=== PATIENT | female | born 1970 | race Caucasian/White ===

== ENCOUNTER 2017-06-04 12:53 | Inpatient (IN) | payer SELFPAY ==
[~2017-06-04] VITALS: Ht 160 cm; Wt 53.3 kg
[2017-06-04 12:55] VITALS: BP 137/93; PULSE 134; RESP 20; TEMP 99.4; O2SAT 97
[2017-06-04] MEDS ORDERED: ZANT150T2 PO (13:18)
[2017-06-04] MEDS ORDERED: ALUMINUM/MAGNESIUM/SIMETH 30 ML CUP PO ONE (13:30)
[2017-06-04] MEDS ORDERED: LIDOCAINE VISCOUS 2% SOLN 15 ML UDC PO ONE (13:30)
[2017-06-04] MEDS ORDERED: SODIUM CHLORIDE 0.9% FLUSH 10 ML FLUSH IVF PRN (13:30)
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
[2017-06-04 14:00] VITALS: O2SAT 99
[2017-06-04 14:18] LABS: AUTOMATED NEUTROPHIL # 9.6 TH/MM3 (1.8-7.7); BASOPHIL # 0.1 TH/MM3 (0-0.2); BASOPHIL % 0.6 % (0.0-2.0); EOSINOPHIL # 0.1 TH/MM3 (0-0.4); EOSINOPHIL % 0.8 % (0.0-4.0); HEMATOCRIT 40.2 % (35.0-46.0); HEMO FLAGS DIFF FINAL; LYMPHOCYTE # 1.3 TH/MM3 (1.0-4.8); MEAN CELL VOLUME 86.7 FL (80.0-100.0); MEAN CORPUSCULAR HEMOGLOBIN 28.5 PG (27.0-34.0); MEAN CORPUSCULAR HGB CONC 32.9 % (32.0-36.0); MONO % 9.3 % (0.0-8.0); NEUT % 78.3 % (16.0-70.0); PLATELET COUNT 299 TH/MM3 (150-450); RED BLOOD COUNT 4.63 MIL/MM3 (4.00-5.30); RED CELL DISTRIBUTION WIDTH 19.7 % (11.6-17.2); WHITE BLOOD COUNT 12.2 TH/MM3 (4.0-11.0)
[2017-06-04 14:30] LABS: INTERNATIONAL NORMALIZED RATIO 1.1 RATIO; PROTHROMBIN TIME - PATIENT 11.7 SEC (9.8-11.6)
[2017-06-04] MEDS ORDERED: SODIUM CHLOR 0.9% 1000 ML INJ 1,000 ML IV ONE (14:30)
[2017-06-04 14:49] LABS: ALKALINE PHOSPHATASE 113 U/L (45-117); ALT (GPT) 29 U/L (10-53); ANION GAP 11 MEQ/L (5-15); AST (GOT) 23 U/L (15-37); BICARBONATE 25.5 MEQ/L (21.0-32.0); BLOOD UREA NITROGEN 12 MG/DL (7-18); CHLORIDE 101 MEQ/L (98-107); GLOMERULAR FILTRATION RATE 116 ML/MIN (>89); MAGNESIUM 1.7 MG/DL (1.5-2.5); POTASSIUM 3.2 MEQ/L (3.5-5.1); SODIUM (NA) 137 MEQ/L (136-145); TOTAL BILIRUBIN ADULT 0.8 MG/DL (0.2-1.0)
[2017-06-04 14:59] LABS: CREATINE KINASE 23 U/L (26-192)
--- NOTE | 2017-06-04 15:18 | RADRPT ---
EXAM DATE/TIME: 06/04/2017 14:07 [facility] COMPARISON: No previous studies available for comparison. INDICATIONS : Chest Pain MEDICAL HISTORY : None. SURGICAL HISTORY : None. ENCOUNTER: Initial ACUITY: 1 day PAIN SCORE: 6/10 LOCATION: Bilateral chest FINDINGS: The lungs are clear without infiltrate, nodule, or mass. There is no appreciable pleural effusion fo r technique. Heart and mediastinum are unremarkable. CONCLUSION: No acute cardiopulmonary disease. Robert Cullen MD on June 04, 2017 at 15:16 Board Certified Radiologist. This report was verified electronically.
[2017-06-04] MEDS ORDERED: IOHEXOL 350 MG/ML 10 ML VIAL (for RAD DIAG) IV ONE (16:11)
--- NOTE | 2017-06-04 16:26 | RADRPT ---
EXAM DATE/TIME: 06/04/2017 16:06 [facility] COMPARISON: No previous studies available for comparison. INDICATIONS : Mid chest pain radiates to left shoulder since yesterday. IV CONTRAST: 75 cc Omnipaque 350 (iohexol) IV RADIATION DOSE: 21.52 CTDIvol (mGy) MEDICAL HISTORY : None SURGICAL HISTORY : Cholecystectomy. ENCOUNTER: Initial ACUITY: 2 days PAIN SCALE: 6/10 LOCATION: Left TECHNIQUE: Volumetric scanning of the chest was performed using a pulmonary embolism protocol MIP images were re constructed. Using automated exposure control and adjustment of the mA and/or kV according to patien t size, radiation dose was kept as low as reasonably achievable to obtain optimal diagnostic quality images. DICOM format image data is available electronically for review and comparison. Follow-up recommendations for incidentally detected pulmonary nodules are based at a minimum on nodul e size and patient risk factors according to Fleischner Society Guidelines. FINDINGS: There is no evidence for PE for technique. There are 2 small lymph nodes in the right cardiophrenic a ngle measuring almost 1 cm each. The esophageal wall appears diffusely thickened distally surrounding adenopathy which measures 2.6 cm in size somewhat matted in the subcarinal location and there appear s to be some degree of enhancement within this area of adenopathy or soft tissue mass. The upper abdo men demonstrates masses adjacent to the stomach not adequately characterize and not completely visual ized and the liver is inhomogeneous. There is a tiny left pleural effusion. Lungs are clear. There is no evidence for dissection. CONCLUSION: 1. There is no evidence for PE for technique. 2. Abnormal thickening of the esophageal wall with surrounding soft tissue mass demonstrate some mini mal enhancement possibly a malignant mass or malignant adenopathy. There also small lymph nodes in th e cardiophrenic angle and very inhomogeneous liver with masses in the upper abdomen and complete CT e xamination of the abdomen and pelvis with intravenous and oral contrast is recommended. Robert Cullen MD on June 04, 2017 at 16:18 Board Certified Radiologist. This report was verified electronically.
[2017-06-04] MEDS ORDERED: KETOROLAC TROMETHAMINE 30 MG/ML (IVP) VIAL IV PUSH ONE (16:30)
[2017-06-04] MEDS ORDERED: PANTOPRAZOLE SODIUM 40 MG VIAL IV PUSH SCH ×2 (18:30→20:00)
[2017-06-04 19:00] VITALS: BP 117/75; PULSE 89; RESP 20; O2SAT 98
[2017-06-04] MEDS ORDERED: ACETAMINOPHEN 325 MG TAB PO PRN (19:30)
[2017-06-04] MEDS ORDERED: MORPHINE SULFATE 4 MG/ML INJ IV PRN (19:30)
[2017-06-04] MEDS ORDERED: SODIUM CHLORIDE 0.9% FLUSH 10 ML FLUSH IV FLUSH PRN (19:30)
[2017-06-04] MEDS ORDERED: LACTULOSE SYRUP 20 GM/30 ML CUP PO PRN (19:30)
[2017-06-04] MEDS ORDERED: MAGNESIUM HYDROXIDE SUSP 30 ML CUP PO PRN (19:30)
[2017-06-04] MEDS ORDERED: SENNOSIDES 8.6 MG TAB PO PRN (19:30)
[2017-06-04] MEDS ORDERED: BISACODYL 10 MG SUPP RECTAL PRN (19:30)
--- NOTE | 2017-06-04 19:45 | HHI.HP ---
[facility] Primary Care Physician No Primary Care Physician Admission Diagnosis Pancreatitis, Esophageal mass Diagnoses: (1) Chest pain Diagnosis: Principal (2) Pancreatitis Diagnosis: Principal (3) Esophageal mass Diagnosis: Principal (4) Leukocytosis Diagnosis: Principal (5) Hypokalemia Diagnosis: Principal (6) Tobacco abuse Diagnosis: Principal Travel History International Travel<30 Days: No Contact w/Intl Traveler <30 Da: No Traveled to Known Affected Are: No History of Present Illness This is a 43-year-old female with no significant PMH except for Tobacco Abuse as the ER with complaints of epigastric/chest pain x2 days. States pain is intermittent w/ radiation to left shoulder and back. Denies fever, chills, cough, SOB, nausea or vomiting. No h/o similar symptoms in the past. On arrival, BP 137/93, HR 134, O2 sat 97% on RA, Temp 99.4. W WBC 12.2. K+ 3.2. Troponin negative. Lipase 787. INR 1.1. D-dimer 2.32. CXR with no acute findings. CTA Pulm negative for PE, noted to have abnormal thickening of esophageal wall w/ surrounding soft tissue mass, ?malignant mass or malignant adenopathy, recommendation for CT Abd/Pelvis, currently pending. Pt denies h/o similar findings. Review of Systems Except as stated in HPI: all other systems reviewed are Neg ROS: 14 point review of systems otherwise negative. Past Family Social History Past Medical History PMH: None Past Surgical History PAST SURGICAL HISTORY: Cholecystectomy Allergies: Coded Allergies: Methadone (Verified Allergy, Severe, 09/27/03) Penicillin (Verified Allergy, Severe, Anaphylaxis, 09/26/03) Family History PAST FAMILY HISTORY: Reviewed. No h/o DM or CAD Social History PAST SOCIAL HISTORY: Occasional alcohol. Positive for tobacco. Negative for drugs. Physical Exam Vital Signs Vital Signs Date Time Temp Pulse Resp B/P Pulse Ox O2 Delivery O2 Flow Rate FiO2 06/04/17 14:00 99 06/04/17 14:00 Nasal Cannula 2 06/04/17 12:55 99.4 134 20 137/93 97 Room Air Physical Exam PE: GENERAL: Pleasant middle-aged white female in no acute distress, mildly anxious. HEENT: PERRLA, EOMI. No scleral icterus or conjunctival pallor. No lid lag or facial droop. CARDIOVASCULAR: Regular rate and rhythm. No obvious murmurs to auscultation. No chest tenderness to palpation. RESPIRATORY: No obvious rhonchi or wheezing. Clear to auscultation. Breath sounds equal bilaterally. GASTROINTESTINAL: Abdomen soft, epigastric tenderness to palpation, nondistended. BS normal. MUSCULOSKELETAL: Extremities without clubbing, cyanosis, or edema. No obvious deformities. NEUROLOGICAL: Awake, alert and oriented x4. No focal neurologic deficits. Moving both upper and lower extremities spontaneously. Laboratory Laboratory Tests Test 06/04/17 13:50 White Blood Count 12.2 Red Blood Count 4.63 Hemoglobin 13.2 Hematocrit 40.2 Mean Corpuscular Volume 86.7 Mean Corpuscular Hemoglobin 28.5 Mean Corpuscular Hemoglobin 32.9 Concent Red Cell Distribution Width 19.7 Platelet Count 299 Mean Platelet Volume 7.7 Neutrophils (%) (Auto) 78.3 Lymphocytes (%) (Auto) 11.0 Monocytes (%) (Auto) 9.3 Eosinophils (%) (Auto) 0.8 Basophils (%) (Auto) 0.6 Neutrophils # (Auto) 9.6 Lymphocytes # (Auto) 1.3 Monocytes # (Auto) 1.1 Eosinophils # (Auto) 0.1 Basophils # (Auto) 0.1 CBC Comment DIFF FINAL Differential Comment Prothrombin Time 11.7 Prothromb Time International 1.1 Ratio Activated Partial 28.0 Thromboplast Time D-Dimer Quantitative (PE/DVT) 2.32 Sodium Level 137 Potassium Level 3.2 Chloride Level 101 Carbon Dioxide Level 25.5 Anion Gap 11 Blood Urea Nitrogen 12 Creatinine 0.57 Estimat Glomerular Filtration 116 Rate Random Glucose 99 Calcium Level 9.2 Magnesium Level 1.7 Total Bilirubin 0.8 Aspartate Amino Transf 23 (AST/SGOT) Alanine Aminotransferase 29 (ALT/SGPT) Alkaline Phosphatase 113 Total Creatine Kinase 23 Troponin I LESS THAN 0.02 Total Protein 7.7 Albumin 3.4 Lipase 787 Result Diagram: 06/04/17 1350 06/04/17 1350 Assessment and Plan Problem List: (1) Chest pain ICD Code: R07.9 Status: Acute (2) Pancreatitis ICD Code: K85.90 Status: Acute (3) Esophageal mass ICD Code: K22.9 Status: Acute (4) Leukocytosis ICD Code: D72.829 Status: Acute (5) Hypokalemia ICD Code: E87.6 Status: Acute (6) Tobacco abuse ICD Code: Z72.0 Status: Acute Assessment and Plan A/P: 1. Chest Pain: Unlikely cardiac, likely secondary to Pancreatitis and Esophageal Mass. Initial trop negative, EKG w/ no acute changes. Will check serial cardiac enzymes for further eval. CXR w/ no acute findings, images reviewed by me. 2. Pancreatitis: Mild. Lipase 787. Protonix IV. Analgesics/antiemetics as needed. Repeat Lipase in am. LFTs normal. 3. Esophageal Mass: CTA Pulm negative for PE, however found to have thickening of esophageal wall w/ ? malignant mass or malignant adenopathy, recommendation for CT Abd/Pelvis w/ contrast, images reviewed by me. CT Abd/ Pelvis scheduled for am in light of recent contrast. Will follow up. Pt denies h/o similar findings. Consult GI for further eval. Analgesics/ antiemetics as needed. 4. Leukocytosis: WBC 12.2. Afebrile. CXR w/ no acute findings, images reviewed. Repeat labs in am. 5. Hypokalemia: K+ 3.2, replace and recheck in am. 6. Tobacco Abuse: Pt requesting NicoDerm patch, ordered. 7. DVT Prophylaxis: SCD/Teds. 8. Social work for d/c planning as needed. 9. Case discussed w/ ER physician at length. Jenny Pimentel MD Jun 04, 2017 19:45
[2017-06-04] MEDS ORDERED: D5-NS + KCL 20 MEQ INJ 1,000 ML IV SCH (20:00)
[2017-06-04] MEDS: REMOVE OLD PATCH T-DERMAL SCH (20:00)
[2017-06-04] MEDS ORDERED: MORPHINE SULFATE 8 MG/ML INJ ONE (20:13)
[2017-06-04] MEDS: NICOTINE 21 MG/24 HR PATCH T-DERMAL SCH (20:14)
[2017-06-04] MEDS: SODIUM CHLOR 0.9% 1000 ML INJ 1,000 ML IV SCH (20:14)
[2017-06-04] MEDS: ONDANSETRON HCL 4 MG/2 ML VIAL IVP PRN (20:28)
[2017-06-04] MEDS: SODIUM CHLORIDE 0.9% FLUSH 10 ML FLUSH IV FLUSH SCH (20:52)
[2017-06-04] MEDS: DOCUSATE SODIUM 50 MG/SENNA 8.6 MG TAB PO SCH (20:52)
[2017-06-04 22:16] VITALS: BP 138/87; PULSE 104; RESP 18; TEMP 99.3; O2SAT 92
[2017-06-04] MEDS: ZOLPIDEM TARTRATE 5 MG TAB PO PRN (22:28)
[2017-06-04] MEDS: ACETAMINOPHEN/HYDROcodone 325 MG/5 MG TAB PO PRN (22:28)
[2017-06-04] MEDS: MORPHINE SULFATE 8 MG/ML INJ IV PUSH PRN (22:57)
[2017-06-05] VITALS (7 sets, daily range): BP systolic 134–170; BP diastolic 78–96; PULSE 106–121; RESP 17–22; TEMP 97.3–100.5; O2SAT 89–95
[2017-06-05] MEDS: ACETAMINOPHEN/HYDROcodone 325 MG/5 MG TAB PO PRN ×5 (01:48→23:19)
[2017-06-05] MEDS: MORPHINE SULFATE 8 MG/ML INJ IV PUSH PRN ×6 (02:54→20:30)
[2017-06-05] MEDS: SODIUM CHLOR 0.9% 1000 ML INJ 1,000 ML IV SCH (05:29)
[2017-06-05] MEDS: ONDANSETRON HCL 4 MG/2 ML VIAL IVP PRN ×2 (06:01→13:54)
[2017-06-05 06:55] LABS: AUTOMATED NEUTROPHIL # 11.6 TH/MM3 (1.8-7.7); BASOPHIL % 0.3 % (0.0-2.0); EOSINOPHIL # 0.1 TH/MM3 (0-0.4); EOSINOPHIL % 0.8 % (0.0-4.0); HEMATOCRIT 36.5 % (35.0-46.0); HEMO FLAGS DIFF FINAL; LYMPHOCYTE # 1.1 TH/MM3 (1.0-4.8); MEAN CELL VOLUME 88.2 FL (80.0-100.0); MEAN CORPUSCULAR HEMOGLOBIN 28.6 PG (27.0-34.0); MEAN CORPUSCULAR HGB CONC 32.4 % (32.0-36.0); MONO % 6.8 % (0.0-8.0); NEUT % 84.1 % (16.0-70.0); PLATELET COUNT 215 TH/MM3 (150-450); RED BLOOD COUNT 4.13 MIL/MM3 (4.00-5.30); RED CELL DISTRIBUTION WIDTH 19.7 % (11.6-17.2); WHITE BLOOD COUNT 13.8 TH/MM3 (4.0-11.0)
[2017-06-05 07:08] LABS: ALT (GPT) 28 U/L (10-53); ANION GAP 9 MEQ/L (5-15); AST (GOT) 22 U/L (15-37); BICARBONATE 25.1 MEQ/L (21.0-32.0); BLOOD UREA NITROGEN 8 MG/DL (7-18); CHLORIDE 102 MEQ/L (98-107); GLOMERULAR FILTRATION RATE 170 ML/MIN (>89); POTASSIUM 3.2 MEQ/L (3.5-5.1); SODIUM (NA) 136 MEQ/L (136-145)
[2017-06-05 07:20] LABS: ALKALINE PHOSPHATASE 104 U/L (45-117); TOTAL BILIRUBIN ADULT 0.7 MG/DL (0.2-1.0)
--- NOTE | 2017-06-05 07:51 | HHI.PR ---
Subjective Remarks complains of epigastric discomfort/pain radiating to the chest- - no dysphagia but feels pain in the midsternum just recently poor po appetite past few weeks lately nausea and diarrhea past 2-3 days poor po when eating patient states + weight loss she was size 5 a year ago and now down to 0 she attributed some of this poor po and weight loss to- "going through a divorce " complains of " foul smelling odor" on her urine but no dysuria LMP about 2 weeks ago- irregular cycles denies chronic alcohol use appears anxious- states history of anxiety disorder in the past- at one point was on Xanax "years ago" Objective Vitals Vital Signs Date Time Temp Pulse Resp B/P Pulse Ox O2 Delivery O2 Flow Rate FiO2 06/05/17 07:31 99.2 118 20 148/90 92 06/05/17 06:03 20 06/05/17 03:53 97.3 106 20 144/91 94 06/05/17 02:48 20 06/05/17 01:50 114 95 06/05/17 00:47 99.5 110 17 134/78 89 06/04/17 22:16 99.3 104 18 138/87 92 06/04/17 19:00 89 20 117/75 98 Room Air 06/04/17 14:00 99 06/04/17 14:00 Nasal Cannula 2 06/04/17 12:55 99.4 134 20 137/93 97 Room Air I/O 06/04/17 06/04/17 06/04/17 06/05/17 06/05/17 06/05/17 06:59 14:59 22:59 06:59 14:59 22:59 Intake Total 615 ml Balance 615 ml Intake Oral 0 ml IV Total 615 ml Result Diagram: 06/05/17 0601 06/05/17 0601 Imaging Last Impressions Chest X-Ray 06/04/17 1329 Signed Impressions: Service Date/Time: Sunday, June 04, 2017 14:07 - CONCLUSION: No acute cardiopulmonary disease. Robert Cullen MD CT Angiography 06/04/17 0000 Signed Impressions: Service Date/Time: Sunday, June 04, 2017 16:06 - CONCLUSION: 1. There is no evidence for PE for technique. 2. Abnormal thickening of the esophageal wall with surrounding soft tissue mass demonstrate some minimal enhancement possibly a malignant mass or malignant adenopathy. There also small lymph nodes in the cardiophrenic angle and very inhomogeneous liver with masses in the upper abdomen and complete CT examination of the abdomen and pelvis with intravenous and oral contrast is recommended. Robert Cullen MD Objective Remarks awake and alert, appears anxious, oriented x 3, slightly tremulous anicteric lungs clear regular rhythm abdomen+ tenderness on deep palpation of epigastric area, + guarding, + bowel sounds extremities no edema neuro exam- non focal A/P Problem List: (1) Chest pain ICD Code: R07.9 Status: Acute (2) Pancreatitis ICD Code: K85.90 Status: Acute (3) Esophageal mass ICD Code: K22.9 Status: Acute (4) Leukocytosis ICD Code: D72.829 Status: Acute (5) Hypokalemia ICD Code: E87.6 Status: Acute (6) Tobacco abuse ICD Code: Z72.0 Status: Acute Assessment and Plan A/P: Chest Pain: Unlikely cardiac, likely secondary to Pancreatitis and Esophageal Mass. Initial trop negative, EKG w/ no acute changes. EKG reviewed . CTA negative for PE Pancreatitis: Mild. Lipase 787. Protonix IV. Analgesics/antiemetics as needed. repeat lipase pending.. continue IVF Esophageal Mass: + weight loss. CT- thickening of esophageal wall w/ ? malignant mass or malignant adenopathy with liver masses for CT Abd/Pelvis scheduled today. GI consulted- EGD/ liver biospy/ ?colonoscopy- with diarrhea PPI IV Leukocytosis: WBC 12.2. Afebrile. CXR w/ no acute findings, images reviewed. Repeat labs pending. check UA- complains of foul smelling odor Acute Diarrhea r/o gastroenteritis- recenti diarrhea, IVF Hypokalemia: K+ 3.2,Give KCL meq IV bolus x 3. FF BMP Tobacco Abuse: NicoDerm patch, DVT Prophylaxis: SCD/Teds. Social work for d/c planning as needed. Case discussed w/ patient Check drug screen, alcohol level Pato Noble MD Jun 05, 2017 07:51
--- NOTE | 2017-06-05 08:47 | PD.CONS ---
HPI History of Present Illness This is a 43 year old female with a history of pancreatitis, who came to the ER for evaluation of odynophagia with associated nausea, vomiting, diarrhea. Her symptoms began 2 days ago and she describes this as a severe "squeezing" pain in her substernal area that radiates to her left shoulder, back, and epigastric area/LUQ. This is aggravated by any swallowing, even water. She reports that she was having nausea, vomiting, diarrhea for about 2 days before the odynophagia started. Her emesis consisted of clear or bilious material. Every time she would also have a liquid brown stool every time she took anything by mouth. She initially thought she had the flu and just tried to rest. The nausea, vomiting, and diarrhea resolved 2 days ago, but she began having the odynophagia and epigastric/LUQ pain. Her symptoms are aggravated with po intake , swallowing and deep breathing. CT Angiography (06/04/17)----> 1. There is no evidence for PE for technique. 2. Abnormal thickening of the esophageal wall with surrounding soft tissue mass demonstrate some minimal enhancement possibly a malignant mass or malignant adenopathy. There also small lymph nodes in the cardiophrenic angle and very inhomogeneous liver with masses in the upper abdomen and complete CT examination of the abdomen and pelvis with intravenous and oral contrast is recommended. She reports that she does not have GERD, but was started on ranitidine when she was first diagnosed with pancreatitis and has continued this. She first had pancreatitis 3 years ago and has been hospitalized twice for this. She is not sure of the etiology, but was told that it was related to alcohol use. She occasionally drinks alcohol and did have 4 shots of ETOH 3 days ago. She has had abnormal weight loss. She does not know how much, but states she went from a size 5 to size 0-1 in the past year. She denies any history of esophageal, gastric, or colorectal cancer. Her sister was recently diagnosed with breast and brain cancer. (Vianca Gomes) [facility] Past Medical History Pancreatitis Hx of narcotic abuse/overdose Respiratory failure secondary to overdose. Past Surgical History Cholecystectomy (Vianca Gomes) Coded Allergies: Methadone (Verified Allergy, Severe, 09/27/03) Penicillin (Verified Allergy, Severe, Anaphylaxis, 09/26/03) Medications Allergies Coded Allergies Type Severity Reaction Last Updated Verified Methadone Allergy Severe 09/27/03 Yes Penicillin Allergy Severe Anaphylaxis 09/26/03 Yes Active Scripts Medications Dose Route/Sig Days Date Category Zantac (Ranitidine HCl) 150 Mg Tab 150 Mg PO DAILY 06/04/17 Reported Family History No h/o DM or CAD No esophageal, gastric, or colorectal cancer Sister recently diagnosed with brain and breast cancer, in her 60's Social History Occasional alcohol Negative for drugs She was smoking 1.5 PPD, but states she now uses the E-Cigarette and is now down to 1/2-3/4 ppd. (Vianca Gomes) Review of Systems Constitutional: COMPLAINS OF: Fatigue, Weight loss, Chills, Change in appetite , DENIES: Fever Respiratory: DENIES: Cough, Shortness of breath Cardiovascular: COMPLAINS OF: Chest pain Gastrointestinal: COMPLAINS OF: Abdominal pain, Diarrhea, Nausea, Vomiting, Anorexia, Odynophagia, DENIES: Black stools, Bloody stools, Constipation, Difficulty Swallowing, Swelling of Abdomen, Heartburn Musculoskeletal: DENIES: Joint pain Integumentary: DENIES: Abnormal pigmentation Hematologic/lymphatic: DENIES: Bruising Neurologic: DENIES: Headache Psychiatric: DENIES: Confusion (Vianca Gomes) GI Exam Vitals I&O Vital Signs Date Time Temp Pulse Resp B/P Pulse Ox O2 Delivery O2 Flow Rate FiO2 06/05/17 07:31 99.2 118 20 148/90 92 06/05/17 06:03 20 06/05/17 03:53 97.3 106 20 144/91 94 06/05/17 02:48 20 06/05/17 01:50 114 95 06/05/17 00:47 99.5 110 17 134/78 89 06/04/17 22:16 99.3 104 18 138/87 92 06/04/17 19:00 89 20 117/75 98 Room Air 06/04/17 14:00 99 06/04/17 14:00 Nasal Cannula 2 06/04/17 12:55 99.4 134 20 137/93 97 Room Air I/O 06/04/17 06/04/17 06/04/17 06/05/17 06/05/17 06/05/17 07:00 15:00 23:00 07:00 15:00 23:00 Intake Total 615 ml Balance 615 ml Intake Oral 0 ml IV Total 615 ml Imaging Last Impressions Chest X-Ray 06/04/17 1329 Signed Impressions: Service Date/Time: Sunday, June 04, 2017 14:07 - CONCLUSION: No acute cardiopulmonary disease. Robert Cullen MD CT Angiography 06/04/17 0000 Signed Impressions: Service Date/Time: Sunday, June 04, 2017 16:06 - CONCLUSION: 1. There is no evidence for PE for technique. 2. Abnormal thickening of the esophageal wall with surrounding soft tissue mass demonstrate some minimal enhancement possibly a malignant mass or malignant adenopathy. There also small lymph nodes in the cardiophrenic angle and very inhomogeneous liver with masses in the upper abdomen and complete CT examination of the abdomen and pelvis with intravenous and oral contrast is recommended. Robert Cullen MD Laboratory Test 06/04/17 06/05/17 06/05/17 13:50 00:04 06:01 White Blood Count 12.2 TH/MM3 13.8 TH/MM3 Red Blood Count 4.63 MIL/MM3 4.13 MIL/MM3 Hemoglobin 13.2 GM/DL 11.8 GM/DL Hematocrit 40.2 % 36.5 % Mean Corpuscular Volume 86.7 FL 88.2 FL Mean Corpuscular Hemoglobin 28.5 PG 28.6 PG Mean Corpuscular Hemoglobin 32.9 % 32.4 % Concent Red Cell Distribution Width 19.7 % 19.7 % Platelet Count 299 TH/MM3 215 TH/MM3 Mean Platelet Volume 7.7 FL 7.3 FL Neutrophils (%) (Auto) 78.3 % 84.1 % Lymphocytes (%) (Auto) 11.0 % 8.0 % Monocytes (%) (Auto) 9.3 % 6.8 % Eosinophils (%) (Auto) 0.8 % 0.8 % Basophils (%) (Auto) 0.6 % 0.3 % Neutrophils # (Auto) 9.6 TH/MM3 11.6 TH/MM3 Lymphocytes # (Auto) 1.3 TH/MM3 1.1 TH/MM3 Monocytes # (Auto) 1.1 TH/MM3 0.9 TH/MM3 Eosinophils # (Auto) 0.1 TH/MM3 0.1 TH/MM3 Basophils # (Auto) 0.1 TH/MM3 0.0 TH/MM3 CBC Comment DIFF FINAL DIFF FINAL Differential Comment Prothrombin Time 11.7 SEC Prothromb Time International 1.1 RATIO Ratio Activated Partial 28.0 SEC Thromboplast Time D-Dimer Quantitative (PE/DVT) 2.32 MG/L FEU Sodium Level 137 MEQ/L 136 MEQ/L Potassium Level 3.2 MEQ/L 3.2 MEQ/L Chloride Level 101 MEQ/L 102 MEQ/L Carbon Dioxide Level 25.5 MEQ/L 25.1 MEQ/L Anion Gap 11 MEQ/L 9 MEQ/L Blood Urea Nitrogen 12 MG/DL 8 MG/DL Creatinine 0.57 MG/DL 0.41 MG/DL Estimat Glomerular Filtration 116 ML/MIN 170 ML/MIN Rate Random Glucose 99 MG/DL 89 MG/DL Calcium Level 9.2 MG/DL 8.5 MG/DL Magnesium Level 1.7 MG/DL Total Bilirubin 0.8 MG/DL 0.7 MG/DL Aspartate Amino Transf 23 U/L 22 U/L (AST/SGOT) Alanine Aminotransferase 29 U/L 28 U/L (ALT/SGPT) Alkaline Phosphatase 113 U/L 104 U/L Total Creatine Kinase 23 U/L Troponin I LESS THAN 0.02 LESS THAN 0.02 LESS THAN 0.02 NG/ML NG/ML NG/ML Total Protein 7.7 GM/DL 6.5 GM/DL Albumin 3.4 GM/DL 2.8 GM/DL Lipase 787 U/L 454 U/L Physical Examination HEENT: Normocephalic; atraumatic; no jaundice. CHEST: CTA CARDIAC: RRR ABDOMEN: Soft, nondistended, mild epigastric/LUQ tenderness; no hepatosplenomegaly; bowel sounds are present in all four quadrants. EXTREMITIES: No clubbing, cyanosis, or edema. SKIN: Normal; no rash; no jaundice. QUOTATION CHECKER: No focal deficits; alert and oriented times three. (Vianca Gomes) Assessment and Plan Plan ASSESSMENT: - Odynophagia with abnormal imaging on CTA thorax with abnormal esophageal wall. Painful swallowing x [address] Angiography (06/04/17)----> 1. There is no evidence for PE for technique. 2. Abnormal thickening of the esophageal wall with surrounding soft tissue mass demonstrate some minimal enhancement possibly a malignant mass or malignant adenopathy. There also small lymph nodes in the cardiophrenic angle and very inhomogeneous liver with masses in the upper abdomen and complete CT examination of the abdomen and pelvis with intravenous and oral contrast is recommended. Never had EGD. Ice chips. - Abdominal pain with elevated lipase and hx of pancreatitis. Pt had first episode of pancreatitis 3 years ago and has had two hospitalizations. She was told that these episodes were most likely related to ETOH. She is s/p cholecystectomy. She reports that she occasionally drinks and had 4 shots [address] scan abdomen and pelvis pending. Lipase improved 454. - Hepatic masses. LFTs normal. No hx esophageal, gastric, or colorectal cancer. Her sister was recently diagnosed with breast and brain cancer. CT scan abdomen and pelvis pending. Will get AFP, Ca19-9, CEA, Hepatitis panel. - Abn. Wt. Loss, unintentional. Pt does not know how much but states she has gone from a size 5 to a size 0-1 over past year. - Leukocytosis, mild. WBC 13.8. - Hypokalemia. 3.2, replacement per attending. PLAN: - EGD in am - Obtain consents - Clear liquids - NPO after MN - Cont. PPI - Cont. IVF - Await CT Scan abdomen and pelvis - CEA, AFP, Ca19-9 - CBC, BMP in am - Supportive care - Further recommendations to follow based on results of above - Pt seen and examined by Dr. Cary and myself and this note is written on her behalf (Vianca Gomes) Physician Comments seen, examined agree with above tumor markers (April Cary MD) Vianca Gomes Jun 05, 2017 08:47 April Cary MD Jun 05, 2017 16:33
[2017-06-05] MEDS ORDERED: MISCELLANEOUS NURSING INFORMATION ONE (09:00)
[2017-06-05] MEDS: SODIUM CHLORIDE 0.9% FLUSH 10 ML FLUSH IV FLUSH SCH ×2 (09:00→20:24)
[2017-06-05] MEDS ORDERED: DIATRIZOATE MEGLUM/DIATRIZOATE SOD 9 ML CUP PO ONE (09:15)
[2017-06-05] MEDS: POTASSIUM CHLORIDE INJ 10 MEQ in DEXT 5%-NACL 0.9% 1000 ML INJ 1,000 ML IV SCH ×2 (10:04→20:31)
[2017-06-05] MEDS: POTASSIUM CHLOR 10 MEQ PREMIX 100 ML IV SCH ×3 (10:05→15:27)
[2017-06-05] MEDS: NICOTINE 21 MG/24 HR PATCH T-DERMAL SCH (10:06)
[2017-06-05] MEDS: REMOVE OLD PATCH T-DERMAL SCH (10:07)
[2017-06-05] MEDS: DOCUSATE SODIUM 50 MG/SENNA 8.6 MG TAB PO SCH ×2 (10:07→20:29)
[2017-06-05 12:57] LABS: BACTERIA, URINE MANY /hpf; BLOOD, URINE SMALL (NEG); COMMENT (UR) CULTURE INDICATED; CULTURE IF INDICATED CULTURE INDICATED; GLUCOSE,URINE NEG (NEG); KETONE, URINE TRACE mg/dL (NEG); MUCUS URINE FEW /lpf (OCC); NITRITE,URINE NEG (NEG); PH, URINE 5.5 (5.0-8.5); SQUAMOUS EPITHELIAL CELL URINE 3 /hpf (0-5); URINE COLOR YELLOW (YELLW/STRAW)
[2017-06-05 13:07] LABS: AMPHETAMINE, URINE NEG (NEG); BARBITURATES, URINE NEG (NEG); COCAINE, URINE NEG (NEG)
[2017-06-05] MEDS ORDERED: IOHEXOL 350 MG/ML 10 ML VIAL (for RAD DIAG) IV ONE (17:31)
--- NOTE | 2017-06-05 17:58 | RADRPT ---
EXAM DATE/TIME: 06/05/2017 17:29 [place] COMPARISON: CT PULMONARY ANGIOGRAM, June 04, 2017, 16:06. INDICATIONS : Left upper abdomen pain. IV CONTRAST: 60 cc Omnipaque 350 (iohexol) IV ORAL CONTRAST: Partial prescribed oral contrast ingested. RADIATION DOSE: 9.96 CTDIvol (mGy) MEDICAL HISTORY : None SURGICAL HISTORY : Cholecystectomy. ENCOUNTER: Initial ACUITY: 1 day PAIN SCALE: 8/10 LOCATION: Left upper quadrant TECHNIQUE: Volumetric scanning of the abdomen and pelvis was performed. Using automated exposure control and ad justment of the mA and/or kV according to patient size, radiation dose was kept as low as reasonably achievable to obtain optimal diagnostic quality images. DICOM format image data is available electro nically for review and comparison. FINDINGS: LOWER LUNGS: Small bilateral pleural effusions left greater than right. Mild bibasilar atelectasis. In the esophag eal hiatus region, extending into the left posterior abdomen is a large multiloculated fluid collect ion. The fluid is 10.2 x 3.1 cm across. There is an inferior extension into the body of the pancreas could be a dissecting large pseudocyst. There is an additional elongated collection in the anterior s ubphrenic space measuring 8.0 x 1.2 cm. I do not see any air or hemorrhage within the elongated irre gular fluid collection to suggest superinfection. It is unchanged from the previous study. Some of th e fluid dissects down the posterior aspect of the pararenal space on the left. LIVER: Heterogeneous density without lesion. There is no dilation of the biliary tree. Gallbladder surgical ly absent. SPLEEN: Normal size without lesion. Numerous splenic varices along the greater curvature of the stomach. I s uspect the splenic vein has been thrombosed previousty. PANCREAS: Dilatation suggest chronic pancreatitis. 2 cm fluid collection in the body the pancreas may be the be ginning of the large subphrenic collection noted previously. There is significant surrounding around the body of the pancreas. KIDNEYS: Normal in size and shape. There is no mass, stone or hydronephrosis. ADRENAL GLANDS: Within normal limits. VASCULAR: There is no aortic aneurysm. BOWEL/MESENTERY: The stomach, small bowel, and colon demonstrate no acute abnormality. There is no free intraperitone al air or fluid. ABDOMINAL WALL: Within normal limits. RETROPERITONEUM: There is no lymphadenopathy. BLADDER: No wall thickening or mass. REPRODUCTIVE: 2 cm left ovarian cyst. INGUINAL: There is no lymphadenopathy or hernia. MUSCULOSKELETAL: Within normal limits for patient age. CONCLUSION: In the esophageal hiatus region, extending into the left posterior abdomen is a large multiloculated fluid collection. The fluid is 10.2 x 3.1 cm across. There is an inferior extension into the body of the pancreas could be a dissecting large pseudocyst. There is an additional elongated collection in the anterior subphrenic space measuring 8.0 x 1.2 cm. I do not see any air or hemorrhage within the elongated irregular fluid collection to suggest superinfection. It is unchanged from the previous melissa dy. Some of the fluid dissects down the posterior aspect of the pararenal space on the left Brian Navarro MD on June 05, 2017 at 17:46 Board Certified Radiologist. This report was verified electronically.
--- NOTE | 2017-06-05 20:00 | EKG ---
Date Performed: 06/04/2017 Time Performed: 13:22:48 PTAGE: 43 years EKG: SINUS TACHYCARDIA MINIMAL VOLTAGE CRITERIA FOR LVH, CONSIDER NORMAL VARIANT NONSPECIFIC ST & T-WAVE ABNORMALITY ABNORMAL RHYTHM ECG PREVIOUS TRACING : 09/26/2003 18.27 Since previous tracing, no significant change noted DOCTOR: Kait Chester Interpretating Date/Time 06/05/2017 20:00:11
[2017-06-05] MEDS: PANTOPRAZOLE SODIUM 40 MG VIAL IV PUSH SCH (20:30)
[2017-06-05] MEDS: ZOLPIDEM TARTRATE 5 MG TAB PO PRN (21:58)
[2017-06-06] VITALS (8 sets, daily range): BP systolic 128–140; BP diastolic 73–95; PULSE 100–143; RESP 19–32; TEMP 99–101.2; O2SAT 88–100
[2017-06-06] MEDS: MORPHINE SULFATE 8 MG/ML INJ IV PUSH PRN ×3 (01:15→11:52)
[2017-06-06] MEDS: ACETAMINOPHEN/HYDROcodone 325 MG/5 MG TAB PO PRN (03:46)
[2017-06-06] MEDS: POTASSIUM CHLORIDE INJ 10 MEQ in DEXT 5%-NACL 0.9% 1000 ML INJ 1,000 ML IV SCH ×2 (03:47→15:09)
[2017-06-06 07:11] LABS: AUTOMATED NEUTROPHIL # 11.8 TH/MM3 (1.8-7.7); BASOPHIL # 0.1 TH/MM3 (0-0.2); BASOPHIL % 0.4 % (0.0-2.0); EOSINOPHIL % 0.4 % (0.0-4.0); HEMATOCRIT 33.2 % (35.0-46.0); HEMO FLAGS DIFF FINAL; LYMPH % 4.2 % (9.0-44.0); LYMPHOCYTE # 0.6 TH/MM3 (1.0-4.8); MEAN CELL VOLUME 88.3 FL (80.0-100.0); MEAN CORPUSCULAR HEMOGLOBIN 28.2 PG (27.0-34.0); MEAN CORPUSCULAR HGB CONC 31.9 % (32.0-36.0); MONO % 7.3 % (0.0-8.0); NEUT % 87.7 % (16.0-70.0); PLATELET COUNT 210 TH/MM3 (150-450); RED BLOOD COUNT 3.76 MIL/MM3 (4.00-5.30); RED CELL DISTRIBUTION WIDTH 19.5 % (11.6-17.2); WHITE BLOOD COUNT 13.4 TH/MM3 (4.0-11.0)
[2017-06-06 07:36] LABS: BICARBONATE 29.7 MEQ/L (21.0-32.0)
[2017-06-06] MEDS: SODIUM CHLORIDE 0.9% FLUSH 10 ML FLUSH IV FLUSH SCH ×2 (08:53→21:00)
[2017-06-06] MEDS: PANTOPRAZOLE SODIUM 40 MG VIAL IV PUSH SCH ×2 (08:54→21:00)
[2017-06-06] MEDS: DOCUSATE SODIUM 50 MG/SENNA 8.6 MG TAB PO SCH ×2 (08:56→21:00)
[2017-06-06] MEDS: NICOTINE 21 MG/24 HR PATCH T-DERMAL SCH (08:56)
[2017-06-06] MEDS: ONDANSETRON HCL 4 MG/2 ML VIAL IVP PRN (08:56)
[2017-06-06] MEDS: REMOVE OLD PATCH T-DERMAL SCH (08:57)
--- NOTE | 2017-06-06 10:55 | HHI.PR ---
Subjective Remarks Patient in bed, she is complaining od chest pain and epigastric pain. No n/v/d/ c. Denies sob. She has chest pain with deep inspiration. Pain is constant and says morphine doesn't help. She is also noted tachycardic. No fever or chills. No cough. No nausea or vomiting she is however NPO Objective Vitals Vital Signs Date Time Temp Pulse Resp B/P Pulse Ox O2 Delivery O2 Flow Rate FiO2 06/06/17 08:00 99.5 124 19 134/95 92 06/06/17 00:10 100.4 130 21 132/84 92 06/05/17 19:18 99.7 120 22 139/90 95 06/05/17 15:58 100.5 121 22 170/96 90 06/05/17 11:45 99.9 117 20 142/86 92 Result Diagram: 06/06/17 0545 06/06/17 0545 Imaging Last Impressions Chest X-Ray 06/04/17 1329 Signed Impressions: Service Date/Time: Sunday, June 04, 2017 14:07 - CONCLUSION: No acute cardiopulmonary disease. Robert Cullen MD CT Angiography 06/04/17 0000 Signed Impressions: Service Date/Time: Sunday, June 04, 2017 16:06 - CONCLUSION: 1. There is no evidence for PE for technique. 2. Abnormal thickening of the esophageal wall with surrounding soft tissue mass demonstrate some minimal enhancement possibly a malignant mass or malignant adenopathy. There also small lymph nodes in the cardiophrenic angle and very inhomogeneous liver with masses in the upper abdomen and complete CT examination of the abdomen and pelvis with intravenous and oral contrast is recommended. Robert Cullen MD Abdomen/Pelvis CT 06/04/17 0000 Signed Impressions: Service Date/Time: Monday, June 05, 2017 17:29 - CONCLUSION: In the esophageal hiatus region, extending into the left posterior abdomen is a large multiloculated fluid collection. The fluid is 10.2 x 3.1 cm across. There is an inferior extension into the body of the pancreas could be a dissecting large pseudocyst. There is an additional elongated collection in the anterior subphrenic space measuring 8.0 x 1.2 cm. I do not see any air or hemorrhage within the elongated irregular fluid collection to suggest superinfection. It is unchanged from the previous study. Some of the fluid dissects down the posterior aspect of the pararenal space on the left Brian Navarro MD Objective Remarks GENERAL: 43 yo skinny F in bed, complaining of pain. SKIN: Warm and dry. HEAD: Atraumatic. Normocephalic. EYES: Pupils equal and round. No scleral icterus. No injection or drainage. ENT: No nasal bleeding or discharge. Mucous membranes pink and moist. NECK: Trachea midline. No JVD. CARDIOVASCULAR: Tachycardic. Regular rate and rhythm. RESPIRATORY: No accessory muscle use. Clear to auscultation. Breath sounds equal bilaterally. GASTROINTESTINAL: Abdomen soft, tenderness epigastric, nondistended. MUSCULOSKELETAL: Extremities without clubbing, cyanosis, or edema. No obvious deformities. NEUROLOGICAL: Awake and alert. No obvious cranial nerve deficits. Motor grossly within normal limits. Five out of 5 muscle strength in the arms and legs. Normal speech. PSYCHIATRIC: Appropriate mood and affect; insight and judgment normal. A/P Problem List: (1) Chest pain ICD Code: R07.9 Status: Acute (2) Pancreatitis ICD Code: K85.90 Status: Acute (3) Esophageal mass ICD Code: K22.9 Status: Acute (4) Leukocytosis ICD Code: D72.829 Status: Acute (5) Hypokalemia ICD Code: E87.6 Status: Acute (6) Tobacco abuse ICD Code: Z72.0 Status: Acute Assessment and Plan Chest Pain: Unlikely cardiac, likely secondary to Pancreatitis and Esophageal Mass. Initial trop negative, EKG w/ no acute changes. EKG reviewed . CTA negative for PE Pancreatitis: Mild. Lipase 787. Protonix IV. Analgesics/antiemetics as needed. repeat lipase pending.. continue IVF Esophageal Mass: + weight loss. CT- thickening of esophageal wall w/ ? malignant mass or malignant adenopathy with liver masses for CT Abd/Pelvis GI consulted- plan for EGD/ liver biospy/ ?colonoscopy- with diarrhea PPI IV Leukocytosis: WBC 13. Afebrile. CXR w/ no acute findings, images reviewed. Repeat labs pending. check UA- complains of foul smelling odor. urine cultures pending Acute Diarrhea r/o gastroenteritis- recent diarrhea Continue IVF Persistent Hypokalemia: K+ 3.2. Give KCL meq IV bolus x 2 and continue IVF with supplemental KCl. FF BMP Tobacco Abuse: NicoDerm patch DVT Prophylaxis: SCD/Teds. Social work for d/c planning as needed. Case discussed w/ patient, nurse, GI service Check drug screen, alcohol level positive for opiates and cannabis. DC maynard pending improvement. plan for egd per gi. patient might need CT chest to r/o malignancy /lymphoma Neelam Posey MD Jun 06, 2017 10:55
[2017-06-06] MEDS: POTASSIUM CHLOR 20 MEQ PREMIX 100 ML IV SCH ×2 (11:52→16:00)
--- NOTE | 2017-06-06 14:19 | HHI.GIFU ---
GI Follow-up Note Consult Follow-up Subjective: Patient came to gi for egd, was noted to be tachycardic, saturation decreased , procedure cancelled . Objective: PHYSICAL EXAMINATION: bp 120/90, hr -145, sat 85-placed on Ventimask-sat 97, hyperventilating low grade fever Vital Signs Date Time Temp Pulse Resp B/P Pulse Ox O2 Delivery O2 Flow Rate FiO2 06/06/17 08:00 99.5 124 19 134/95 92 HEENT: Pupils round and reactive to light; normocephalic; atraumatic; no jaundice. Throat is clear. NECK: Neck is supple, no JVD, no lymphadenopathy. CHEST: Chest is clear to auscultation and percussion. CARDIAC: Regular rate and rhythm with no murmur gallop or rubs. ABDOMEN: Soft, distended, nontender; no hepatosplenomegaly; bowel sounds are present in all four quadrants. EXTREMITIES: No clubbing, cyanosis, or edema. SKIN: Normal; no rash; no jaundice. ACQUISITION PROFESSIONAL: No focal deficits; alert and oriented times three. Available Data (labs, X- Rays, Procedues) : ASSESSMENT/PLAN: pancreatic pseudocyst r/o infection abdominal pain secondary to the above discussed with , IR and Recommendations NPO consult surgery consult infectious disease cancel egd for now transfer to icu It was a pleasure seeing Yari Martin. Thank you for this consult. Entered by: April Stewart MD Jun 06, 2017 14:19
--- NOTE | 2017-06-06 14:22 | HHI.PR ---
Subjective Remarks Patient went for EGD , I am paged by Dr Cary as the patient is noted dessatting in 70s while on 2L . The patient is in bed, appears in distress. The patient is complaining of sob . Speaks in short sentences. Has also fevers. Feels tired. She is also complaining of chest maynard and abdominal pain worsening. She is noted with fevers 101. She denies having any cough. Says eh feels much better on bipap but still sob. She also says she feels anxious. She denies using any illicit drugs however noted with positive drug screen. Objective Vitals Vital Signs Date Time Temp Pulse Resp B/P Pulse Ox O2 Delivery O2 Flow Rate FiO2 06/06/17 08:00 99.5 124 19 134/95 92 06/06/17 00:10 100.4 130 21 132/84 92 06/05/17 19:18 99.7 120 22 139/90 95 06/05/17 15:58 100.5 121 22 170/96 90 Result Diagram: 06/06/17 0545 06/06/17 0545 Imaging Last Impressions Chest X-Ray 06/04/17 1329 Signed Impressions: Service Date/Time: Sunday, June 04, 2017 14:07 - CONCLUSION: No acute cardiopulmonary disease. Robert Cullen MD CT Angiography 06/04/17 0000 Signed Impressions: Service Date/Time: Sunday, June 04, 2017 16:06 - CONCLUSION: 1. There is no evidence for PE for technique. 2. Abnormal thickening of the esophageal wall with surrounding soft tissue mass demonstrate some minimal enhancement possibly a malignant mass or malignant adenopathy. There also small lymph nodes in the cardiophrenic angle and very inhomogeneous liver with masses in the upper abdomen and complete CT examination of the abdomen and pelvis with intravenous and oral contrast is recommended. Robert Cullen MD Abdomen/Pelvis CT 06/04/17 0000 Signed Impressions: Service Date/Time: Monday, June 05, 2017 17:29 - CONCLUSION: In the esophageal hiatus region, extending into the left posterior abdomen is a large multiloculated fluid collection. The fluid is 10.2 x 3.1 cm across. There is an inferior extension into the body of the pancreas could be a dissecting large pseudocyst. There is an additional elongated collection in the anterior subphrenic space measuring 8.0 x 1.2 cm. I do not see any air or hemorrhage within the elongated irregular fluid collection to suggest superinfection. It is unchanged from the previous study. Some of the fluid dissects down the posterior aspect of the pararenal space on the left Brian Navarro MD Objective Remarks GENERAL: 43 yo skinny F in bed, with sob, lethargic somewhat, complaining of pain. ENT: No nasal bleeding or discharge. Mucous membranes pink and moist. NECK: Trachea midline. No JVD. CARDIOVASCULAR: Tachycardic. Regular rate and rhythm. RESPIRATORY: Short of breath. Tachypneic. Using some accessory muscle use gasping for air, however improving now on bipap GASTROINTESTINAL: Abdomen soft, tenderness epigastric, nondistended. MUSCULOSKELETAL: Extremities without clubbing, cyanosis, or edema. No obvious deformities. NEUROLOGICAL: Awake and alert. No obvious cranial nerve deficits. Motor grossly within normal limits. Normal speech, has a weak voice. A/P Problem List: (1) Chest pain ICD Code: R07.9 Status: Acute (2) Pancreatitis ICD Code: K85.90 Status: Acute (3) Esophageal mass ICD Code: K22.9 Status: Acute (4) Leukocytosis ICD Code: D72.829 Status: Acute (5) Hypokalemia ICD Code: E87.6 Status: Acute (6) Tobacco abuse ICD Code: Z72.0 Status: Acute Assessment and Plan Acute respiratory failure. On BiAP at this time. The patient was noted desattign in 70s while she went fot EGD. The patient is placed on NRM and her O2 sat is 85%. Patient is still sob and she is placed on Bipap. ABG stat reviewed. . CXR stat reviewed patient developing new infiltrate left lower lobe with effusion. Moitor O2 sat . Transfer patient to ICU. Sepsis meeting criteria (fever, tachycardia, source of infection is likely left lower lobe PNA, GI, UTI). Blood cultures ordered and pending. Urine Cx with GNR. Start CBC, CMP, lactic acid per protocol. Discussed with Dr Cary form GI . Jam start IV antibiotics Levaquin and flagyl. Give 1L nS bolus. Monitor VS closely. Continue IV fluids maintenance. Also consult Dr Ellis surgeon continuing education specialist for evaluation of esophageal mass as IR indicated gen surg for eval as well. Chest Pain: Unlikely cardiac, likely secondary to Pancreatitis and Esophageal Mass. Initial trop negative, EKG w/ no acute changes. EKG reviewed . CTA negative for PE Pancreatitis: Mild. Lipase 787. Protonix IV. Analgesics/antiemetics as needed. repeat lipase pending.. continue IVF Esophageal Mass: + weight loss. CT- thickening of esophageal wall w/ ? malignant mass or malignant adenopathy with liver masses for CT Abd/Pelvis GI consulted- plan for EGD/ liver biospy/ ?colonoscopy- with diarrhea PPI IV Consult gen surgery Dr Ellis will follow. Leukocytosis: WBC 13. Afebrile. CXR w/ no acute findings, images reviewed. Repeat labs pending. check UA- complains of foul smelling odor. urine cultures pending Acute Diarrhea r/o gastroenteritis- recent diarrhea Continue IVF Persistent Hypokalemia: K+ 3.2. Give KCL meq IV bolus x 2 and continue IVF with supplemental KCl. FF BMP Tobacco Abuse: NicoDerm patch DVT Prophylaxis: SCD/Teds. Social work for d/c planning as needed. Case discussed w/ patient, nurse, GI service Check drug screen, alcohol level positive for opiates and cannabis. Patient noted dessating on bipap wean as tolerated. Pt also with sepsis criteria. Started on antibiotics. Gen surgeon consult as well for eval of esophageal mass. Transfer to ICU Discussed with the patient, nurse, Dr Cary GI Code status discussed with the patient she wants full code. Critical care time 45 minutes. Neelam Posey MD Jun 06, 2017 14:22
[2017-06-06 14:42] LABS: BLOOD GAS BASE EXCESS 2.1 mmol/L (-2-2); BLOOD GAS CARBOXYHEMOGLOBIN 2.3 % (0-4); BLOOD GAS HCO3 25 mmol/L (22-26); BLOOD GAS O2 HGB SATURATION 95 % (90-100); BLOOD GAS OXYGEN CONTENT 16.7 Vol % (12.0-20.0); BLOOD GAS PCO2 34 mmHg (38-42); BLOOD GAS PO2 109 mmHg (61-120); BLOOD GAS TOTAL HGB 12.3 G/DL (12.0-16.0); CRITICAL VALUE NO; DRAW SITE RT RADIAL; LITER FLOW 10 L/M; NUMBER OF ARTERIAL PUNCTURES 1; OXYGEN DEVICE SIMPLE MASK; STAT YES; TEMP CORR TO 98.6; ULNAR PULSE PRESENT
--- NOTE | 2017-06-06 14:43 | RADRPT ---
EXAM DATE/TIME: 06/06/2017 14:31 [facility] COMPARISON: CHEST SINGLE AP, June 04, 2017, 14:07. INDICATIONS : Shortness of breath. MEDICAL HISTORY : None. SURGICAL HISTORY : None. ENCOUNTER: Subsequent ACUITY: 1 day PAIN SCORE: 0/10 LOCATION: Bilateral chest FINDINGS: A single view of the chest demonstrates a developing infiltrate the left lung base. Is a small left p leural effusion. Mild atelectasis right lower lobe.. The cardiomediastinal contours are unremarkable . Osseous structures are intact. CONCLUSION: Developing infiltrate in the left lower lobe with a small left pleural effusion. Brian Navarro MD on June 06, 2017 at 14:41 Board Certified Radiologist. This report was verified electronically.
[2017-06-06] MEDS ORDERED: MAGNESIUM OXIDE 400 MG TAB PO ONE (15:00)
[2017-06-06] MEDS: LEVOFLOXACIN 500 MG PREMIX INJ 100 ML IV SCH (15:00)
[2017-06-06 15:18] LABS: AUTOMATED NEUTROPHIL # 12.3 TH/MM3 (1.8-7.7); BASOPHIL # 0.1 TH/MM3 (0-0.2); BASOPHIL % 0.5 % (0.0-2.0); EOSINOPHIL % 0.2 % (0.0-4.0); HEMATOCRIT 32.4 % (35.0-46.0); HEMO FLAGS DIFF FINAL; LYMPH % 4.9 % (9.0-44.0); LYMPHOCYTE # 0.7 TH/MM3 (1.0-4.8); MEAN CELL VOLUME 87.5 FL (80.0-100.0); MEAN CORPUSCULAR HEMOGLOBIN 28.4 PG (27.0-34.0); MEAN CORPUSCULAR HGB CONC 32.4 % (32.0-36.0); MONO % 6.4 % (0.0-8.0); PLATELET COUNT 214 TH/MM3 (150-450); RED CELL DISTRIBUTION WIDTH 19.8 % (11.6-17.2)
[2017-06-06] MEDS: HYDROmorphone HCL PF 1 MG/ML VIAL IV PUSH PRN (15:20)
[2017-06-06 15:45] LABS: ALT (GPT) 20 U/L (10-53); ANION GAP 10 MEQ/L (5-15); AST (GOT) 13 U/L (15-37); BICARBONATE 28.4 MEQ/L (21.0-32.0); BLOOD UREA NITROGEN 5 MG/DL (7-18); CHLORIDE 100 MEQ/L (98-107); GLOMERULAR FILTRATION RATE 226 ML/MIN (>89); MAGNESIUM 1.7 MG/DL (1.5-2.5); SODIUM (NA) 138 MEQ/L (136-145)
[2017-06-06] MEDS ORDERED: VANCOMYCIN INJ 500 MG in SODIUM CHLORIDE 0.9% INJ 100 ML IV ONE (15:45)
[2017-06-06] MEDS ORDERED: SODIUM CHLOR 0.9% 1000 ML INJ 1,000 ML IV ONE (15:45)
[2017-06-06] MEDS: metroNIDAZOLE 500 MG INJ 100 ML IV SCH ×2 (16:00→22:00)
[2017-06-06 16:05] LABS: ALKALINE PHOSPHATASE 112 U/L (45-117); TOTAL BILIRUBIN ADULT 0.6 MG/DL (0.2-1.0)
[2017-06-06 16:09] LABS: POTASSIUM 2.9 MEQ/L (3.5-5.1)
[2017-06-06] MEDS ORDERED: POTASSIUM CHLOR 20 MEQ PREMIX 100 ML IV SCH (16:45)
[2017-06-06] MEDS ORDERED: MAGNESIUM SULFATE INJ 4 GM in SODIUM CHLORIDE 0.9% INJ 92 ML IV PRN (16:45)
[2017-06-06] MEDS ORDERED: POTASSIUM PHOSPHATE INJ 30 MMOL in SODIUM CHLOR 0.9% 250 ML INJ 250 ML IV PRN (16:45)
[2017-06-06] MEDS ORDERED: MAGNESIUM OXIDE 400 MG TAB PO PRN (16:45)
[2017-06-06] MEDS ORDERED: SODIUM PHOSPHATE INJ 30 MMOL in SODIUM CHLOR 0.9% 250 ML INJ 240 ML IV PRN (16:45)
[2017-06-06] MEDS ORDERED: POTASSIUM PHOSPHATE MONOBASIC 500 MG TAB PO PRN (16:45)
[2017-06-06] MEDS ORDERED: POTASSIUM PHOSPHATE MONOBASIC 500 MG TAB PO/TUBE PRN (16:45)
[2017-06-06] MEDS ORDERED: POTASSIUM CHLORIDE 25 MEQ EFFERVESCENT TAB PO PRN (16:45)
[2017-06-06] MEDS ORDERED: MAGNESIUM SULFATE INJ 2 GM in SODIUM CHLORIDE 0.9% INJ 96 ML IV PRN (16:45)
[2017-06-06] MEDS ORDERED: POTASSIUM CHLOR 20 MEQ PREMIX 100 ML IV PRN (16:45)
[2017-06-06] MEDS ORDERED: POTASSIUM CHLOR 40 MEQ PREMIX 100 ML IV PRN ×2 (16:45)
--- NOTE | 2017-06-06 19:37 | MB ---
cc: REYES PENNINGTON MD DATE OF CONSULTATION 06/06/[address] Cary REASON FOR CONSULTATION Pseudocyst. HISTORY OF PRESENT ILLNESS This is a 46-year-old white female who presented to the emergency department with chest pain. The patient was evaluated in the emergency department for retrosternal chest pain involving the epigastrium and back and also associated nausea, vomiting and diarrhea. She had elevated heart rate of 134 and white count of 12.2 and also elevated lipase. The patient also had abnormal CT angiogram of the chest and subsequent CT of the abdomen and pelvis showed a large multiloculated fluid collection with extension into the body of the pancreas and also an additional collection in the anterior subphrenic space measuring 8 x 1.2 cm. The patient has had cultures including urine culture which grew out gram-negative judah. Today she had elevated temp of 101.2 along with tachycardia and tachypnea. The white blood cell count is higher today. The blood cultures are pending. The patient is currently awake and she states that she is feeling better. She states that she was having pain earlier today. She went for EGD procedure this afternoon, but it to be cancelled because she had an oxygen desaturation. Currently she is awake and alert and in no acute distress. She gets pain in the abdomen whenever she coughs. The chest x-ray performed earlier today showed developing infiltrate in the left lower lobe with small left pleural effusion. PAST MEDICAL HISTORY 1. Pancreatitis 2. History of cholecystectomy, 3. 4. History of respiratory failure secondary to narcotic overdose. ALLERGIES METHADONE PENICILLIN MEDICATIONS At present, 1. Potassium. 2. Levaquin. 3. Metronidazole. 4. DuoNeb. 5. Protonix. 6. [place]-Colace. 7. Nicotine 8. Ambien 9. Zofran. 10. [place] five p.r.n. SOCIAL HISTORY Positive tobacco. Positive E cigarettes, positive alcohol. FAMILY HISTORY Noncontributory. REVIEW OF SYSTEMS Pertinent as mentioned in the history of present illness. The patient also has positive weight loss over the past year. PHYSICAL EXAMINATION GENERAL: This is a slender female who is awake and alert and in no acute distress. VITAL SIGNS: Temperature 101.3, BP 127/79, heart rate 112, respirations 20. HEENT: Head is atraumatic. Extraocular movements grossly intact, pupils reactive to light. No icterus. Oropharynx moist mucosa without lesions. NECK: Supple without adenopathy. LUNGS: Decreased breath sounds bilateral. HEART: Regular S1 and S2. No murmurs, rubs or gallops. ABDOMEN: Bowel sounds present, soft, no tenderness appreciated. RECTAL: Not performed. EXTREMITIES: No clubbing, cyanosis or edema. SKIN: No rash. NEUROLOGIC: Nonfocal. PSYCHIATRIC: The patient is calm and cooperative. LABORATORY DATA WBC 14.0, platelet count 214, hemoglobin 10.5, 88% neutrophils. His creatinine is 0.32, BUN five, sodium 138, AST 13, ALT 20, alk phos 112. IMPRESSION Severe sepsis. Potential sources include UTI versus pancreatitis with pseudocyst versus pneumonia. Patient with fever, tachycardia, tachypnea, elevated white blood cell count which could be related to sepsis from UTI or pneumonia or acute pancreatitis. RECOMMENDATIONS 1. Continue Levaquin 2. Continue metronidazole 3. Follow blood cultures 4. Follow urine culture. 5. Monitor the pancreatic pseudocyst. 6. Monitor clinical status. Thank you for this consultation. The patient's progress will be monitored and further recommendations will be given on followup if necessary. Reyes Pennington MD FD/ /6:51 PM /7:19 PM [email or web address]
[2017-06-06] MEDS: RESP: ALBUTEROL 2.5 MG/IPRATROPIUM 0.5 MG NEB (PRN) NEB (21:42)
--- NOTE | 2017-06-06 22:09 | MB ---
cc: CHRISTIE GREEN MD DATE OF CONSULTATION 06/06/2017 REASON FOR CONSULTATION Pancreatic abscess. HISTORY OF PRESENT ILLNESS The patient is a 46-year-old female who presented with left upper abdominal pain and underwent CT scan of the abdomen on 06/05/2017. There are small bilateral pleural effusions and, in the left posterior abdomen, a large multiloculated fluid collection. The fluid dissects down into the posterior aspect of the pararenal space and there is an elongated collection in the anterior subphrenic space with possible plate-like effect under the left diaphragm. This is consistent with either a large pseudocyst or infected abscess. The patient continues to have pain and is now in intensive care. Dr. Cary has seen the patient in GI as well as Dr. Kaplan of infectious diseases. The patient had cultures growing gram-negative judah with temperature of 101.2 with tachycardia and tachypnea. PAST MEDICAL HISTORY 1. Pancreatitis, 2. Cholecystectomy, 3. 4. History of respiratory failure secondary to narcotic overdose. ALLERGIES METHADONE PENICILLIN It has been recommended the patient continue on Levaquin and Flagyl and to monitor the pancreatic pseudocyst. PHYSICAL EXAMINATION GENERAL: A female who is somewhat uncomfortable. VITAL SIGNS: BP 128/83, pulse 110, respirations 20, temperature 99.4. HEENT: Sclerae anicteric. CHEST: Demonstrates some inspiratory wheezes bilaterally. CARDIAC Tachycardia without murmurs. ABDOMEN: Soft with tenderness located in the epigastrium and left and right upper quadrants. There is less pain in the lower quadrants. EXTREMITIES: Pulses are present. NEUROLOGIC: Exam is nonfocal. LABORATORY DATA WBCs of 14.0 without bands. Chemistries demonstrate potassium OF 2.9. CA19-9 is elevated. INR is 1.1. Hepatitis A, B and C are all negative. ASSESSMENT Large pancreatic abscess. Was to undergo EGD and the procedure was cancelled secondary to tachycardia and desaturation. I have discussed potential drainage under interventional radiology and, given the character of the lesion, it was felt that drainage would be unsuccessful. I have discussed drainage with the patient and a retroperitoneal approach would likely be unsuccessful as it does not appear to be in had favorable location for a pancreatic necrosectomy. I have discussed with the patient observation versus surgical intervention for drainage. The patient would like to talk to her brother before making a final decision. I discussed risks of surgery including but not limited to bleeding with significant bleeding from surrounding structures, continued infection, continued pain, need for reoperation, and fistula formation with either large or small bowel. I discussed possibility of incomplete drainage requiring further procedures and the possibility of recurrent pseudocyst formation. I also discussed the possibility of the patient developing a hernia as a result of the surgery. I have discussed remedies, consequences, alternatives and convalescence; she vocalizes understanding and we will decide tomorrow whether to proceed or to continue with observation. We are leaning in the direction of performing surgical drainage as interventional radiology and transgastric drainage is unable to be performed and is unlikely to be successful. MD LUIS Khan/ /9:34 PM /10:01 PM
[2017-06-06] MEDS ORDERED: CHLORHEXIDINE GLUCONATE 2 % 1 PACK (2 CLOTHS)(extra cloths) TOPICAL PRN (22:30)
[2017-06-07] VITALS (10 sets, daily range): BP systolic 12–146; BP diastolic 73–96; PULSE 104–122; RESP 16–26; TEMP 98.5–99.2; O2SAT 92–96
[2017-06-07] MEDS: HYDROmorphone HCL PF 1 MG/ML VIAL IV PUSH PRN ×5 (02:35→22:55)
[2017-06-07] MEDS: CHLORHEXIDINE GLUCONATE 2 % 1 PACK (2 CLOTHS)(taper/protocol) TOPICAL SCH (04:00)
[2017-06-07] MEDS: metroNIDAZOLE 500 MG INJ 100 ML IV SCH ×4 (04:00→22:56)
[2017-06-07 05:38] LABS: AUTOMATED NEUTROPHIL # 7.9 TH/MM3 (1.8-7.7); BASOPHIL % 0.3 % (0.0-2.0); EOSINOPHIL # 0.1 TH/MM3 (0-0.4); EOSINOPHIL % 0.7 % (0.0-4.0); HEMATOCRIT 30.3 % (35.0-46.0); HEMO FLAGS DIFF FINAL; LYMPH % 8.1 % (9.0-44.0); LYMPHOCYTE # 0.8 TH/MM3 (1.0-4.8); MEAN CELL VOLUME 88.7 FL (80.0-100.0); MEAN CORPUSCULAR HEMOGLOBIN 28.9 PG (27.0-34.0); MEAN CORPUSCULAR HGB CONC 32.6 % (32.0-36.0); NEUT % 82.9 % (16.0-70.0); PLATELET COUNT 210 TH/MM3 (150-450); RED BLOOD COUNT 3.42 MIL/MM3 (4.00-5.30); RED CELL DISTRIBUTION WIDTH 19.6 % (11.6-17.2); WHITE BLOOD COUNT 9.6 TH/MM3 (4.0-11.0)
[2017-06-07 06:18] LABS: BICARBONATE 29.5 MEQ/L (21.0-32.0); MAGNESIUM 1.7 MG/DL (1.5-2.5)
[2017-06-07 06:35] LABS: POTASSIUM 2.9 MEQ/L (3.5-5.1)
[2017-06-07] MEDS: RESP: ALBUTEROL 2.5 MG/IPRATROPIUM 0.5 MG NEB (PRN) NEB ×2 (06:35→07:45)
[2017-06-07] MEDS: REMOVE OLD PATCH T-DERMAL SCH (08:01)
[2017-06-07] MEDS: POTASSIUM CHLOR 20 MEQ PREMIX 100 ML IV PRN ×3 (08:01→14:40)
[2017-06-07] MEDS: NICOTINE 21 MG/24 HR PATCH T-DERMAL SCH (08:01)
[2017-06-07] MEDS: DOCUSATE SODIUM 50 MG/SENNA 8.6 MG TAB PO SCH ×2 (08:02→22:58)
[2017-06-07] MEDS: PANTOPRAZOLE SODIUM 40 MG VIAL IV PUSH SCH ×2 (08:02→22:56)
[2017-06-07] MEDS: SODIUM CHLORIDE 0.9% FLUSH 10 ML FLUSH IV FLUSH SCH ×2 (08:02→22:56)
[2017-06-07] MEDS ORDERED: PROPOFOL 200 MG/20 ML AMP IV ONE (09:46)
[2017-06-07] MEDS ORDERED: ePHEDrine/NS 25 MG/5 ML SYR IV ONE (09:53)
[2017-06-07] MEDS ORDERED: ONDANSETRON HCL 4 MG/2 ML VIAL IV PUSH ONE (09:54)
[2017-06-07] MEDS ORDERED: ACETAMINOPHEN 1000 MG/100 ML VIAL IV ONE (09:54)
[2017-06-07] MEDS ORDERED: NORMOSOL R INJ 1,000 ML IV ONE (09:54)
[2017-06-07] MEDS ORDERED: SUGAMMADEX SODIUM 200 MG/2 ML VIAL IV PUSH ONE ×2 (09:56)
--- NOTE | 2017-06-07 11:20 | HHI.GIFU ---
Subjective Remarks Resting in bed. Continues to have abdominal pain- diffuse. States she is NPO. GS was in to see patient. Possible surgical drainage today. Electrolytes are being corrected. Objective Vitals I&O Vital Signs Date Time Temp Pulse Resp B/P Pulse Ox O2 Delivery O2 Flow Rate FiO2 06/07/17 07:46 94 Nasal Cannula 6.00 06/07/17 04:00 99.0 109 20 12/89 92 06/07/17 00:00 98.8 104 20 121/74 96 06/06/17 21:43 96 Nasal Cannula 4.00 06/06/17 20:00 99.0 118 20 135/85 96 06/06/17 19:36 99.4 110 20 128/83 96 06/06/17 18:52 97 Nasal Cannula 4.00 06/06/17 18:15 99.9 108 12 22/79 97 Nasal Cannula 5 06/06/17 18:00 108 12 122/80 97 Nasal Cannula 5 06/06/17 17:45 108 12 121/82 98 Nasal Cannula 5 06/06/17 17:30 109 12 124/81 97 Nasal Cannula 5 06/06/17 17:15 111 12 122/80 97 Nasal Cannula 5 06/06/17 17:00 112 12 120/77 97 Nasal Cannula 5 06/06/17 16:45 100.3 116 12 122/80 96 Nasal Cannula 5 06/06/17 16:30 120 12 115/81 95 Nasal Cannula 5 06/06/17 16:15 121 12 121/84 97 Bi-Pap 40 06/06/17 16:00 123 12 132/79 97 Bi-Pap 40 06/06/17 15:45 121 12 132/82 100 Bi-Pap 40 17 15:30 120 12 127/80 99 Bi-Pap 40 17 15:15 125 12 127/85 100 Bi-Pap 40 06/06/17 15:00 121 12 128/82 99 Bi-Pap 40 06/06/17 14:45 126 12 134/84 98 Bi-Pap 40 1817 14:30 100 40 18/17 14:30 128 12 122/62 97 Bi-Pap 40 18/ 14:15 130 12 142/67 99 Bi-Pap 40 06/06/17 14:12 101.4 136 12 133/85 97 Bi-Pap 40 06/06/17 13:55 101.2 143 32 140/73 88 I/O 06/06/17 06/06/17 06/06/17 06/07/17 06/07/17 06/07/17 06:59 14:59 22:59 06:59 14:59 22:59 Intake Total 2431 ml Output Total 2 ml Balance 2429 ml IV Total 2431 ml Output Urine Total 2 ml # Bowel Movements 1 Laboratory Laboratory Tests Test 06/06/17 06/06/17 06/06/17 06/06/17 14:35 15:00 16:52 18:45 Blood Gas Puncture Site RT RADIAL Blood Gas Patient Temperature 98.6 Blood Gas HCO3 25 Blood Gas Base Excess 2.1 Blood Gas Oxygen Saturation 95 Arterial Blood pH 7.48 Arterial Blood Partial 34 Pressure CO2 Arterial Blood Partial 109 Pressure O2 Arterial Blood Oxygen Content 16.7 Arterial Blood 2.3 Carboxyhemoglobin Arterial Blood Methemoglobin 1.0 Blood Gas Hemoglobin 12.3 Oxygen Delivery Device SIMPLE MASK Blood Gas Liter Flow 10 White Blood Count 14.0 Red Blood Count 3.70 Hemoglobin 10.5 Hematocrit 32.4 Mean Corpuscular Volume 87.5 Mean Corpuscular Hemoglobin 28.4 Mean Corpuscular Hemoglobin 32.4 Concent Red Cell Distribution Width 19.8 Platelet Count 214 Mean Platelet Volume 7.4 Neutrophils (%) (Auto) 88.0 Lymphocytes (%) (Auto) 4.9 Monocytes (%) (Auto) 6.4 Eosinophils (%) (Auto) 0.2 Basophils (%) (Auto) 0.5 Neutrophils # (Auto) 12.3 Lymphocytes # (Auto) 0.7 Monocytes # (Auto) 0.9 Eosinophils # (Auto) 0.0 Basophils # (Auto) 0.1 CBC Comment DIFF FINAL Differential Comment Sodium Level 138 Potassium Level 2.9 Chloride Level 100 Carbon Dioxide Level 28.4 Anion Gap 10 Blood Urea Nitrogen 5 Creatinine 0.32 Estimat Glomerular Filtration 226 Rate Random Glucose 106 Calcium Level 8.2 Phosphorus Level 1.6 Magnesium Level 1.7 Total Bilirubin 0.6 Aspartate Amino Transf 13 (AST/SGOT) Alanine Aminotransferase 20 (ALT/SGPT) Alkaline Phosphatase 112 Total Protein 6.1 Albumin 2.3 Lactic Acid Level 0.8 Nasal Screen MRSA (PCR) MRSA DETECTED Test 06/07/17 05:05 White Blood Count 9.6 Red Blood Count 3.42 Hemoglobin 9.9 Hematocrit 30.3 Mean Corpuscular Volume 88.7 Mean Corpuscular Hemoglobin 28.9 Mean Corpuscular Hemoglobin 32.6 Concent Red Cell Distribution Width 19.6 Platelet Count 210 Mean Platelet Volume 7.5 Neutrophils (%) (Auto) 82.9 Lymphocytes (%) (Auto) 8.1 Monocytes (%) (Auto) 8.0 Eosinophils (%) (Auto) 0.7 Basophils (%) (Auto) 0.3 Neutrophils # (Auto) 7.9 Lymphocytes # (Auto) 0.8 Monocytes # (Auto) 0.8 Eosinophils # (Auto) 0.1 Basophils # (Auto) 0.0 CBC Comment DIFF FINAL Differential Comment Sodium Level 138 Potassium Level 2.9 Chloride Level 101 Carbon Dioxide Level 29.5 Anion Gap 8 Blood Urea Nitrogen 5 Creatinine 0.43 Estimat Glomerular Filtration 159 Rate Random Glucose 109 Calcium Level 8.0 Magnesium Level 1.7 Date/Time Procedure Status Source Growth 06/06/17 16:52 Aerobic Blood Culture Received Blood Peripheral Pending 06/06/17 16:52 Anaerobic Blood Culture Received Blood Peripheral Pending 06/05/17 12:05 Urine Culture - Final Complete Urine Clean Catch Escherichia Coli Imaging Last Impressions Chest X-Ray 06/06/17 0000 Signed Impressions: Service Date/Time: Tuesday, June 06, 2017 14:31 - CONCLUSION: Developing infiltrate in the left lower lobe with a small left pleural effusion. Brian Navarro MD CT Angiography 06/04/17 0000 Signed Impressions: Service Date/Time: Sunday, June 04, 2017 16:06 - CONCLUSION: 1. There is no evidence for PE for technique. 2. Abnormal thickening of the esophageal wall with surrounding soft tissue mass demonstrate some minimal enhancement possibly a malignant mass or malignant adenopathy. There also small lymph nodes in the cardiophrenic angle and very inhomogeneous liver with masses in the upper abdomen and complete CT examination of the abdomen and pelvis with intravenous and oral contrast is recommended. Robert Cullen MD Abdomen/Pelvis CT 06/04/17 0000 Signed Impressions: Service Date/Time: Monday, June 05, 2017 17:29 - CONCLUSION: In the esophageal hiatus region, extending into the left posterior abdomen is a large multiloculated fluid collection. The fluid is 10.2 x 3.1 cm across. There is an inferior extension into the body of the pancreas could be a dissecting large pseudocyst. There is an additional elongated collection in the anterior subphrenic space measuring 8.0 x 1.2 cm. I do not see any air or hemorrhage within the elongated irregular fluid collection to suggest superinfection. It is unchanged from the previous study. Some of the fluid dissects down the posterior aspect of the pararenal space on the left Brian Navarro MD Physical Exam HEENT: Normocephalic; atraumatic; no jaundice. CHEST: CTA CARDIAC: ST ABDOMEN: Soft, mildly bloated, diffuse tenderness; no hepatosplenomegaly; bowel sounds are present in all four quadrants. EXTREMITIES: No clubbing, cyanosis, or edema. SKIN: Normal; no rash; no jaundice. 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 Assessment and Plan Plan ASSESSMENT: - Odynophagia with abnormal imaging on CTA thorax with abnormal esophageal wall. Painful swallowing x [address] Angiography (06/04/17)----> 1. There is no evidence for PE for technique. 2. Abnormal thickening of the esophageal wall with surrounding soft tissue mass demonstrate some minimal enhancement possibly a malignant mass or malignant adenopathy. There also small lymph nodes in the cardiophrenic angle and very inhomogeneous liver with masses in the upper abdomen and complete CT examination of the abdomen and pelvis with intravenous and oral contrast is recommended. Plan was for EGD, but patient became tachycardic yesterday and therefore this was cancelled. - Pancreatitis with Pseudocyst (possible dissecting). Pt had first episode of pancreatitis 3 years ago and has had two hospitalizations. She was told that these episodes were most likely related to ETOH. She is s/ p cholecystectomy. She reports that she occasionally drinks and had 4 shots 3 days ago. Abdomen/Pelvis CT (06/04/17)------> In the esophageal hiatus region, extending into the left posterior abdomen is a large multiloculated fluid collection. The fluid is 10.2 x 3.1 cm across. There is an inferior extension into the body of the pancreas could be a dissecting large pseudocyst. There is an additional elongated collection in the anterior subphrenic space measuring 8.0 x 1.2 cm. I do not see any air or hemorrhage within the elongated irregular fluid collection to suggest superinfection. It is unchanged from the previous study. Some of the fluid dissects down the posterior aspect of the pararenal space on the left. IR and transgastric drainage are unable to be performed. GS following, going to OR today for surgical drainage. AFP 2.9, CEA 1.2, Ca19-9 25.5. Flagyl, Levaquin. - Abdominal pain secondary to above. - Abn. Wt. Loss, unintentional. Pt does not know how much but states she has gone from a size 5 to a size 0-1 over past year. - Leukocytosis, mild. Low grade fever. Flagyl, Levaquin. - Hypokalemia. 2.9, being corrected prior to surgery PLAN: - Plan for surgical drainage of large pseudocyst - NPO - Cont. PPI - Cont. IVF - Abx- Levaquin, Flagyl - Monitor labs - Supportive care - Further recommendations to follow based on results of above - Pt seen and examined by Dr. Cary and myself and this note is written on her behalf Vianca Gomes Jun 07, 2017 11:20
--- NOTE | 2017-06-07 11:29 | HHI.PR ---
Subjective Remarks She is in good, family her mother at bedside. Patient is saturating better now on nasal cannula 5 L. Says she feels less short of breath. Chest pain is better controlled with Dilaudid. Still with abdominal pain no nausea or vomiting. Was seen by the surgeon and plans to take the patient to our today after potassium is replaced by IV. Patient says she has pleuritic chest pain with inspiration. No fever or chills overnight. His she had fevers and chills yesterday. No coughing much. No lower extremity edema. Objective Vitals Vital Signs Date Time Temp Pulse Resp B/P Pulse Ox O2 Delivery O2 Flow Rate FiO2 06/07/17 07:46 94 Nasal Cannula 6.00 06/07/17 04:00 99.0 109 20 12/89 92 06/07/17 00:00 98.8 104 20 121/74 96 06/06/17 21:43 96 Nasal Cannula 4.00 06/06/17 20:00 99.0 118 20 135/85 96 06/06/17 19:36 99.4 110 20 128/83 96 06/06/17 18:52 97 Nasal Cannula 4.00 06/06/17 18:15 99.9 108 12 22/79 97 Nasal Cannula 5 06/06/17 18:00 108 12 122/80 97 Nasal Cannula 5 06/06/17 17:45 108 12 121/82 98 Nasal Cannula 5 06/06/17 17:30 109 12 124/81 97 Nasal Cannula 5 06/06/17 17:15 111 12 122/80 97 Nasal Cannula 5 06/06/17 17:00 112 12 120/77 97 Nasal Cannula 5 06/06/17 16:45 100.3 116 12 122/80 96 Nasal Cannula 5 06/06/17 16:30 120 12 115/81 95 Nasal Cannula 5 06/06/17 16:15 121 12 121/84 97 Bi-Pap 40 06/06/17 16:00 123 12 132/79 97 Bi-Pap 40 06/06/17 15:45 121 12 132/82 100 Bi-Pap 40 17 15:30 120 12 127/80 99 Bi-Pap 40 06/06/17 15:15 125 12 127/85 100 Bi-Pap 40 06/06/17 15:00 121 12 128/82 99 Bi-Pap 40 06/06/17 14:45 126 12 134/84 98 Bi-Pap 40 06/06/17 14:30 100 40 06/06/17 14:30 128 12 122/62 97 Bi-Pap 40 06/06/17 14:15 130 12 142/67 99 Bi-Pap 40 06/06/17 14:12 101.4 136 12 133/85 97 Bi-Pap 40 06/06/17 13:55 101.2 143 32 140/73 88 I/O 06/06/17 06/06/17 06/06/17 06/07/17 06/07/17 06/07/17 06:59 14:59 22:59 06:59 14:59 22:59 Intake Total 2431 ml Output Total 2 ml Balance 2429 ml IV Total 2431 ml Output Urine Total 2 ml # Bowel Movements 1 Result Diagram: 06/07/17 0505 06/07/17 0505 Imaging Last Impressions Chest X-Ray 06/06/17 0000 Signed Impressions: Service Date/Time: Tuesday, June 06, 2017 14:31 - CONCLUSION: Developing infiltrate in the left lower lobe with a small left pleural effusion. Brian Navarro MD CT Angiography 06/04/17 0000 Signed Impressions: Service Date/Time: Sunday, June 04, 2017 16:06 - CONCLUSION: 1. There is no evidence for PE for technique. 2. Abnormal thickening of the esophageal wall with surrounding soft tissue mass demonstrate some minimal enhancement possibly a malignant mass or malignant adenopathy. There also small lymph nodes in the cardiophrenic angle and very inhomogeneous liver with masses in the upper abdomen and complete CT examination of the abdomen and pelvis with intravenous and oral contrast is recommended. Robert Cullen MD Abdomen/Pelvis CT 06/04/17 0000 Signed Impressions: Service Date/Time: Monday, June 05, 2017 17:29 - CONCLUSION: In the esophageal hiatus region, extending into the left posterior abdomen is a large multiloculated fluid collection. The fluid is 10.2 x 3.1 cm across. There is an inferior extension into the body of the pancreas could be a dissecting large pseudocyst. There is an additional elongated collection in the anterior subphrenic space measuring 8.0 x 1.2 cm. I do not see any air or hemorrhage within the elongated irregular fluid collection to suggest superinfection. It is unchanged from the previous study. Some of the fluid dissects down the posterior aspect of the pararenal space on the left Brian Navarro MD Objective Remarks GENERAL: 43 yo skinny F in bed, with some sob, however improved satting well on nasal canula. ENT: No nasal bleeding or discharge. Mucous membranes pink and moist. NECK: Trachea midline. No JVD. CARDIOVASCULAR: Tachycardic. Regular rate and rhythm. RESPIRATORY: With some shortness of breath however improved. Rhonchi+ , decreased breath sounds. No wheezing. GASTROINTESTINAL: Abdomen soft, tenderness epigastric area, nondistended. MUSCULOSKELETAL: Extremities without clubbing, cyanosis, or edema. No obvious deformities. NEUROLOGICAL: Awake and alert. No obvious cranial nerve deficits. Motor grossly within normal limits. Normal speech, has a weak voice. A/P Problem List: (1) Chest pain ICD Code: R07.9 Status: Acute (2) Pancreatitis ICD Code: K85.90 Status: Acute (3) Esophageal mass ICD Code: K22.9 Status: Acute (4) Leukocytosis ICD Code: D72.829 Status: Acute (5) Hypokalemia ICD Code: E87.6 Status: Acute (6) Tobacco abuse ICD Code: Z72.0 Status: Acute Assessment and Plan Acute respiratory failure. OFF BiAP. The patient was noted desattign in 70s while she went fot EGD on 06/06/17 . The patient was placed on NRM and her O2 sat is 85%. Patient is still sob and she is placed on Bipap. ABG stat reviewed. . CXR stat reviewed patient developing new infiltrate left lower lobe with effusion. Moitor O2 sat . Transfer patient to ICU. Sepsis meeting criteria (fever, tachycardia, source of infection is likely left lower lobe PNA, GI, UTI). Blood cultures ordered and pending. Urine Cx with GNR. Start CBC, CMP, lactic acid per protocol. Discussed with Dr Cary form GI . Jam start IV antibiotics Levaquin and flagyl. Give 1L nS bolus. Monitor VS closely. Continue IV fluids maintenance. Infectious disease is consulted, appreciate recommendations. Consult gen surgery , Dr Ellis for esophageal mass as IR indicated gen surg for eval as well. Patient is Npo , plan to take th epatient to OR today after K is replaced. Esophageal Mass: + weight loss. CT- thickening of esophageal wall w/ ? malignant mass or malignant adenopathy with liver masses for CT Abd/Pelvis GI consulted- plan for EGD/ liver biospy/ ?colonoscopy- with diarrhea. Attempted EGD on hols due to the events above. PPI IV Consult gen surgery Dr Ellis will follow. Chest Pain: Pleuritic chect pain 2/2 pneumonia. Unlikely cardiac, likely secondary to Pancreatitis and Esophageal Mass, pneumonia. Initial trop negative , EKG w/ no acute changes. EKG reviewed . CTA negative for PE Pancreatitis: Mild. Lipase 787 improved. Protonix IV. Analgesics/ antiemetics as needed. repeat lipase pending.. continue IVF Leukocytosis: WBC 13. Afebrile. CXR w/ no acute findings, images reviewed. Repeat labs pending. check UA- complains of foul smelling odor. urine cultures pending Acute Diarrhea r/o gastroenteritis- recent diarrhea Continue IVF Persistent Hypokalemia dispite mentainance fluids with KCl as well addditoinal IV and PO K CL.: K+ 2.9 . Give KCL meq IV bolus x 2 and continue IVF with supplemental KCl. FF BMP Tobacco Abuse: NicoDerm patch DVT Prophylaxis: SCD/Teds. Social work for d/c planning as needed. Case discussed w/ patient, nurse, GI service Check drug screen, alcohol level positive for opiates and cannabis. Patient noted dessating on bipap wean as tolerated. Pt also with sepsis criteria. Started on antibiotics. Gen surgeon consult as well for eval of esophageal mass. Transfer to ICU Discussed with the patient, nurse, GI service Vianca FUENTES Code status FULL CODE, discussed with the patient on 06/06/17 she wants full code. Neelam Posey MD Jun 07, 2017 11:29
[2017-06-07] MEDS: POTASSIUM CHLORIDE INJ 10 MEQ in DEXT 5%-NACL 0.9% 1000 ML INJ 1,000 ML IV SCH ×2 (11:56→21:18)
--- NOTE | 2017-06-07 13:32 | HHI.IDPN ---
Note Infectious Disease Note Patient says she is having sharp upper chest pain. Feels better. Denies chills. Afebrile. Gets SOB with little activity. Plans noted for surgical drainage of intraabdominal fluid collection. PAST MEDICAL HISTORY 1. Pancreatitis 2. History of cholecystectomy, 3. 4. History of respiratory failure secondary to narcotic overdose. ALLERGIES METHADONE PENICILLIN ANTIBIOTICS: Levaquin. Metronidazole. OBJECTIVE: Vital Signs Date Time Temp Pulse Resp B/P Pulse Ox O2 Delivery O2 Flow Rate FiO2 06/07/17 12:00 98.7 115 24 135/90 95 06/07/17 08:00 98.9 122 16 145/96 94 06/07/17 07:46 94 Nasal Cannula 6.00 06/07/17 04:00 99.0 109 20 12/89 92 06/07/17 00:00 98.8 104 20 121/74 96 06/06/17 21:43 96 Nasal Cannula 4.00 06/06/17 20:00 99.0 118 20 135/85 96 06/06/17 19:36 99.4 110 20 128/83 96 06/06/17 18:52 97 Nasal Cannula 4.00 06/06/17 18:15 99.9 108 12 22/79 97 Nasal Cannula 5 06/06/17 18:00 108 12 122/80 97 Nasal Cannula 5 06/06/17 17:45 108 12 121/82 98 Nasal Cannula 5 06/06/17 17:30 109 12 124/81 97 Nasal Cannula 5 06/06/17 17:15 111 12 122/80 97 Nasal Cannula 5 06/06/17 17:00 112 12 120/77 97 Nasal Cannula 5 06/06/17 16:45 100.3 116 12 122/80 96 Nasal Cannula 5 06/06/17 16:30 120 12 115/81 95 Nasal Cannula 5 06/06/17 16:15 121 12 121/84 97 Bi-Pap 40 06/06/17 16:00 123 12 132/79 97 Bi-Pap 40 06/06/17 15:45 121 12 132/82 100 Bi-Pap 40 06/06/17 15:30 120 12 127/80 99 Bi-Pap 40 06/06/17 15:15 125 12 127/85 100 Bi-Pap 40 06/06/17 15:00 121 12 128/82 99 Bi-Pap 40 06/06/17 14:45 126 12 134/84 98 Bi-Pap 40 06/06/17 14:30 100 40 06/06/17 14:30 128 12 122/62 97 Bi-Pap 40 06/06/17 14:15 130 12 142/67 99 Bi-Pap 40 06/06/17 14:12 101.4 136 12 133/85 97 Bi-Pap 40 06/06/17 13:55 101.2 143 32 140/73 88 06/06/17 06/06/17 06/07/17 14:59 22:59 06:59 Intake Total 2431 ml Output Total 2 ml Balance 2429 ml IV Total 2431 ml Output Urine Total 2 ml # Bowel Movements 1 Laboratory Tests Test 06/06/17 06/06/17 06/06/17 06/06/17 14:35 15:00 16:52 18:45 Blood Gas Puncture Site RT RADIAL Blood Gas Patient Temperature 98.6 Blood Gas HCO3 25 mmol/L Blood Gas Base Excess 2.1 mmol/L Blood Gas Oxygen Saturation 95 % Arterial Blood pH 7.48 Arterial Blood Partial 34 mmHg Pressure CO2 Arterial Blood Partial 109 mmHg Pressure O2 Arterial Blood Oxygen Content 16.7 Vol % Arterial Blood 2.3 % Carboxyhemoglobin Arterial Blood Methemoglobin 1.0 % Blood Gas Hemoglobin 12.3 G/DL Oxygen Delivery Device SIMPLE MASK Blood Gas Liter Flow 10 L/M White Blood Count 14.0 TH/MM3 Red Blood Count 3.70 MIL/MM3 Hemoglobin 10.5 GM/DL Hematocrit 32.4 % Mean Corpuscular Volume 87.5 FL Mean Corpuscular Hemoglobin 28.4 PG Mean Corpuscular Hemoglobin 32.4 % Concent Red Cell Distribution Width 19.8 % Platelet Count 214 TH/MM3 Mean Platelet Volume 7.4 FL Neutrophils (%) (Auto) 88.0 % Lymphocytes (%) (Auto) 4.9 % Monocytes (%) (Auto) 6.4 % Eosinophils (%) (Auto) 0.2 % Basophils (%) (Auto) 0.5 % Neutrophils # (Auto) 12.3 TH/MM3 Lymphocytes # (Auto) 0.7 TH/MM3 Monocytes # (Auto) 0.9 TH/MM3 Eosinophils # (Auto) 0.0 TH/MM3 Basophils # (Auto) 0.1 TH/MM3 CBC Comment DIFF FINAL Differential Comment Sodium Level 138 MEQ/L Potassium Level 2.9 MEQ/L Chloride Level 100 MEQ/L Carbon Dioxide Level 28.4 MEQ/L Anion Gap 10 MEQ/L Blood Urea Nitrogen 5 MG/DL Creatinine 0.32 MG/DL Estimat Glomerular Filtration 226 ML/MIN Rate Random Glucose 106 MG/DL Calcium Level 8.2 MG/DL Phosphorus Level 1.6 MG/DL Magnesium Level 1.7 MG/DL Total Bilirubin 0.6 MG/DL Aspartate Amino Transf 13 U/L (AST/SGOT) Alanine Aminotransferase 20 U/L (ALT/SGPT) Alkaline Phosphatase 112 U/L Total Protein 6.1 GM/DL Albumin 2.3 GM/DL Lactic Acid Level 0.8 mmol/L Nasal Screen MRSA (PCR) MRSA DETECTED Test 06/07/17 05:05 White Blood Count 9.6 TH/MM3 Red Blood Count 3.42 MIL/MM3 Hemoglobin 9.9 GM/DL Hematocrit 30.3 % Mean Corpuscular Volume 88.7 FL Mean Corpuscular Hemoglobin 28.9 PG Mean Corpuscular Hemoglobin 32.6 % Concent Red Cell Distribution Width 19.6 % Platelet Count 210 TH/MM3 Mean Platelet Volume 7.5 FL Neutrophils (%) (Auto) 82.9 % Lymphocytes (%) (Auto) 8.1 % Monocytes (%) (Auto) 8.0 % Eosinophils (%) (Auto) 0.7 % Basophils (%) (Auto) 0.3 % Neutrophils # (Auto) 7.9 TH/MM3 Lymphocytes # (Auto) 0.8 TH/MM3 Monocytes # (Auto) 0.8 TH/MM3 Eosinophils # (Auto) 0.1 TH/MM3 Basophils # (Auto) 0.0 TH/MM3 CBC Comment DIFF FINAL Differential Comment Sodium Level 138 MEQ/L Potassium Level 2.9 MEQ/L Chloride Level 101 MEQ/L Carbon Dioxide Level 29.5 MEQ/L Anion Gap 8 MEQ/L Blood Urea Nitrogen 5 MG/DL Creatinine 0.43 MG/DL Estimat Glomerular Filtration 159 ML/MIN Rate Random Glucose 109 MG/DL Calcium Level 8.0 MG/DL Magnesium Level 1.7 MG/DL PHYSICAL EXAMINATION GENERAL: Alert, no acute distress. HEENT: No icterus. Oropharynx moist mucosa without lesions. NECK: Supple without adenopathy. LUNGS: Decreased breath sounds. HEART: Regular S1 and S2. No murmurs, rubs or gallops. ABDOMEN: Bowel sounds present, soft, no tenderness. EXTREMITIES: No clubbing, cyanosis or edema. SKIN: No rash. NEUROLOGIC: Nonfocal. PSYCHIATRIC: The patient is calm and cooperative. IMPRESSION Severe sepsis. Potential sources include UTI versus pancreatitis with pseudocyst versus pneumonia. Pancreatic pseudocyst. ? infected. UTI - E. coli. Jacinto sensitive RECOMMENDATIONS 1. Continue Levaquin 2. Continue metronidazole 3. Follow blood cultures 4. Monitor clinical status. Jignesh Kaplan MD Jun 07, 2017 13:32
[2017-06-07] MEDS: LEVOFLOXACIN 500 MG PREMIX INJ 100 ML IV SCH ×2 (13:49→14:37)
[2017-06-07] MEDS: LORazepam 2 MG/ML VIAL IV PUSH PRN (14:37)
[2017-06-07] MEDS ORDERED: HYDROmorphone HCL PF 2 MG/ML VIAL ONE (18:58)
[2017-06-07] MEDS ORDERED: fentaNYL CITRATE 250 MCG/5 ML AMP ONE ×2 (19:12→19:48)
--- NOTE | 2017-06-07 19:33 | MB ---
cc: MAE WALL DATE OF CONSULTATION 06/07/17 REASON FOR CONSULTATION Respiratory failure, pneumonia. HISTORY OF PRESENT ILLNESS The patient is a 46-year-old female who was hospitalized with severe sepsis related to underlying pancreatitis as well as evidence of a UTI. The patient has been treated with antibiotic therapy with gradual improvement. Her oxygen requirement had gradual decline, presently on oxygen via nasal cannula. She denies shortness of breath at rest. No fever or chills. No cough or expectoration. PAST MEDICAL HISTORY Her past medical history is that of pancreatitis, previous cholecystectomy, , previous history of respiratory failure related to narcotic overdose. MEDICATIONS At present include: 1. Levaquin. 2. Metronidazole. 3. DuoNeb. 4. Protonix. 5. [place]. 6. Ambien as needed. 7. Zofran. 8. [place]. ALLERGIES METHADONE. PENICILLIN. FAMILY HISTORY Noncontributory. REVIEW OF SYSTEMS 12-point review of systems as per HPI and past history, otherwise, negative. SOCIAL HISTORY The patient smokes a pack of cigarettes a day, as well she uses E-cigarettes. She does drink alcohol socially. PHYSICAL EXAMINATION GENERAL: The patient is alert. VITAL SIGNS: Temperature 98.7, pulse 100, respirations 18, blood pressure 135/90. HEENT: Exam unremarkable. Eyes without icterus. NECK: Without adenopathy, tyroid enlargement. Central trachea. CHEST: Few scattered rhonchi at bases. CARDIAC: Exam PMI distant. S1-S2 audible. No murmur or rub. ABDOMEN: Lax, audible bowel sounds. EXTREMITIES: No clubbing, cyanosis or edema. LABORATORY DATA White count 9.6, hemoglobin 9.9, hematocrit 30, platelets at 210,000, sodium 138, potassium 2.9, BUN 5, creatinine 0.4. Arterial blood gas 06/06/17 pH 7.48, pCO2 34, pO2 109 on O2 via simple mask. INR is 1.1. IMAGING STUDIES Chest x-ray today 06/06/17 with question infiltrate left lower lobe and associated small effusion. IMPRESSION 1. Respiratory failure. 2. Pancreatitis. 3. Question pneumonia. 4. UTI. PLAN The patient to continue antibiotic therapy. She is followed by infectious disease for same. Whether she is developing indeed a pneumonia or underlying atelectasis and effusion is seen on chest x-ray raising question, however, follow up chest x-ray will be obtained. Bronchodilator therapy continued. Smoking cessation is highly advisable in this lady and this was discussed with her in detail. We will follow her care along with you and depending on progress proceed further. I do thank you for asking me to partake in Mrs. Martin's care. Mae Wall MD WWW/WIN /4:09 PM /7:22 PM
[2017-06-07] MEDS ORDERED: DO NOT ADM ANY ANTICOAGULANT DRUGS PRN (20:04)
--- NOTE | 2017-06-07 20:09 | HHI.PR ---
cc: Damien Ellis MD Immediate Post Op Note Procedure Date: Jun 07, 2017 Pre Op Diagnosis: Pancreatic abscess/phlegmon Post Op Diagnosis: Same Surgeon: Damien Ellis Comber Tender(s): Marilin Nicole CFA Procedure: Ex Laparotomy, incision and drainage peripancreatic phlegmon Complications: None Specimen(s) removed: None Estimated blood loss: 200 ml Anesthesia: General Drains: Other (channel drain) IVF (1600 ml) Patient to: PACU Patient Condition: Good Date/Time of Procedure: SEE SURGICAL CARE RECORD Damien Ellis MD Jun 07, 2017 20:09
[2017-06-07 22:32] LABS: AUTOMATED NEUTROPHIL # 7.7 TH/MM3 (1.8-7.7); BASOPHIL % 0.5 % (0.0-2.0); EOSINOPHIL % 0.2 % (0.0-4.0); HEMATOCRIT 29.1 % (35.0-46.0); HEMO FLAGS DIFF FINAL; LYMPH % 3.8 % (9.0-44.0); LYMPHOCYTE # 0.3 TH/MM3 (1.0-4.8); MEAN CELL VOLUME 87.9 FL (80.0-100.0); MEAN CORPUSCULAR HEMOGLOBIN 28.4 PG (27.0-34.0); MEAN CORPUSCULAR HGB CONC 32.3 % (32.0-36.0); MONO % 5.9 % (0.0-8.0); NEUT % 89.6 % (16.0-70.0); PLATELET COUNT 231 TH/MM3 (150-450); RED BLOOD COUNT 3.32 MIL/MM3 (4.00-5.30); RED CELL DISTRIBUTION WIDTH 19.8 % (11.6-17.2); WHITE BLOOD COUNT 8.6 TH/MM3 (4.0-11.0)
[2017-06-07 23:05] LABS: BICARBONATE 25.2 MEQ/L (21.0-32.0); POTASSIUM 3.4 MEQ/L (3.5-5.1)
[2017-06-07 23:32] LABS: CALCIUM-PROTEIN CORRECTED 8.2 MG/DL (8.5-10.1)
[2017-06-08] VITALS (15 sets, daily range): BP systolic 120–166; BP diastolic 73–106; PULSE 92–117; RESP 18–30; TEMP 97.7–99; O2SAT 91–98
[2017-06-08] MEDS: ZOLPIDEM TARTRATE 5 MG TAB PO PRN ×2 (00:56→23:11)
[2017-06-08] MEDS: ACETAMINOPHEN/HYDROcodone 325 MG/5 MG TAB PO PRN ×3 (00:58→14:43)
[2017-06-08] MEDS: LORazepam 2 MG/ML VIAL IV PUSH PRN ×3 (01:00→17:17)
[2017-06-08] MEDS: CHLORHEXIDINE GLUCONATE 2 % 1 PACK (2 CLOTHS)(taper/protocol) TOPICAL SCH (04:00)
[2017-06-08] MEDS: HYDROmorphone HCL PF 1 MG/ML VIAL IV PUSH PRN ×6 (04:48→23:12)
[2017-06-08] MEDS: metroNIDAZOLE 500 MG INJ 100 ML IV SCH ×4 (04:49→23:11)
[2017-06-08] MEDS: ONDANSETRON HCL 4 MG/2 ML VIAL IVP PRN (04:49)
[2017-06-08 06:18] LABS: AUTOMATED NEUTROPHIL # 6.1 TH/MM3 (1.8-7.7); BASOPHIL % 0.2 % (0.0-2.0); HEMATOCRIT 27.9 % (35.0-46.0); HEMO FLAGS DIFF FINAL; LYMPH % 7.5 % (9.0-44.0); LYMPHOCYTE # 0.5 TH/MM3 (1.0-4.8); MEAN CELL VOLUME 87.8 FL (80.0-100.0); MEAN CORPUSCULAR HEMOGLOBIN 28.9 PG (27.0-34.0); MEAN CORPUSCULAR HGB CONC 32.9 % (32.0-36.0); MONO % 6.4 % (0.0-8.0); NEUT % 85.9 % (16.0-70.0); PLATELET COUNT 223 TH/MM3 (150-450); RED BLOOD COUNT 3.18 MIL/MM3 (4.00-5.30); WHITE BLOOD COUNT 7.1 TH/MM3 (4.0-11.0)
[2017-06-08 06:59] LABS: ALKALINE PHOSPHATASE 103 U/L (45-117); ALT (GPT) 18 U/L (10-53); ANION GAP 8 MEQ/L (5-15); AST (GOT) 26 U/L (15-37); BICARBONATE 27.1 MEQ/L (21.0-32.0); BLOOD UREA NITROGEN 5 MG/DL (7-18); CHLORIDE 102 MEQ/L (98-107); GLOMERULAR FILTRATION RATE 284 ML/MIN (>89); MAGNESIUM 1.9 MG/DL (1.5-2.5); POTASSIUM 3.4 MEQ/L (3.5-5.1); SODIUM (NA) 137 MEQ/L (136-145); TOTAL BILIRUBIN ADULT 0.4 MG/DL (0.2-1.0)
[2017-06-08] MEDS: POTASSIUM CHLORIDE INJ 10 MEQ in DEXT 5%-NACL 0.9% 1000 ML INJ 1,000 ML IV SCH ×2 (07:21→17:17)
[2017-06-08] MEDS: NICOTINE 21 MG/24 HR PATCH T-DERMAL SCH (08:04)
[2017-06-08] MEDS: REMOVE OLD PATCH T-DERMAL SCH (08:05)
[2017-06-08] MEDS: SODIUM CHLORIDE 0.9% FLUSH 10 ML FLUSH IV FLUSH SCH ×2 (08:05→20:03)
[2017-06-08] MEDS: PANTOPRAZOLE SODIUM 40 MG VIAL IV PUSH SCH ×2 (08:05→20:02)
[2017-06-08] MEDS: DOCUSATE SODIUM 50 MG/SENNA 8.6 MG TAB PO SCH ×2 (08:05→20:02)
--- NOTE | 2017-06-08 09:34 | HHI.PR ---
Subjective Remarks Patient is in bed, appears sleepy. Says she has pain in her chest and stomach. No n/v/d/c. No fever or chills. Family at bedside. Objective Vitals Vital Signs Date Time Temp Pulse Resp B/P Pulse Ox O2 Delivery O2 Flow Rate FiO2 06/08/17 07:19 94 Nasal Cannula 5.00 06/08/17 06:45 20 06/08/17 06:00 96 19 132/90 97 145/80 06/08/17 06:00 96 06/08/17 05:00 96 18 141/92 94 138/77 06/08/17 04:00 98.9 99 21 124/83 95 132/74 06/08/17 04:00 96 06/08/17 03:00 97 20 127/85 95 129/74 06/08/17 02:19 19 06/08/17 02:00 97 06/08/17 02:00 97 20 120/85 95 129/73 06/08/17 01:00 101 26 140/94 96 152/85 06/08/17 00:00 96 06/08/17 00:00 99.0 96 18 122/82 96 134/74 06/07/17 23:15 96 Nasal Cannula 5.00 06/07/17 23:00 105 20 133/86 96 129/75 06/07/17 22:00 109 06/07/17 22:00 109 22 131/85 94 125/73 06/07/17 21:20 99.2 112 16 122/84 92 06/07/17 21:00 113 18 133/86 94 Nasal Cannula 5 06/07/17 20:45 93 16 123/67 93 Nasal Cannula 5 06/07/17 20:30 108 16 121/64 92 Nasal Cannula 5 06/07/17 20:15 111 22 142/82 94 Nasal Cannula 5 06/07/17 20:04 99.2 109 16 133/68 95 Simple Mask 10 06/07/17 16:00 98.5 121 26 146/94 96 06/07/17 12:00 98.7 115 24 135/90 95 I/O 06/07/17 06/07/17 06/07/17 06/08/17 06/08/17 06/08/17 07:00 15:00 23:00 07:00 15:00 23:00 Intake Total 891 ml 1700 ml 1143 ml Output Total 2 ml 530 ml 660 ml Balance 889 ml 1170 ml 483 ml Intake Oral 0 ml IV Total 891 ml 100 ml 1143 ml Other 1600 ml Output Urine Total 2 ml 200 ml 580 ml Gastric Drainage Total 0 ml Drainage Total 30 ml 80 ml Estimated Blood Loss 200 ml Other 100 ml # Bowel Movements 0 0 Result Diagram: 06/08/17 0446 06/08/17 0446 Imaging Last Impressions Chest X-Ray 06/06/17 0000 Signed Impressions: Service Date/Time: Tuesday, June 06, 2017 14:31 - CONCLUSION: Developing infiltrate in the left lower lobe with a small left pleural effusion. Brian Navarro MD CT Angiography 06/04/17 0000 Signed Impressions: Service Date/Time: Sunday, June 04, 2017 16:06 - CONCLUSION: 1. There is no evidence for PE for technique. 2. Abnormal thickening of the esophageal wall with surrounding soft tissue mass demonstrate some minimal enhancement possibly a malignant mass or malignant adenopathy. There also small lymph nodes in the cardiophrenic angle and very inhomogeneous liver with masses in the upper abdomen and complete CT examination of the abdomen and pelvis with intravenous and oral contrast is recommended. Robert Cullen MD Abdomen/Pelvis CT 06/04/17 0000 Signed Impressions: Service Date/Time: Monday, June 05, 2017 17:29 - CONCLUSION: In the esophageal hiatus region, extending into the left posterior abdomen is a large multiloculated fluid collection. The fluid is 10.2 x 3.1 cm across. There is an inferior extension into the body of the pancreas could be a dissecting large pseudocyst. There is an additional elongated collection in the anterior subphrenic space measuring 8.0 x 1.2 cm. I do not see any air or hemorrhage within the elongated irregular fluid collection to suggest superinfection. It is unchanged from the previous study. Some of the fluid dissects down the posterior aspect of the pararenal space on the left Brian Navarro MD Objective Remarks GENERAL: 43 yo skinny F in bed, with some sob, however improved satting well on nasal canula. ENT: No nasal bleeding or discharge. Mucous membranes pink and moist. NECK: Trachea midline. No JVD. CARDIOVASCULAR: Tachycardic. Regular rate and rhythm. RESPIRATORY: With some shortness of breath however improved. Rhonchi+ , decreased breath sounds. No wheezing. GASTROINTESTINAL: Abdomen soft, tenderness epigastric area, nondistended. MUSCULOSKELETAL: Extremities without clubbing, cyanosis, or edema. No obvious deformities. NEUROLOGICAL: Awake and alert. No obvious cranial nerve deficits. Motor grossly within normal limits. Normal speech, has a weak voice. Procedures Pancreatic abscess/phlegmon S/P Ex Laparotomy, incision and drainage peripancreatic phlegmon on 06/07/[address] Ellis A/P Problem List: (1) Chest pain ICD Code: R07.9 Status: Acute (2) Pancreatitis ICD Code: K85.90 Status: Acute (3) Esophageal mass ICD Code: K22.9 Status: Acute (4) Leukocytosis ICD Code: D72.829 Status: Acute (5) Hypokalemia ICD Code: E87.6 Status: Acute (6) Tobacco abuse ICD Code: Z72.0 Status: Acute Assessment and Plan Acute respiratory failure. OFF BiAP. The patient was noted desattign in 70s while she went fot EGD on 06/06/17 . The patient was placed on NRM and her O2 sat is 85%. Patient is still sob and she is placed on Bipap. ABG stat reviewed. . CXR stat reviewed patient developing new infiltrate left lower lobe with effusion. Moitor O2 sat . Transfer patient to ICU. Sepsis meeting criteria (fever, tachycardia, source of infection is likely left lower lobe PNA, GI, UTI). Blood cultures ordered and pending. Urine Cx with GNR. Start CBC, CMP, lactic acid per protocol. Discussed with Dr Cary form GI . Jam start IV antibiotics Levaquin and flagyl. Give 1L nS bolus. Monitor VS closely. Continue IV fluids maintenance. Infectious disease is consulted, appreciate recommendations. Consult gen surgery , Dr Ellis for esophageal mass as IR indicated gen surg for eval as well. Patient is Npo , plan to take th epatient to OR today after K is replaced. Esophageal Mass: + weight loss. CT- thickening of esophageal wall w/ ? malignant mass or malignant adenopathy with liver masses for CT Abd/Pelvis GI consulted- plan for EGD/ liver biospy/ ?colonoscopy- with diarrhea. Attempted EGD on hold due to the events above. Pancreatic abscess/phlegmon S/P Ex Laparotomy, incision and drainage peripancreatic phlegmon on 06/07/[address] Ellis Consult gen surgery Dr Ellis will follow. Chest Pain: Pleuritic chect pain 2/2 pneumonia. Unlikely cardiac, likely secondary to Pancreatitis and Esophageal Mass, pneumonia. Initial trop negative , EKG w/ no acute changes. EKG reviewed . CTA negative for PE Pancreatitis: Mild. Lipase 787 improved. Protonix IV. Analgesics/ antiemetics as needed. repeat lipase pending.. continue IVF Leukocytosis: WBC 13. Afebrile. CXR w/ no acute findings, images reviewed. Repeat labs pending. check UA- complains of foul smelling odor. urine cultures pending Acute Diarrhea r/o gastroenteritis- recent diarrhea Continue IVF Persistent Hypokalemia dispite mentainance fluids with KCl as well addditoinal IV and PO K CL.: K+ 2.9 . Give KCL meq IV bolus x 2 and continue IVF with supplemental KCl. FF BMP Tobacco Abuse: NicoDerm patch DVT Prophylaxis: SCD/Teds. Social work for d/c planning as needed. Case discussed w/ patient, nurse, GI service Check drug screen, alcohol level positive for opiates and cannabis. Patient noted dessating on bipap wean as tolerated. Pt also with sepsis criteria. Started on antibiotics. Gen surgeon consult as well for eval of esophageal mass. Transfer to ICU Discussed with the patient, nurse, GI service Vianca FUENTES Code status FULL CODE, discussed with the patient on 06/06/17 she wants full code. Neelam Posey MD Jun 08, 2017 09:34
--- NOTE | 2017-06-08 15:34 | HHI.IDPN ---
Note Infectious Disease Note Patient has occasional chest pain. Had drainage of pancreatic phlegmon/abscess yesterday 06/07. Afebrile. No other complaints. awake and alert. PAST MEDICAL HISTORY 1. Pancreatitis 2. History of cholecystectomy, 3. 4. History of respiratory failure secondary to narcotic overdose. ALLERGIES METHADONE PENICILLIN ANTIBIOTICS: Levaquin. Metronidazole. OBJECTIVE: Vital Signs Date Time Temp Pulse Resp B/P Pulse Ox O2 Delivery O2 Flow Rate FiO2 06/08/17 12:00 92 06/08/17 12:00 98.1 102 24 144/87 92 140/74 06/08/17 10:00 102 06/08/17 08:00 102 06/08/17 08:00 98.7 102 26 149/93 94 166/87 06/08/17 07:19 94 Nasal Cannula 5.00 06/08/17 06:45 20 06/08/17 06:00 96 19 132/90 97 145/80 06/08/17 06:00 96 06/08/17 05:00 96 18 141/92 94 138/77 06/08/17 04:00 98.9 99 21 124/83 95 132/74 06/08/17 04:00 96 06/08/17 03:00 97 20 127/85 95 129/74 06/08/17 02:19 19 06/08/17 02:00 97 06/08/17 02:00 97 20 120/85 95 129/73 06/08/17 01:00 101 26 140/94 96 152/85 06/08/17 00:00 96 06/08/17 00:00 99.0 96 18 122/82 96 134/74 06/07/17 23:15 96 Nasal Cannula 5.00 06/07/17 23:00 105 20 133/86 96 129/75 06/07/17 22:00 109 06/07/17 22:00 109 22 131/85 94 125/73 06/07/17 21:20 99.2 112 16 122/84 92 06/07/17 21:00 113 18 133/86 94 Nasal Cannula 5 06/07/17 20:45 93 16 123/67 93 Nasal Cannula 5 06/07/17 20:30 108 16 121/64 92 Nasal Cannula 5 06/07/17 20:15 111 22 142/82 94 Nasal Cannula 5 06/07/17 20:04 99.2 109 16 133/68 95 Simple Mask 10 06/07/17 16:00 98.5 121 26 146/94 96 06/07/17 06/07/17 06/08/17 15:00 23:00 07:00 Intake Total 891 ml 1700 ml 1143 ml Output Total 2 ml 530 ml 660 ml Balance 889 ml 1170 ml 483 ml Intake Oral 0 ml IV Total 891 ml 100 ml 1143 ml Other 1600 ml Output Urine Total 2 ml 200 ml 580 ml Gastric Drainage Total 0 ml Drainage Total 30 ml 80 ml Estimated Blood Loss 200 ml Other 100 ml # Bowel Movements 0 0 Laboratory Tests Test 06/07/17 06/07/17 06/08/17 05:05 22:05 04:46 White Blood Count 9.6 TH/MM3 8.6 TH/MM3 7.1 TH/MM3 Red Blood Count 3.42 MIL/MM3 3.32 MIL/MM3 3.18 MIL/MM3 Hemoglobin 9.9 GM/DL 9.4 GM/DL 9.2 GM/DL Hematocrit 30.3 % 29.1 % 27.9 % Mean Corpuscular Volume 88.7 FL 87.9 FL 87.8 FL Mean Corpuscular Hemoglobin 28.9 PG 28.4 PG 28.9 PG Mean Corpuscular Hemoglobin 32.6 % 32.3 % 32.9 % Concent Red Cell Distribution Width 19.6 % 19.8 % 20.0 % Platelet Count 210 TH/MM3 231 TH/MM3 223 TH/MM3 Mean Platelet Volume 7.5 FL 7.2 FL 7.6 FL Neutrophils (%) (Auto) 82.9 % 89.6 % 85.9 % Lymphocytes (%) (Auto) 8.1 % 3.8 % 7.5 % Monocytes (%) (Auto) 8.0 % 5.9 % 6.4 % Eosinophils (%) (Auto) 0.7 % 0.2 % 0.0 % Basophils (%) (Auto) 0.3 % 0.5 % 0.2 % Neutrophils # (Auto) 7.9 TH/MM3 7.7 TH/MM3 6.1 TH/MM3 Lymphocytes # (Auto) 0.8 TH/MM3 0.3 TH/MM3 0.5 TH/MM3 Monocytes # (Auto) 0.8 TH/MM3 0.5 TH/MM3 0.5 TH/MM3 Eosinophils # (Auto) 0.1 TH/MM3 0.0 TH/MM3 0.0 TH/MM3 Basophils # (Auto) 0.0 TH/MM3 0.0 TH/MM3 0.0 TH/MM3 CBC Comment DIFF FINAL DIFF FINAL DIFF FINAL Differential Comment Laboratory Tests Test 06/06/17 06/07/17 06/07/17 06/08/17 16:52 05:05 22:05 04:46 Lactic Acid Level 0.8 mmol/L Sodium Level 138 MEQ/L 139 MEQ/L 137 MEQ/L Potassium Level 2.9 MEQ/L 3.4 MEQ/L 3.4 MEQ/L Chloride Level 101 MEQ/L 103 MEQ/L 102 MEQ/L Carbon Dioxide Level 29.5 MEQ/L 25.2 MEQ/L 27.1 MEQ/L Anion Gap 8 MEQ/L 11 MEQ/L 8 MEQ/L Blood Urea Nitrogen 5 MG/DL 5 MG/DL 5 MG/DL Creatinine 0.43 MG/DL 0.23 MG/DL 0.26 MG/DL Estimat Glomerular Filtration 159 ML/MIN 327 ML/MIN 284 ML/MIN Rate Random Glucose 109 MG/DL 148 MG/DL 149 MG/DL Calcium Level 8.0 MG/DL 7.2 MG/DL 7.6 MG/DL Magnesium Level 1.7 MG/DL 1.9 MG/DL Protein Corrected Calcium 8.2 MG/DL Total Protein 5.2 GM/DL 5.3 GM/DL Total Bilirubin 0.4 MG/DL Aspartate Amino Transf 26 U/L (AST/SGOT) Alanine Aminotransferase 18 U/L (ALT/SGPT) Alkaline Phosphatase 103 U/L Albumin 1.8 GM/DL Microbiology Date/Time Procedure Status Source Growth 06/06/17 16:45 Aerobic Blood Culture - Preliminary Resulted Blood Peripheral NO GROWTH IN 2 DAYS 06/06/17 16:45 Anaerobic Blood Culture - Preliminary Resulted Blood Peripheral NO GROWTH IN 2 DAYS 06/06/17 16:52 Aerobic Blood Culture - Preliminary Resulted Blood Peripheral NO GROWTH IN 2 DAYS 06/06/17 16:52 Anaerobic Blood Culture - Preliminary Resulted Blood Peripheral NO GROWTH IN 2 DAYS PHYSICAL EXAMINATION GENERAL: Alert, no acute distress. HEENT: No icterus. NECK: Supple without adenopathy. LUNGS: Clear breath sounds. Slight decrease at left base. HEART: Regular S1 and S2. No murmurs, rubs or gallops. ABDOMEN: Bowel sounds present, soft. EXTREMITIES: No clubbing, cyanosis or edema. SKIN: No rash. NEUROLOGIC: Nonfocal. PSYCHIATRIC: Calm and cooperative. IMPRESSION Severe sepsis. Potential sources include UTI versus pancreatitis with pseudocyst versus pneumonia. Appears improved. WBC and temp improved. Pancreatic pseudocyst. ? infected. UTI - E. coli. Jacinto sensitive RECOMMENDATIONS 1. Continue Levaquin 2. Continue metronidazole 3. Follow blood cultures 4. Monitor clinical status. Jignesh Kaplan MD Jun 08, 2017 15:34
--- NOTE | 2017-06-08 15:57 | HHI.PR ---
Subjective Remarks alert no sob at rest NGT in place Objective GENERAL: SKIN: Warm and dry. HEAD: Atraumatic. Normocephalic. EYES: Pupils equal and round. No scleral icterus. No injection or drainage. ENT: No nasal bleeding or discharge. Mucous membranes pink and moist. NECK: Trachea midline. No JVD. CARDIOVASCULAR: Regular rate and rhythm. RESPIRATORY: No accessory muscle use. Clear to auscultation. Breath sounds equal bilaterally. GASTROINTESTINAL: Abdomen soft, non-tender, nondistended. Hepatic and splenic margins not palpable. MUSCULOSKELETAL: Extremities without clubbing, cyanosis, or edema. No obvious deformities. NEUROLOGICAL: Awake and alert. No obvious cranial nerve deficits. Motor grossly within normal limits. Five out of 5 muscle strength in the arms and legs. Normal speech. PSYCHIATRIC: Appropriate mood and affect; insight and judgment normal. Vital Signs Date Time Temp Pulse Resp B/P Pulse Ox O2 Delivery O2 Flow Rate FiO2 06/08/17 12:00 92 06/08/17 12:00 98.1 102 24 144/87 92 140/74 06/08/17 10:00 102 06/08/17 08:00 102 06/08/17 08:00 98.7 102 26 149/93 94 166/87 06/08/17 07:19 94 Nasal Cannula 5.00 06/08/17 06:45 20 06/08/17 06:00 96 19 132/90 97 145/80 06/08/17 06:00 96 06/08/17 05:00 96 18 141/92 94 138/77 06/08/17 04:00 98.9 99 21 124/83 95 132/74 06/08/17 04:00 96 06/08/17 03:00 97 20 127/85 95 129/74 06/08/17 02:19 19 06/08/17 02:00 97 06/08/17 02:00 97 20 120/85 95 129/73 06/08/17 01:00 101 26 140/94 96 152/85 06/08/17 00:00 96 06/08/17 00:00 99.0 96 18 122/82 96 134/74 06/07/17 23:15 96 Nasal Cannula 5.00 06/07/17 23:00 105 20 133/86 96 129/75 06/07/17 22:00 109 06/07/17 22:00 109 22 131/85 94 125/73 06/07/17 21:20 99.2 112 16 122/84 92 06/07/17 21:00 113 18 133/86 94 Nasal Cannula 5 06/07/17 20:45 93 16 123/67 93 Nasal Cannula 5 06/07/17 20:30 108 16 121/64 92 Nasal Cannula 5 06/07/17 20:15 111 22 142/82 94 Nasal Cannula 5 06/07/17 20:04 99.2 109 16 133/68 95 Simple Mask 10 06/07/17 16:00 98.5 121 26 146/94 96 I/O 06/07/17 06/07/17 06/07/17 06/08/17 06/08/17 06/08/17 07:00 15:00 23:00 07:00 15:00 23:00 Intake Total 891 ml 1700 ml 1143 ml 1223 ml Output Total 2 ml 530 ml 660 ml 625 ml Balance 889 ml 1170 ml 483 ml 598 ml Intake Oral 0 ml 200 ml IV Total 891 ml 100 ml 1143 ml 1023 ml Other 1600 ml Output Urine Total 2 ml 200 ml 580 ml 600 ml Gastric Drainage Total 0 ml Drainage Total 30 ml 80 ml 25 ml Estimated Blood Loss 200 ml Other 100 ml # Bowel Movements 0 0 Result Diagram: 06/08/1744506/08/17445 Objective Remarks GENERAL: SKIN: Warm and dry. HEAD: Atraumatic. Normocephalic. EYES: Pupils equal and round. No scleral icterus. No injection or drainage. ENT: No nasal bleeding or discharge. Mucous membranes pink and moist. NECK: Trachea midline. No JVD. CARDIOVASCULAR: Regular rate and rhythm. RESPIRATORY: No accessory muscle use. Clear to auscultation. Breath sounds equal bilaterally. GASTROINTESTINAL: Abdomen soft, non-tender, nondistended. Hepatic and splenic margins not palpable. MUSCULOSKELETAL: Extremities without clubbing, cyanosis, or edema. No obvious deformities. NEUROLOGICAL: Awake and alert. No obvious cranial nerve deficits. Motor grossly within normal limits. Five out of 5 muscle strength in the arms and legs. Normal speech. PSYCHIATRIC: Appropriate mood and affect; insight and judgment normal. Assessment and Plan Assessment and Plan ASS Pancreatitis ?PNA PLAN o2 as needed ANTBX per ID F/U CXRAMae Dejesus MD 20, 2017 15:57
--- NOTE | 2017-06-08 16:51 | HHI.PR ---
Subjective Subjective Notes Resting in bed No issues overnight Objective Vitals/I&O Vital Signs Date Time Temp Pulse Resp B/P Pulse Ox O2 Delivery O2 Flow Rate FiO2 06/08/17 16:00 110 06/08/17 16:00 98.5 28 154/96 91 160/91 06/08/17 07:19 Nasal Cannula 5.00 06/06/17 16:15 40 Labs Laboratory Tests Test 06/07/17 06/07/17 06/07/17 06/07/17 17:32 18:30 18:33 22:05 Blood Type AB NEGATIVE AB NEGATIVE Antibody Screen NEGATIVE Blood Bank Comment Crossmatch Leukocyte-Reduced Red Blood Cells White Blood Count 8.6 Red Blood Count 3.32 Hemoglobin 9.4 Hematocrit 29.1 Mean Corpuscular Volume 87.9 Mean Corpuscular Hemoglobin 28.4 Mean Corpuscular Hemoglobin 32.3 Concent Red Cell Distribution Width 19.8 Platelet Count 231 Mean Platelet Volume 7.2 Neutrophils (%) (Auto) 89.6 Lymphocytes (%) (Auto) 3.8 Monocytes (%) (Auto) 5.9 Eosinophils (%) (Auto) 0.2 Basophils (%) (Auto) 0.5 Neutrophils # (Auto) 7.7 Lymphocytes # (Auto) 0.3 Monocytes # (Auto) 0.5 Eosinophils # (Auto) 0.0 Basophils # (Auto) 0.0 CBC Comment DIFF FINAL Differential Comment Sodium Level 139 Potassium Level 3.4 Chloride Level 103 Carbon Dioxide Level 25.2 Anion Gap 11 Blood Urea Nitrogen 5 Creatinine 0.23 Estimat Glomerular Filtration 327 Rate Random Glucose 148 Calcium Level 7.2 Protein Corrected Calcium 8.2 Total Protein 5.2 Test 06/08/17 04:46 White Blood Count 7.1 Red Blood Count 3.18 Hemoglobin 9.2 Hematocrit 27.9 Mean Corpuscular Volume 87.8 Mean Corpuscular Hemoglobin 28.9 Mean Corpuscular Hemoglobin 32.9 Concent Red Cell Distribution Width 20.0 Platelet Count 223 Mean Platelet Volume 7.6 Neutrophils (%) (Auto) 85.9 Lymphocytes (%) (Auto) 7.5 Monocytes (%) (Auto) 6.4 Eosinophils (%) (Auto) 0.0 Basophils (%) (Auto) 0.2 Neutrophils # (Auto) 6.1 Lymphocytes # (Auto) 0.5 Monocytes # (Auto) 0.5 Eosinophils # (Auto) 0.0 Basophils # (Auto) 0.0 CBC Comment DIFF FINAL Differential Comment Sodium Level 137 Potassium Level 3.4 Chloride Level 102 Carbon Dioxide Level 27.1 Anion Gap 8 Blood Urea Nitrogen 5 Creatinine 0.26 Estimat Glomerular Filtration 284 Rate Random Glucose 149 Calcium Level 7.6 Magnesium Level 1.9 Total Bilirubin 0.4 Aspartate Amino Transf 26 (AST/SGOT) Alanine Aminotransferase 18 (ALT/SGPT) Alkaline Phosphatase 103 Total Protein 5.3 Albumin 1.8 Date/Time Procedure Status Source Growth 06/06/17 16:52 Aerobic Blood Culture - Preliminary Resulted Blood Peripheral NO GROWTH IN 2 DAYS 06/06/17 16:52 Anaerobic Blood Culture - Preliminary Resulted Blood Peripheral NO GROWTH IN 2 DAYS 06/05/17 12:05 Urine Culture - Final Complete Urine Clean Catch Escherichia Coli Cardiovascular: Regular Lungs: Clear Abdomen: Other (midline incision with dressing in place--minimal drainage; BROCK with SS drainage; abdomen soft; minimally tender ) Extremities: Other (mild generalized edema ) A/P Assessment and Plan 46 year old POD1 Ex Laparotomy, incision and drainage peripancreatic phlegmon -NPO -NGT to LIWS -OOB and mobilize -IS Attending Note - Dr. Ellis Painful Dressing dry and intact BROCK output serosanguinous The exam, history, and the medical decision-making described in the above note were completed with the assistance of the mid-level provider. I reviewed and agree with the findings presented. I attest that I had a [id number] encounter with the patient on the same day, and personally performed and documented my assessment and findings in the medical record. Nette Rangel Jun 08, 2017 16:51 Damien Ellis MD Jun 13, 2017 19:47
--- NOTE | 2017-06-08 17:16 | HHI.GIFU ---
Subjective Remarks Resting in bed. C/O significant abdominal pain and anxiety- requesting meds for both. Does get relief with pain No n/v. NGT to LIWS. States she has belched some, but has not passed any flatus. (Vianca Gomes) Objective Vitals I&O Vital Signs Date Time Temp Pulse Resp B/P Pulse Ox O2 Delivery O2 Flow Rate FiO2 06/08/17 16:00 110 06/08/17 16:00 98.5 110 28 154/96 91 160/91 06/08/17 14:00 101 06/08/17 12:00 92 06/08/17 12:00 98.1 102 24 144/87 92 140/74 06/08/17 10:00 102 06/08/17 08:00 102 06/08/17 08:00 98.7 102 26 149/93 94 166/87 06/08/17 07:19 94 Nasal Cannula 5.00 06/08/17 06:45 20 06/08/17 06:00 96 19 132/90 97 145/80 06/08/17 06:00 96 06/08/17 05:00 96 18 141/92 94 138/77 06/08/17 04:00 98.9 99 21 124/83 95 132/74 06/08/17 04:00 96 06/08/17 03:00 97 20 127/85 95 129/74 06/08/17 02:19 19 06/08/17 02:00 97 06/08/17 02:00 97 20 120/85 95 129/73 06/08/17 01:00 101 26 140/94 96 152/85 06/08/17 00:00 96 06/08/17 00:00 99.0 96 18 122/82 96 134/74 06/07/17 23:15 96 Nasal Cannula 5.00 06/07/17 23:00 105 20 133/86 96 129/75 06/07/17 22:00 109 06/07/17 22:00 109 22 131/85 94 125/73 06/07/17 21:20 99.2 112 16 122/84 92 06/07/17 21:00 113 18 133/86 94 Nasal Cannula 5 06/07/17 20:45 93 16 123/67 93 Nasal Cannula 5 06/07/17 20:30 108 16 121/64 92 Nasal Cannula 5 06/07/17 20:15 111 22 142/82 94 Nasal Cannula 5 06/07/17 20:04 99.2 109 16 133/68 95 Simple Mask 10 I/O 06/07/17 06/07/17 06/07/17 06/08/17 06/08/17 06/08/17 06:59 14:59 22:59 06:59 14:59 22:59 Intake Total 891 ml 1700 ml 1143 ml 1223 ml Output Total 2 ml 530 ml 660 ml 625 ml Balance 889 ml 1170 ml 483 ml 598 ml Intake Oral 0 ml 200 ml IV Total 891 ml 100 ml 1143 ml 1023 ml Other 1600 ml Output Urine Total 2 ml 200 ml 580 ml 600 ml Gastric Drainage Total 0 ml Drainage Total 30 ml 80 ml 25 ml Estimated Blood Loss 200 ml Other 100 ml # Bowel Movements 0 0 Laboratory Laboratory Tests Test 06/07/17 06/07/17 06/07/17 06/07/17 17:32 18:30 18:33 22:05 Blood Type AB NEGATIVE AB NEGATIVE Antibody Screen NEGATIVE Blood Bank Comment Crossmatch Leukocyte-Reduced Red Blood Cells White Blood Count 8.6 Red Blood Count 3.32 Hemoglobin 9.4 Hematocrit 29.1 Mean Corpuscular Volume 87.9 Mean Corpuscular Hemoglobin 28.4 Mean Corpuscular Hemoglobin 32.3 Concent Red Cell Distribution Width 19.8 Platelet Count 231 Mean Platelet Volume 7.2 Neutrophils (%) (Auto) 89.6 Lymphocytes (%) (Auto) 3.8 Monocytes (%) (Auto) 5.9 Eosinophils (%) (Auto) 0.2 Basophils (%) (Auto) 0.5 Neutrophils # (Auto) 7.7 Lymphocytes # (Auto) 0.3 Monocytes # (Auto) 0.5 Eosinophils # (Auto) 0.0 Basophils # (Auto) 0.0 CBC Comment DIFF FINAL Differential Comment Sodium Level 139 Potassium Level 3.4 Chloride Level 103 Carbon Dioxide Level 25.2 Anion Gap 11 Blood Urea Nitrogen 5 Creatinine 0.23 Estimat Glomerular Filtration 327 Rate Random Glucose 148 Calcium Level 7.2 Protein Corrected Calcium 8.2 Total Protein 5.2 Test 06/08/17 04:46 White Blood Count 7.1 Red Blood Count 3.18 Hemoglobin 9.2 Hematocrit 27.9 Mean Corpuscular Volume 87.8 Mean Corpuscular Hemoglobin 28.9 Mean Corpuscular Hemoglobin 32.9 Concent Red Cell Distribution Width 20.0 Platelet Count 223 Mean Platelet Volume 7.6 Neutrophils (%) (Auto) 85.9 Lymphocytes (%) (Auto) 7.5 Monocytes (%) (Auto) 6.4 Eosinophils (%) (Auto) 0.0 Basophils (%) (Auto) 0.2 Neutrophils # (Auto) 6.1 Lymphocytes # (Auto) 0.5 Monocytes # (Auto) 0.5 Eosinophils # (Auto) 0.0 Basophils # (Auto) 0.0 CBC Comment DIFF FINAL Differential Comment Sodium Level 137 Potassium Level 3.4 Chloride Level 102 Carbon Dioxide Level 27.1 Anion Gap 8 Blood Urea Nitrogen 5 Creatinine 0.26 Estimat Glomerular Filtration 284 Rate Random Glucose 149 Calcium Level 7.6 Magnesium Level 1.9 Total Bilirubin 0.4 Aspartate Amino Transf 26 (AST/SGOT) Alanine Aminotransferase 18 (ALT/SGPT) Alkaline Phosphatase 103 Total Protein 5.3 Albumin 1.8 Date/Time Procedure Status Source Growth 06/06/17 16:52 Aerobic Blood Culture - Preliminary Resulted Blood Peripheral NO GROWTH IN 2 DAYS 06/06/17 16:52 Anaerobic Blood Culture - Preliminary Resulted Blood Peripheral NO GROWTH IN 2 DAYS 06/05/17 12:05 Urine Culture - Final Complete Urine Clean Catch Escherichia Coli Imaging Last Impressions Chest X-Ray 06/06/17 0000 Signed Impressions: Service Date/Time: Tuesday, June 06, 2017 14:31 - CONCLUSION: Developing infiltrate in the left lower lobe with a small left pleural effusion. Brian Navarro MD CT Angiography 06/04/17 0000 Signed Impressions: Service Date/Time: Sunday, June 04, 2017 16:06 - CONCLUSION: 1. There is no evidence for PE for technique. 2. Abnormal thickening of the esophageal wall with surrounding soft tissue mass demonstrate some minimal enhancement possibly a malignant mass or malignant adenopathy. There also small lymph nodes in the cardiophrenic angle and very inhomogeneous liver with masses in the upper abdomen and complete CT examination of the abdomen and pelvis with intravenous and oral contrast is recommended. Robert Cullen MD Abdomen/Pelvis CT 06/04/17 0000 Signed Impressions: Service Date/Time: Monday, June 05, 2017 17:29 - CONCLUSION: In the esophageal hiatus region, extending into the left posterior abdomen is a large multiloculated fluid collection. The fluid is 10.2 x 3.1 cm across. There is an inferior extension into the body of the pancreas could be a dissecting large pseudocyst. There is an additional elongated collection in the anterior subphrenic space measuring 8.0 x 1.2 cm. I do not see any air or hemorrhage within the elongated irregular fluid collection to suggest superinfection. It is unchanged from the previous study. Some of the fluid dissects down the posterior aspect of the pararenal space on the left Brian Navarro MD Physical Exam HEENT: Normocephalic; atraumatic CHEST: Resp. even/unlabored. CARDIAC: ST ABDOMEN: Soft, mildly bloated, diffuse tenderness; midline incision line, no hepatosplenomegaly; bowel sounds are present in all four quadrants. NGT to liws EXTREMITIES: No clubbing, cyanosis, or edema. SKIN: Normal; no rash; no jaundice. MANAGER MATH: No focal deficits; alert and oriented times three. (Vianca Gomes) Assessment and Plan Plan ASSESSMENT: - Pancreatitis with Pseudocyst (possible dissecting). Pt had first episode of pancreatitis 3 years ago and has had two hospitalizations. She was told that these episodes were most likely related to ETOH. She is s/ p cholecystectomy. She reports that she occasionally drinks and had 4 shots 3 days ago. Abdomen/Pelvis CT (06/04/17)------> In the esophageal hiatus region, extending into the left posterior abdomen is a large multiloculated fluid collection. The fluid is 10.2 x 3.1 cm across. There is an inferior extension into the body of the pancreas could be a dissecting large pseudocyst. There is an additional elongated collection in the anterior subphrenic space measuring 8.0 x 1.2 cm. I do not see any air or hemorrhage within the elongated irregular fluid collection to suggest superinfection. It is unchanged from the previous study. Some of the fluid dissects down the posterior aspect of the pararenal space on the left. IR and transgastric drainage are unable to be performed. GS following, going to OR today for surgical drainage. AFP 2.9, CEA 1.2, Ca19-9 25.5. S/ P Exploratory lap, I&D of peripancreatic phlegmon. Flagyl, Levaquin. - Odynophagia with abnormal imaging on CTA thorax with abnormal esophageal wall. CT Angiography (06/04/17)----> 1. There is no evidence for PE for technique. 2. Abnormal thickening of the esophageal wall with surrounding soft tissue mass demonstrate some minimal enhancement possibly a malignant mass or malignant adenopathy. There also small lymph nodes in the cardiophrenic angle and very inhomogeneous liver with masses in the upper abdomen and complete CT examination of the abdomen and pelvis with intravenous and oral contrast is recommended. Plan was for EGD, but patient became tachycardic and was transferred to the unit - Abdominal pain secondary to above. - Abn. Wt. Loss, unintentional. Pt does not know how much but states she has gone from a size 5 to a size 0-1 over past year. - Leukocytosis, mild. Low grade fever. Flagyl, Levaquin. - Hypokalemia. 3.4 PLAN: - NPO - NGT to LIWS - Cont. PPI - Cont. IVF - Abx- Levaquin, Flagyl - Monitor labs - Supportive care - S/P Exp. Lap with I&D of peripancreatic phlegmon. - Further recommendations to follow based on results of above - Pt seen and examined by Dr. Cary and myself and this note is written on her behalf (Vianca Gomes) Vianca Gomes Jun 08, 2017 17:16 April Cary MD Jun 08, 2017 17:48
[2017-06-08] MEDS: ENOXAPARIN SODIUM 40 MG/0.4 ML SYRINGE SQ SCH (20:03)
[2017-06-09] VITALS: BP 139/85; PULSE 98; RESP 20; TEMP 97.8; O2SAT 99
[2017-06-09] MEDS: PHENOL 1.4% SOLN 180 ML BTL OROPHARYNG PRN ×2 (00:08→03:52)
[2017-06-09] MEDS: HYDROmorphone HCL PF 1 MG/ML VIAL IV PUSH PRN ×4 (02:30→16:31)
[2017-06-09] MEDS: CHLORHEXIDINE GLUCONATE 2 % 1 PACK (2 CLOTHS)(taper/protocol) TOPICAL SCH (04:00)
[2017-06-09] MEDS: LORazepam 2 MG/ML VIAL IV PUSH PRN ×3 (05:32→18:10)
[2017-06-09] MEDS: metroNIDAZOLE 500 MG INJ 100 ML IV SCH ×4 (05:33→20:27)
[2017-06-09 05:58] LABS: HEMATOCRIT 27.5 % (35.0-46.0); MEAN CORPUSCULAR HEMOGLOBIN 28.7 PG (27.0-34.0); MEAN CORPUSCULAR HGB CONC 32.6 % (32.0-36.0); PLATELET COUNT 261 TH/MM3 (150-450); RED BLOOD COUNT 3.13 MIL/MM3 (4.00-5.30); WHITE BLOOD COUNT 5.7 TH/MM3 (4.0-11.0)
[2017-06-09 06:04] LABS: HEMO FLAGS AUTO DIFF
[2017-06-09 06:51] LABS: BICARBONATE 26.9 MEQ/L (21.0-32.0)
[2017-06-09 06:59] LABS: BANDS 4 % (0-6); EOSINOPHILS 2 % (0-4); NEUTROPHIL # MANUAL DIFF 5.1 TH/MM3 (1.8-7.7); POLYS (SEG NEUTROPHILS) 85 % (16-70); SCAN/DIFF FINAL DIFF MANUAL; WBC DIFF SAMPLE 100
[2017-06-09 07:00] LABS: PLATELET ESTIMATE SMEAR NORMAL (NORMAL); PLATELET MORPHOLOGY NORMAL (NORMAL)
[2017-06-09 07:29] LABS: POTASSIUM 2.9 MEQ/L (3.5-5.1)
[2017-06-09 08:00] VITALS: BP 141/98; PULSE 104; RESP 18; TEMP 99.2; O2SAT 96
[2017-06-09] MEDS ORDERED: POTASSIUM CHLORIDE 10 MEQ CONTROLLED RELEASE TAB PO ONE (08:00)
--- NOTE | 2017-06-09 08:19 | HHI.PR ---
Subjective Remarks alert no sob at rest NGT in place Objective Vital Signs Date Time Temp Pulse Resp B/P Pulse Ox O2 Delivery O2 Flow Rate FiO2 06/09/17 00:00 97.8 98 20 139/85 99 06/08/17 23:05 97.7 109 20 147/95 98 06/08/17 20:00 117 06/08/17 20:00 98.0 117 30 138/106 92 158/84 06/08/17 16:00 110 06/08/17 16:00 98.5 110 28 154/96 91 160/91 06/08/17 14:00 101 06/08/17 12:00 92 06/08/17 12:00 98.1 102 24 144/87 92 140/74 06/08/17 10:00 102 I/O 06/08/17 06/08/17 06/08/17 06/09/17 06/09/17 06/09/17 06:59 14:59 22:59 06:59 14:59 22:59 Intake Total 1143 ml 1223 ml 1090 ml 0 ml Output Total 660 ml 625 ml 925 ml 440 ml Balance 483 ml 598 ml 165 ml -440 ml Intake Oral 200 ml 520 ml 0 ml IV Total 1143 ml 1023 ml 570 ml Output Urine Total 580 ml 600 ml 925 ml 400 ml Gastric Drainage Total 40 ml Drainage Total 80 ml 25 ml # Bowel Movements 0 Result Diagram: 06/09/1752906/09/17529 Objective Remarks GENERAL: SKIN: Warm and dry. HEAD: Atraumatic. Normocephalic. EYES: Pupils equal and round. No scleral icterus. No injection or drainage. ENT: No nasal bleeding or discharge. Mucous membranes pink and moist. NECK: Trachea midline. No JVD. CARDIOVASCULAR: Regular rate and rhythm. RESPIRATORY: No accessory muscle use. Clear to auscultation. Breath sounds equal bilaterally. GASTROINTESTINAL: Abdomen soft, non-tender, nondistended. Hepatic and splenic margins not palpable. MUSCULOSKELETAL: Extremities without clubbing, cyanosis, or edema. No obvious deformities. NEUROLOGICAL: Awake and alert. No obvious cranial nerve deficits. Motor grossly within normal limits. Five out of 5 muscle strength in the arms and legs. Normal speech. PSYCHIATRIC: Appropriate mood and affect; insight and judgment normal. GENERAL: SKIN: Warm and dry. HEAD: Atraumatic. Normocephalic. EYES: Pupils equal and round. No scleral icterus. No injection or drainage. ENT: No nasal bleeding or discharge. Mucous membranes pink and moist. NECK: Trachea midline. No JVD. CARDIOVASCULAR: Regular rate and rhythm. RESPIRATORY: No accessory muscle use. Clear to auscultation. Breath sounds equal bilaterally. GASTROINTESTINAL: Abdomen soft, non-tender, nondistended. Hepatic and splenic margins not palpable. MUSCULOSKELETAL: Extremities without clubbing, cyanosis, or edema. No obvious deformities. NEUROLOGICAL: Awake and alert. No obvious cranial nerve deficits. Motor grossly within normal limits. Five out of 5 muscle strength in the arms and legs. Normal speech. PSYCHIATRIC: Appropriate mood and affect; insight and judgment normal. Assessment and Plan Assessment and Plan ASS Pancreatitis ?PNA PLAN o2 as needed ANTBX per ID F/U CXRAY Mae Wall MD Jun 09, 2017 08:19
[2017-06-09] MEDS ORDERED: DIATRIZOATE MEGLUM/DIATRIZOATE SOD 9 ML CUP PO ONE (08:30)
[2017-06-09] MEDS: POTASSIUM CHLOR 20 MEQ PREMIX 100 ML IV SCH ×2 (08:50→10:24)
[2017-06-09] MEDS: PANTOPRAZOLE SODIUM 40 MG VIAL IV PUSH SCH ×2 (08:50→20:27)
[2017-06-09] MEDS: SODIUM CHLORIDE 0.9% FLUSH 10 ML FLUSH IV FLUSH SCH ×2 (08:52→20:27)
[2017-06-09] MEDS: DOCUSATE SODIUM 50 MG/SENNA 8.6 MG TAB PO SCH ×2 (08:57→20:28)
[2017-06-09] MEDS: REMOVE OLD PATCH T-DERMAL SCH (09:00)
[2017-06-09] MEDS: POTASSIUM CHLORIDE INJ 10 MEQ in DEXT 5%-NACL 0.9% 1000 ML INJ 1,000 ML IV SCH ×3 (09:43→23:49)
[2017-06-09] MEDS: NICOTINE 21 MG/24 HR PATCH T-DERMAL SCH (09:43)
[2017-06-09] MEDS: CALCIUM CARBONATE 500 MG CHEWABLE TAB CHEW SCH ×2 (09:45→20:27)
--- NOTE | 2017-06-09 09:48 | HHI.PR ---
Subjective Remarks K low at 2.9. Replaced by IV , PO and also she is on IVF NS with KCl supplement. Monitor and replace. The patient is seen in bed. Says pain is better controlled. She feels anxious at this time is plan for CT for surgery for further evaluation. NG tube in place with dark color drainage. Patient has no nausea or vomiting no diarrhea. Feels improved some. No fever or chills. Has a productive cough, not able to describe the sputum. Objective Vitals Vital Signs Date Time Temp Pulse Resp B/P Pulse Ox O2 Delivery O2 Flow Rate FiO2 06/09/17 08:00 99.2 104 18 141/98 96 06/09/17 00:00 97.8 98 20 139/85 99 06/08/17 23:05 97.7 109 20 147/95 98 06/08/17 20:00 117 06/08/17 20:00 98.0 117 30 138/106 92 158/84 06/08/17 16:00 110 06/08/17 16:00 98.5 110 28 154/96 91 160/91 06/08/17 14:00 101 06/08/17 12:00 92 06/08/17 12:00 98.1 102 24 144/87 92 140/74 06/08/17 10:00 102 I/O 06/08/17 06/08/17 06/08/17 06/09/17 06/09/17 06/09/17 06:59 14:59 22:59 06:59 14:59 22:59 Intake Total 1143 ml 1223 ml 1090 ml 0 ml Output Total 660 ml 625 ml 925 ml 440 ml Balance 483 ml 598 ml 165 ml -440 ml Intake Oral 200 ml 520 ml 0 ml IV Total 1143 ml 1023 ml 570 ml Output Urine Total 580 ml 600 ml 925 ml 400 ml Gastric Drainage Total 40 ml Drainage Total 80 ml 25 ml # Bowel Movements 0 Result Diagram: 06/09/17 0530 06/09/17 0530 Imaging Last Impressions Chest X-Ray 06/06/17 0000 Signed Impressions: Service Date/Time: Tuesday, June 06, 2017 14:31 - CONCLUSION: Developing infiltrate in the left lower lobe with a small left pleural effusion. Brian Navarro MD CT Angiography 06/04/17 0000 Signed Impressions: Service Date/Time: Sunday, June 04, 2017 16:06 - CONCLUSION: 1. There is no evidence for PE for technique. 2. Abnormal thickening of the esophageal wall with surrounding soft tissue mass demonstrate some minimal enhancement possibly a malignant mass or malignant adenopathy. There also small lymph nodes in the cardiophrenic angle and very inhomogeneous liver with masses in the upper abdomen and complete CT examination of the abdomen and pelvis with intravenous and oral contrast is recommended. Robert Cullen MD Abdomen/Pelvis CT 06/04/17 0000 Signed Impressions: Service Date/Time: Monday, June 05, 2017 17:29 - CONCLUSION: In the esophageal hiatus region, extending into the left posterior abdomen is a large multiloculated fluid collection. The fluid is 10.2 x 3.1 cm across. There is an inferior extension into the body of the pancreas could be a dissecting large pseudocyst. There is an additional elongated collection in the anterior subphrenic space measuring 8.0 x 1.2 cm. I do not see any air or hemorrhage within the elongated irregular fluid collection to suggest superinfection. It is unchanged from the previous study. Some of the fluid dissects down the posterior aspect of the pararenal space on the left Brian Navarro MD Objective Remarks GENERAL: 43 yo skinny F in bed, with some sob, however improved satting well on nasal canula. ENT: No nasal bleeding or discharge. Mucous membranes pink and moist. NECK: Trachea midline. No JVD. CARDIOVASCULAR: Tachycardic. Regular rate and rhythm. RESPIRATORY: With some shortness of breath however improved. Rhonchi+ , decreased breath sounds. No wheezing. GASTROINTESTINAL: Abdomen soft, tenderness epigastric area, nondistended. MUSCULOSKELETAL: Extremities without clubbing, cyanosis, or edema. No obvious deformities. NEUROLOGICAL: Awake and alert. No obvious cranial nerve deficits. Motor grossly within normal limits. Normal speech, has a weak voice. Procedures Pancreatic abscess/phlegmon S/P Ex Laparotomy, incision and drainage peripancreatic phlegmon on 06/07/[address] Caleb Garcia Problem List: (1) Chest pain ICD Code: R07.9 Status: Acute (2) Pancreatitis ICD Code: K85.90 Status: Acute (3) Esophageal mass ICD Code: K22.9 Status: Acute (4) Leukocytosis ICD Code: D72.829 Status: Acute (5) Hypokalemia ICD Code: E87.6 Status: Acute (6) Tobacco abuse ICD Code: Z72.0 Status: Acute Assessment and Plan Acute respiratory failure. Resolving , currently on NC. OFF BiAP. The patient was noted desattign in 70s while she went fot EGD on 06/06/17 . The patient was placed on NRM and her O2 sat is 85%. Patient is still sob and she is placed on Bipap. ABG stat reviewed. . CXR stat reviewed patient developing new infiltrate left lower lobe with effusion. Moitor O2 sat . Transfer patient to ICU. Sepsis meeting criteria (fever, tachycardia, source of infection is likely left lower lobe PNA, GI, UTI). Blood cultures ordered and pending. Urine Cx with GNR. Start CBC, CMP, lactic acid per protocol. Discussed with Dr Cary form GI . Cont. IV antibiotics Levaquin and flagyl. Received 1L NS bolus. Monitor VS closely. Continue IV fluids maintenance. Infectious disease is consulted, appreciate recommendations. Consult gen surgery , Dr Ellis for esophageal mass as IR indicated gen surg for eval as well. patient with pancreatic abscess/phlegmon S/P Ex Laparotomy, incision and drainage peripancreatic phlegmon on 06/07/[address] Ellis - Plan for CT abdomen 06/09 Esophageal Mass: + weight loss. CT- thickening of esophageal wall w/ ? malignant mass or malignant adenopathy with liver masses for CT Abd/Pelvis GI consulted- plan for EGD/ liver biospy/ ?colonoscopy- with diarrhea. Attempted EGD on hold due to the events above. Pancreatic abscess/phlegmon S/P Ex Laparotomy, incision and drainage peripancreatic phlegmon on 06/07/[address] Ellis Consult gen surgery Dr Ellis will follow. Chest Pain: Pleuritic chect pain 2/2 pneumonia. Unlikely cardiac, likely secondary to Pancreatitis and Esophageal Mass, pneumonia. Initial trop negative , EKG w/ no acute changes. EKG reviewed . CTA negative for PE Pancreatitis: Mild. Lipase 787 on admission, improved. Protonix IV. Analgesics/antiemetics as needed. repeat lipase pending.. continue IVF Leukocytosis: WBC 13. Afebrile. CXR w/ no acute findings, images reviewed. Repeat labs pending. check UA- complains of foul smelling odor. urine cultures pending Acute Diarrhea r/o gastroenteritis- recent diarrhea Continue IVF Persistent Hypokalemia despite maintenance fluids with KCl as well additoinal IV and PO KCL.: K+ 2.9 . Give KCL meq IV bolus x 2 and continue IVF with supplemental KCl. FF BMP Tobacco Abuse: NicoDerm patch DVT Prophylaxis: SCD/Teds. Social work for d/c planning as needed. Case discussed w/ patient, nurse, GI service Check drug screen, alcohol level positive for opiates and cannabis. Patient noted dessating on bipap wean as tolerated. Pt also with sepsis criteria. Started on antibiotics. Gen surgeon consult as well for eval of esophageal mass. Transfer to ICU Discussed with the patient, nurse, GI service Vianca FUENTES Code status FULL CODE, discussed with the patient on 06/06/17 she wants full code. Discharge plan. Pending improvement, clearance form consultants. Plan for CT abdomen 06/09 per surgery. Possible removal of NG tube to tomorrow. Dr. Ellis will follow tomorrow as well and decide Neelam Posey MD Jun 09, 2017 09:48
[2017-06-09] MEDS: ONDANSETRON HCL 4 MG/2 ML VIAL IVP PRN (10:23)
[2017-06-09 12:00] VITALS: BP 142/97; PULSE 103; RESP 17; TEMP 99; O2SAT 100
--- NOTE | 2017-06-09 13:03 | RADRPT ---
EXAM DATE/TIME: 06/09/2017 12:17 [facility] COMPARISON: CT ABDOMEN & PELVIS W CONTRAST, June 05, 2017, 17:29. INDICATIONS : Follow up pancreatic pseudocyst. Status post operative drainage. ORAL CONTRAST: Prescribed oral contrast ingested. RADIATION DOSE: 9.96 CTDIvol (mGy) MEDICAL HISTORY : None SURGICAL HISTORY : Cholecystectomy. section. ENCOUNTER: Initial ACUITY: 1 day PAIN SCALE: 10/10 LOCATION: Bilateral abdomen TECHNIQUE: Volumetric scanning of the abdomen and pelvis was performed. Using automated exposure control and ad justment of the mA and/or kV according to patient size, radiation dose was kept as low as reasonably achievable to obtain optimal diagnostic quality images. DICOM format image data is available electro nically for review and comparison. FINDINGS: LOWER LUNGS: There is a small left pleural effusion with associated compressive atelectasis and there is a trace r ight pleural fluid atelectasis and/or consolidation. These findings are stable. LIVER: Liver demonstrates severe diffuse low-density with geographic sparing of the areas of more severe ale atosis. Linear high density is present in the gallbladder fossa. The SPLEEN: Normal size without lesion. PANCREAS: Pancreas is small in size and demonstrates calcifications. There is a cystlike area in the pancreatic tail measuring 10 mm, similar to the prior study. This finding extends to a retroperitoneal fluid co llection left upper quadrant medial to the spleen. This fluid collection has decreased in size, curre ntly measuring 6.3 x 2.1 cm compared to 10.0 x 3.6 cm previously. Additionally, there is peritoneal t hickening and loculated fluid anteriorly in the left upper quadrant, stable from the prior study. KIDNEYS: Normal in size and shape. There is no mass, stone, or hydronephrosis. ADRENAL GLANDS: Within normal limits. 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 BOWEL/MESENTERY: There is distal esophageal wall thickening. Nasogastric tube is present with distal tip in the duoden al bulb. Small bowel and large bowel demonstrates no acute finding. There is trace free fluid in the pelvis. There is a trace free air in the upper abdomen. ABDOMINAL WALL: There are skin anna anteriorly on the abdominal wall. There is diffuse subcutaneous edema. RETROPERITONEUM: There is no lymphadenopathy. BLADDER: Decompressed with Beck catheter present. REPRODUCTIVE: Within normal limits. INGUINAL: There is no lymphadenopathy or hernia. MUSCULOSKELETAL: Within normal limits for patient age. CONCLUSION: 1. The left upper quadrant fluid collection/pseudocyst has decreased in size. It currently measures 6 .3 x 2.1 cm compared to 10.0 x 3.6 cm previously. A surgical drain is now present in the left upper q uadrant adjacent to the tail of the pancreas. 2. Expected postsurgical changes are present including a small amount of free intraperitoneal air. 3. Small bilateral pleural effusions, left larger than right, with associated atelectasis and/or cons olidation at the lung bases. 4. Severe hepatic steatosis. Thom Murray MD on June 09, 2017 at 12:53 Board Certified Radiologist. This report was verified electronically.
--- NOTE | 2017-06-09 14:40 | HHI.IDPN ---
Note Infectious Disease Note Patient notes pain in abdomen radiating to the back. Had drainage of pancreatic phlegmon/abscess 06/07. Has NG tube in place. Afebrile. Denies nausea. Asking for pain meds. PAST MEDICAL HISTORY 1. Pancreatitis 2. History of cholecystectomy, 3. 4. History of respiratory failure secondary to narcotic overdose. ALLERGIES METHADONE PENICILLIN ANTIBIOTICS: Levaquin. Metronidazole. OBJECTIVE: Vital Signs Date Time Temp Pulse Resp B/P Pulse Ox O2 Delivery O2 Flow Rate FiO2 06/09/17 12:00 99.0 103 17 142/97 100 06/09/17 08:00 99.2 104 18 141/98 96 06/09/17 00:00 97.8 98 20 139/85 99 06/08/17 23:05 97.7 109 20 147/95 98 06/08/17 20:00 117 06/08/17 20:00 98.0 117 30 138/106 92 158/84 06/08/17 16:00 110 06/08/17 16:00 98.5 110 28 154/96 91 160/91 Laboratory Tests Test 06/07/17 06/08/17 06/09/17 22:05 04:46 05:30 White Blood Count 8.6 TH/MM3 7.1 TH/MM3 5.7 TH/MM3 Red Blood Count 3.32 MIL/MM3 3.18 MIL/MM3 3.13 MIL/MM3 Hemoglobin 9.4 GM/DL 9.2 GM/DL 9.0 GM/DL Hematocrit 29.1 % 27.9 % 27.5 % Mean Corpuscular Volume 87.9 FL 87.8 FL 88.0 FL Mean Corpuscular Hemoglobin 28.4 PG 28.9 PG 28.7 PG Mean Corpuscular Hemoglobin 32.3 % 32.9 % 32.6 % Concent Red Cell Distribution Width 19.8 % 20.0 % 20.0 % Platelet Count 231 TH/MM3 223 TH/MM3 261 TH/MM3 Mean Platelet Volume 7.2 FL 7.6 FL 7.0 FL Neutrophils (%) (Auto) 89.6 % 85.9 % % Lymphocytes (%) (Auto) 3.8 % 7.5 % % Monocytes (%) (Auto) 5.9 % 6.4 % % Eosinophils (%) (Auto) 0.2 % 0.0 % % Basophils (%) (Auto) 0.5 % 0.2 % % Neutrophils # (Auto) 7.7 TH/MM3 6.1 TH/MM3 TH/MM3 Lymphocytes # (Auto) 0.3 TH/MM3 0.5 TH/MM3 TH/MM3 Monocytes # (Auto) 0.5 TH/MM3 0.5 TH/MM3 TH/MM3 Eosinophils # (Auto) 0.0 TH/MM3 0.0 TH/MM3 TH/MM3 Basophils # (Auto) 0.0 TH/MM3 0.0 TH/MM3 TH/MM3 CBC Comment DIFF FINAL DIFF FINAL AUTO DIFF Differential Comment FINAL DIFF MANUAL Differential Total Cells 100 Counted Neutrophils % (Manual) 85 % Band Neutrophils % 4 % Lymphocytes % 4 % Monocytes % 5 % Eosinophils % 2 % Neutrophils # (Manual) 5.1 TH/MM3 Platelet Estimate NORMAL Platelet Morphology Comment NORMAL Red Cell Morphology Comment NORMAL Laboratory Tests Test 06/07/17 06/08/17 06/09/17 22:05 04:46 05:30 Sodium Level 139 MEQ/L 137 MEQ/L 137 MEQ/L Potassium Level 3.4 MEQ/L 3.4 MEQ/L 2.9 MEQ/L Chloride Level 103 MEQ/L 102 MEQ/L 102 MEQ/L Carbon Dioxide Level 25.2 MEQ/L 27.1 MEQ/L 26.9 MEQ/L Anion Gap 11 MEQ/L 8 MEQ/L 8 MEQ/L Blood Urea Nitrogen 5 MG/DL 5 MG/DL 4 MG/DL Creatinine 0.23 MG/DL 0.26 MG/DL 0.25 MG/DL Estimat Glomerular Filtration 327 ML/MIN 284 ML/MIN 297 ML/MIN Rate Random Glucose 148 MG/DL 149 MG/DL 103 MG/DL Calcium Level 7.2 MG/DL 7.6 MG/DL 7.9 MG/DL Protein Corrected Calcium 8.2 MG/DL Total Protein 5.2 GM/DL 5.3 GM/DL Magnesium Level 1.9 MG/DL Total Bilirubin 0.4 MG/DL Aspartate Amino Transf 26 U/L (AST/SGOT) Alanine Aminotransferase 18 U/L (ALT/SGPT) Alkaline Phosphatase 103 U/L Albumin 1.8 GM/DL Microbiology Date/Time Procedure Status Source Growth 06/06/17 16:45 Aerobic Blood Culture - Preliminary Resulted Blood Peripheral NO GROWTH IN 3 DAYS 06/06/17 16:45 Anaerobic Blood Culture - Preliminary Resulted Blood Peripheral NO GROWTH IN 3 DAYS 06/06/17 16:52 Aerobic Blood Culture - Preliminary Resulted Blood Peripheral NO GROWTH IN 3 DAYS 06/06/17 16:52 Anaerobic Blood Culture - Preliminary Resulted Blood Peripheral NO GROWTH IN 3 DAYS PHYSICAL EXAMINATION GENERAL: Alert, no acute distress. HEENT: No icterus. NECK: Supple without adenopathy. LUNGS: Clear decreased breath sounds. HEART: Regular S1 and S2. No murmurs, rubs or gallops. ABDOMEN: Bowel sounds present, nontender. EXTREMITIES: No clubbing, cyanosis or edema. SKIN: No rash. NEUROLOGIC: Nonfocal. PSYCHIATRIC: Calm and cooperative. IMPRESSION 1. Severe sepsis. Potential sources include UTI versus pancreatitis with pseudocyst versus pneumonia. Improved. WBC and temp improved. 2. Pancreatic pseudocyst. Post drainage. 3. Acute Pancreatitis. 4. UTI - E. coli. Jacinto sensitive. 5. pain secondary to pancreatitis. RECOMMENDATIONS 1. Continue Levaquin 2. Continue metronidazole 3. Monitor clinical status. Jignesh Kaplan MD Jun 09, 2017 14:39
[2017-06-09 16:00] VITALS: BP 150/96; PULSE 101; RESP 16; TEMP 100.1; O2SAT 97
[2017-06-09] MEDS: LEVOFLOXACIN 500 MG PREMIX INJ 100 ML IV SCH (16:32)
--- NOTE | 2017-06-09 17:22 | HHI.PR ---
Subjective Subjective Notes Resting in bed Pain controlled Objective Vitals/I&O Vital Signs Date Time Temp Pulse Resp B/P Pulse Ox O2 Delivery O2 Flow Rate FiO2 06/09/17 16:00 100.1 101 16 150/96 97 06/08/17 07:19 Nasal Cannula 5.00 06/06/17 16:15 40 Labs Laboratory Tests Test 06/09/17 05:30 White Blood Count 5.7 Red Blood Count 3.13 Hemoglobin 9.0 Hematocrit 27.5 Mean Corpuscular Volume 88.0 Mean Corpuscular Hemoglobin 28.7 Mean Corpuscular Hemoglobin 32.6 Concent Red Cell Distribution Width 20.0 Platelet Count 261 Mean Platelet Volume 7.0 Neutrophils (%) (Auto) Lymphocytes (%) (Auto) Monocytes (%) (Auto) Eosinophils (%) (Auto) Basophils (%) (Auto) Neutrophils # (Auto) Lymphocytes # (Auto) Monocytes # (Auto) Eosinophils # (Auto) Basophils # (Auto) CBC Comment AUTO DIFF Differential Total Cells 100 Counted Neutrophils % (Manual) 85 Band Neutrophils % 4 Lymphocytes % 4 Monocytes % 5 Eosinophils % 2 Neutrophils # (Manual) 5.1 Differential Comment FINAL DIFF MANUAL Platelet Estimate NORMAL Platelet Morphology Comment NORMAL Red Cell Morphology Comment NORMAL Sodium Level 137 Potassium Level 2.9 Chloride Level 102 Carbon Dioxide Level 26.9 Anion Gap 8 Blood Urea Nitrogen 4 Creatinine 0.25 Estimat Glomerular Filtration 297 Rate Random Glucose 103 Calcium Level 7.9 Date/Time Procedure Status Source Growth 06/06/17 16:52 Aerobic Blood Culture - Preliminary Resulted Blood Peripheral NO GROWTH IN 3 DAYS 06/06/17 16:52 Anaerobic Blood Culture - Preliminary Resulted Blood Peripheral NO GROWTH IN 3 DAYS 06/05/17 12:05 Urine Culture - Final Complete Urine Clean Catch Escherichia Coli Cardiovascular: Regular Lungs: Clear Abdomen: Non-distended, Other (midline incision with anna; no drainage; Dressing replaced ), Post-op tenderness Extremities: No edema A/P Assessment and Plan 46 year old POD2 Ex Laparotomy, incision and drainage peripancreatic phlegmon -DC NGT if residuals < 200 cc -DC Beck -OOB and mobilize -IS -Repeat CT scan reviewed; fluid collection decreased in size Attending Note - Dr. Caleb Painful but pressure less than preop Dressing dry and intact The exam, history, and the medical decision-making described in the above note were completed with the assistance of the mid-level provider. I reviewed and agree with the findings presented. I attest that I had a [id number] encounter with the patient on the same day, and personally performed and documented my assessment and findings in the medical record. Nette Rangel Jun 09, 2017 17:22 Damien Ellis MD Jun 13, 2017 19:55
[2017-06-09 17:26] VITALS: O2SAT 97
[2017-06-09 20:00] VITALS: BP 149/92; PULSE 100; RESP 14; TEMP 98.2; O2SAT 98
[2017-06-09] MEDS: ACETAMINOPHEN/HYDROcodone 325 MG/5 MG TAB PO PRN (20:28)
[2017-06-09] MEDS: ENOXAPARIN SODIUM 40 MG/0.4 ML SYRINGE SQ SCH (20:29)
[2017-06-09] MEDS: ZOLPIDEM TARTRATE 5 MG TAB PO PRN (23:49)
[2017-06-10] VITALS (7 sets, daily range): BP systolic 140–158; BP diastolic 88–99; PULSE 88–100; RESP 14–20; TEMP 97.1–97.7; O2SAT 93–99
[2017-06-10] MEDS: LORazepam 2 MG/ML VIAL IV PUSH PRN ×3 (03:45→22:58)
[2017-06-10] MEDS: CHLORHEXIDINE GLUCONATE 2 % 1 PACK (2 CLOTHS)(taper/protocol) TOPICAL SCH (03:45)
[2017-06-10] MEDS: metroNIDAZOLE 500 MG INJ 100 ML IV SCH ×4 (03:45→20:40)
[2017-06-10] MEDS: ACETAMINOPHEN/HYDROcodone 325 MG/5 MG TAB PO PRN ×4 (05:32→21:07)
[2017-06-10 06:05] LABS: AUTOMATED NEUTROPHIL # 3.4 TH/MM3 (1.8-7.7); BASOPHIL % 0.7 % (0.0-2.0); EOSINOPHIL # 0.1 TH/MM3 (0-0.4); EOSINOPHIL % 2.1 % (0.0-4.0); HEMATOCRIT 25.4 % (35.0-46.0); HEMO FLAGS DIFF FINAL; LYMPH % 16.6 % (9.0-44.0); LYMPHOCYTE # 0.8 TH/MM3 (1.0-4.8); MEAN CELL VOLUME 86.7 FL (80.0-100.0); MEAN CORPUSCULAR HEMOGLOBIN 29.2 PG (27.0-34.0); MEAN CORPUSCULAR HGB CONC 33.7 % (32.0-36.0); MONO % 10.5 % (0.0-8.0); NEUT % 70.1 % (16.0-70.0); PLATELET COUNT 250 TH/MM3 (150-450); RED BLOOD COUNT 2.93 MIL/MM3 (4.00-5.30); RED CELL DISTRIBUTION WIDTH 19.9 % (11.6-17.2); WHITE BLOOD COUNT 4.9 TH/MM3 (4.0-11.0)
[2017-06-10 06:06] LABS: BICARBONATE 30.1 MEQ/L (21.0-32.0); MAGNESIUM 1.6 MG/DL (1.5-2.5); POTASSIUM 3.2 MEQ/L (3.5-5.1)
[2017-06-10] MEDS: CALCIUM CARBONATE 500 MG CHEWABLE TAB CHEW SCH ×2 (08:38→20:40)
[2017-06-10] MEDS: POTASSIUM CHLORIDE 20 MEQ CONTROLLED RELEASE TAB PO SCH (08:39)
[2017-06-10] MEDS: DOCUSATE SODIUM 50 MG/SENNA 8.6 MG TAB PO SCH ×2 (08:39→20:40)
[2017-06-10] MEDS: PANTOPRAZOLE SODIUM 40 MG VIAL IV PUSH SCH ×2 (08:39→20:40)
[2017-06-10] MEDS: NICOTINE 21 MG/24 HR PATCH T-DERMAL SCH (08:40)
[2017-06-10] MEDS: REMOVE OLD PATCH T-DERMAL SCH (08:40)
[2017-06-10] MEDS: SODIUM CHLORIDE 0.9% FLUSH 10 ML FLUSH IV FLUSH SCH ×2 (09:00→20:41)
[2017-06-10] MEDS: POTASSIUM CHLORIDE INJ 10 MEQ in DEXT 5%-NACL 0.9% 1000 ML INJ 1,000 ML IV SCH ×2 (12:43→18:03)
--- NOTE | 2017-06-10 14:57 | HHI.PR ---
Subjective Remarks patient hungry- diet advanced to clears complains of pain - 3 out of 10 no nausea or vomiting Objective Vitals Vital Signs Date Time Temp Pulse Resp B/P Pulse Ox O2 Delivery O2 Flow Rate FiO2 06/10/17 12:00 97.7 92 16 148/96 99 06/10/17 09:34 99 Nasal Cannula 4.00 06/10/17 08:00 97.6 88 16 152/94 97 06/10/17 06:32 20 06/10/17 00:30 152/88 06/10/17 00:00 97.7 100 14 158/96 93 06/09/17 20:00 98.2 100 14 149/92 98 06/09/17 17:26 97 21 06/09/17 16:00 100.1 101 16 150/96 97 I/O 06/09/17 06/09/17 06/09/17 06/10/17 06/10/17 06/10/17 06:59 14:59 22:59 06:59 14:59 22:59 Intake Total 0 ml 0 ml 800 ml 1147 ml 0 ml Output Total 440 ml 2500 ml 5330 ml 610 ml 1400 ml Balance -440 ml -2500 ml -4530 ml 537 ml -1400 ml Intake Oral 0 ml 0 ml 800 ml 0 ml 0 ml IV Total 1147 ml Output Urine Total 400 ml 2500 ml 5300 ml 600 ml 1400 ml Gastric Drainage Total 40 ml 0 ml Drainage Total 30 ml 10 ml # Voids 1 # Bowel Movements 0 0 Result Diagram: 06/10/17 0442 06/10/17 0442 Imaging Last Impressions Abdomen/Pelvis CT 06/09/17 0600 Signed Impressions: Service Date/Time: Friday, June 09, 2017 12:17 - CONCLUSION: 1. The left upper quadrant fluid collection/pseudocyst has decreased in size. It currently measures 6.3 x 2.1 cm compared to 10.0 x 3.6 cm previously. A surgical drain is now present in the left upper quadrant adjacent to the tail of the pancreas. 2. Expected postsurgical changes are present including a small amount of free intraperitoneal air. 3. Small bilateral pleural effusions, left larger than right, with associated atelectasis and/or consolidation at the lung bases. 4. Severe hepatic steatosis. Thom Murray MD Chest X-Ray 06/06/17 0000 Signed Impressions: Service Date/Time: Tuesday, June 06, 2017 14:31 - CONCLUSION: Developing infiltrate in the left lower lobe with a small left pleural effusion. Brian Navarro MD CT Angiography 06/04/17 0000 Signed Impressions: Service Date/Time: Sunday, June 04, 2017 16:06 - CONCLUSION: 1. There is no evidence for PE for technique. 2. Abnormal thickening of the esophageal wall with surrounding soft tissue mass demonstrate some minimal enhancement possibly a malignant mass or malignant adenopathy. There also small lymph nodes in the cardiophrenic angle and very inhomogeneous liver with masses in the upper abdomen and complete CT examination of the abdomen and pelvis with intravenous and oral contrast is recommended. Robert Cullen MD Objective Remarks awake and alert, appears anxious, oriented x 3, anicteric lungs clear regular rhythm hyperactive bowel sounds, non tender, no guarding extremities no edema neuro exam- non focal Procedures Pancreatic abscess/phlegmon S/P Ex Laparotomy, incision and drainage peripancreatic phlegmon on 06/07/[address] Caleb Burns/P Problem List: (1) Chest pain ICD Code: R07.9 Status: Acute (2) Pancreatitis ICD Code: K85.90 Status: Acute (3) Esophageal mass ICD Code: K22.9 Status: Acute (4) Leukocytosis ICD Code: D72.829 Status: Acute (5) Hypokalemia ICD Code: E87.6 Status: Acute (6) Tobacco abuse ICD Code: Z72.0 Status: Acute Assessment and Plan 46years old fema;e Acute respiratory failure. Resolving , currently on NC. OFF BiAP. continue NC Sepsis due to MRSA pancreatic abscess S/P I and Dmeeting criteria (fever, tachycardia, source of infection is likely left lower lobe PNA, GI, UTI). Blood cultures ordered and pending. Urine Cx with GNR. on Vancomycin and zosyn Dr Ellis ff Esophageal Mass: + weight loss. CT- thickening of esophageal wall w/ ? malignant mass or malignant adenopathy with liver masses for CT Abd/Pelvis GI consulted- plan for EGD/ liver biospy/ ?colonoscopy- with diarrhea. Attempted EGD on hold due to the events above. Pancreatic abscess/phlegmon S/P Ex Laparotomy, incision and drainage peripancreatic phlegmon on 06/07/[address] Ellis Consult gen surgery Dr Ellis will follow. Hypokalemia replace. and ff Tobacco Abuse: NicoDerm patch DVT Prophylaxis: SCD/Teds. Social work for d/c planning as needed. Case discussed w/ patient, nurse, GI service Check drug screen, alcohol level positive for opiates and cannabis. Patient noted dessating on bipap wean as tolerated. Pt also with sepsis criteria. Started on antibiotics. Gen surgeon consult as well for eval of esophageal mass. Transfer to ICU Discussed with the patient, nurse, GI service Vianca FUENTES Code status FULL CODE, discussed with the patient on 06/06/17 she wants full code. A/P: Pato Noble MD Jun 10, 2017 14:57
[2017-06-10] MEDS: LEVOFLOXACIN 500 MG PREMIX INJ 100 ML IV SCH (15:19)
--- NOTE | 2017-06-10 15:29 | HHI.GIFU ---
GI Follow-up Note Consult Follow-up Subjective: Patient laying in bed comfortably,eating lunch-clear liquids. Denies nausea, vomiting, diarrhea . Sepsis -multifactorial-uti, pneumonia.Pancreatic phlegmon -most likely infected s/p drainage by surgery-ct showed decrease in size.CT angiogram done initially suggested possible liver masses , abnormal esophagus-this findings were not confirmed by ct abdomen, possible changes were secondary to large pseudocyst . She is s/p cholecystectomy, admits to heavy drinking, most likely the cause of her pancreatitis Objective: PHYSICAL EXAMINATION: Vitals signs stable No fever Vital Signs Date Time Temp Pulse Resp B/P Pulse Ox O2 Delivery O2 Flow Rate FiO2 06/10/17 12:00 97.7 92 16 148/96 99 06/10/17 09:34 99 Nasal Cannula 4.00 06/10/17 08:00 97.6 88 16 152/94 97 HEENT: Pupils round and reactive to light; normocephalic; atraumatic; no jaundice. Throat is clear. NECK: Neck is supple, no JVD, no lymphadenopathy. CHEST: Chest is clear to auscultation and percussion. CARDIAC: Regular rate and rhythm with no murmur gallop or rubs. ABDOMEN: Soft, nondistended, nontender; no hepatosplenomegaly; bowel sounds are present in all four quadrants, drain thick bloody material; EXTREMITIES: No clubbing, cyanosis, or edema. SKIN: Normal; no rash; no jaundice. 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 Available Data (labs, X- Rays, Procedues) : ASSESSMENT/PLAN: sepsis multifactorial-uti/pneumonia/infected pancreatic phlegmon -s/p drainage on antibiotics-improving pancreatis most likely secondary etoh pancreatic phlegmon possible infected -s/p surgical drainage , ct shows improvement diarrhea resolved abnormal liver lesions on ct angiogram, also esophagus, findings not confirmed on ct abdomen -tumor markers negative , most likely finding related to severe pancreatitis/pseudocyst Recommendations advance diet as per surgery mri liver /mrcp egd/eus possible colonoscopy once clinically stable hepatitis profile avoid any etoh It was a pleasure seeing Yari Martin. Thank you for this consult. Entered by: April Stewart MD Jun 10, 2017 15:29
[2017-06-10] MEDS: POTASSIUM CHLOR 10 MEQ PREMIX 100 ML IV SCH ×2 (16:17→16:19)
--- NOTE | 2017-06-10 17:47 | HHI.PR ---
Subjective Subjective Notes Feels better with NG and hernandez out. Getting Lovenox shots Objective Vitals/I&O Vital Signs Date Time Temp Pulse Resp B/P Pulse Ox O2 Delivery O2 Flow Rate FiO2 06/10/17 16:00 97.1 99 18 140/89 96 06/10/17 09:34 Nasal Cannula 4.00 06/09/17 17:26 21 Labs Laboratory Tests Test 06/10/17 04:42 White Blood Count 4.9 Red Blood Count 2.93 Hemoglobin 8.6 Hematocrit 25.4 Mean Corpuscular Volume 86.7 Mean Corpuscular Hemoglobin 29.2 Mean Corpuscular Hemoglobin 33.7 Concent Red Cell Distribution Width 19.9 Platelet Count 250 Mean Platelet Volume 7.2 Neutrophils (%) (Auto) 70.1 Lymphocytes (%) (Auto) 16.6 Monocytes (%) (Auto) 10.5 Eosinophils (%) (Auto) 2.1 Basophils (%) (Auto) 0.7 Neutrophils # (Auto) 3.4 Lymphocytes # (Auto) 0.8 Monocytes # (Auto) 0.5 Eosinophils # (Auto) 0.1 Basophils # (Auto) 0.0 CBC Comment DIFF FINAL Differential Comment Sodium Level 138 Potassium Level 3.2 Chloride Level 102 Carbon Dioxide Level 30.1 Anion Gap 6 Blood Urea Nitrogen 4 Creatinine 0.30 Estimat Glomerular Filtration 241 Rate Random Glucose 119 Calcium Level 8.3 Magnesium Level 1.6 Immunoglobulin G Total 614 Date/Time Procedure Status Source Growth 06/06/17 16:52 Aerobic Blood Culture - Preliminary Resulted Blood Peripheral NO GROWTH IN 4 DAYS 06/06/17 16:52 Anaerobic Blood Culture - Preliminary Resulted Blood Peripheral NO GROWTH IN 4 DAYS Lungs: Clear Abdomen: Non-distended, Non-tender Narrative Exam Dressing dry; removed A/P Problem List: (1) Hypokalemia (2) Leukocytosis (3) Pancreatitis (4) Tobacco abuse (5) Chest pain Assessment and Plan POD #3 ex lap with drainage pancreatic pseudocyst Improving daily Start clears Stop IV pain meds tomorrow. Oral pain meds for three weeks maximum, due to substance issues; this was discussed with patient, and she is agreeable. Damien Ellis MD Jun 10, 2017 17:47
[2017-06-10] MEDS: HYDROmorphone HCL PF 1 MG/ML VIAL IV PUSH PRN (18:40)
[2017-06-10] MEDS: ENOXAPARIN SODIUM 40 MG/0.4 ML SYRINGE SQ SCH (20:40)
[2017-06-10] MEDS: ZOLPIDEM TARTRATE 5 MG TAB PO PRN (22:58)
[2017-06-11] VITALS: BP 145/95; PULSE 97; RESP 20; TEMP 97.2; O2SAT 98
[2017-06-11] MEDS: HYDROmorphone HCL PF 1 MG/ML VIAL IV PUSH PRN ×2 (00:58→07:31)
[2017-06-11] MEDS: ACETAMINOPHEN/HYDROcodone 325 MG/5 MG TAB PO PRN ×5 (03:51→21:37)
[2017-06-11] MEDS: CHLORHEXIDINE GLUCONATE 2 % 1 PACK (2 CLOTHS)(taper/protocol) TOPICAL SCH (03:51)
[2017-06-11] MEDS: metroNIDAZOLE 500 MG INJ 100 ML IV SCH ×4 (03:51→21:25)
[2017-06-11] MEDS: POTASSIUM CHLORIDE INJ 10 MEQ in DEXT 5%-NACL 0.9% 1000 ML INJ 1,000 ML IV SCH (03:52)
[2017-06-11 05:13] LABS: HEMATOCRIT 27.9 % (35.0-46.0); MEAN CELL VOLUME 86.6 FL (80.0-100.0); MEAN CORPUSCULAR HEMOGLOBIN 28.5 PG (27.0-34.0); MEAN CORPUSCULAR HGB CONC 32.9 % (32.0-36.0); PLATELET COUNT 293 TH/MM3 (150-450); RED BLOOD COUNT 3.21 MIL/MM3 (4.00-5.30); RED CELL DISTRIBUTION WIDTH 19.9 % (11.6-17.2); REVIEW FLAG FINAL; WHITE BLOOD COUNT 4.1 TH/MM3 (4.0-11.0)
[2017-06-11 05:30] LABS: BICARBONATE 27.7 MEQ/L (21.0-32.0); POTASSIUM 3.2 MEQ/L (3.5-5.1)
[2017-06-11 08:00] VITALS: BP 135/91; PULSE 86; RESP 16; TEMP 97.4; O2SAT 98
[2017-06-11] MEDS: PANTOPRAZOLE SODIUM 40 MG VIAL IV PUSH SCH ×2 (08:27→21:26)
[2017-06-11] MEDS: POTASSIUM CHLORIDE 20 MEQ CONTROLLED RELEASE TAB PO SCH (08:27)
[2017-06-11] MEDS: REMOVE OLD PATCH T-DERMAL SCH (08:27)
[2017-06-11] MEDS: SODIUM CHLORIDE 0.9% FLUSH 10 ML FLUSH IV FLUSH SCH ×2 (08:27→21:26)
[2017-06-11] MEDS: DOCUSATE SODIUM 50 MG/SENNA 8.6 MG TAB PO SCH ×2 (08:27→21:00)
[2017-06-11] MEDS: CALCIUM CARBONATE 500 MG CHEWABLE TAB CHEW SCH ×2 (08:27→21:26)
[2017-06-11] MEDS: NICOTINE 21 MG/24 HR PATCH T-DERMAL SCH (08:27)
[2017-06-11] MEDS: LORazepam 2 MG/ML VIAL IV PUSH PRN ×2 (09:12→16:17)
[2017-06-11] MEDS ORDERED: GADODIAMIDE PF 287 MG/ML 10 ML VIAL (for RAD MRI) IV ONE (09:34)
--- NOTE | 2017-06-11 10:16 | RADRPT ---
EXAM DATE/TIME: 06/11/2017 09:26 [facility] COMPARISON: CT ABDOMEN & PELVIS W CONTRAST, June 05, 2017, 17:29. CT ABDOMEN & PELVIS W/O CONTRAST, June 09 7, 12:17. INDICATIONS : Pancreatitis. Abnormal CT CONTRAST: 10 cc Omniscan (gadodiamide) IV MEDICAL HISTORY : Pancreatitis. IVDA SURGICAL HISTORY : Cholecystectomy. section. Pancreatic cyst removed. ENCOUNTER: Subsequent ACUITY: 4-6 days PAIN SCORE: 3/10 LOCATION: upper quadrant TECHNIQUE: Multiplanar, multisequence magnetic resonance imaging of the abdomen was performed without and with i ntravenous contrast. FINDINGS: Bilateral pleural effusions are present with slight bibasilar consolidation worse on the left an d there is a loculated fluid in the left upper abdomen posteromedially adjacent to the spleen no fisher ges since the prior CT examination from 2 days ago measures almost 8.3 x 1.7 cm in size. There is add itional fluid collection is loculated in the lesser sac surrounding the pancreas not significantly ch anged. The liver is diffusely fatty with 2 focal lesions measuring 1.7 cm in size in left hepatic lob e which demonstrates peripheral nodular enhancement and fills in on the delayed imaging characteristi c of hemangioma. The separate lesion is in the right hepatic lobe very vague in appearance somewhat e longated and tubular measures 1.8 cm in size on the postcontrast portion it also appears to fill-in f or the most part. This may be an atypical hemangioma. The spleen is enlarged measuring 15.2 cm in scrap preparation supervisor niocaudal dimension without focal lesions for technique. The left hepatic lobe is also enlarged measu res 15.9 cm in craniocaudal dimension. CONCLUSION: 1. Fatty liver with 2 masses one of which is definitely a hemangioma and the other one probably atypi kang hemangioma could be followed with MRI examination of the abdomen in 6 months. 2. No appreciable change in bilateral pleural effusions, left lung base consolidation and loculated p seudocyst in the lesser sac. 3. Hepatosplenomegaly. Robert Cullen MD on June 11, 2017 at 10:07 Board Certified Radiologist. This report was verified electronically.
--- NOTE | 2017-06-11 11:14 | HHI.PR ---
Subjective Remarks had a good night tolerating clears no pain complains with current regimen Objective Vitals Vital Signs Date Time Temp Pulse Resp B/P Pulse Ox O2 Delivery O2 Flow Rate FiO2 06/11/17 08:00 97.4 86 16 135/91 98 06/11/17 00:00 97.2 97 20 145/95 98 06/10/17 22:13 2.00 06/10/17 22:07 20 06/10/17 20:00 97.7 99 20 155/99 96 06/10/17 19:10 18 06/10/17 16:00 97.1 99 18 140/89 96 06/10/17 12:00 97.7 92 16 148/96 99 I/O 06/10/17 06/10/17 06/10/17 06/11/17 06/11/17 06/11/17 06:59 14:59 22:59 06:59 14:59 22:59 Intake Total 1147 ml 0 ml 1000 ml 2625 ml Output Total 610 ml 1400 ml 658 ml 650 ml Balance 537 ml -1400 ml 342 ml 1975 ml Intake Oral 0 ml 0 ml 1000 ml 480 ml IV Total 1147 ml 2145 ml Output Urine Total 600 ml 1400 ml 658 ml 650 ml Drainage Total 10 ml # Voids 1 # Bowel Movements 0 1 Result Diagram: 06/11/17 0357 06/11/17 0357 Imaging Last Impressions Abdomen MRI 06/11/17 0000 Signed Impressions: Service Date/Time: Sunday, June 11, 2017 09:26 - CONCLUSION: 1. Fatty liver with 2 masses one of which is definitely a hemangioma and the other one probably atypical hemangioma could be followed with MRI examination of the abdomen in 6 months. 2. No appreciable change in bilateral pleural effusions, left lung base consolidation and loculated pseudocyst in the lesser sac. 3. Hepatosplenomegaly. Robert Cullen MD Abdomen/Pelvis CT 06/09/17 0600 Signed Impressions: Service Date/Time: Friday, June 09, 2017 12:17 - CONCLUSION: 1. The left upper quadrant fluid collection/pseudocyst has decreased in size. It currently measures 6.3 x 2.1 cm compared to 10.0 x 3.6 cm previously. A surgical drain is now present in the left upper quadrant adjacent to the tail of the pancreas. 2. Expected postsurgical changes are present including a small amount of free intraperitoneal air. 3. Small bilateral pleural effusions, left larger than right, with associated atelectasis and/or consolidation at the lung bases. 4. Severe hepatic steatosis. Thom Murray MD Chest X-Ray 06/06/17 0000 Signed Impressions: Service Date/Time: Tuesday, June 06, 2017 14:31 - CONCLUSION: Developing infiltrate in the left lower lobe with a small left pleural effusion. Brian Navarro MD CT Angiography 06/04/17 0000 Signed Impressions: Service Date/Time: Sunday, June 04, 2017 16:06 - CONCLUSION: 1. There is no evidence for PE for technique. 2. Abnormal thickening of the esophageal wall with surrounding soft tissue mass demonstrate some minimal enhancement possibly a malignant mass or malignant adenopathy. There also small lymph nodes in the cardiophrenic angle and very inhomogeneous liver with masses in the upper abdomen and complete CT examination of the abdomen and pelvis with intravenous and oral contrast is recommended. Robert Cullen MD Objective Remarks awake and alert, calm, oriented x 3, anicteric lungs clear, decreased breath sounds and vocal fremiti left base regular rhythm hyperactive bowel sounds, non tender, no guarding, post op anna in place- incison site- no erythema, dry, BROCK drain site- dry, no erythema extremities no edema neuro exam- non focal Procedures Pancreatic abscess/phlegmon S/P Ex Laparotomy, incision and drainage peripancreatic phlegmon on 06/07/[address] Ellis A/P Problem List: (1) Chest pain ICD Code: R07.9 Status: Acute (2) Pancreatitis ICD Code: K85.90 Status: Acute (3) Esophageal mass ICD Code: K22.9 Status: Acute (4) Leukocytosis ICD Code: D72.829 Status: Acute (5) Hypokalemia ICD Code: E87.6 Status: Acute (6) Tobacco abuse ICD Code: Z72.0 Status: Acute Assessment and Plan 46years old fema;e Acute respiratory failure. Resolving , currently on NC. OFF BiAP. continue NC Sepsis due to MRSA pancreatic abscess S/P I and D- Left lower lobe PNA, E coli UTI -Blood cultures ordered and pending. Urine Cx with GNR. -on Vancomycin and zosyn - Dr Ellis ff Esophageal Mass: + weight loss. CT- thickening of esophageal wall w/ ? malignant mass or malignant adenopathy with liver masses for CT Abd/Pelvis GI consulted- plan for EGD/ liver biospy/ ?colonoscopy- with diarrhea. Attempted EGD on hold due to the events above. Pancreatic abscess/phlegmon S/P Ex Laparotomy, incision and drainage peripancreatic phlegmon on 06/07/[address] Ellis gen surgery Dr Ellis will follow. Hypokalemia replace. and ff. - replace with IV Potassium x 1 bous - increase KCL in main IV Tobacco Abuse: NicoDerm patch DVT Prophylaxis: SCD/Teds. Social work for d/c planning as needed. Pato Noble MD Jun 11, 2017 11:14 esophageal mass. Transfer to ICU Discussed with the patient, nurse, GI service Vianca FUENTES Code status FULL CODE, discussed with the patient on 06/06/17 she wants full code. A/P: Pato Noble MD Jun 11, 2017 11:14
[2017-06-11 12:00] VITALS: BP 164/95; PULSE 84; RESP 16; TEMP 96.8; O2SAT 98
[2017-06-11] MEDS ORDERED: POTASSIUM CHLORIDE 25 MEQ EFFERVESCENT TAB PO ONE (12:00)
[2017-06-11] MEDS ORDERED: POTASSIUM CHLOR 20 MEQ PREMIX 100 ML IV ONE (12:00)
[2017-06-11] MEDS: POTASSIUM CHLORIDE INJ 30 MEQ in DEXT 5%-NACL 0.9% 1000 ML INJ 1,000 ML IV SCH (12:16)
[2017-06-11] MEDS: LEVOFLOXACIN 500 MG PREMIX INJ 100 ML IV SCH (13:46)
--- NOTE | 2017-06-11 14:03 | HHI.PR ---
Subjective Subjective Notes DAILY PROGRESS NOTE FOR SURGICAL ATTENDING, DR. YOUSIF ADAMS Doing well By mouth pain medication working Objective Vitals/I&O Vital Signs Date Time Temp Pulse Resp B/P Pulse Ox O2 Delivery O2 Flow Rate FiO2 06/11/17 13:34 21 06/11/17 12:00 96.8 84 16 164/95 98 06/10/17 22:13 2.00 06/10/17 09:34 Nasal Cannula Labs Laboratory Tests Test 06/11/17 03:57 White Blood Count 4.1 Red Blood Count 3.21 Hemoglobin 9.2 Hematocrit 27.9 Mean Corpuscular Volume 86.6 Mean Corpuscular Hemoglobin 28.5 Mean Corpuscular Hemoglobin 32.9 Concent Red Cell Distribution Width 19.9 Platelet Count 293 Mean Platelet Volume 7.2 Sodium Level 140 Potassium Level 3.2 Chloride Level 103 Carbon Dioxide Level 27.7 Anion Gap 9 Blood Urea Nitrogen 3 Creatinine 0.27 Estimat Glomerular Filtration 272 Rate Random Glucose 99 Calcium Level 8.4 Magnesium Level 1.4 Date/Time Procedure Status Source Growth 06/06/17 16:52 Aerobic Blood Culture - Final Complete Blood Peripheral NO GROWTH IN 5 DAYS 06/06/17 16:52 Anaerobic Blood Culture - Final Complete Blood Peripheral NO GROWTH IN 5 DAYS Radiology Last Impressions Abdomen MRI 06/11/17 0000 Signed Impressions: Service Date/Time: Sunday, June 11, 2017 09:26 - CONCLUSION: 1. Fatty liver with 2 masses one of which is definitely a hemangioma and the other one probably atypical hemangioma could be followed with MRI examination of the abdomen in 6 months. 2. No appreciable change in bilateral pleural effusions, left lung base consolidation and loculated pseudocyst in the lesser sac. 3. Hepatosplenomegaly. Robert Cullen MD Abdomen/Pelvis CT 06/09/17 0600 Signed Impressions: Service Date/Time: Friday, June 09, 2017 12:17 - CONCLUSION: 1. The left upper quadrant fluid collection/pseudocyst has decreased in size. It currently measures 6.3 x 2.1 cm compared to 10.0 x 3.6 cm previously. A surgical drain is now present in the left upper quadrant adjacent to the tail of the pancreas. 2. Expected postsurgical changes are present including a small amount of free intraperitoneal air. 3. Small bilateral pleural effusions, left larger than right, with associated atelectasis and/or consolidation at the lung bases. 4. Severe hepatic steatosis. Thom Murray MD Chest X-Ray 06/06/17 0000 Signed Impressions: Service Date/Time: Tuesday, June 06, 2017 14:31 - CONCLUSION: Developing infiltrate in the left lower lobe with a small left pleural effusion. Brian Navarro MD CT Angiography 06/04/17 0000 Signed Impressions: Service Date/Time: Sunday, June 04, 2017 16:06 - CONCLUSION: 1. There is no evidence for PE for technique. 2. Abnormal thickening of the esophageal wall with surrounding soft tissue mass demonstrate some minimal enhancement possibly a malignant mass or malignant adenopathy. There also small lymph nodes in the cardiophrenic angle and very inhomogeneous liver with masses in the upper abdomen and complete CT examination of the abdomen and pelvis with intravenous and oral contrast is recommended. Robert Cullen MD Cardiovascular: Regular Abdomen: Post-op tenderness A/P Problem List: (1) Pancreatitis (2) Hypokalemia (3) Leukocytosis (4) Tobacco abuse (5) Chest pain Assessment and Plan Status post drainage of pancreatic pseudocyst doing well Off of IV pain medication by mouth pain medication adequate Changed to soft diet Attending Statement NOTE FOR SURGICAL ATTENDING, DR. YOUSIF ADAMS I attest that I had a [id number] encounter with the patient on the same day, and personally performed and documented my assessment and findings in the medical record. The following services were provided during this hospital visit: Chart data review, vital sign assessments/reviewing monitor data Review of consultations notes if present. Medication orders/review and/or management Ordering and/or reviewing lab tests Ordering and/or interpreting/reviewing x-rays and/or diagnostic studies Care of the patient and discussion of the patient with the care team Documentation time To help prompt me to consider important information that might be impacting today's encounter and assessment, information from prior notes written by myself or my colleagues may have been "brought forward/copy and pasted" into today's note. Yousif Adams MD Jun 11, 2017 14:03
[2017-06-11 16:00] VITALS: BP 149/96; PULSE 93; RESP 17; TEMP 96.6; O2SAT 95
[2017-06-11] MEDS: MAGNESIUM SULFATE 1 GM PREMIX 100 ML IV SCH ×2 (17:41→18:18)
[2017-06-11 20:00] VITALS: BP 143/86; PULSE 91; RESP 22; TEMP 98.2; O2SAT 95
[2017-06-11] MEDS: ENOXAPARIN SODIUM 40 MG/0.4 ML SYRINGE SQ SCH (21:25)
[2017-06-11] MEDS: ZOLPIDEM TARTRATE 5 MG TAB PO PRN (22:48)
[2017-06-12] VITALS (7 sets, daily range): BP systolic 138–159; BP diastolic 87–96; PULSE 80–98; RESP 17–20; TEMP 97.1–98.1; O2SAT 95–96
[2017-06-12] MEDS: LORazepam 2 MG/ML VIAL IV PUSH PRN ×4 (00:35→23:13)
[2017-06-12] MEDS: metroNIDAZOLE 500 MG INJ 100 ML IV SCH ×2 (02:27→10:12)
[2017-06-12] MEDS: ACETAMINOPHEN/HYDROcodone 325 MG/5 MG TAB PO PRN ×6 (02:28→22:42)
[2017-06-12] MEDS: POTASSIUM CHLORIDE INJ 30 MEQ in DEXT 5%-NACL 0.9% 1000 ML INJ 1,000 ML IV SCH (02:31)
[2017-06-12 07:41] LABS: MAGNESIUM 2.1 MG/DL (1.5-2.5); POTASSIUM 3.7 MEQ/L (3.5-5.1)
[2017-06-12] MEDS: ONDANSETRON HCL 4 MG/2 ML VIAL IVP PRN (08:40)
[2017-06-12] MEDS: SODIUM CHLORIDE 0.9% FLUSH 10 ML FLUSH IV FLUSH SCH ×2 (08:42→21:05)
[2017-06-12] MEDS: PANTOPRAZOLE SODIUM 40 MG VIAL IV PUSH SCH ×2 (08:45→21:03)
[2017-06-12] MEDS: CALCIUM CARBONATE 500 MG CHEWABLE TAB CHEW SCH ×2 (08:46→21:03)
[2017-06-12] MEDS: NICOTINE 21 MG/24 HR PATCH T-DERMAL SCH (08:47)
[2017-06-12] MEDS: REMOVE OLD PATCH T-DERMAL SCH (08:47)
[2017-06-12] MEDS: POTASSIUM BICARBONATE 25 MEQ EFFERVESCENT TAB PO SCH (08:47)
[2017-06-12] MEDS: DOCUSATE SODIUM 50 MG/SENNA 8.6 MG TAB PO SCH ×2 (09:00→21:00)
--- NOTE | 2017-06-12 14:42 | HHI.PR ---
Subjective Remarks patient states tolerating current diet no nausea or vomiting no pain Objective Vitals Vital Signs Date Time Temp Pulse Resp B/P Pulse Ox O2 Delivery O2 Flow Rate FiO2 06/12/17 12:05 18 06/12/17 12:00 97.1 96 20 159/96 96 06/12/17 08:00 97.1 96 20 159/96 96 06/12/17 02:55 96 06/12/17 00:00 98.0 98 20 138/95 96 06/11/17 20:00 98.2 91 22 143/86 95 06/11/17 16:00 96.6 93 17 149/96 95 I/O 06/11/17 06/11/17 06/11/17 06/12/17 06/12/17 06/12/17 07:00 15:00 23:00 07:00 15:00 23:00 Intake Total 2625 ml 694 ml 769 ml 1144 ml 120 ml Output Total 650 ml 1250 ml 1001 ml 1175 ml Balance 1975 ml -556 ml -232 ml -31 ml 120 ml Intake Oral 480 ml 520 ml 320 ml 480 ml 120 ml IV Total 2145 ml 174 ml 449 ml 664 ml Output Urine Total 650 ml 1200 ml 950 ml 1150 ml Stool Total 1 ml Drainage Total 50 ml 50 ml 25 ml # Bowel Movements 1 0 0 1 Result Diagram: 06/11/17 0357 06/12/17 0511 Imaging Last Impressions Abdomen MRI 06/11/17 0000 Signed Impressions: Service Date/Time: Sunday, June 11, 2017 09:26 - CONCLUSION: 1. Fatty liver with 2 masses one of which is definitely a hemangioma and the other one probably atypical hemangioma could be followed with MRI examination of the abdomen in 6 months. 2. No appreciable change in bilateral pleural effusions, left lung base consolidation and loculated pseudocyst in the lesser sac. 3. Hepatosplenomegaly. Robert Cullen MD Abdomen/Pelvis CT 06/09/17 0600 Signed Impressions: Service Date/Time: Friday, June 09, 2017 12:17 - CONCLUSION: 1. The left upper quadrant fluid collection/pseudocyst has decreased in size. It currently measures 6.3 x 2.1 cm compared to 10.0 x 3.6 cm previously. A surgical drain is now present in the left upper quadrant adjacent to the tail of the pancreas. 2. Expected postsurgical changes are present including a small amount of free intraperitoneal air. 3. Small bilateral pleural effusions, left larger than right, with associated atelectasis and/or consolidation at the lung bases. 4. Severe hepatic steatosis. Thom Murray MD Chest X-Ray 06/06/17 0000 Signed Impressions: Service Date/Time: Tuesday, June 06, 2017 14:31 - CONCLUSION: Developing infiltrate in the left lower lobe with a small left pleural effusion. Brian Navarro MD CT Angiography 06/04/17 0000 Signed Impressions: Service Date/Time: Sunday, June 04, 2017 16:06 - CONCLUSION: 1. There is no evidence for PE for technique. 2. Abnormal thickening of the esophageal wall with surrounding soft tissue mass demonstrate some minimal enhancement possibly a malignant mass or malignant adenopathy. There also small lymph nodes in the cardiophrenic angle and very inhomogeneous liver with masses in the upper abdomen and complete CT examination of the abdomen and pelvis with intravenous and oral contrast is recommended. Robert Cullen MD Objective Remarks awake and alert, calm, oriented x 3, anicteric lungs decreased breath sounds and vocal fremiti left base, no rales regular rhythm hyperactive bowel sounds, non tender, no guarding, post op anna in place- incision site- no erythema, dry, BROCK drain site- dry, no erythema extremities no edema neuro exam- non focal Procedures Pancreatic abscess/phlegmon S/P Ex Laparotomy, incision and drainage peripancreatic phlegmon on 06/07/[address] Ellis A/P Problem List: (1) Chest pain ICD Code: R07.9 Status: Acute (2) Pancreatitis ICD Code: K85.90 Status: Acute (3) Esophageal mass ICD Code: K22.9 Status: Acute (4) Leukocytosis ICD Code: D72.829 Status: Acute (5) Hypokalemia ICD Code: E87.6 Status: Acute (6) Tobacco abuse ICD Code: Z72.0 Status: Acute Assessment and Plan 46years old fema;e Acute respiratory failure. Resolved , currently on NC. OFF BiAP. continue NC prn Sepsis due to MRSA pancreatic abscess S/P I and D-(fever, tachycardia, Left lower lobe PNA, E coli UTI -. Blood cultures ordered and pending. Urine Cx with GNR. - on Levaquin + flagyl - ID ff - Dr Caleb mauricio Esophageal Mass: + weight loss. CT- thickening of esophageal wall w/ ? malignant mass or malignant adenopathy with liver masses for CT Abd/Pelvis GI consulted- plan for EGD/ liver biospy/ ?colonoscopy- with diarrhea. Attempted EGD on hold due to the events above. if continues to do well- will inform GI- to proceed with scope- further diagnostic study Pancreatic abscess/phlegmon S/P Ex Laparotomy, incision and drainage peripancreatic phlegmon on 06/07/[address] Ellis gen surgery Dr Ellis will follow. on Leva + Flagyl Hypokalemia corrected - KCL po daily - KCL in main IV Tobacco Abuse: NicoDerm patch DVT Prophylaxis: SCD/Teds. Social work for d/c planning as needed. Pato Noble MD Jun 12, 2017 14:42
[2017-06-12] MEDS: LEVOFLOXACIN 500 MG PREMIX INJ 100 ML IV SCH (14:50)
--- NOTE | 2017-06-12 15:04 | HHI.PR ---
Subjective Subjective Notes Resting in bed Pain tolerable Objective Vitals/I&O Vital Signs Date Time Temp Pulse Resp B/P Pulse Ox O2 Delivery O2 Flow Rate FiO2 06/12/17 12:05 18 06/12/17 12:00 97.1 96 159/96 96 06/11/17 13:34 21 06/10/17 22:13 2.00 06/10/17 09:34 Nasal Cannula Labs Laboratory Tests Test 06/12/17 05:11 Sodium Level 136 Potassium Level 3.7 Chloride Level 102 Carbon Dioxide Level 28.0 Anion Gap 6 Blood Urea Nitrogen 4 Creatinine 0.29 Estimat Glomerular Filtration 250 Rate Random Glucose 102 Calcium Level 8.4 Magnesium Level 2.1 Radiology Last Impressions Abdomen MRI 06/11/17 0000 Signed Impressions: Service Date/Time: Sunday, June 11, 2017 09:26 - CONCLUSION: 1. Fatty liver with 2 masses one of which is definitely a hemangioma and the other one probably atypical hemangioma could be followed with MRI examination of the abdomen in 6 months. 2. No appreciable change in bilateral pleural effusions, left lung base consolidation and loculated pseudocyst in the lesser sac. 3. Hepatosplenomegaly. Robert Cullen MD Abdomen/Pelvis CT 06/09/17 0600 Signed Impressions: Service Date/Time: Friday, June 09, 2017 12:17 - CONCLUSION: 1. The left upper quadrant fluid collection/pseudocyst has decreased in size. It currently measures 6.3 x 2.1 cm compared to 10.0 x 3.6 cm previously. A surgical drain is now present in the left upper quadrant adjacent to the tail of the pancreas. 2. Expected postsurgical changes are present including a small amount of free intraperitoneal air. 3. Small bilateral pleural effusions, left larger than right, with associated atelectasis and/or consolidation at the lung bases. 4. Severe hepatic steatosis. Thom Murray MD Chest X-Ray 06/06/17 0000 Signed Impressions: Service Date/Time: Tuesday, June 06, 2017 14:31 - CONCLUSION: Developing infiltrate in the left lower lobe with a small left pleural effusion. Brian Navarro MD CT Angiography 06/04/17 0000 Signed Impressions: Service Date/Time: Sunday, June 04, 2017 16:06 - CONCLUSION: 1. There is no evidence for PE for technique. 2. Abnormal thickening of the esophageal wall with surrounding soft tissue mass demonstrate some minimal enhancement possibly a malignant mass or malignant adenopathy. There also small lymph nodes in the cardiophrenic angle and very inhomogeneous liver with masses in the upper abdomen and complete CT examination of the abdomen and pelvis with intravenous and oral contrast is recommended. Robert Cullen MD Cardiovascular: Regular Lungs: Clear Abdomen: Other (midline incision with anna; BROCK with clear drainage ) Extremities: No edema A/P Problem List: (1) Pancreatitis (2) Hypokalemia (3) Leukocytosis (4) Tobacco abuse (5) Chest pain Assessment and Plan 46 year old POD5 Ex Laparotomy, incision and drainage peripancreatic phlegmon -Tolerating soft diet -DC IVF -OOB and mobilize -Transition to PO antibiotics -VSS Attending Note - Dr. Ellis Abdomen benign; anna intact Remove anna soon D/C home soon; sister to empty drain The exam, history, and the medical decision-making described in the above note were completed with the assistance of the mid-level provider. I reviewed and agree with the findings presented. I attest that I had a [id number] encounter with the patient on the same day, and personally performed and documented my assessment and findings in the medical record. Nette Rangel Jun 12, 2017 15:04 Damien Ellis MD Jun 13, 2017 19:29
--- NOTE | 2017-06-12 15:32 | HHI.PR ---
Subjective Remarks alert no sob at rest Objective Vital Signs Date Time Temp Pulse Resp B/P Pulse Ox O2 Delivery O2 Flow Rate FiO2 06/12/17 12:05 18 06/12/17 12:00 97.1 96 20 159/96 96 06/12/17 08:00 97.1 96 20 159/96 96 06/12/17 02:55 96 06/12/17 00:00 98.0 98 20 138/95 96 06/11/17 20:00 98.2 91 22 143/86 95 06/11/17 16:00 96.6 93 17 149/96 95 I/O 06/11/17 06/11/17 06/11/17 06/12/17 06/12/17 06/12/17 07:00 15:00 23:00 07:00 15:00 23:00 Intake Total 2625 ml 694 ml 769 ml 1144 ml 720 ml Output Total 650 ml 1250 ml 1001 ml 1175 ml Balance 1975 ml -556 ml -232 ml -31 ml 720 ml Intake Oral 480 ml 520 ml 320 ml 480 ml 120 ml IV Total 2145 ml 174 ml 449 ml 664 ml 600 ml Output Urine Total 650 ml 1200 ml 950 ml 1150 ml Stool Total 1 ml Drainage Total 50 ml 50 ml 25 ml # Bowel Movements 1 0 0 1 Result Diagram: 06/11/17 0357 06/12/17 0511 Objective Remarks GENERAL: SKIN: Warm and dry. HEAD: Atraumatic. Normocephalic. EYES: Pupils equal and round. No scleral icterus. No injection or drainage. ENT: No nasal bleeding or discharge. Mucous membranes pink and moist. NECK: Trachea midline. No JVD. CARDIOVASCULAR: Regular rate and rhythm. RESPIRATORY: No accessory muscle use. Clear to auscultation. Breath sounds equal bilaterally. GASTROINTESTINAL: Abdomen soft, non-tender, nondistended. Hepatic and splenic margins not palpable. MUSCULOSKELETAL: Extremities without clubbing, cyanosis, or edema. No obvious deformities. NEUROLOGICAL: Awake and alert. No obvious cranial nerve deficits. Motor grossly within normal limits. Five out of 5 muscle strength in the arms and legs. Normal speech. PSYCHIATRIC: Appropriate mood and affect; insight and judgment normal. GENERAL: SKIN: Warm and dry. HEAD: Atraumatic. Normocephalic. EYES: Pupils equal and round. No scleral icterus. No injection or drainage. ENT: No nasal bleeding or discharge. Mucous membranes pink and moist. NECK: Trachea midline. No JVD. CARDIOVASCULAR: Regular rate and rhythm. RESPIRATORY: No accessory muscle use. Clear to auscultation. Breath sounds equal bilaterally. GASTROINTESTINAL: Abdomen soft, non-tender, nondistended. Hepatic and splenic margins not palpable. MUSCULOSKELETAL: Extremities without clubbing, cyanosis, or edema. No obvious deformities. NEUROLOGICAL: Awake and alert. No obvious cranial nerve deficits. Motor grossly within normal limits. Five out of 5 muscle strength in the arms and legs. Normal speech. PSYCHIATRIC: Appropriate mood and affect; insight and judgment normal. Assessment and Plan Assessment and Plan ASS Pancreatitis ?PNA PLAN o2 as needed ANTBX per ID F/U CXRAY Mae Wall MD Jun 12, 2017 15:32
--- NOTE | 2017-06-12 15:57 | HHI.IDPN ---
Note Infectious Disease Note Patient feels much better. Mild abdominal pain. Afebrile. No V/V or SOB. Had drainage of pancreatic phlegmon/abscess 06/07. PAST MEDICAL HISTORY 1. Pancreatitis 2. History of cholecystectomy, 3. 4. History of respiratory failure secondary to narcotic overdose. ALLERGIES METHADONE PENICILLIN OBJECTIVE: Vital Signs Date Time Temp Pulse Resp B/P Pulse Ox O2 Delivery O2 Flow Rate FiO2 06/12/17 12:05 18 06/12/17 12:00 97.1 96 20 159/96 96 06/12/17 08:00 97.1 96 20 159/96 96 06/12/17 02:55 96 06/12/17 00:00 98.0 98 20 138/95 96 06/11/17 20:00 98.2 91 22 143/86 95 06/11/17 16:00 96.6 93 17 149/96 95 PHYSICAL EXAMINATION GENERAL: Alert, no acute distress. HEENT: No icterus. NECK: Supple without adenopathy. LUNGS: Clear decreased breath sounds. HEART: Regular S1 and S2. No murmurs, rubs or gallops. ABDOMEN: Bowel sounds decreased. nontender. EXTREMITIES: No clubbing, cyanosis or edema. SKIN: No rash. NEUROLOGIC: Nonfocal. PSYCHIATRIC: Calm and cooperative. IMPRESSION 1. Severe sepsis. Potential sources include UTI versus pancreatitis with pseudocyst versus pneumonia. Improved. 2. Pancreatic pseudocyst. Post drainage. 3. Acute Pancreatitis. improved. 4. UTI - E. coli. Jacinto sensitive. 5. pain secondary to pancreatitis. Improved. RECOMMENDATIONS Agree with discontinuing IV antibiotics. Could monitor off antibiotics. I will sign off now. Jignesh Kaplan MD Jun 12, 2017 15:57
--- NOTE | 2017-06-12 17:09 | HHI.GIFU ---
Subjective Remarks Pt resting in bed. Says she feels alot better, pain much improved, eating ok. Tender over incision & drain site. (Mary Lou Higgins) Objective Vitals I&O Vital Signs Date Time Temp Pulse Resp B/P Pulse Ox O2 Delivery O2 Flow Rate FiO2 06/12/17 15:49 18 06/12/17 12:00 97.1 96 20 159/96 96 06/12/17 08:00 97.1 96 20 159/96 96 06/12/17 02:55 96 06/12/17 00:00 98.0 98 20 138/95 96 06/11/17 20:00 98.2 91 22 143/86 95 I/O 06/11/17 06/11/17 06/11/17 06/12/17 06/12/17 06/12/17 07:00 15:00 23:00 07:00 15:00 23:00 Intake Total 2625 ml 694 ml 769 ml 1144 ml 720 ml Output Total 650 ml 1250 ml 1001 ml 1175 ml Balance 1975 ml -556 ml -232 ml -31 ml 720 ml Intake Oral 480 ml 520 ml 320 ml 480 ml 120 ml IV Total 2145 ml 174 ml 449 ml 664 ml 600 ml Output Urine Total 650 ml 1200 ml 950 ml 1150 ml Stool Total 1 ml Drainage Total 50 ml 50 ml 25 ml # Bowel Movements 1 0 0 1 Laboratory Laboratory Tests Test 06/12/17 05:11 Sodium Level 136 Potassium Level 3.7 Chloride Level 102 Carbon Dioxide Level 28.0 Anion Gap 6 Blood Urea Nitrogen 4 Creatinine 0.29 Estimat Glomerular Filtration 250 Rate Random Glucose 102 Calcium Level 8.4 Magnesium Level 2.1 Physical Exam HEENT: Normocephalic; atraumatic CHEST: Resp. even/unlabored. CARDIAC: ST ABDOMEN: Soft, mildly bloated, diffuse tenderness; midline incision line with anna clean and dry, LUQ drain with serous drainage, no hepatosplenomegaly; bowel sounds are present in all four quadrants. EXTREMITIES: No clubbing, cyanosis, or edema. SKIN: Normal; no rash; no jaundice. 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 (Mary Lou Higgins) Assessment and Plan Plan ASSESSMENT: - Pancreatitis with Pseudocyst (possible dissecting). Pt had first episode of pancreatitis 3 years ago and has had two hospitalizations. She was told that these episodes were most likely related to ETOH. She is s/ p cholecystectomy. She reports that she occasionally drinks and had 4 shots 3 days ago. ABD MRI 06-11-17--> fatty liver with 2 masses, one is def hemangioma and other probably atypical hemangioma could follow with MRI abd in 6m, additional fluid collection loculated in lesser sac surrounding pancreas not significantly changed, hepatosplenomegaly. Abdomen/Pelvis CT (06/04/17)------> In the esophageal hiatus region, extending into the left posterior abdomen is a large multiloculated fluid collection. The fluid is 10.2 x 3.1 cm across. There is an inferior extension into the body of the pancreas could be a dissecting large pseudocyst. There is an additional elongated collection in the anterior subphrenic space measuring 8.0 x 1.2 cm. I do not see any air or hemorrhage within the elongated irregular fluid collection to suggest superinfection. It is unchanged from the previous study. Some of the fluid dissects down the posterior aspect of the pararenal space on the left. IR and transgastric drainage are unable to be performed. GS following, going to OR today for surgical drainage. AFP 2.9, CEA 1.2, Ca19-9 25.5. S/ P Exploratory lap, I&D of peripancreatic phlegmon. Flagyl, Levaquin. - Odynophagia with abnormal imaging on CTA thorax with abnormal esophageal wall. CT Angiography (06/04/17)----> 1. There is no evidence for PE for technique. 2. Abnormal thickening of the esophageal wall with surrounding soft tissue mass demonstrate some minimal enhancement possibly a malignant mass or malignant adenopathy. There also small lymph nodes in the cardiophrenic angle and very inhomogeneous liver with masses in the upper abdomen and complete CT examination of the abdomen and pelvis with intravenous and oral contrast is recommended. Plan was for EGD, but patient became tachycardic and was transferred to the unit - Abdominal pain secondary to above. - Abn. Wt. Loss, unintentional. Pt does not know how much but states she has gone from a size 5 to a size 0-1 over past year. - Leukocytosis, improved afebrile finished course abx. - Hypokalemia. improved PLAN: - consider EGD/US - repeat MRI abd in 6 m to evaluate hemangiomas - Diet per GS - Cont. PPI - Cont. IVF - Monitor labs - Supportive care - S/P Exp. Lap with I&D of peripancreatic phlegmon. - Further recommendations to follow based on results of above - Pt seen and examined by Dr. Chaney and myself and this note is written on his behalf (Mary Lou Higgins) Physician Comments Patient seen and examined Agree with above Continue with current supportive care Monitor labs Further plans as per the general surgery service Not much to add from a GI perspective therefore we will sign off Patient follow-up with GI post discharge (Geoffrey Chaney MD) Mary Lou Higgins Jun 12, 2017 17:09 Geoffrey Chaney MD Jun 13, 2017 00:46
--- NOTE | 2017-06-12 18:02 | RADRPT ---
EXAM DATE/TIME: 06/12/2017 17:37 [facility] COMPARISON: CHEST SINGLE AP, June 06, 2017, 14:31. INDICATIONS : Short of breath, follow up pneumonia. MEDICAL HISTORY : None. SURGICAL HISTORY : Cholecystectomy. section. ENCOUNTER: Subsequent ACUITY: 1 week PAIN SCORE: 0/10 LOCATION: Bilateral chest FINDINGS: PA and lateral views of the chest demonstrate left lower lobe consolidation. Mediastinum unremarkable . Osseous structures are intact. CONCLUSION: Left lower lobe pneumonia. Arnav Young MD on June 12, 2017 at 18:00 Board Certified Radiologist. This report was verified electronically.
[2017-06-12] MEDS: ZOLPIDEM TARTRATE 5 MG TAB PO PRN (21:03)
[2017-06-12] MEDS: CIPROFLOXACIN 500 MG TAB PO SCH (21:03)
[2017-06-12] MEDS: ENOXAPARIN SODIUM 40 MG/0.4 ML SYRINGE SQ SCH (21:03)
[2017-06-13] VITALS: BP 131/76; PULSE 79; RESP 17; TEMP 98.6; O2SAT 98
[2017-06-13] MEDS: ACETAMINOPHEN/HYDROcodone 325 MG/5 MG TAB PO PRN ×5 (04:01→20:44)
[2017-06-13] MEDS: LORazepam 2 MG/ML VIAL IV PUSH PRN ×2 (06:46→15:45)
[2017-06-13 08:00] VITALS: BP 136/89; PULSE 88; RESP 16; TEMP 98.2; O2SAT 97
[2017-06-13] MEDS: PANTOPRAZOLE SODIUM 40 MG VIAL IV PUSH SCH ×2 (08:38→20:05)
[2017-06-13] MEDS: NICOTINE 21 MG/24 HR PATCH T-DERMAL SCH (08:39)
[2017-06-13] MEDS: POTASSIUM BICARBONATE 25 MEQ EFFERVESCENT TAB PO SCH (08:39)
[2017-06-13] MEDS: REMOVE OLD PATCH T-DERMAL SCH (08:39)
[2017-06-13] MEDS: CIPROFLOXACIN 500 MG TAB PO SCH ×2 (08:40→20:05)
[2017-06-13] MEDS: CALCIUM CARBONATE 500 MG CHEWABLE TAB CHEW SCH ×2 (08:40→20:05)
[2017-06-13] MEDS: DOCUSATE SODIUM 50 MG/SENNA 8.6 MG TAB PO SCH ×2 (08:40→20:05)
[2017-06-13] MEDS: SODIUM CHLORIDE 0.9% FLUSH 10 ML FLUSH IV FLUSH SCH ×2 (08:41→20:05)
--- NOTE | 2017-06-13 10:52 | HHI.PR ---
Subjective Remarks patient feeling better no cough complains getting around more no tremors Objective Vitals Vital Signs Date Time Temp Pulse Resp B/P Pulse Ox O2 Delivery O2 Flow Rate FiO2 06/13/17 08:00 98.2 88 16 136/89 97 06/13/17 00:00 98.6 79 17 131/76 98 06/12/17 22:30 95 06/12/17 20:00 98.1 84 17 143/87 95 06/12/17 16:00 98.1 80 19 151/94 95 06/12/17 15:49 18 06/12/17 12:00 97.1 96 20 159/96 96 I/O 06/12/17 06/12/17 06/12/17 06/13/17 06/13/17 06/13/17 06:59 14:59 22:59 06:59 14:59 22:59 Intake Total 1144 ml 1470 ml 431 ml 451 ml Output Total 1175 ml 720 ml 53 ml 25 ml Balance -31 ml 750 ml 378 ml 426 ml Intake Oral 480 ml 870 ml 240 ml 240 ml IV Total 664 ml 600 ml 191 ml 211 ml Output Urine Total 1150 ml 720 ml 3 ml Drainage Total 25 ml 50 ml 25 ml # Voids 2 # Bowel Movements 1 0 Result Diagram: 06/11/17 0357 06/12/17 0511 Imaging Last Impressions Chest X-Ray 06/12/17 0000 Signed Impressions: Service Date/Time: Monday, June 12, 2017 17:37 - CONCLUSION: Left lower lobe pneumonia. Arnav Young MD Abdomen MRI 06/11/17 0000 Signed Impressions: Service Date/Time: Sunday, June 11, 2017 09:26 - CONCLUSION: 1. Fatty liver with 2 masses one of which is definitely a hemangioma and the other one probably atypical hemangioma could be followed with MRI examination of the abdomen in 6 months. 2. No appreciable change in bilateral pleural effusions, left lung base consolidation and loculated pseudocyst in the lesser sac. 3. Hepatosplenomegaly. Robert Cullen MD Abdomen/Pelvis CT 06/09/17 0600 Signed Impressions: Service Date/Time: Friday, June 09, 2017 12:17 - CONCLUSION: 1. The left upper quadrant fluid collection/pseudocyst has decreased in size. It currently measures 6.3 x 2.1 cm compared to 10.0 x 3.6 cm previously. A surgical drain is now present in the left upper quadrant adjacent to the tail of the pancreas. 2. Expected postsurgical changes are present including a small amount of free intraperitoneal air. 3. Small bilateral pleural effusions, left larger than right, with associated atelectasis and/or consolidation at the lung bases. 4. Severe hepatic steatosis. Thom Murray MD CT Angiography 06/04/17 0000 Signed Impressions: Service Date/Time: Sunday, June 04, 2017 16:06 - CONCLUSION: 1. There is no evidence for PE for technique. 2. Abnormal thickening of the esophageal wall with surrounding soft tissue mass demonstrate some minimal enhancement possibly a malignant mass or malignant adenopathy. There also small lymph nodes in the cardiophrenic angle and very inhomogeneous liver with masses in the upper abdomen and complete CT examination of the abdomen and pelvis with intravenous and oral contrast is recommended. Robert Cullen MD Objective Remarks awake and alert, calm, oriented x 3, anicteric lungs decreased breath sounds and vocal fremiti left base, no rales regular rhythm hyperactive bowel sounds, non tender, no guarding, post op anna in place- incision site- no erythema, dry, BROCK drain site- dry, no erythema extremities no edema neuro exam- non focal Procedures Pancreatic abscess/phlegmon S/P Ex Laparotomy, incision and drainage peripancreatic phlegmon on 06/07/[address] Ellis A/P Problem List: (1) Chest pain ICD Code: R07.9 Status: Acute (2) Pancreatitis ICD Code: K85.90 Status: Acute (3) Esophageal mass ICD Code: K22.9 Status: Acute (4) Leukocytosis ICD Code: D72.829 Status: Acute (5) Hypokalemia ICD Code: E87.6 Status: Acute (6) Tobacco abuse ICD Code: Z72.0 Status: Acute Assessment and Plan 46years old fema;e Acute respiratory failure. Resolved , currently on NC. OFF BiAP. continue NC prn Sepsis due to MRSA pancreatic abscess S/P I and D-(fever, tachycardia, Left lower lobe PNA, E coli UTI - ID ff- monitor off antibiotics- S/P IV Levaquin and flagyl course - Dr Ellis ff Esophageal Mass: + weight loss. CT- thickening of esophageal wall w/ ? malignant mass or malignant adenopathy with liver masses for CT Abd/Pelvis GI consulted- plan for EGD/ liver biospy/ ?colonoscopy- with diarrhea. Attempted EGD on hold due to the events above. no complains if continues to do well- will inform GI- to proceed with scope- further diagnostic study Pancreatic abscess/phlegmon S/P Ex Laparotomy, incision and drainage peripancreatic phlegmon on 06/07/[address] Ellis gen surgery Dr Ellis will follow. on Leva + Flagyl Hypokalemia corrected - KCL po daily - KCL in main IV Tobacco Abuse: NicoDerm patch DVT Prophylaxis: SCD/Teds. Social work for d/c planning as needed. PT- deocnditoning Home health care nursing- CM consult in anticipation of DC Pato Noble MD Jun 13, 2017 10:52 Pato Noble MD Jun 13, 2017 10:52
[2017-06-13 12:00] VITALS: BP 134/83; PULSE 99; RESP 17; TEMP 97.5; O2SAT 98
[2017-06-13] MEDS ORDERED: CIPR-9 PO (14:31)
--- NOTE | 2017-06-13 14:57 | HHI.PR ---
Subjective Subjective Notes Resting in bed Informed me that they just placed her sister in [facility]osp[facility] due to a brain tumor; she would like to visit her Objective Vitals/I&O Vital Signs Date Time Temp Pulse Resp B/P Pulse Ox O2 Delivery O2 Flow Rate FiO2 06/13/17 12:00 97.5 99 17 134/83 98 06/11/17 13:34 21 06/10/17 22:13 2.00 06/10/17 09:34 Nasal Cannula Radiology Last Impressions Abdomen MRI 06/11/17 0000 Signed Impressions: Service Date/Time: Sunday, June 11, 2017 09:26 - CONCLUSION: 1. Fatty liver with 2 masses one of which is definitely a hemangioma and the other one probably atypical hemangioma could be followed with MRI examination of the abdomen in 6 months. 2. No appreciable change in bilateral pleural effusions, left lung base consolidation and loculated pseudocyst in the lesser sac. 3. Hepatosplenomegaly. Robert Cullen MD Abdomen/Pelvis CT 06/09/17 0600 Signed Impressions: Service Date/Time: Friday, June 09, 2017 12:17 - CONCLUSION: 1. The left upper quadrant fluid collection/pseudocyst has decreased in size. It currently measures 6.3 x 2.1 cm compared to 10.0 x 3.6 cm previously. A surgical drain is now present in the left upper quadrant adjacent to the tail of the pancreas. 2. Expected postsurgical changes are present including a small amount of free intraperitoneal air. 3. Small bilateral pleural effusions, left larger than right, with associated atelectasis and/or consolidation at the lung bases. 4. Severe hepatic steatosis. Thom Murray MD Chest X-Ray 06/06/17 0000 Signed Impressions: Service Date/Time: Tuesday, June 06, 2017 14:31 - CONCLUSION: Developing infiltrate in the left lower lobe with a small left pleural effusion. Brian Navarro MD CT Angiography 06/04/17 0000 Signed Impressions: Service Date/Time: Sunday, June 04, 2017 16:06 - CONCLUSION: 1. There is no evidence for PE for technique. 2. Abnormal thickening of the esophageal wall with surrounding soft tissue mass demonstrate some minimal enhancement possibly a malignant mass or malignant adenopathy. There also small lymph nodes in the cardiophrenic angle and very inhomogeneous liver with masses in the upper abdomen and complete CT examination of the abdomen and pelvis with intravenous and oral contrast is recommended. Robert Cullen MD Cardiovascular: Regular Lungs: Clear Abdomen: Other (midline incision with anna c/d/i; BROCK with clear drainage ) Extremities: No edema A/P Problem List: (1) Pancreatitis (2) Hypokalemia (3) Leukocytosis (4) Tobacco abuse (5) Chest pain Assessment and Plan 46 year old POD6 Ex Laparotomy, incision and drainage peripancreatic phlegmon -Tolerating soft diet -OOB and mobilize -Continue Cipro -DC instructions given regarding incision and BROCK drain -Okay to shower -GS clear for DC -Follow up with Dr. Ellis in 1 week Attending Note - Dr. Ellis Patient requesting ativan for anxiety Suggested she get this from medical team Script for narcotic in chart [place] out before discharge The exam, history, and the medical decision-making described in the above note were completed with the assistance of the mid-level provider. I reviewed and agree with the findings presented. I attest that I had a [id number] encounter with the patient on the same day, and personally performed and documented my assessment and findings in the medical record. eNtte Rangel Jun 13, 2017 14:57 Damien Ellis MD Jun 13, 2017 19:28
[2017-06-13 16:00] VITALS: BP 146/89; PULSE 90; RESP 17; TEMP 97.7; O2SAT 97
--- NOTE | 2017-06-13 16:32 | HHI.PR ---
Subjective Remarks alert no sob at rest Objective Vital Signs Date Time Temp Pulse Resp B/P Pulse Ox O2 Delivery O2 Flow Rate FiO2 06/13/17 16:00 97.7 90 17 146/89 97 06/13/17 12:00 97.5 99 17 134/83 98 06/13/17 08:00 98.2 88 16 136/89 97 06/13/17 00:00 98.6 79 17 131/76 98 06/12/17 22:30 95 06/12/17 20:00 98.1 84 17 143/87 95 I/O 06/12/17 06/12/17 06/12/17 06/13/17 06/13/17 06/13/17 06:59 14:59 22:59 06:59 14:59 22:59 Intake Total 1144 ml 1470 ml 431 ml 451 ml 360 ml Output Total 1175 ml 720 ml 53 ml 25 ml Balance -31 ml 750 ml 378 ml 426 ml 360 ml Intake Oral 480 ml 870 ml 240 ml 240 ml 360 ml IV Total 664 ml 600 ml 191 ml 211 ml Output Urine Total 1150 ml 720 ml 3 ml Drainage Total 25 ml 50 ml 25 ml # Voids 2 3 # Bowel Movements 1 0 1 Result Diagram: 06/11/17 0357 06/12/17 0511 Objective Remarks GENERAL: SKIN: Warm and dry. HEAD: Atraumatic. Normocephalic. EYES: Pupils equal and round. No scleral icterus. No injection or drainage. ENT: No nasal bleeding or discharge. Mucous membranes pink and moist. NECK: Trachea midline. No JVD. CARDIOVASCULAR: Regular rate and rhythm. RESPIRATORY: No accessory muscle use. Clear to auscultation. Breath sounds equal bilaterally. GASTROINTESTINAL: Abdomen soft, non-tender, nondistended. Hepatic and splenic margins not palpable. MUSCULOSKELETAL: Extremities without clubbing, cyanosis, or edema. No obvious deformities. NEUROLOGICAL: Awake and alert. No obvious cranial nerve deficits. Motor grossly within normal limits. Five out of 5 muscle strength in the arms and legs. Normal speech. PSYCHIATRIC: Appropriate mood and affect; insight and judgment normal. GENERAL: SKIN: Warm and dry. HEAD: Atraumatic. Normocephalic. EYES: Pupils equal and round. No scleral icterus. No injection or drainage. ENT: No nasal bleeding or discharge. Mucous membranes pink and moist. NECK: Trachea midline. No JVD. CARDIOVASCULAR: Regular rate and rhythm. RESPIRATORY: No accessory muscle use. Clear to auscultation. Breath sounds equal bilaterally. GASTROINTESTINAL: Abdomen soft, non-tender, nondistended. Hepatic and splenic margins not palpable. MUSCULOSKELETAL: Extremities without clubbing, cyanosis, or edema. No obvious deformities. NEUROLOGICAL: Awake and alert. No obvious cranial nerve deficits. Motor grossly within normal limits. Five out of 5 muscle strength in the arms and legs. Normal speech. PSYCHIATRIC: Appropriate mood and affect; insight and judgment normal. Assessment and Plan Assessment and Plan ASS Pancreatitis ?PNA PLAN o2 as needed ANTBX per ID F/U CXRAY Mae Wall MD Jun 13, 2017 16:32
[2017-06-13 20:00] VITALS: BP 139/98; PULSE 112; RESP 18; TEMP 96.7; O2SAT 95
[2017-06-13] MEDS: ENOXAPARIN SODIUM 40 MG/0.4 ML SYRINGE SQ SCH (20:06)
[2017-06-13] MEDS: ZOLPIDEM TARTRATE 5 MG TAB PO PRN (22:30)
[2017-06-14] VITALS: BP 123/88; PULSE 103; RESP 18; TEMP 98.5; O2SAT 96
[2017-06-14] MEDS: LORazepam 2 MG/ML VIAL IV PUSH PRN ×2 (00:14→10:27)
[2017-06-14] MEDS: ACETAMINOPHEN/HYDROcodone 325 MG/5 MG TAB PO PRN ×3 (04:06→11:46)
[2017-06-14] MEDS: PANTOPRAZOLE SODIUM 40 MG VIAL IV PUSH SCH (07:52)
[2017-06-14] MEDS: SODIUM CHLORIDE 0.9% FLUSH 10 ML FLUSH IV FLUSH SCH (07:52)
[2017-06-14] MEDS: CIPROFLOXACIN 500 MG TAB PO SCH (07:52)
[2017-06-14] MEDS: CALCIUM CARBONATE 500 MG CHEWABLE TAB CHEW SCH (07:53)
[2017-06-14] MEDS: POTASSIUM BICARBONATE 25 MEQ EFFERVESCENT TAB PO SCH (07:53)
[2017-06-14] MEDS: DOCUSATE SODIUM 50 MG/SENNA 8.6 MG TAB PO SCH (07:53)
[2017-06-14] MEDS: REMOVE OLD PATCH T-DERMAL SCH (07:55)
[2017-06-14] MEDS: NICOTINE 21 MG/24 HR PATCH T-DERMAL SCH (07:55)
[2017-06-14 08:00] VITALS: BP 134/86; PULSE 91; RESP 20; TEMP 98.2; O2SAT 97
[2017-06-14 10:24] VITALS: O2SAT 97
[2017-06-14] MEDS ORDERED: KLORCONEF PO (10:54)
--- NOTE | 2017-06-14 11:02 | HHI.FF ---
Face to Face Verification Diagnosis: (1) pancreatic phelgemon S/P expl lap/I and D Home Health Nursing Order: Wound care and dressing changes (BROCK drain care) Nursing assessment with vital signs I have seen patient Yari Martin on 06/14/17. My clinical findings support the need for the requested home health care services because: Ltd mobility - disease progression Infection w/ risk of complications I certify that my clinical findings support that this patient is homebound because: Pato Noble MD Jun 14, 2017 11:02
--- NOTE | 2017-06-14 11:06 | HHI.PR ---
Subjective Subjective Notes Resting in bed Feels ready to go home today Objective Vitals/I&O Vital Signs Date Time Temp Pulse Resp B/P Pulse Ox O2 Delivery O2 Flow Rate FiO2 06/14/17 10:24 97 21 06/14/17 08:00 98.2 91 20 134/86 06/10/17 22:13 2.00 06/10/17 09:34 Nasal Cannula Radiology Last Impressions Abdomen MRI 06/11/17 0000 Signed Impressions: Service Date/Time: Sunday, June 11, 2017 09:26 - CONCLUSION: 1. Fatty liver with 2 masses one of which is definitely a hemangioma and the other one probably atypical hemangioma could be followed with MRI examination of the abdomen in 6 months. 2. No appreciable change in bilateral pleural effusions, left lung base consolidation and loculated pseudocyst in the lesser sac. 3. Hepatosplenomegaly. Robert Cullen MD Abdomen/Pelvis CT 06/09/17 0600 Signed Impressions: Service Date/Time: Friday, June 09, 2017 12:17 - CONCLUSION: 1. The left upper quadrant fluid collection/pseudocyst has decreased in size. It currently measures 6.3 x 2.1 cm compared to 10.0 x 3.6 cm previously. A surgical drain is now present in the left upper quadrant adjacent to the tail of the pancreas. 2. Expected postsurgical changes are present including a small amount of free intraperitoneal air. 3. Small bilateral pleural effusions, left larger than right, with associated atelectasis and/or consolidation at the lung bases. 4. Severe hepatic steatosis. Thom Murray MD Chest X-Ray 06/06/17 0000 Signed Impressions: Service Date/Time: Tuesday, June 06, 2017 14:31 - CONCLUSION: Developing infiltrate in the left lower lobe with a small left pleural effusion. Brian Navarro MD CT Angiography 06/04/17 0000 Signed Impressions: Service Date/Time: Sunday, June 04, 2017 16:06 - CONCLUSION: 1. There is no evidence for PE for technique. 2. Abnormal thickening of the esophageal wall with surrounding soft tissue mass demonstrate some minimal enhancement possibly a malignant mass or malignant adenopathy. There also small lymph nodes in the cardiophrenic angle and very inhomogeneous liver with masses in the upper abdomen and complete CT examination of the abdomen and pelvis with intravenous and oral contrast is recommended. Robert Cullen MD Cardiovascular: Regular Lungs: Clear Abdomen: Other (anna removed; SS applied ) Extremities: No edema A/P Problem List: (1) Pancreatitis (2) Hypokalemia (3) Leukocytosis (4) Tobacco abuse (5) Chest pain Assessment and Plan 46 year old POD7 Ex Laparotomy, incision and drainage peripancreatic phlegmon -Tolerating soft diet -OOB and mobilize -Continue Cipro -DC instructions given regarding incision and BROCK drain -[place] removed -Okay to shower -GS clear for DC -Follow up with Dr. Ellis next Monday Nette Rangel Jun 14, 2017 11:06
--- NOTE | 2017-06-14 11:06 | HHI.PR ---
Subjective Remarks patient doing very well, motivated with therapy- spirometry Objective Vitals Vital Signs Date Time Temp Pulse Resp B/P Pulse Ox O2 Delivery O2 Flow Rate FiO2 06/14/17 10:24 97 21 06/14/17 08:00 98.2 91 20 134/86 97 06/14/17 00:00 98.5 103 18 123/88 96 06/13/17 20:00 96.7 112 18 139/98 95 06/13/17 16:00 97.7 90 17 146/89 97 06/13/17 12:00 97.5 99 17 134/83 98 I/O 06/13/17 06/13/17 06/13/17 06/14/17 06/14/17 06/14/17 06:59 14:59 22:59 06:59 14:59 22:59 Intake Total 451 ml 360 ml 240 ml 0 ml Output Total 25 ml 25 ml 50 ml Balance 426 ml 360 ml 215 ml 0 ml -50 ml Intake Oral 240 ml 360 ml 240 ml IV Total 211 ml 0 ml 0 ml Drainage Total 25 ml 25 ml 50 ml # Voids 2 3 2 2 # Bowel Movements 1 Result Diagram: 06/11/17 0357 06/12/17 0511 Imaging Last Impressions Chest X-Ray 06/12/17 0000 Signed Impressions: Service Date/Time: Monday, June 12, 2017 17:37 - CONCLUSION: Left lower lobe pneumonia. Arnav Young MD Abdomen MRI 06/11/17 0000 Signed Impressions: Service Date/Time: Sunday, June 11, 2017 09:26 - CONCLUSION: 1. Fatty liver with 2 masses one of which is definitely a hemangioma and the other one probably atypical hemangioma could be followed with MRI examination of the abdomen in 6 months. 2. No appreciable change in bilateral pleural effusions, left lung base consolidation and loculated pseudocyst in the lesser sac. 3. Hepatosplenomegaly. Robert Cullen MD Abdomen/Pelvis CT 06/09/17 0600 Signed Impressions: Service Date/Time: Friday, June 09, 2017 12:17 - CONCLUSION: 1. The left upper quadrant fluid collection/pseudocyst has decreased in size. It currently measures 6.3 x 2.1 cm compared to 10.0 x 3.6 cm previously. A surgical drain is now present in the left upper quadrant adjacent to the tail of the pancreas. 2. Expected postsurgical changes are present including a small amount of free intraperitoneal air. 3. Small bilateral pleural effusions, left larger than right, with associated atelectasis and/or consolidation at the lung bases. 4. Severe hepatic steatosis. Thom Murray MD CT Angiography 06/04/17 0000 Signed Impressions: Service Date/Time: Sunday, June 04, 2017 16:06 - CONCLUSION: 1. There is no evidence for PE for technique. 2. Abnormal thickening of the esophageal wall with surrounding soft tissue mass demonstrate some minimal enhancement possibly a malignant mass or malignant adenopathy. There also small lymph nodes in the cardiophrenic angle and very inhomogeneous liver with masses in the upper abdomen and complete CT examination of the abdomen and pelvis with intravenous and oral contrast is recommended. Robert Cullen MD Objective Remarks awake and alert, calm, oriented x 3, anicteric lungs no rales regular rhythm hyperactive bowel sounds, non tender, no guarding, post op anna in place- incision site- no erythema, dry, BROCK drain site- dry, no erythema extremities no edema neuro exam- non focal Procedures Pancreatic abscess/phlegmon S/P Ex Laparotomy, incision and drainage peripancreatic phlegmon on 06/07/[address] Ellis A/P Problem List: (1) Chest pain ICD Code: R07.9 Status: Acute (2) Pancreatitis ICD Code: K85.90 Status: Acute (3) Esophageal mass ICD Code: K22.9 Status: Acute (4) Leukocytosis ICD Code: D72.829 Status: Acute (5) Hypokalemia ICD Code: E87.6 Status: Acute (6) Tobacco abuse ICD Code: Z72.0 Status: Acute Assessment and Plan 46years old fema;e Acute respiratory failure. Resolved , currently on NC. OFF BiAP. \ Sepsis due to MRSA pancreatic abscess S/P I and D-(fever, tachycardia, Left lower lobe PNA, E coli UTI - ID ff- monitor off antibiotics- S/P IV Levaquin and flagyl course - Dr Ellis ff Patient will be DC on Levaquin per GS for 10 days Esophageal Mass: + weight loss. CT- thickening of esophageal wall w/ ? malignant mass or malignant adenopathy with liver masses for CT Abd/Pelvis GI consulted- plan for EGD/ liver biospy/ ?colonoscopy- with diarrhea. Attempted EGD on hold due to the events above. no complains if continues to do well- - FF UP with GI as OP Pancreatic abscess/phlegmon S/P Ex Laparotomy, incision and drainage peripancreatic phlegmon on 06/07/[address] Ellis gen surgery Dr Ellis will follow. on Leva on DC Hypokalemia corrected - KCL po daily - KCL in main IV Tobacco Abuse: NicoDerm patch DVT Prophylaxis: SCD/Teds. PT- deocnditoning Home health care nursing- DC today Pato Noble MD Jun 14, 2017 11:06
--- NOTE | 2017-06-14 11:09 | HHI.DS ---
Discharge Summary Admission Date Jun 07, 2017 at 06:28 Discharge Date: Jun 14, 2017 Admitting Diagnosis Pancreatitis, Esophageal mass (1) Chest pain ICD Code: R07.9 (2) Pancreatitis ICD Code: K85.90 (3) Esophageal mass ICD Code: K22.9 (4) Leukocytosis ICD Code: D72.829 (5) Hypokalemia ICD Code: E87.6 (6) Tobacco abuse ICD Code: Z72.0 Procedures Pancreatic abscess/phlegmon S/P Ex Laparotomy, incision and drainage peripancreatic phlegmon on 06/07/[address] Ellis Brief History - From Admission This is a 43-year-old female with no significant PMH except for Tobacco Abuse as the ER with complaints of epigastric/chest pain x2 days. States pain is intermittent w/ radiation to left shoulder and back. Denies fever, chills, cough, SOB, nausea or vomiting. No h/o similar symptoms in the past. On arrival, BP 137/93, HR 134, O2 sat 97% on RA, Temp 99.4. W WBC 12.2. K+ 3.2. Troponin negative. Lipase 787. INR 1.1. D-dimer 2.32. CXR with no acute findings. CTA Pulm negative for PE, noted to have abnormal thickening of esophageal wall w/ surrounding soft tissue mass, ?malignant mass or malignant adenopathy, recommendation for CT Abd/Pelvis, currently pending. Pt denies h/o similar findings. CBC/BMP: 06/11/17 0357 06/12/17 0511 Significant Findings Laboratory Tests Test 06/12/17 05:11 Blood Urea Nitrogen 4 MG/DL (7-18) Creatinine 0.29 MG/DL (0.50-1.00) Calcium Level 8.4 MG/DL (8.5-10.1) PE at Discharge awake and alert, calm, oriented x 3, anicteric lungs no rales regular rhythm hyperactive bowel sounds, non tender, no guarding, post op anna in place- incision site- no erythema, dry, BROCK drain site- dry, no erythema extremities no edema neuro exam- non focal Pt Condition on Discharge: Stable Discharge Disposition: Disch w/ Home Health Serv Discharge Time: <= 30 minutes Discharge Instructions DIET: Follow Instructions for: As Tolerated, No Restrictions Speech Therapy-Diet Recommends: Mechanical Soft Activities you can perform: Weight Bearing as Lori Activities to Avoid: Prolonged Standing, Strenuous Activity Follow up Referrals: Gastroenterology - 2 Weeks with Geoffrey Chaney MD PCP Follow-up - 1 Week with PCP Surgical - 1 Week with Damien Ellis MD New Medications: Ciprofloxacin (Cipro) 500 Mg Tab 500 MG PO Q12HR Infection Days 10 TAB Potassium Bicarbonate Effervescent (K-Vescent) 25 Meq Tab 25 MEQ PO DAILY elect Days 14 TAB Pato Noble MD Jun 14, 2017 11:09
[2017-06-14] MEDS ORDERED: HYDR-3288 PO (11:48)
[2017-06-14 12:00] VITALS: BP 135/80; PULSE 93; RESP 20; TEMP 98.3; O2SAT 96
--- NOTE | 2017-06-14 14:45 | HHI.FF ---
Face to Face Verification Diagnosis: (1) pancreatic phelgemon S/P expl lap/I and D Home Health Nursing Order: Medical education Signs/symptoms of disease process Wound care and dressing changes Nursing assessment with vital signs I have seen patient Yari Martin on 06/14/17. My clinical findings support the need for the requested home health care services because: Infection w/ risk of complications I certify that my clinical findings support that this patient is homebound because: Post-op weakness Need for psychosocial assistance Pato Noble MD Jun 14, 2017 14:45
--- NOTE | 2017-06-14 15:52 | HHI.FF ---
Face to Face Verification Diagnosis: (1) pancreatic phelgemon S/P expl lap/I and D Home Health Nursing Order: Wound care and dressing changes (BROCK drain care) Nursing assessment with vital signs I have seen patient Yari Martin on 06/14/17. My clinical findings support the need for the requested home health care services because: Ltd mobility - disease progression Infection w/ risk of complications I certify that my clinical findings support that this patient is homebound because: of above Post-op weakness Need for psychosocial assistance Pato Noble MD Jun 14, 2017 15:52
== END 2017-06-14 13:32 | disposition home health service (06) | DRG 853 ==
LOC: NEPE 12:53 → NEDA 18:29 → INTOOBSV 18:29 → EDBD 18:29 → NEPGCP 22:05 → HIMN 06-06 14:22 → HIME 06-06 18:30 → OBSVTOIN 06-07 06:28 → N03B 06-07 19:37 → HIME 06-07 20:20 → N07B 06-08 21:07
PROVIDERS: ADMIT Internal Medicine; ATTEND Internal Medicine
PROC: 5A09357 Assistance with Respiratory Ventilation, Less than 24 Consecutive Hours, Continuous Positive Airway Pressure (ICD-10-PCS; 2017-06-06)
PROC: 0F9G00Z Drainage of Pancreas with Drainage Device, Open Approach (ICD-10-PCS; principal; 2017-06-07 18:14)
DX: A41.02 Sepsis due to Methicillin resistant Staphylococcus aureus (principal); K85.22 Alcohol induced acute pancreatitis with infected necrosis; J96.00 Acute respiratory failure, unspecified whether with hypoxia or hypercapnia; J18.9 Pneumonia, unspecified organism; K86.3 Pseudocyst of pancreas; K76.0 Fatty (change of) liver, not elsewhere classified; N39.0 Urinary tract infection, site not specified; R13.10 Dysphagia, unspecified; E87.6 Hypokalemia; F17.210 Nicotine dependence, cigarettes, uncomplicated; K22.9 Disease of esophagus, unspecified; R19.7 Diarrhea, unspecified; R00.0 Tachycardia, unspecified; K76.9 Liver disease, unspecified; R63.4 Abnormal weight loss; Z53.09 Procedure and treatment not carried out because of other contraindication; B96.20 Unspecified Escherichia coli [E. coli] as the cause of diseases classified elsewhere; F41.9 Anxiety disorder, unspecified; R65.20 Severe sepsis without septic shock; Z90.49 Acquired absence of other specified parts of digestive tract; Z88.5 Allergy status to narcotic agent; Z88.0 Allergy status to penicillin; Z80.3 Family history of malignant neoplasm of breast; Z80.8 Family history of malignant neoplasm of other organs or systems
CPT/HCPCS: 36430; 36600; 71010; 71020; 71275; 74176; 74177; 74183; 76937; 80048; 80053; 80074; 80307; 81001; 82105; 82378; 82550; 82784; 82805; 83605; 83690; 83735; 84100; 84155; 84484; 85007; 85025; 85027; 85379; 85610; 85730; 86301; 86850; 86900; 86901; 86920; 87040; 87077; 87086; 87186; 87641; 93005; 94002; 94640; 94664; 96361; 96374; 99211; A9579; C9113; G0378; G0463; J0131; J1170; J1650; J1885; J1956; J2060; J2270; J2405; J3010; J3370; J3475; J3480; J7030; J7042; J7050; P9016; Q9963; Q9967

== ENCOUNTER 2017-06-23 15:24 | Inpatient (IN) | payer SELFPAY ==
[~2017-06-23] VITALS: Ht 160 cm; Wt 46.0 kg
[~2017-06-23 15:24] MED LIST: CIPR-9 PO; HYDR-3288 PO; IBUP-1129 PO; KLORCONEF PO; ZANT150T2 PO
[2017-06-23 15:27] VITALS: BP 165/104; PULSE 130; RESP 17; TEMP 99.2; O2SAT 99
[2017-06-23] MEDS ORDERED: SODIUM CHLOR 0.9% 1000 ML INJ 1,000 ML IV SCH (16:00)
[2017-06-23] MEDS ORDERED: MORPHINE SULFATE 4 MG/ML INJ IV PUSH ONE (16:00)
[2017-06-23] MEDS ORDERED: ONDANSETRON HCL 4 MG/2 ML VIAL IVP ONE (16:00)
[2017-06-23] MEDS ORDERED: SODIUM CHLORIDE 0.9% FLUSH 10 ML FLUSH IV FLUSH PRN ×2 (16:00→20:45)
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
[2017-06-23 16:50] LABS: BASOPHIL # 0.2 TH/MM3 (0-0.2); BASOPHIL % 1.2 % (0.0-2.0); EOSINOPHIL # 0.1 TH/MM3 (0-0.4); EOSINOPHIL % 0.9 % (0.0-4.0); HEMATOCRIT 35.4 % (35.0-46.0); HEMO FLAGS DIFF FINAL; LYMPH % 13.3 % (9.0-44.0); LYMPHOCYTE # 1.9 TH/MM3 (1.0-4.8); MEAN CELL VOLUME 85.6 FL (80.0-100.0); MEAN CORPUSCULAR HEMOGLOBIN 28.3 PG (27.0-34.0); MEAN CORPUSCULAR HGB CONC 33.1 % (32.0-36.0); NEUT % 77.6 % (16.0-70.0); PLATELET COUNT 542 TH/MM3 (150-450); RED BLOOD COUNT 4.13 MIL/MM3 (4.00-5.30); RED CELL DISTRIBUTION WIDTH 19.4 % (11.6-17.2); WHITE BLOOD COUNT 14.2 TH/MM3 (4.0-11.0)
[2017-06-23 17:00] VITALS: BP 148/96; PULSE 98; RESP 15; O2SAT 99
[2017-06-23] MEDS ORDERED: DIATRIZOATE MEGLUM/DIATRIZOATE SOD 9 ML CUP ONE (17:01)
[2017-06-23 17:27] LABS: ALT (GPT) 17 U/L (10-53); ANION GAP 10 MEQ/L (5-15); AST (GOT) 20 U/L (15-37); BICARBONATE 26.3 MEQ/L (21.0-32.0); BLOOD UREA NITROGEN 9 MG/DL (7-18); CHLORIDE 101 MEQ/L (98-107); GLOMERULAR FILTRATION RATE 122 ML/MIN (>89); POTASSIUM 4.1 MEQ/L (3.5-5.1); SODIUM (NA) 137 MEQ/L (136-145)
[2017-06-23 17:29] LABS: ALKALINE PHOSPHATASE 139 U/L (45-117); TOTAL BILIRUBIN ADULT 0.3 MG/DL (0.2-1.0)
[2017-06-23] MEDS ORDERED: IOHEXOL 350 MG/ML 10 ML VIAL (for RAD DIAG) IV ONE (17:40)
[2017-06-23 18:00] VITALS: BP 149/94; PULSE 102; RESP 15; TEMP 98.3; O2SAT 99
[2017-06-23] MEDS ORDERED: HYDROmorphone HCL PF 1 MG/ML VIAL IV PUSH ONE (18:00)
--- NOTE | 2017-06-23 18:35 | RADRPT ---
EXAM DATE/TIME: 06/23/2017 18:06 [facility] COMPARISON: CT ABDOMEN & PELVIS W CONTRAST, June 05, 2017, 17:29. INDICATIONS : Abdominal pain; post operative for pancreas. IV CONTRAST: 97 cc Omnipaque 350 (iohexol) IV ORAL CONTRAST: Partial prescribed oral contrast ingested. RADIATION DOSE: 4.58 CTDIvol (mGy) MEDICAL HISTORY : Cardiovascular disease. SURGICAL HISTORY : Cholecystectomy. section. ENCOUNTER: Initial ACUITY: 1 day PAIN SCALE: 7/10 LOCATION: abdomen TECHNIQUE: Volumetric scanning of the abdomen and pelvis was performed. Using automated exposure control and ad justment of the mA and/or kV according to patient size, radiation dose was kept as low as reasonably achievable to obtain optimal diagnostic quality images. DICOM format image data is available electro nically for review and comparison. FINDINGS: LOWER LUNGS: The visualized lower lungs are clear. No pleural effusion. LIVER: Stable hepatomegaly Regionally heterogeneous density without lesion, similar to prior. There is no d ilation of the biliary tree. The gallbladder is absent.. SPLEEN: Normal size without lesion. PANCREAS: Interval decrease in the size of the cystic area in the tail of the pancreas, now measuring 1.8 cm (p reviously measured 2.7 cm). Mild induration of the fat about the tail of the pancreas persists. No peripancreatic fluid. Punctate calcifications in the head of the pancreas, stable. Elongated fluid collection in the posterior left upper quadrant has decreased in size significantly from prior CT, no w measuring 1 cm in length (previously measured 3.1 cm in width). KIDNEYS: Normal in size and shape. There is no mass, stone or hydronephrosis. ADRENAL GLANDS: Within normal limits. VASCULAR: There is no aortic aneurysm. BOWEL/MESENTERY: No dilated loops of small or large bowel. ABDOMINAL WALL: Induration of the anterior midline fat characteristic of interval surgery. There is a new oval area of induration of the anterior peritoneal fat adjacent to the surgical site, measuring 3.3 cm in lengt h and 7 cm in superior/inferior extent. RETROPERITONEUM: There is no lymphadenopathy. BLADDER: No wall thickening or mass. REPRODUCTIVE: No mass seen. Bilateral ovarian cysts. No evidence of free fluid in the pelvis. INGUINAL: There is no lymphadenopathy or hernia. MUSCULOSKELETAL: Within normal limits for patient age. CONCLUSION: 1. Interval surgery since prior CT with reduction in the size of the fluid collection posterior left upper quadrant underneath the hemidiaphragm, with reduction in width to 1 cm. 2. Reduction in the size of the cystic area in the tail of pancreas, now measuring 1.8 cm. 3. Hepatomegaly and regional fatty change in liver, stable Michael William MD on June 23, 2017 at 18:26 Board Certified Radiologist. This report was verified electronically.
[2017-06-23] MEDS ORDERED: PIPERACIL-TAZO 4.5 GM PREMIX 100 ML IV ONE (19:00)
[2017-06-23] MEDS ORDERED: VANCOMYCIN INJ 1,000 MG in SODIUM CHLOR 0.9% 250 ML INJ 250 ML IV ONE (19:00)
[2017-06-23 19:11] LABS: BLOOD, URINE TRACE (NEG); COMMENT (UR) CULT NOT INDICATED; CULTURE IF INDICATED CULT NOT INDICATED; GLUCOSE,URINE NEG (NEG); HYALINE CAST, URINE 2 /lpf (RARE); KETONE, URINE NEG (NEG); NITRITE,URINE NEG (NEG); PH, URINE 5.5 (5.0-8.5); SQUAMOUS EPITHELIAL CELL URINE 3 /hpf (0-5); URINE COLOR LIGHT-YELLOW (YELLW/STRAW)
--- NOTE | 2017-06-23 19:12 | PD ---
Data Data Last Documented VS Vital Signs Date Time Temp Pulse Resp B/P Pulse Ox O2 Delivery O2 Flow Rate FiO2 06/23/17 19:29 89 16 156/99 98 06/23/17 18:00 98.3 Orders Complete Blood Count With Diff (06/23/17 16:00) Comprehensive Metabolic Panel (06/23/17 16:00) Lipase (06/23/17 16:00) Lactic Acid (06/23/17 16:00) Urinalysis - C+S If Indicated (06/23/17 16:00) Iv Access Insert/Monitor (06/23/17 16:00) Ecg Monitoring (06/23/17 16:00) Oximetry (06/23/17 16:00) Morphine Inj (Morphine Inj) (06/23/17 16:00) Ondansetron Inj (Zofran Inj) (06/23/17 16:00) Sodium Chlor 0.9% 1000 Ml Inj (Ns 1000 M (06/23/17 16:00) Sodium Chloride 0.9% Flush (Ns Flush) (06/23/17 16:00) Blood Culture (06/23/17 16:00) C Diff Toxin Pcr (06/23/17 16:00) Ct Abd/Pel W Iv Contrast(Rout) (06/23/17 16:03) Oral Contrast - Adult (06/23/17 16:25) Diatrizoate Liq ( Gastroview Liq) (06/23/17 17:01) Hydromorphone Pf Inj (Dilaudid Pf Inj) (06/23/17 18:00) Electrocardiogram (06/23/17 ) Vancomycin Inj (Vancomycin Inj) (06/23/17 19:00) Piperacil-Tazo 4.5 Gm Premix (Zosyn 4.5 (06/23/17 19:00) Chest, Single Ap (06/23/17 ) Iohexol 350 Inj (Omnipaque 350 Inj) (06/23/17 17:40) Labs Laboratory Tests Test 06/23/17 06/23/17 06/23/17 16:20 16:25 18:50 White Blood Count 14.2 TH/MM3 Red Blood Count 4.13 MIL/MM3 Hemoglobin 11.7 GM/DL Hematocrit 35.4 % Mean Corpuscular Volume 85.6 FL Mean Corpuscular Hemoglobin 28.3 PG Mean Corpuscular Hemoglobin 33.1 % Concent Red Cell Distribution Width 19.4 % Platelet Count 542 TH/MM3 Mean Platelet Volume 7.5 FL Neutrophils (%) (Auto) 77.6 % Lymphocytes (%) (Auto) 13.3 % Monocytes (%) (Auto) 7.0 % Eosinophils (%) (Auto) 0.9 % Basophils (%) (Auto) 1.2 % Neutrophils # (Auto) 11.0 TH/MM3 Lymphocytes # (Auto) 1.9 TH/MM3 Monocytes # (Auto) 1.0 TH/MM3 Eosinophils # (Auto) 0.1 TH/MM3 Basophils # (Auto) 0.2 TH/MM3 CBC Comment DIFF FINAL Differential Comment Sodium Level 137 MEQ/L Potassium Level 4.1 MEQ/L Chloride Level 101 MEQ/L Carbon Dioxide Level 26.3 MEQ/L Anion Gap 10 MEQ/L Blood Urea Nitrogen 9 MG/DL Creatinine 0.54 MG/DL Estimat Glomerular Filtration 122 ML/MIN Rate Random Glucose 114 MG/DL Calcium Level 10.3 MG/DL Total Bilirubin 0.3 MG/DL Aspartate Amino Transf 20 U/L (AST/SGOT) Alanine Aminotransferase 17 U/L (ALT/SGPT) Alkaline Phosphatase 139 U/L Total Protein 8.5 GM/DL Albumin 3.3 GM/DL Lipase 1197 U/L Lactic Acid Level 0.7 mmol/L Urine Color LIGHT-YELLOW Urine Turbidity HAZY Urine pH 5.5 Urine Specific [place] 1.045 Urine Protein TRACE mg/dL Urine Glucose (UA) NEG mg/dL Urine Ketones NEG mg/dL Urine Occult Blood TRACE Urine Nitrite NEG Urine Bilirubin NEG Urine Urobilinogen LESS THAN 2.0 MG/DL Urine Leukocyte Esterase MOD Urine WBC 7 /hpf Urine Squamous Epithelial 3 /hpf Cells Urine Hyaline Casts 2 /lpf Microscopic Urinalysis Comment CULT NOT INDICATED MDM Supervised Visit with CORKY: No Narrative Course The patient was initially evaluated by the previous provider and signed out to me at the beginning of my shift pending labs, CT, and disposition. See his note for further details. Briefly this a 46-year-old female who was hospitalized in May 2017 for pancreatitis. At that time she had pseudocyst that was drained via exploratory laparotomy by Dr. Ellis. The drain was in place for 3 weeks and was removed yesterday. She presents today with abdominal pain, left flank pain, and left shoulder pain. On exam the patient is resting comfortably. She has diffuse abdominal tenderness without rebound or guarding. Surgical incision is well- healed. Initial vital signs showed a heart rate of 130 with a temp of 99.2F. CBC shows WBC 14.2, hemoglobin 11.7, hematocrit 35.4, platelets 542, neutrophils 77.6%. CMP is essentially unremarkable. Lipase is 1197. Lactic acid is 0.7. UA is not suggestive of UTI. EKG: Sinus, rate 92, normal axis, normal intervals, LVH, unchanged from prior, no acute ischemic abnormality. Chest x-ray: The lungs are clear. No effusion. CT abdomen pelvis: CONCLUSION: 1. Interval surgery since prior CT with reduction in the size of the fluid collection posterior left upper quadrant underneath the hemidiaphragm, with reduction in width to 1 cm. 2. Reduction in the size of the cystic area in the tail of pancreas, now measuring 1.8 cm. 3. Hepatomegaly and regional fatty change in liver, stable Patient was given IV morphine and continue to have pain. She was given a dose of IV Dilaudid and although this improved her pain, she continues to have abdominal pain. Case discussed with surgeon Dr. Ellis. Patient will be started on IV antibiotics and admitted to the medical service for SIRS, intractable abdominal pain, pancreatitis. Case discussed with hospitalist Dr. Pimentel who will admit the patient to her service. Diagnosis Primary Impression: SIRS (systemic inflammatory response syndrome) Additional Impressions: Pancreatitis Qualified Code: K85.20 - Alcohol-induced acute pancreatitis, unspecified complication status Intractable abdominal pain Condition: Stable Mike Gray MD Jun 23, 2017 19:11
--- NOTE | 2017-06-23 19:28 | RADRPT ---
EXAM DATE/TIME: 06/23/2017 18:59 [facility] COMPARISON: CHEST SINGLE AP, June 06, 2017, 14:31. INDICATIONS : Chest pain. MEDICAL HISTORY : None. SURGICAL HISTORY : Cholecystectomy. section. ENCOUNTER: Initial ACUITY: 3 days PAIN SCORE: 8/10 LOCATION: Left chest FINDINGS: A single view of the chest demonstrates the lungs to be symmetrically aerated without evidence of mas s, infiltrate or effusion. The cardiomediastinal contours are unremarkable. Osseous structures are intact. CONCLUSION: The lungs are clear. No evidence of pleural effusion. Michael William MD on June 23, 2017 at 19:27 Board Certified Radiologist. This report was verified electronically.
[2017-06-23 19:29] VITALS: BP 156/99; PULSE 89; RESP 16; O2SAT 98
--- NOTE | 2017-06-23 20:37 | HHI.HP ---
HPI Service [facility] Primary Care Physician No Primary Care Physician Admission Diagnosis SIRS, pancreatitis, intractable abdominla pain Diagnoses: (1) Sepsis Diagnosis: Principal (2) Pancreatitis Diagnosis: Principal (3) UTI (urinary tract infection) Diagnosis: Principal (4) Tobacco abuse Diagnosis: Principal Travel History International Travel<30 Days: No Contact w/Intl Traveler <30 Da: No Traveled to Known Affected Are: No History of Present Illness This is a 46-year-old female with a PMH of Anxiety, Tobacco Abuse and h/o Pancreatitis who presented to the ER w/ complaints of severe LLQ pain x1 day. Recent admit 06/07-06/14/17 for Pancreatic Pseudocyst, UTI and Sepsis, s/p Ex Lap w/ I&D of pancreatic pseudocyst w/ BROCK drain by Dr. Ellis on 06/07/17, Wound Cult +MRSA, also found to have LLL PNA and d/c'd home w/ antibiotics. BROCK drain removed 1 day ago, now w/ increasing abdominal pain. Reports associated nausea , vomiting and few episodes of diarrhea. On arrival, BP 165/104, HR 1:30, O2 sat 99% on RA, Temp 99.2. WBC 14.2. Chemistry essentially unremarkable. Calcium 10.3. Lactic Acid 0.7. Lipase 1197. UA positive for UTI. CXR with no acute findings. CT Abd/Pelvis w/ reduction in size of fluid collection posterior left upper quadrant, reduction in size of cystic area in the tail of the pancreas. Dr. Ellis consulted by ER physician, recommended admission for further evaluation. S/p Blood Cultures, Vanc/Cefepime Review of Systems Except as stated in HPI: all other systems reviewed are Neg ROS: 14 point review of systems otherwise negative. Past Family Social History Past Medical History PMH: Anxiety, Tobacco Abuse and h/o Pancreatitis Past Surgical History PAST SURGICAL HISTORY: Cholecystectomy, Pancreatic Pseudocyst, Allergies: Coded Allergies: Methadone (Verified Allergy, Severe, 06/23/17) Penicillin (Verified Allergy, Severe, Anaphylaxis, 06/23/17) *MDRO Multi-Drug Resistant Organism (Verified Adverse Reaction, Unknown, ) MRSA PCR Positive 06/06/17 Family History PAST FAMILY HISTORY: Reviewed. No h/o DM or CAD Social History PAST SOCIAL HISTORY: Reportedly negative for alcohol. Smokes 1ppd. + Marijuana. Physical Exam Vital Signs Vital Signs Date Time Temp Pulse Resp B/P Pulse Ox O2 Delivery O2 Flow Rate FiO2 06/23/17 19:29 89 16 156/99 98 06/23/17 18:00 98.3 102 15 149/94 99 06/23/17 17:00 98 15 148/96 99 06/23/17 15:27 99.2 130 17 165/104 99 Physical Exam PE: GENERAL: Middle-aged female in no acute distress. HEENT: PERRLA, EOMI. No scleral icterus or conjunctival pallor. No lid lag or facial droop. CARDIOVASCULAR: Regular rate and rhythm. No obvious murmurs to auscultation. No chest tenderness to palpation. RESPIRATORY: No obvious rhonchi or wheezing. Clear to auscultation. Breath sounds equal bilaterally. GASTROINTESTINAL: Abdomen soft, generalized tenderness to palpation, surgical scar, no signs of infection, Steri-Strips in place, nondistended. BS normal. MUSCULOSKELETAL: Extremities without clubbing, cyanosis, or edema. No obvious deformities. NEUROLOGICAL: Awake, alert and oriented x4. No focal neurologic deficits. Moving both upper and lower extremities spontaneously. Laboratory Laboratory Tests Test 06/23/17 06/23/17 06/23/17 16:20 16:25 18:50 White Blood Count 14.2 Red Blood Count 4.13 Hemoglobin 11.7 Hematocrit 35.4 Mean Corpuscular Volume 85.6 Mean Corpuscular Hemoglobin 28.3 Mean Corpuscular Hemoglobin 33.1 Concent Red Cell Distribution Width 19.4 Platelet Count 542 Mean Platelet Volume 7.5 Neutrophils (%) (Auto) 77.6 Lymphocytes (%) (Auto) 13.3 Monocytes (%) (Auto) 7.0 Eosinophils (%) (Auto) 0.9 Basophils (%) (Auto) 1.2 Neutrophils # (Auto) 11.0 Lymphocytes # (Auto) 1.9 Monocytes # (Auto) 1.0 Eosinophils # (Auto) 0.1 Basophils # (Auto) 0.2 CBC Comment DIFF FINAL Differential Comment Sodium Level 137 Potassium Level 4.1 Chloride Level 101 Carbon Dioxide Level 26.3 Anion Gap 10 Blood Urea Nitrogen 9 Creatinine 0.54 Estimat Glomerular Filtration 122 Rate Random Glucose 114 Calcium Level 10.3 Total Bilirubin 0.3 Aspartate Amino Transf 20 (AST/SGOT) Alanine Aminotransferase 17 (ALT/SGPT) Alkaline Phosphatase 139 Total Protein 8.5 Albumin 3.3 Lipase 1197 Lactic Acid Level 0.7 Urine Color LIGHT-YELLOW Urine Turbidity HAZY Urine pH 5.5 Urine Specific [place] 1.045 Urine Protein TRACE Urine Glucose (UA) NEG Urine Ketones NEG Urine Occult Blood TRACE Urine Nitrite NEG Urine Bilirubin NEG Urine Urobilinogen LESS THAN 2.0 Urine Leukocyte Esterase MOD Urine WBC 7 Urine Squamous Epithelial 3 Cells Urine Hyaline Casts 2 Microscopic Urinalysis Comment CULT NOT INDICATED Date/Time Procedure Status Source Growth 06/23/17 16:25 Aerobic Blood Culture Received Blood Peripheral Pending 06/23/17 16:25 Anaerobic Blood Culture Received Blood Peripheral Pending Result Diagram: 06/23/17 1620 06/23/17 1620 Assessment and Plan Problem List: (1) Sepsis ICD Code: A41.9 Status: Acute (2) Pancreatitis ICD Code: K85.90 Status: Acute (3) UTI (urinary tract infection) ICD Code: N39.0 Status: Acute (4) Tobacco abuse ICD Code: Z72.0 Status: Acute Assessment and Plan A/P: 1. Sepsis: Temp 99.2, HR 130, WBC 14.2, Source-UTI/?abdominal pathology. S/p Blood Cultures, Vanc/Cefepime in ER. Recent admit w/ Sepsis/PNA/UTI/ Pseudocyst. Continue w/ IV Abx, follow up cultures. IVF for hydration. 2. Pancreatitis: h/o Pseudocyst s/p Ex Lap w/ I&D by Dr. Ellis 06/07/17, s/p removal BROCK drain 1 day ago, now w/ increasing abdominal pain. Dr. Ellis consulted, recommended admission and CT. CT Abd/Pelvis w/ decreased size of fluid collection, no obvious abscess, images reviewed by me. IVF, analgesics/ antiemetics, repeat Lipase in am 3. UTI: U/a w/ UTI, continue IV Abx, IVF 4. Tobacco Abuse: Pt counselled. Ativan/NicoDerm prn if needed. 5. DVT Prophylaxis: SCD/Teds. 6. Social work for d/c planning as needed. 7. Case discussed w/ ER physician at length. Physician Certification 2 Midnight Certification Type: Admission for Inpatient Services Order for Inpatient Services The services are ordered in accordance with Medicare regulations or non- Medicare payer requirements, as applicable. In the case of services not specified as inpatient-only, they are appropriately provided as inpatient services in accordance with the 2-midnight benchmark. Estimated LOS (days): 2 days is the estimated time the patient will need to remain in the hospital, assuming treatment plan goals are met and no additional complications. Post-Hospital Plan: Not yet determined Problem Qualifiers (1) Pancreatitis: Qualified Code: K85.20 - Alcohol-induced acute pancreatitis, unspecified complication status Jenny Pimentel MD Jun 23, 2017 20:37
[2017-06-23] MEDS ORDERED: SENNOSIDES 8.6 MG TAB PO PRN (20:45)
[2017-06-23] MEDS ORDERED: BISACODYL 10 MG SUPP RECTAL PRN (20:45)
[2017-06-23] MEDS ORDERED: MAGNESIUM HYDROXIDE SUSP 30 ML CUP PO PRN (20:45)
[2017-06-23] MEDS ORDERED: ACETAMINOPHEN/HYDROcodone 325 MG/5 MG TAB PO PRN (20:45)
[2017-06-23] MEDS ORDERED: LACTULOSE SYRUP 20 GM/30 ML CUP PO PRN (20:45)
[2017-06-23] MEDS ORDERED: ACETAMINOPHEN 325 MG TAB PO PRN (20:45)
[2017-06-23] MEDS ORDERED: Vancomycin Consult Pharmacy 1 EA OTHER SCH (20:45)
[2017-06-23] MEDS ORDERED: ONDANSETRON HCL 4 MG/2 ML VIAL IVP PRN (20:45)
[2017-06-23] MEDS: SODIUM CHLOR 0.9% 1000 ML INJ 1,000 ML IV SCH (22:06)
[2017-06-23] MEDS: SODIUM CHLORIDE 0.9% FLUSH 10 ML FLUSH IV FLUSH SCH (22:06)
[2017-06-23] MEDS: DOCUSATE SODIUM 50 MG/SENNA 8.6 MG TAB PO SCH (22:07)
[2017-06-23] MEDS: PANTOPRAZOLE SODIUM 40 MG VIAL IV PUSH SCH (22:07)
[2017-06-23] MEDS: MORPHINE SULFATE 4 MG/ML INJ IV PRN (22:56)
[2017-06-24] VITALS: BP 152/91; PULSE 101; RESP 22; TEMP 97.5; O2SAT 95
[2017-06-24] MEDS ORDERED: HYDROmorphone HCL PF 1 MG/ML VIAL IV PUSH ONE (00:30)
[2017-06-24 04:00] VITALS: BP 165/99; PULSE 98; RESP 22; TEMP 97.7; O2SAT 92
[2017-06-24] MEDS: SODIUM CHLOR 0.9% 1000 ML INJ 1,000 ML IV SCH ×2 (04:53→16:06)
[2017-06-24 05:09] LABS: BASOPHIL # 0.2 TH/MM3 (0-0.2); BASOPHIL % 1.5 % (0.0-2.0); EOSINOPHIL # 0.2 TH/MM3 (0-0.4); EOSINOPHIL % 1.7 % (0.0-4.0); HEMO FLAGS DIFF FINAL; LYMPH % 18.2 % (9.0-44.0); LYMPHOCYTE # 2.3 TH/MM3 (1.0-4.8); MEAN CELL VOLUME 86.5 FL (80.0-100.0); MEAN CORPUSCULAR HEMOGLOBIN 27.3 PG (27.0-34.0); MEAN CORPUSCULAR HGB CONC 31.6 % (32.0-36.0); MONO % 7.1 % (0.0-8.0); NEUT % 71.5 % (16.0-70.0); PLATELET COUNT 505 TH/MM3 (150-450); RED BLOOD COUNT 4.05 MIL/MM3 (4.00-5.30); RED CELL DISTRIBUTION WIDTH 18.9 % (11.6-17.2); WHITE BLOOD COUNT 12.6 TH/MM3 (4.0-11.0)
[2017-06-24 06:07] LABS: ALKALINE PHOSPHATASE 116 U/L (45-117); ALT (GPT) 16 U/L (10-53); ANION GAP 10 MEQ/L (5-15); AST (GOT) 15 U/L (15-37); BICARBONATE 24.2 MEQ/L (21.0-32.0); BLOOD UREA NITROGEN 5 MG/DL (7-18); CHLORIDE 104 MEQ/L (98-107); GLOMERULAR FILTRATION RATE 168 ML/MIN (>89); POTASSIUM 3.7 MEQ/L (3.5-5.1); SODIUM (NA) 138 MEQ/L (136-145); TOTAL BILIRUBIN ADULT 0.3 MG/DL (0.2-1.0)
[2017-06-24] MEDS: MORPHINE SULFATE 4 MG/ML INJ IV PRN ×3 (06:39→13:51)
[2017-06-24 08:00] VITALS: BP 156/91; PULSE 87; RESP 16; TEMP 98.1; O2SAT 95
[2017-06-24] MEDS: VANCOMYCIN INJ 850 MG in SODIUM CHLOR 0.9% 250 ML INJ 250 ML IV SCH ×2 (08:02→20:24)
[2017-06-24] MEDS: CEFEPIME INJ 1,000 MG in SODIUM CHLORIDE 0.9% INJ 100 ML IV SCH ×2 (08:03→20:24)
[2017-06-24] MEDS: PANTOPRAZOLE SODIUM 40 MG VIAL IV PUSH SCH ×2 (08:03→20:23)
[2017-06-24] MEDS: DOCUSATE SODIUM 50 MG/SENNA 8.6 MG TAB PO SCH ×2 (08:03→20:23)
[2017-06-24] MEDS: SODIUM CHLORIDE 0.9% FLUSH 10 ML FLUSH IV FLUSH SCH ×2 (08:08→20:23)
--- NOTE | 2017-06-24 09:34 | HHI.PR ---
Subjective Remarks f/u abdominal pain pain is mosly epigastric and LLQ, non-radiating, not controlled despite being on morphine, 06/29. Mild nausea but novomiting, afebrile overnight. Denies any dysuria, frequency or urgency. Says she is anxious and requesting Ativan nicotine patch. No history of cardiac problems. Objective Vitals Vital Signs Date Time Temp Pulse Resp B/P Pulse Ox O2 Delivery O2 Flow Rate FiO2 06/24/17 08:00 98.1 87 16 156/91 95 06/24/17 04:00 97.7 98 22 165/99 92 06/24/17 00:00 97.5 101 22 152/91 95 06/23/17 19:29 89 16 156/99 98 06/23/17 18:00 98.3 102 15 149/94 99 06/23/17 17:00 98 15 148/96 99 06/23/17 15:27 99.2 130 17 165/104 99 I/O 06/23/17 06/23/17 06/23/17 06/24/17 06/24/17 06/24/17 06:59 14:59 22:59 06:59 14:59 22:59 Intake Total 332 ml 1063 ml Output Total 500 ml Balance 332 ml 563 ml Intake Oral 480 ml IV Total 332 ml 583 ml Output Urine Total 500 ml # Voids 1 Result Diagram: 06/24/17 0401 06/24/17 0401 Imaging Last Impressions Abdomen/Pelvis CT 06/23/17 1603 Signed Impressions: Service Date/Time: Friday, June 23, 2017 18:06 - CONCLUSION: 1. Interval surgery since prior CT with reduction in the size of the fluid collection posterior left upper quadrant underneath the hemidiaphragm, with reduction in width to 1 cm. 2. Reduction in the size of the cystic area in the tail of pancreas, now measuring 1.8 cm. 3. Hepatomegaly and regional fatty change in liver, stable Michael William MD Chest X-Ray 06/23/17 0000 Signed Impressions: Service Date/Time: Friday, June 23, 2017 18:59 - CONCLUSION: The lungs are clear. No evidence of pleural effusion. Michael William MD Objective Remarks GENERAL: Middle-aged female in no acute distress. HEENT: [place] conjunctiva. CARDIOVASCULAR: Regular rate and rhythm. RESPIRATORY: No obvious rhonchi or wheezing. Clear to auscultation. Breath sounds equal bilaterally. GASTROINTESTINAL: Abdomen soft, mild epigastric tenderness, nondistended, expiratory laparotomy scar, clean. No edema NEUROLOGICAL: Awake, alert and oriented x4. No focal neurologic deficits. Moving both upper and lower extremities spontaneously. A/P Problem List: (1) Sepsis ICD Code: A41.9 Status: Acute (2) Pancreatitis ICD Code: K85.90 Status: Acute (3) Tobacco abuse ICD Code: Z72.0 Status: Acute Assessment and Plan This is a 46-year-old female with history of tobacco abuse and recent history of pancreatitis, recently admitted, found to have UTI, sepsis and pancreatic pseudocyst s/p Ex Lap w/ I&D of pancreatic pseudocyst w/ BROCK drain by Dr. Ellis on 06/07/17, Wound Cult +MRSA, discharged home with oral antibiotics.. BROCK drain removed 1 day ago, now w/ increasing abdominal pain. Sepsis secondary to abdominal wall infection versus pancreatitis - CT Abd/ Pelvis w/ decreased size of fluid collection, left upper quadrant underneath the hemidiaphragm, cystic area in the tail the pancreas has also decreased. No obvious abscess. Chest x-ray unremarkable, no urinary symptoms, leukocytosis better, pending general surgery consultation. Increase IV morphine to 8 mg every 4 hours, add oxycodone, pain is not controlled, continue antiemetics, Protonix. Keep nothing by mouth for now, continue vancomycin and cefepime, continue IVF, follow-up C. difficile PCR and blood culture results. Check CBC, BMP and lipase tomorrow. Narrow down antibiotics tomorrow. UTI-positive urinalysis, no urinary symptoms, doubt infection. Tobacco Abuse, anxiety: Pt counselled. Ativan/NicoDerm prn if needed. DVT Prophylaxis: SCD/Teds. Low risk. Discharge Planning Discharge when medically ready Problem Qualifiers (1) Pancreatitis: Qualified Code: K85.20 - Alcohol-induced acute pancreatitis, unspecified complication status Justin Last MD Jun 24, 2017 09:34
[2017-06-24] MEDS: NICOTINE 21 MG/24 HR PATCH T-DERMAL SCH (10:34)
[2017-06-24 12:00] VITALS: BP 143/97; PULSE 89; RESP 18; TEMP 97.3; O2SAT 96
--- NOTE | 2017-06-24 13:42 | EKG ---
Date Performed: 06/23/2017 Time Performed: 18:49:07 PTAGE: 46 years EKG: Sinus rhythm MODERATE VOLTAGE CRITERIA FOR LVH, CONSIDER NORMAL VARIANT BORDERLINE ECG PREVIOUS TRACING : 06/04/2017 13.22 Since previous tracing, no significant change noted DOCTOR: Kait Chester Interpretating Date/Time 06/24/2017 13:39:20
[2017-06-24 16:00] VITALS: BP 163/97; PULSE 93; RESP 19; TEMP 97.6; O2SAT 95
[2017-06-24] MEDS: HYDROmorphone HCL PF 1 MG/ML VIAL IV PUSH PRN ×2 (16:52→21:39)
[2017-06-24 20:19] VITALS: BP 141/92; PULSE 102; RESP 16; TEMP 98.5; O2SAT 95
--- NOTE | 2017-06-24 21:59 | MB ---
cc: HILARY DAWSON MD DATE OF CONSULTATION 06/24/2017 REASON FOR CONSULTATION The patient known to service, history of a large pancreatic pseudocyst, pancreatitis. HISTORY OF PRESENT ILLNESS The patient is a 46-year-old female known to our surgical service for recent intervention with exploratory laparotomy and I&D of large pancreatic pseudocyst. This was done on 06/07/2017. The patient was admitted to the hospital for this. She was admitted from 06/07/2017 to 06/14/2017. During her course had a UTI and sepsis, was found to have MRSA positive and was actually also had pneumonia. She was discharged on the with a recent follow up in the general surgical office with a BROCK drain removal a day ago. The patient represented to the emergency department with increased pain, nausea, vomiting and diarrhea. She is underwent further workup including lab values with a leukocytosis of 14.2. She was also found to have a lipase of 1197. UA was positive for UTI and CT scan was obtained showing actually a reduction in a previous large fluid collection. PAST MEDICAL HISTORY EtOH abuse, pancreatitis, anxiety. PAST SURGICAL HISTORY Cholecystectomy, exploratory laparotomy, drainage of pancreatic pseudocyst, C section. ALLERGIES METHADONE, PENICILLIN. FAMILY HISTORY Denies diabetes or hypertension. SOCIAL HISTORY Currently smokes one pack a day. Positive THC. Denies current EtOH, previous history. MEDICATIONS See EMR. REVIEW OF SYSTEMS GENERAL: Denies dizziness. HEENT: Denies eye pain, ear pain. CARDIOVASCULAR: Denies palpitation or chest pain. RESPIRATORY: Denies cough or wheeze, recent pneumonia. GI: Complained of nausea, vomiting, abdominal pain. : Denies dysuria. Positive UTI. MUSCULOSKELETAL: Denies arthralgia, myalgia. NEUROLOGIC: Denies numbness or tingling. ENDOCRINE: Denies polyuria, polydipsia. PSYCH: Anxiety. Denies change in sensorium. PHYSICAL EXAMINATION GENERAL: The patient no acute distress. VITAL SIGNS: Temperature 99.2, pulse 102, respirations 15, blood pressure 149/94, saturation 99%. HEENT: Pupils equal, round, reactive. No scleral icterus or pallor. NECK: Supple. Trachea midline. LUNGS: Bilateral expansion. Clear. HEART: S1-S2 regular rhythm. ABDOMEN: Positive tenderness to palpation, diffuse, no rebound. No guarding. No peritoneal signs. Well-healed midline surgical incision. EXTREMITIES: Warm, well-perfused. No clubbing. NEUROLOGIC: She is A&O times four. 5/5 motor all extremities. INTEGUMENT: No obvious masses or lesions. LABORATORY DIAGNOSTIC DATA WBC 14.2, hemoglobin 11.7, hematocrit 35.4, platelets 542, sodium 137, potassium 4.1, CO2 26, BUN 0.5, glucose 114, T-bili 0.3, AST 20, ALT 17, alkaline phos 139, albumin 3.3, lipase 1197. CT scans reviewed by myself, reduction in size of fluid collection posterior left upper quadrant under hemidiaphragm with 1 cm reduction in cystic area tail of pancreas, now 1.8 cm. Hepatomegaly, fatty change in liver. No free air. ASSESSMENT The patient 46-year-old female history of pancreatic pseudocyst status post exploration with drainage. Presents with increasing abdominal pain, elements of recurrent pancreatitis. No current drainable fluid collection. PLAN After full clinical, radiological, laboratory workup the patient with above-named issues includin. Patient with previous pancreatic pseudocyst appears to be significantly reduced in size since operative intervention. We can observe this currently. The patient does have small fluid collection also left diaphragm, also noted to be relatively much smaller in size. The patient does further have elements of acute pancreatitis, probably acute on chronic, therefore, I recommend bowel rest, possible clear liquid diet, pain control, IV fluids. Will continue to monitor this. Will currently undergo abdominal exams, observation. No current surgical intervention at this time. Recommending trending lipase and if the patient begins to spike fevers or clinical course changes may warrant repeat CT scan in several days to assess for fluid collections, however, if the patient continues to progress and improve well we will just follow the patient clinically. Thank you for consultation. MD THONY Pace/WIN /9:21 PM /9:36 PM
[2017-06-24] MEDS: LORazepam 1 MG TAB PO PRN (22:52)
[2017-06-25 00:04] VITALS: BP 146/88; PULSE 100; RESP 16; TEMP 97.1; O2SAT 95
[2017-06-25] MEDS: SODIUM CHLOR 0.9% 1000 ML INJ 1,000 ML IV SCH ×3 (03:40→21:23)
[2017-06-25] MEDS: HYDROmorphone HCL PF 1 MG/ML VIAL IV PUSH PRN ×5 (04:50→22:15)
[2017-06-25] MEDS ORDERED: PHARMACY ORDERED LAB ONE (07:45)
[2017-06-25] MEDS: NICOTINE 21 MG/24 HR PATCH T-DERMAL SCH (07:47)
[2017-06-25] MEDS: REMOVE OLD PATCH T-DERMAL SCH (07:47)
[2017-06-25] MEDS: DOCUSATE SODIUM 50 MG/SENNA 8.6 MG TAB PO SCH ×2 (07:47→21:00)
[2017-06-25] MEDS: PANTOPRAZOLE SODIUM 40 MG VIAL IV PUSH SCH ×2 (07:47→21:19)
[2017-06-25] MEDS: CEFEPIME INJ 1,000 MG in SODIUM CHLORIDE 0.9% INJ 100 ML IV SCH (07:48)
[2017-06-25] MEDS: VANCOMYCIN INJ 850 MG in SODIUM CHLOR 0.9% 250 ML INJ 250 ML IV SCH (07:48)
[2017-06-25] MEDS: SODIUM CHLORIDE 0.9% FLUSH 10 ML FLUSH IV FLUSH SCH ×2 (07:48→21:00)
[2017-06-25 08:00] VITALS: BP 138/76; PULSE 100; RESP 17; TEMP 98.2; O2SAT 95
[2017-06-25 08:50] LABS: BICARBONATE 27.3 MEQ/L (21.0-32.0); POTASSIUM 3.4 MEQ/L (3.5-5.1)
[2017-06-25 12:00] VITALS: BP 142/86; PULSE 103; RESP 16; TEMP 98.9; O2SAT 95
[2017-06-25 12:04] LABS: BASOPHIL # 0.3 TH/MM3 (0-0.2); EOSINOPHIL # 0.1 TH/MM3 (0-0.4); EOSINOPHIL % 1.6 % (0.0-4.0); HEMATOCRIT 28.7 % (35.0-46.0); HEMO FLAGS DIFF FINAL; LYMPH % 16.5 % (9.0-44.0); LYMPHOCYTE # 1.2 TH/MM3 (1.0-4.8); MEAN CELL VOLUME 85.1 FL (80.0-100.0); MEAN CORPUSCULAR HEMOGLOBIN 28.3 PG (27.0-34.0); MEAN CORPUSCULAR HGB CONC 33.2 % (32.0-36.0); MONO % 8.4 % (0.0-8.0); NEUT % 69.5 % (16.0-70.0); PLATELET COUNT 318 TH/MM3 (150-450); RED BLOOD COUNT 3.38 MIL/MM3 (4.00-5.30); RED CELL DISTRIBUTION WIDTH 18.8 % (11.6-17.2); WHITE BLOOD COUNT 7.2 TH/MM3 (4.0-11.0)
--- NOTE | 2017-06-25 13:21 | HHI.PR ---
Subjective Remarks f/u abdominal pain pain is a lot better, no nausea, no vomiting, hungry Objective Vitals Vital Signs Date Time Temp Pulse Resp B/P Pulse Ox O2 Delivery O2 Flow Rate FiO2 06/25/17 12:00 98.9 103 16 142/86 95 06/25/17 08:00 98.2 100 17 138/76 95 06/25/17 00:04 97.1 100 16 146/88 95 06/24/17 20:19 98.5 102 16 141/92 95 06/24/17 16:00 97.6 93 19 163/97 95 I/O 06/24/17 06/24/17 06/24/17 06/25/17 06/25/17 06/25/17 07:00 15:00 23:00 07:00 15:00 23:00 Intake Total 1063 ml 920 ml 1769 ml 842 ml Output Total 500 ml 350 ml 400 ml 500 ml Balance 563 ml 570 ml 1369 ml 342 ml Intake Oral 480 ml 120 ml 280 ml IV Total 583 ml 800 ml 1489 ml 842 ml Output Urine Total 500 ml 350 ml 400 ml 500 ml # Voids 1 # Bowel Movements 0 Result Diagram: 06/25/17 0933 06/25/17 0711 Objective Remarks GENERAL: Middle-aged female in no acute distress. HEENT: [place] conjunctiva. CARDIOVASCULAR: Regular rate and rhythm. RESPIRATORY: No obvious rhonchi or wheezing. Clear to auscultation. Breath sounds equal bilaterally. GASTROINTESTINAL: Abdomen soft, nontender, nondistended, expiratory laparotomy scar, clean. No edema NEUROLOGICAL: Awake, alert and oriented x4. No focal neurologic deficits. Moving both upper and lower extremities spontaneously. A/P Problem List: (1) Sepsis ICD Code: A41.9 Status: Acute (2) Pancreatitis ICD Code: K85.90 Status: Acute (3) Tobacco abuse ICD Code: Z72.0 Status: Acute Assessment and Plan This is a 46-year-old female with history of tobacco abuse and recent history of pancreatitis, recently admitted, found to have UTI, sepsis and pancreatic pseudocyst s/p Ex Lap w/ I&D of pancreatic pseudocyst w/ BROCK drain by Dr. Ellis on 06/07/17, Wound Cult +MRSA, discharged home with oral antibiotics. BROCK drain removed 1 day ago prior to admission, now w/ increasing abdominal pain. Sepsis secondary to abdominal wall infection versus pancreatitis - CT Abd/ Pelvis w/ decreased size of fluid collection, left upper quadrant underneath the hemidiaphragm, cystic area in the tail the pancreas has also decreased. No obvious abscess. Chest x-ray unremarkable, no urinary symptoms, leukocytosis resolved. Continue intravenous Dilaudid, continue antiemetics, Protonix. Per general surgery, Advance diet, c observe fluid collection. Start clear liquid diet today, start antibiotics, monitor CBC. If with fever or increasing abdominal pain after stopping antibiotics, repeat CT scan of the abdomen. No surgical intervention necessary. Lipase is better. UTI-positive urinalysis, no urinary symptoms, doubt infection. Tobacco Abuse, anxiety: Pt counselled. Ativan/NicoDerm prn if needed. Hypokalemia-replaced DVT Prophylaxis: SCD/Teds. Low risk. Discharge Planning Discharge when medically ready Problem Qualifiers (1) Pancreatitis: Qualified Code: K85.20 - Alcohol-induced acute pancreatitis, unspecified complication status Justin Last MD Jun 25, 2017 13:21
[2017-06-25] MEDS: POTASSIUM CHLOR 20 MEQ PREMIX 100 ML IV SCH ×2 (13:50→16:48)
--- NOTE | 2017-06-25 14:52 | HHI.PR ---
Subjective Subjective Notes DAILY PROGRESS NOTE FOR SURGICAL ATTENDING, DR. FLACA ADAMS Patient feels a little better Objective Vitals/I&O Vital Signs Date Time Temp Pulse Resp B/P Pulse Ox O2 Delivery O2 Flow Rate FiO2 06/25/17 12:00 98.9 103 16 142/86 95 Labs Laboratory Tests Test 06/25/17 06/25/17 07:11 09:33 Sodium Level 137 Potassium Level 3.4 Chloride Level 101 Carbon Dioxide Level 27.3 Anion Gap 9 Blood Urea Nitrogen 4 Creatinine 0.27 Estimat Glomerular Filtration 272 Rate Random Glucose 76 Calcium Level 8.5 Lipase 961 Vancomycin Level Trough 5.9 White Blood Count 7.2 Red Blood Count 3.38 Hemoglobin 9.6 Hematocrit 28.7 Mean Corpuscular Volume 85.1 Mean Corpuscular Hemoglobin 28.3 Mean Corpuscular Hemoglobin 33.2 Concent Red Cell Distribution Width 18.8 Platelet Count 318 Mean Platelet Volume 7.6 Neutrophils (%) (Auto) 69.5 Lymphocytes (%) (Auto) 16.5 Monocytes (%) (Auto) 8.4 Eosinophils (%) (Auto) 1.6 Basophils (%) (Auto) 4.0 Neutrophils # (Auto) 5.0 Lymphocytes # (Auto) 1.2 Monocytes # (Auto) 0.6 Eosinophils # (Auto) 0.1 Basophils # (Auto) 0.3 CBC Comment DIFF FINAL Differential Comment Date/Time Procedure Status Source Growth 06/23/17 16:25 Aerobic Blood Culture - Preliminary Resulted Blood Peripheral NO GROWTH IN 2 DAYS 06/23/17 16:25 Anaerobic Blood Culture - Preliminary Resulted Blood Peripheral NO GROWTH IN 2 DAYS Radiology Last Impressions Abdomen/Pelvis CT 06/23/17 1603 Signed Impressions: Service Date/Time: Friday, June 23, 2017 18:06 - CONCLUSION: 1. Interval surgery since prior CT with reduction in the size of the fluid collection posterior left upper quadrant underneath the hemidiaphragm, with reduction in width to 1 cm. 2. Reduction in the size of the cystic area in the tail of pancreas, now measuring 1.8 cm. 3. Hepatomegaly and regional fatty change in liver, stable Michael William MD Chest X-Ray 06/23/17 0000 Signed Impressions: Service Date/Time: Friday, June 23, 2017 18:59 - CONCLUSION: The lungs are clear. No evidence of pleural effusion. Michael William MD Abdomen: Non-distended, Non-tender Extremities: No edema Narrative Exam Patient sitting up in bed comfortable No real complaints Feels better A/P Problem List: (1) pancreatic phelgemon S/P expl lap/I and D (2) Pancreatitis Assessment and Plan 46-year-old female status post pancreatic cyst drainage by Dr. Ellis she had the drain pulled out last week and then had increasing abdominal pain CT scan reviewed Continue medical management Problem Qualifiers (1) Pancreatitis: Qualified Code: K85.20 - Alcohol-induced acute pancreatitis, unspecified complication status Flaca Adams MD Jun 25, 2017 14:52
[2017-06-25 16:00] VITALS: BP 148/83; PULSE 102; RESP 17; TEMP 98.7; O2SAT 94
[2017-06-25] MEDS ORDERED: VANCOMYCIN 1,000 MG/NS 250 ML IV SCH ×2 (16:00)
[2017-06-25 20:00] VITALS: BP 130/81; PULSE 100; RESP 16; TEMP 98.4; O2SAT 96
[2017-06-26 00:03] VITALS: BP 128/79; PULSE 102; RESP 16; TEMP 98; O2SAT 98
[2017-06-26] MEDS: LORazepam 1 MG TAB PO PRN ×2 (00:28→22:44)
[2017-06-26] MEDS: HYDROmorphone HCL PF 1 MG/ML VIAL IV PUSH PRN ×5 (04:01→20:32)
[2017-06-26 07:17] LABS: AUTOMATED NEUTROPHIL # 3.3 TH/MM3 (1.8-7.7); BASOPHIL # 0.1 TH/MM3 (0-0.2); EOSINOPHIL # 0.2 TH/MM3 (0-0.4); EOSINOPHIL % 3.1 % (0.0-4.0); HEMO FLAGS DIFF FINAL; LYMPH % 22.2 % (9.0-44.0); LYMPHOCYTE # 1.2 TH/MM3 (1.0-4.8); MEAN CELL VOLUME 84.2 FL (80.0-100.0); MEAN CORPUSCULAR HEMOGLOBIN 28.7 PG (27.0-34.0); MEAN CORPUSCULAR HGB CONC 34.1 % (32.0-36.0); NEUT % 62.7 % (16.0-70.0); PLATELET COUNT 274 TH/MM3 (150-450); RED BLOOD COUNT 2.97 MIL/MM3 (4.00-5.30); RED CELL DISTRIBUTION WIDTH 18.6 % (11.6-17.2); WHITE BLOOD COUNT 5.3 TH/MM3 (4.0-11.0)
[2017-06-26 07:42] LABS: BICARBONATE 26.4 MEQ/L (21.0-32.0); POTASSIUM 3.5 MEQ/L (3.5-5.1)
[2017-06-26] MEDS: SODIUM CHLORIDE 0.9% FLUSH 10 ML FLUSH IV FLUSH SCH ×2 (07:48→21:00)
[2017-06-26 08:00] VITALS: BP 156/89; PULSE 104; RESP 20; TEMP 97.7; O2SAT 94
[2017-06-26] MEDS: DOCUSATE SODIUM 50 MG/SENNA 8.6 MG TAB PO SCH ×2 (08:28→20:33)
[2017-06-26] MEDS: SODIUM CHLOR 0.9% 1000 ML INJ 1,000 ML IV SCH ×2 (08:28→16:38)
[2017-06-26] MEDS: PANTOPRAZOLE SODIUM 40 MG VIAL IV PUSH SCH ×2 (08:28→20:33)
[2017-06-26] MEDS: NICOTINE 21 MG/24 HR PATCH T-DERMAL SCH (08:29)
[2017-06-26] MEDS: REMOVE OLD PATCH T-DERMAL SCH (08:29)
[2017-06-26] MEDS ORDERED: TEMAZEPAM 15 MG CAP PO PRN (11:00)
--- NOTE | 2017-06-26 11:20 | HHI.PR ---
Subjective Remarks Follow up for abdominal pain. Patient complains of persistent pain. However, overall she feels better. Feels like she can advance her diet. No nausea, vomiting. Had BM today. Objective Vitals Vital Signs Date Time Temp Pulse Resp B/P Pulse Ox O2 Delivery O2 Flow Rate FiO2 06/26/17 08:18 18 06/26/17 08:00 97.7 104 20 156/89 94 06/26/17 00:03 98.0 102 16 128/79 98 06/25/17 20:00 98.4 100 16 130/81 96 06/25/17 16:00 98.7 102 17 148/83 94 06/25/17 12:00 98.9 103 16 142/86 95 I/O 06/25/17 06/25/17 06/25/17 06/26/17 06/26/17 06/26/17 06:59 14:59 22:59 06:59 14:59 22:59 Intake Total 842 ml 1375 ml 1170 ml 1184 ml Output Total 500 ml 500 ml Balance 342 ml 1375 ml 670 ml 1184 ml Intake Oral 480 ml 280 ml 360 ml IV Total 842 ml 895 ml 890 ml 824 ml Output Urine Total 500 ml 500 ml # Voids 4 2 # Bowel Movements 0 Result Diagram: 06/26/17 0603 06/26/17 0603 Imaging Last Impressions Abdomen/Pelvis CT 06/23/17 1603 Signed Impressions: Service Date/Time: Friday, June 23, 2017 18:06 - CONCLUSION: 1. Interval surgery since prior CT with reduction in the size of the fluid collection posterior left upper quadrant underneath the hemidiaphragm, with reduction in width to 1 cm. 2. Reduction in the size of the cystic area in the tail of pancreas, now measuring 1.8 cm. 3. Hepatomegaly and regional fatty change in liver, stable Michael William MD Chest X-Ray 06/23/17 0000 Signed Impressions: Service Date/Time: Friday, June 23, 2017 18:59 - CONCLUSION: The lungs are clear. No evidence of pleural effusion. Michael William MD Objective Remarks GENERAL: AOX3, NAD SKIN: Warm and dry. HEAD: Normocephalic. EYES: No scleral icterus. No injection or drainage. NECK: Supple, trachea midline. No JVD or lymphadenopathy. CARDIOVASCULAR: Regular rate and rhythm without murmurs, gallops, or rubs. RESPIRATORY: Breath sounds equal bilaterally. No accessory muscle use. GASTROINTESTINAL: Abdomen soft, non-tender, nondistended. MUSCULOSKELETAL: No cyanosis, or edema. BACK: Nontender without obvious deformity. No CVA tenderness. Procedures None. A/P Problem List: (1) Sepsis ICD Code: A41.9 Status: Acute (2) Pancreatitis ICD Code: K85.90 Status: Acute (3) Tobacco abuse ICD Code: Z72.0 Status: Acute (4) C. difficile colitis ICD Code: A04.7 Status: Acute Assessment and Plan This is a 46-year-old female with history of tobacco abuse and recent history of pancreatitis, recently admitted, found to have UTI, sepsis and pancreatic pseudocyst s/p Ex Lap w/ I&D of pancreatic pseudocyst w/ BROCK drain by Dr. Ellis on 06/07/17, Wound Cult +MRSA, discharged home with oral antibiotics. BROCK drain removed 1 day ago prior to admission, now w/ increasing abdominal pain. - Sepsis secondary to abdominal wall infection versus pancreatitis - CT Abd/Pelvis w/ decreased size of fluid collection, left upper quadrant underneath the hemidiaphragm, cystic area in the tail the pancreas has also decreased. No obvious abscess. Chest x-ray unremarkable, no urinary symptoms - Continue pain management with Acetaminophen, [place] PRN and IV Dilaudid for breakthrough. - Will advance diet to regular diet. - C. Diff colitis - Will start patient on Flagyl 500mg TID. - Start contact precaution - Tobacco Abuse, anxiety: Pt counselled. Ativan/NicoDerm prn if needed. - Thrombocytosis - PLT count 542K --> 274. Full code. Ambulation. Discharge plan: If okay with surgery, patient can likely be discharged home on with outpatient follow up. Problem Qualifiers (1) Pancreatitis: Qualified Code: K85.20 - Alcohol-induced acute pancreatitis, unspecified complication status Erma Flores DO Jun 26, 2017 11:20
[2017-06-26] MEDS: ACETAMINOPHEN/HYDROcodone 325 MG/7.5 MG TAB PO PRN ×2 (11:22→17:19)
[2017-06-26 12:00] VITALS: BP 156/99; PULSE 107; RESP 20; TEMP 97.7; O2SAT 94
[2017-06-26 12:45] LABS: C. DIFF EPI 027 PRESUMPTIVE POSITIVE (NEGATIVE); C. DIFF TOXIN PCR POSITIVE (NEGATIVE)
[2017-06-26] MEDS ORDERED: metroNIDAZOLE 500 MG TAB PO SCH (13:00)
[2017-06-26] MEDS ORDERED: PHARMACY ORDERED LAB ONE (15:45)
[2017-06-26 16:00] VITALS: BP 154/97; PULSE 93; RESP 19; TEMP 98.4; O2SAT 93
--- NOTE | 2017-06-26 17:00 | HHI.PR ---
Subjective Subjective Notes Doing good; had regular lunch with no issues Objective Vitals/I&O Vital Signs Date Time Temp Pulse Resp B/P Pulse Ox O2 Delivery O2 Flow Rate FiO2 06/26/17 16:00 98.4 93 19 154/97 93 Labs Laboratory Tests Test 06/26/17 06/26/17 06:03 10:14 White Blood Count 5.3 Red Blood Count 2.97 Hemoglobin 8.5 Hematocrit 25.0 Mean Corpuscular Volume 84.2 Mean Corpuscular Hemoglobin 28.7 Mean Corpuscular Hemoglobin 34.1 Concent Red Cell Distribution Width 18.6 Platelet Count 274 Mean Platelet Volume 7.2 Neutrophils (%) (Auto) 62.7 Lymphocytes (%) (Auto) 22.2 Monocytes (%) (Auto) 11.0 Eosinophils (%) (Auto) 3.1 Basophils (%) (Auto) 1.0 Neutrophils # (Auto) 3.3 Lymphocytes # (Auto) 1.2 Monocytes # (Auto) 0.6 Eosinophils # (Auto) 0.2 Basophils # (Auto) 0.1 CBC Comment DIFF FINAL Differential Comment Sodium Level 136 Potassium Level 3.5 Chloride Level 102 Carbon Dioxide Level 26.4 Anion Gap 8 Blood Urea Nitrogen 4 Creatinine 0.20 Estimat Glomerular Filtration 384 Rate Random Glucose 90 Calcium Level 8.5 Lipase 456 Stool C. difficile Toxin (PCR) POSITIVE Stl C. difficile Toxin PRESUMPTIVE Epiderm 027 POSITIVE Date/Time Procedure Status Source Growth 06/23/17 16:25 Aerobic Blood Culture - Preliminary Resulted Blood Peripheral NO GROWTH IN 3 DAYS 06/23/17 16:25 Anaerobic Blood Culture - Preliminary Resulted Blood Peripheral NO GROWTH IN 3 DAYS Radiology Last Impressions Abdomen/Pelvis CT 06/23/17 1603 Signed Impressions: Service Date/Time: Friday, June 23, 2017 18:06 - CONCLUSION: 1. Interval surgery since prior CT with reduction in the size of the fluid collection posterior left upper quadrant underneath the hemidiaphragm, with reduction in width to 1 cm. 2. Reduction in the size of the cystic area in the tail of pancreas, now measuring 1.8 cm. 3. Hepatomegaly and regional fatty change in liver, stable Michael William MD Chest X-Ray 06/23/17 0000 Signed Impressions: Service Date/Time: Friday, June 23, 2017 18:59 - CONCLUSION: The lungs are clear. No evidence of pleural effusion. Michael William MD Cardiovascular: Regular Lungs: Clear Abdomen: Other (midline incsion with steri strips in place; BROCK drain removed-- site c/d/i; minimal tenderness with palpation ) Extremities: No edema A/P Problem List: (1) pancreatic phelgemon S/P expl lap/I and D (2) Pancreatitis Assessment and Plan 46 year old female s/p post pancreatic cyst drainage by Dr. Ellis; s/p removal of BROCK drain in office; back with abdominal pain -Regular diet -OOB and mobilize -IS -Pain control -Continue non operative treatment Problem Qualifiers (1) Pancreatitis: Qualified Code: K85.20 - Alcohol-induced acute pancreatitis, unspecified complication status Nette Rangel Jun 26, 2017 17:00
[2017-06-26 20:00] VITALS: BP 137/100; PULSE 96; RESP 20; TEMP 98.2; O2SAT 94
[2017-06-26] MEDS: metroNIDAZOLE 500 MG TAB PO SCH (20:33)
[2017-06-27] VITALS: BP 162/81; PULSE 65; RESP 19; TEMP 97.7; O2SAT 96
[2017-06-27] MEDS: HYDROmorphone HCL PF 1 MG/ML VIAL IV PUSH PRN ×4 (01:22→14:30)
[2017-06-27] MEDS: SODIUM CHLOR 0.9% 1000 ML INJ 1,000 ML IV SCH ×2 (01:31→12:56)
[2017-06-27] MEDS: ACETAMINOPHEN/HYDROcodone 325 MG/7.5 MG TAB PO PRN ×2 (04:15→10:00)
[2017-06-27] MEDS: metroNIDAZOLE 500 MG TAB PO SCH ×2 (04:15→13:00)
[2017-06-27 08:00] VITALS: BP 166/99; PULSE 106; RESP 18; TEMP 98.4; O2SAT 94
[2017-06-27] MEDS: NICOTINE 21 MG/24 HR PATCH T-DERMAL SCH (08:41)
[2017-06-27] MEDS: DOCUSATE SODIUM 50 MG/SENNA 8.6 MG TAB PO SCH (08:42)
[2017-06-27] MEDS: PANTOPRAZOLE SODIUM 40 MG VIAL IV PUSH SCH (08:43)
[2017-06-27] MEDS: SODIUM CHLORIDE 0.9% FLUSH 10 ML FLUSH IV FLUSH SCH (08:46)
[2017-06-27] MEDS: REMOVE OLD PATCH T-DERMAL SCH (09:00)
[2017-06-27 10:57] VITALS: RESP 18
--- NOTE | 2017-06-27 14:30 | HHI.PR ---
Objective Vitals Vital Signs Date Time Temp Pulse Resp B/P Pulse Ox O2 Delivery O2 Flow Rate FiO2 06/27/17 10:57 18 06/27/17 10:57 18 06/27/17 08:00 98.4 106 18 166/99 94 06/27/17 00:00 97.7 65 19 162/81 96 06/26/17 20:00 98.2 96 20 137/100 94 06/26/17 16:00 98.4 93 19 154/97 93 I/O 06/26/17 06/26/17 06/26/17 06/27/17 06/27/17 06/27/17 07:00 15:00 23:00 07:00 15:00 23:00 Intake Total 1184 ml 1145 ml 891 ml 801 ml Balance 1184 ml 1145 ml 891 ml 801 ml Intake Oral 360 ml 340 ml 240 ml 120 ml IV Total 824 ml 805 ml 651 ml 681 ml # Voids 2 3 1 2 # Bowel Movements 1 2 0 Result Diagram: 06/26/17 0603 06/26/17 0603 Objective Remarks GENERAL: AOX3, NAD SKIN: Warm and dry. HEAD: Normocephalic. EYES: No scleral icterus. No injection or drainage. NECK: Supple, trachea midline. No JVD or lymphadenopathy. CARDIOVASCULAR: Regular rate and rhythm without murmurs, gallops, or rubs. RESPIRATORY: Breath sounds equal bilaterally. No accessory muscle use. GASTROINTESTINAL: Abdomen soft, non-tender, nondistended. MUSCULOSKELETAL: No cyanosis, or edema. BACK: Nontender without obvious deformity. No CVA tenderness. Procedures None. A/P Problem List: (1) Sepsis ICD Code: A41.9 Status: Acute (2) Pancreatitis ICD Code: K85.90 Status: Acute (3) Tobacco abuse ICD Code: Z72.0 Status: Acute (4) C. difficile colitis ICD Code: A04.7 Status: Acute Assessment and Plan This is a 46-year-old female with history of tobacco abuse and recent history of pancreatitis, recently admitted, found to have UTI, sepsis and pancreatic pseudocyst s/p Ex Lap w/ I&D of pancreatic pseudocyst w/ BROCK drain by Dr. Ellis on 06/07/17, Wound Cult +MRSA, discharged home with oral antibiotics. BROCK drain removed 1 day ago prior to admission, now w/ increasing abdominal pain. - Sepsis secondary to abdominal wall infection versus pancreatitis - CT Abd/Pelvis w/ decreased size of fluid collection, left upper quadrant underneath the hemidiaphragm, cystic area in the tail the pancreas has also decreased. No obvious abscess. Chest x-ray unremarkable, no urinary symptoms - Continue pain management with Acetaminophen, [place] PRN and IV Dilaudid for breakthrough. - Will advance diet to regular diet. - C. Diff colitis - Will start patient on Flagyl 500mg TID. - Start contact precaution - Tobacco Abuse, anxiety: Pt counselled. Ativan/NicoDerm prn if needed. - Thrombocytosis - PLT count 542K --> 274. Full code. Ambulation. Discharge plan: If okay with surgery, patient can likely be discharged home on with outpatient follow up. Problem Qualifiers (1) Pancreatitis: Qualified Code: K85.20 - Alcohol-induced acute pancreatitis, unspecified complication status Erma Flores DO Jun 27, 2017 14:30
[2017-06-27] MEDS ORDERED: METR-1 PO (14:42)
[2017-06-27] MEDS ORDERED: HYDR-3288 PO (14:42)
--- NOTE | 2017-06-27 14:44 | HHI.DS ---
Discharge Summary Admission Date Jun 23, 2017 at 7:51 pm Discharge Date: Jun 27, 2017 Admitting Diagnosis SIRS, pancreatitis, intractable abdominla pain (1) Sepsis ICD Code: A41.9 Diagnosis: Principal (2) Pancreatitis ICD Code: K85.90 Diagnosis: Principal (3) Tobacco abuse ICD Code: Z72.0 (4) C. difficile colitis ICD Code: A04.7 Diagnosis: Principal Procedures None. Brief History - From Admission This is a 46-year-old female with a PMH of Anxiety, Tobacco Abuse and h/o Pancreatitis who presented to the ER w/ complaints of severe LLQ pain x1 day. Recent admit 06/07-06/14/17 for Pancreatic Pseudocyst, UTI and Sepsis, s/p Ex Lap w/ I&D of pancreatic pseudocyst w/ BROCK drain by Dr. Ellis on 06/07/17, Wound Cult +MRSA, also found to have LLL PNA and d/c'd home w/ antibiotics. BROCK drain removed 1 day ago, now w/ increasing abdominal pain. Reports associated nausea , vomiting and few episodes of diarrhea. On arrival, BP 165/104, HR 1:30, O2 sat 99% on RA, Temp 99.2. WBC 14.2. Chemistry essentially unremarkable. Calcium 10.3. Lactic Acid 0.7. Lipase 1197. UA positive for UTI. CXR with no acute findings. CT Abd/Pelvis w/ reduction in size of fluid collection posterior left upper quadrant, reduction in size of cystic area in the tail of the pancreas. Dr. Ellis consulted by ER physician, recommended admission for further evaluation. S/p Blood Cultures, Vanc/Cefepime CBC/BMP: 06/26/17 0603 06/26/17 0603 Significant Findings Laboratory Tests Test 06/25/17 06/25/17 06/26/17 06/26/17 07:11 09:33 06:03 10:14 Potassium Level 3.4 MEQ/L (3.5-5.1) Blood Urea Nitrogen 4 MG/DL (7-18) 4 MG/DL (7-18) Creatinine 0.27 MG/DL 0.20 MG/DL (0.50-1.00) (0.50-1.00) Lipase 961 U/L 456 U/L (73-393) (73-393) Red Blood Count 3.38 MIL/MM3 2.97 MIL/MM3 (4.00-5.30) (4.00-5.30) Hemoglobin 9.6 GM/DL 8.5 GM/DL (11.6-15.3) (11.6-15.3) Hematocrit 28.7 % 25.0 % (35.0-46.0) (35.0-46.0) Red Cell Distribution Width 18.8 % 18.6 % (11.6-17.2) (11.6-17.2) Monocytes (%) (Auto) 8.4 % (0.0-8.0) 11.0 % (0.0-8.0) Basophils (%) (Auto) 4.0 % (0.0-2.0) Basophils # (Auto) 0.3 TH/MM3 (0-0.2) Stool C. difficile Toxin (PCR) POSITIVE (NEGATIVE) Stl C. difficile Toxin PRESUMPTIVE Epiderm 027 POSITIVE (NEGATIVE) Imaging Last Impressions Abdomen/Pelvis CT 06/23/17 1603 Signed Impressions: Service Date/Time: Friday, June 23, 2017 18:06 - CONCLUSION: 1. Interval surgery since prior CT with reduction in the size of the fluid collection posterior left upper quadrant underneath the hemidiaphragm, with reduction in width to 1 cm. 2. Reduction in the size of the cystic area in the tail of pancreas, now measuring 1.8 cm. 3. Hepatomegaly and regional fatty change in liver, stable Michael William MD Chest X-Ray 06/23/17 0000 Signed Impressions: Service Date/Time: Friday, June 23, 2017 18:59 - CONCLUSION: The lungs are clear. No evidence of pleural effusion. Michael William MD PE at Discharge GENERAL: AOX3, NAD SKIN: Warm and dry. HEAD: Normocephalic. EYES: No scleral icterus. No injection or drainage. NECK: Supple, trachea midline. No JVD or lymphadenopathy. CARDIOVASCULAR: Regular rate and rhythm without murmurs, gallops, or rubs. RESPIRATORY: Breath sounds equal bilaterally. No accessory muscle use. GASTROINTESTINAL: Abdomen soft, non-tender, nondistended. MUSCULOSKELETAL: No cyanosis, or edema. BACK: Nontender without obvious deformity. No CVA tenderness. Pt Condition on Discharge: Good Discharge Disposition: Discharge Home Discharge Time: > 30 minutes Discharge Instructions DIET: Follow Instructions for: As Tolerated, No Restrictions Activities you can perform: Regular-No Restrictions Follow up Referrals: PCP Follow-up - 1 Week Surgical - 10 Days with Damien Ellis MD New Medications: Metronidazole (Flagyl) 500 Mg Tab 500 MG PO Q8H Infection #40 TAB Changed Medications: Hydrocodone-Acetaminophen ([place]) 7.5-325 mg Tab 1 TAB PO Q6H PRN PAIN #20 Ref 0 TAB (Changed from: 1-2 TAB; 50) Continued Medications: Ranitidine (Zantac) 150 Mg Tab 150 MG PO DAILY Reduce Stomach Acid #30 Ref 0 TAB Discontinued Medications: Ciprofloxacin (Cipro) 500 Mg Tab 500 MG PO Q12HR Infection Days 10 TAB Ibuprofen (Motrin Ib) 200 Mg Tablet 2-3 TAB PO DIRECTED Potassium Bicarbonate Effervescent (K-Vescent) 25 Meq Tab 25 MEQ PO DAILY elect Days 14 TAB Erma Flores DO Jun 27, 2017 2:44 pm
--- NOTE | 2017-06-27 15:03 | HHI.PR ---
Subjective Subjective Notes Doing well Pain controlled Would like to go home this evening if okay with Dr. Flores and Dr. Ellis Objective Vitals/I&O Vital Signs Date Time Temp Pulse Resp B/P Pulse Ox O2 Delivery O2 Flow Rate FiO2 06/27/17 10:57 18 06/27/17 08:00 98.4 106 166/99 94 Labs Date/Time Procedure Status Source Growth 06/23/17 16:25 Aerobic Blood Culture - Preliminary Resulted Blood Peripheral NO GROWTH IN 4 DAYS 06/23/17 16:25 Anaerobic Blood Culture - Preliminary Resulted Blood Peripheral NO GROWTH IN 4 DAYS Radiology Last Impressions Abdomen/Pelvis CT 06/23/17 1603 Signed Impressions: Service Date/Time: Friday, June 23, 2017 18:06 - CONCLUSION: 1. Interval surgery since prior CT with reduction in the size of the fluid collection posterior left upper quadrant underneath the hemidiaphragm, with reduction in width to 1 cm. 2. Reduction in the size of the cystic area in the tail of pancreas, now measuring 1.8 cm. 3. Hepatomegaly and regional fatty change in liver, stable Michael William MD Chest X-Ray 06/23/17 0000 Signed Impressions: Service Date/Time: Friday, June 23, 2017 18:59 - CONCLUSION: The lungs are clear. No evidence of pleural effusion. Michael William MD Cardiovascular: Regular Lungs: Clear Abdomen: Other (mildly tender to palpation; midline incision with anna removed--Steri strips in place ) Extremities: No edema A/P Problem List: (1) pancreatic phelgemon S/P expl lap/I and D (2) Pancreatitis Assessment and Plan 46 year old female s/p post pancreatic cyst drainage by Dr. Ellis; s/p removal of BROCK drain in office; back with abdominal pain -Regular diet -OOB and mobilize -IS -Pain control -Continue non operative treatment -GS clear for DC -Discussed with ANGEI Tomas and Dr. Flores Problem Qualifiers (1) Pancreatitis: Qualified Code: K85.20 - Alcohol-induced acute pancreatitis, unspecified complication status Nette Rangel Jun 27, 2017 15:03
[2017-06-27] MEDS ORDERED: HYDROmorphone HCL PF 1 MG/ML VIAL IV PUSH PRN (20:00)
== END 2017-06-27 16:12 | disposition home or self-care (01) | DRG 871 ==
LOC: NEPD 15:24 → NEDA 19:51 → N07A 22:51
PROVIDERS: ADMIT Hospitalist; ATTEND Hospitalist
DX: A41.02 Sepsis due to Methicillin resistant Staphylococcus aureus (principal); J18.9 Pneumonia, unspecified organism; A04.7 Enterocolitis due to Clostridium difficile; K86.3 Pseudocyst of pancreas; K85.20 Alcohol induced acute pancreatitis without necrosis or infection; N39.0 Urinary tract infection, site not specified; K86.1 Other chronic pancreatitis; E87.6 Hypokalemia; K21.9 Gastro-esophageal reflux disease without esophagitis; F17.210 Nicotine dependence, cigarettes, uncomplicated; F41.9 Anxiety disorder, unspecified
CPT/HCPCS: 71010; 74177; 80048; 80053; 80202; 81001; 83605; 83690; 85025; 87040; 87493; 93005; 96361; 96365; 96375; C9113; J0692; J1170; J2270; J2405; J2543; J3370; J3480; J7030; J7050; Q9963; Q9967

== ENCOUNTER 2017-07-04 08:57 | Emergency (ER) | payer OTHER ==
[~2017-07-04] VITALS: Ht 160 cm; Wt 45.0 kg
[~2017-07-04 08:57] MED LIST changes: -CIPR-9 PO; -IBUP-1129 PO; -KLORCONEF PO; +METR-1 PO
[2017-07-04 08:58] VITALS: BP 154/90; PULSE 109; RESP 20; TEMP 99.1; O2SAT 99
[2017-07-04] MEDS ORDERED: SODIUM CHLOR 0.9% 1000 ML INJ 1,000 ML IV SCH (09:40)
[2017-07-04] MEDS ORDERED: SODIUM CHLORIDE 0.9% FLUSH 10 ML FLUSH IV FLUSH PRN (09:45)
[2017-07-04 10:24] LABS: AUTOMATED NEUTROPHIL # 10.3 TH/MM3 (1.8-7.7); BASOPHIL # 0.2 TH/MM3 (0-0.2); BASOPHIL % 1.2 % (0.0-2.0); EOSINOPHIL # 0.2 TH/MM3 (0-0.4); EOSINOPHIL % 1.5 % (0.0-4.0); HEMATOCRIT 36.1 % (35.0-46.0); HEMO FLAGS DIFF FINAL; LYMPH % 17.9 % (9.0-44.0); LYMPHOCYTE # 2.5 TH/MM3 (1.0-4.8); MEAN CELL VOLUME 83.9 FL (80.0-100.0); MEAN CORPUSCULAR HGB CONC 33.4 % (32.0-36.0); MONO % 5.3 % (0.0-8.0); NEUT % 74.1 % (16.0-70.0); PLATELET COUNT 340 TH/MM3 (150-450); RED CELL DISTRIBUTION WIDTH 18.4 % (11.6-17.2); WHITE BLOOD COUNT 13.9 TH/MM3 (4.0-11.0)
[2017-07-04 10:34] LABS: ALKALINE PHOSPHATASE 135 U/L (45-117); TOTAL BILIRUBIN ADULT 0.3 MG/DL (0.2-1.0)
[2017-07-04 10:45] LABS: ALT (GPT) 29 U/L (10-53); ANION GAP 9 MEQ/L (5-15); AST (GOT) 75 U/L (15-37); BICARBONATE 26.2 MEQ/L (21.0-32.0); BLOOD UREA NITROGEN 12 MG/DL (7-18); CHLORIDE 100 MEQ/L (98-107); GLOMERULAR FILTRATION RATE 140 ML/MIN (>89); SODIUM (NA) 135 MEQ/L (136-145)
[2017-07-04] MEDS ORDERED: IOHEXOL 350 MG/ML 10 ML VIAL (for RAD DIAG) IV ONE (10:48)
[2017-07-04 10:50] LABS: POTASSIUM 5.2 MEQ/L (3.5-5.1)
[2017-07-04] MEDS ORDERED: ONDANSETRON HCL 4 MG/2 ML VIAL IV ONE (12:15)
[2017-07-04] MEDS ORDERED: MORPHINE SULFATE 4 MG/ML INJ IV PUSH ONE (12:15)
[2017-07-04] MEDS ORDERED: ZOFR4TAB3 SL (12:21)
[2017-07-04] MEDS ORDERED: HYDR-3533 PO (12:21)
[2017-07-04] MEDS ORDERED: BACT800T5 PO (12:21)
--- NOTE | 2017-07-04 12:21 | PD ---
HPI Chief Complaint: Abdominal Pain Time Seen by Provider: 09:05 Travel History International Travel<30 days: No Contact w/Intl Traveler<30days: No Traveled to known affect area: No History of Present Illness HPI Social 46 year-old woman presents to the emergency department complaining of abdominal pain. She is a history of pancreatitis. She was admitted to the hospital on June 04. She is found a pancreatitis with an associated fluid collection. This was found to be a MRSA abscess. She was treated with an exploratory laparoscopy and surgical drainage with Dr. Ellis on June 07. She was discharged on July 15. She had the BROCK drain pulled in the office June 22 and shortly thereafter started having severe abdominal pain and was readmitted June 23 through the . Repeat imaging that time showed no changes. She was diagnosed with C. difficile. She is now being treated with Flagyl. She presents back to the emergency department complaining of recurrent pain in the epigastrium. No vomiting. She has had some nausea. She is not really using any medicine for pain home except for Motrin. She doesn't take any nausea medicine. History Past Medical History Narrative Medical Pancreatitis Anxiety Tobacco abuse Tetanus Vaccination: > 5 Years Influenza Vaccination: No LMP: irregular : 1 Para: 1 Social History Alcohol Use: No Tobacco Use: Yes (1 ppd) Allergies-Medications (Allergen,Severity, Reaction): Coded Allergies: methadone (Unverified Allergy, Severe, 07/04/17) penicillin G (Unverified Allergy, Severe, Anaphylaxis, 07/04/17) *MDRO Multi-Drug Resistant Organism (Verified Adverse Reaction, Unknown, ) MRSA PCR Positive 06/06/17 Reported Meds & Prescriptions Reported Meds & Active Scripts Active No Active Prescriptions or Reported Medications Review of Systems Except as stated in HPI: all other systems reviewed are Neg Physical Exam Narrative GENERAL: 46 year-old woman, generally well-appearing, thin, nontoxic. SKIN: Focused skin assessment warm/dry. HEAD: Atraumatic. Normocephalic. EYES: Pupils equal and round. No scleral icterus. No injection or drainage. ENT: No nasal bleeding or discharge. Mucous membranes pink and moist. NECK: Trachea midline. No JVD. CARDIOVASCULAR: Regular rate and rhythm. No murmur appreciated. RESPIRATORY: No accessory muscle use. Clear to auscultation. Breath sounds equal bilaterally. GASTROINTESTINAL: Abdomen is flat and soft. She has moderate epigastric and diffuse upper abdominal tenderness. No rebound or guarding. MUSCULOSKELETAL: No obvious deformities. No edema. NEUROLOGICAL: Awake and alert. No obvious cranial nerve deficits. Motor grossly within normal limits. Normal speech. Data Data Last Documented VS Vital Signs Date Time Temp Pulse Resp B/P Pulse Ox O2 Delivery O2 Flow Rate FiO2 07/04/17 08:58 99.1 109 20 154/90 99 Room Air Orders Complete Blood Count With Diff (07/04/17 09:40) Comprehensive Metabolic Panel (07/04/17 09:40) Lipase (07/04/17 09:40) Lactic Acid (07/04/17 09:40) Urinalysis - C+S If Indicated (07/04/17 09:40) Ct Abd/Pel W Iv Contrast(Rout) (07/04/17 09:40) Iv Access Insert/Monitor (07/04/17 09:40) Ecg Monitoring (07/04/17 09:40) Oximetry (07/04/17 09:40) Sodium Chlor 0.9% 1000 Ml Inj (Ns 1000 M (07/04/17 09:40) Sodium Chloride 0.9% Flush (Ns Flush) (07/04/17 09:45) Iohexol 350 Inj (Omnipaque 350 Inj) (07/04/17 10:48) Morphine Inj (Morphine Inj) (07/04/17 12:15) Labs Laboratory Tests Test 07/04/17 10:00 White Blood Count 13.9 TH/MM3 Red Blood Count 4.30 MIL/MM3 Hemoglobin 12.0 GM/DL Hematocrit 36.1 % Mean Corpuscular Volume 83.9 FL Mean Corpuscular Hemoglobin 28.0 PG Mean Corpuscular Hemoglobin 33.4 % Concent Red Cell Distribution Width 18.4 % Platelet Count 340 TH/MM3 Mean Platelet Volume 7.8 FL Neutrophils (%) (Auto) 74.1 % Lymphocytes (%) (Auto) 17.9 % Monocytes (%) (Auto) 5.3 % Eosinophils (%) (Auto) 1.5 % Basophils (%) (Auto) 1.2 % Neutrophils # (Auto) 10.3 TH/MM3 Lymphocytes # (Auto) 2.5 TH/MM3 Monocytes # (Auto) 0.7 TH/MM3 Eosinophils # (Auto) 0.2 TH/MM3 Basophils # (Auto) 0.2 TH/MM3 CBC Comment DIFF FINAL Differential Comment Sodium Level 135 MEQ/L Potassium Level 5.2 MEQ/L Chloride Level 100 MEQ/L Carbon Dioxide Level 26.2 MEQ/L Anion Gap 9 MEQ/L Blood Urea Nitrogen 12 MG/DL Creatinine 0.48 MG/DL Estimat Glomerular Filtration 140 ML/MIN Rate Random Glucose 96 MG/DL Lactic Acid Level 1.3 mmol/L Calcium Level 10.0 MG/DL Total Bilirubin 0.3 MG/DL Aspartate Amino Transf 75 U/L (AST/SGOT) Alanine Aminotransferase 29 U/L (ALT/SGPT) Alkaline Phosphatase 135 U/L Total Protein 8.8 GM/DL Albumin 3.7 GM/DL Lipase 1005 U/L [facility] Medical Decision Making Medical Screen Exam Complete: Yes Emergency Medical Condition: Yes Interpretation(s) LABS: CBC remarkable for white count 13.9 thousand CMP remarkable for sodium 135, potassium 5.2 [address]ase [address] abdomen and pelvis: Results called to me by the radiologist. No change from previous. She does have a lung nodule that was not previously noted. We'll need follow-up. Differential Diagnosis Pancreatitis, abscess, infection, pseudocyst, C. difficile, other Narrative Course Medical decision-making new para this is a 46-year-old with a complicated history of pancreatitis, alcohol use, with pseudocyst formation, drained in the OR, here with some ongoing pain. She's been treated for C. difficile now with Flagyl. White count a little bit elevated. CT is unchanged. I spoke with her regarding the findings of the incidental lung nodule that needs follow-up. I spoke with Dr. Ellis, with surgery. Given the increase in white count recommend addition of Bactrim. We'll continue Flagyl. We'll give pain and nausea medicine. Outpatient follow-up with him next week. Diagnosis Primary Impression: Abdominal pain Additional Impression: Pancreatitis Additional Instructions: Continue to avoid alcohol. Continue Flagyl as prescribed. Add Bactrim as prescribed. Use Zofran as needed for nausea or vomiting. Use Lortab in addition to Motrin as needed for pain. Follow-up with Dr. Ellis next week. Return to the emergency department for any worsening abdominal pain, fevers, diarrhea, or any other new or worsening symptoms. Med/Other Pt SpecificInfo: Prescription(s) given Scripts Ondansetron Odt (Zofran Odt)4 Mg Tab4 Mg SL Q8HR PRN (Nausea/Vomiting) #15 TAB May substitute non-ODT form. Prov:Brian White MD 07/04/17 Hydrocodone-Acetaminophen (Lortab)5-325 Mg Tab1-2 Tab PO Q6H PRN (PAIN) #12 TAB Prov:Brian White MD 07/04/17 Sulfamethoxazole-Trimethoprim (Bactrim DS)800-160 Mg Tab1 Tab PO BID 10 Days Prov:Brian White MD 07/04/17 Disposition: 01 DISCHARGE HOME Condition: Stable Brian White MD Jul 04, 2017 12:21
[2017-07-04 12:22] LABS: BLOOD, URINE NEG (NEG); COMMENT (UR) CULT NOT INDICATED; CULTURE IF INDICATED CULT NOT INDICATED; GLUCOSE,URINE NEG (NEG); KETONE, URINE NEG (NEG); MUCUS URINE FEW /lpf (OCC); NITRITE,URINE NEG (NEG); PH, URINE 6.5 (5.0-8.5); SQUAMOUS EPITHELIAL CELL URINE 8 /hpf (0-5); URINE COLOR YELLOW (YELLW/STRAW)
--- NOTE | 2017-07-04 12:46 | RADRPT ---
EXAM DATE/TIME: 07/04/2017 10:30 [place] COMPARISON: CT PULMONARY ANGIOGRAM, June 04, 2017, 16:06. CT ABDOMEN & PELVIS W CONTRAST, June 23, 2017, 18:06 . INDICATIONS : Left upper quadrant pain. IV CONTRAST: 75 cc Omnipaque 350 (iohexol) IV ORAL CONTRAST: No oral contrast ingested. RADIATION DOSE: 9.96 CTDIvol (mGy) MEDICAL HISTORY : Cardiovascular disease. Pancreatitis. SURGICAL HISTORY : Cholecystectomy. Pseudocyst drainage ENCOUNTER: Initial ACUITY: 2 days PAIN SCALE: 5/10 LOCATION: Left upper quadrant TECHNIQUE: Volumetric scanning of the abdomen and pelvis was performed. Using automated exposure control and ad justment of the mA and/or kV according to patient size, radiation dose was kept as low as reasonably achievable to obtain optimal diagnostic quality images. DICOM format image data is available electro nically for review and comparison. FINDINGS: There continues to be a cystic area seen at the pancreatic tail region. This extends into the left u pper quadrant along the under surface of the left hemidiaphragm. This extends over at least a 7.5 cm in length and measures up to 1.4 cm in diameter. This appearance is unchanged from the prior exam. There is calcification seen in the pancreatic head uncinate process and body. There does appear to be inflammatory change in the left upper quadrant around the cystic area. These findings were presen t previously. There is decreased density seen throughout the liver consistent with diffuse hepatic steatosis. The spleen is enlarged measuring 13.9 cm. The adrenal glands and kidneys appear grossly normal. There is inflammatory change seen around the left adrenal gland and anterior to the left kidney from the pa ncreatic process. This inflammatory change extends down to the level of the inferior left kidney. The bowel is unremarkable. There are prominent vessels seen in the anterior abdomen which appear to be related to this splenic vein. This is consistent with varices. There are varices seen around the upper stomach. The main splenic vein is not seen. It is likely thrombosed. The uterus is unremarkable for a standard CT examination. There does appear to be mild cystic change at the left adnexa with a 2 cm cyst seen at the left adnexa. The right ovary appears normal in size . Free fluid in the pelvic cavity is not clearly seen. There is some increased density seen at the posterior lung bases being worse on the right. There is a 1.2 cm nodule seen at the posterior medial left lower lobe. The bony structures are intact. This information was related to Dr. Brian White by telephone at 11: 05 am. CONCLUSION: 1. Persistent changes of pancreatitis and pseudocyst formation extending from the pancreatic tail int o the left upper quadrant with surrounding inflammatory change. This process is unchanged from the p rior exam. 2. Splenomegaly with nonvisualization of the main splenic vein likely thrombosed. There are varices seen around the stomach and in the anterior mesentery. 3. Hepatic steatosis. 4. Mild cystic change seen at the left adnexa. This could be related to an ovarian follicle. 5. 1.2 cm mass in the posterior medial right lower lobe. No other lung mass are seen in the CTA of t he chest. This mass could be further evaluated with a PET CT study to see if it is metabolically acti ve or not. It would be difficult to percutaneously biopsy given its location. Thom Perez MD on July 04, 2017 at 10:50 Board Certified Radiologist. This report was verified electronically.
[2017-07-04 13:40] VITALS: BP 145/82; PULSE 82; RESP 20; O2SAT 99
== END 2017-07-04 14:04 | disposition home or self-care (01) ==
LOC: NEPC 08:57
DX: K85.90 Acute pancreatitis without necrosis or infection, unspecified (principal); F41.9 Anxiety disorder, unspecified; F17.290 Nicotine dependence, other tobacco product, uncomplicated
CPT/HCPCS: 74177; 80053; 81001; 83605; 83690; 85025; 96361; 96374; 96375; 99285; J2270; J2405; J7030; Q9967

== ENCOUNTER 2017-07-05 19:20 | Inpatient (IN) | payer OTHER ==
[~2017-07-05] VITALS: Ht 160 cm; Wt 52.3 kg
[~2017-07-05 19:20] MED LIST changes: +BACT800T5 PO; -HYDR-3288 PO; +HYDR-3533 PO; -METR-1 PO; -ZANT150T2 PO; +ZOFR4TAB3 SL
[2017-07-05 19:22] VITALS: BP 171/94; PULSE 109; RESP 15; TEMP 99.2; O2SAT 96
--- NOTE | 2017-07-05 19:46 | PD ---
Physical Exam Date Seen by Provider: Jul 05, 2017 Time Seen by Provider: 19:45 Narrative 46 YOWF C/O WORSENING ABD PAIN. + NAUSEA . SURGERY 3-4 WEEKS AGO. JUST SEEN YEST VS REVIEWED WAITING FOR BED PLACEMENT Data Data Last Documented VS Vital Signs Date Time Temp Pulse Resp B/P Pulse Ox O2 Delivery O2 Flow Rate FiO2 07/05/17 19:22 99.2 109 15 171/94 96 Room Air MDM Supervised Visit with CORKY: Yousif Toledo Jul 05, 2017 19:46
[2017-07-05] MEDS ORDERED: RESP: ALBUTEROL 0.63 MG/3 ML NEB (SCH) ONE (21:19)
[2017-07-05 21:49] LABS: AUTOMATED NEUTROPHIL # 8.8 TH/MM3 (1.8-7.7); BASOPHIL # 0.1 TH/MM3 (0-0.2); BASOPHIL % 0.8 % (0.0-2.0); EOSINOPHIL # 0.4 TH/MM3 (0-0.4); EOSINOPHIL % 2.9 % (0.0-4.0); HEMATOCRIT 36.8 % (35.0-46.0); HEMO FLAGS DIFF FINAL; LYMPH % 19.9 % (9.0-44.0); LYMPHOCYTE # 2.5 TH/MM3 (1.0-4.8); MEAN CELL VOLUME 84.9 FL (80.0-100.0); MEAN CORPUSCULAR HEMOGLOBIN 27.4 PG (27.0-34.0); MEAN CORPUSCULAR HGB CONC 32.3 % (32.0-36.0); MONO % 7.6 % (0.0-8.0); NEUT % 68.8 % (16.0-70.0); PLATELET COUNT 366 TH/MM3 (150-450); RED BLOOD COUNT 4.33 MIL/MM3 (4.00-5.30); RED CELL DISTRIBUTION WIDTH 18.3 % (11.6-17.2); WHITE BLOOD COUNT 12.8 TH/MM3 (4.0-11.0)
[2017-07-05 21:54] VITALS: BP 162/102; PULSE 103; RESP 18; TEMP 98.3; O2SAT 97
[2017-07-05 21:59] LABS: ANION GAP 5 MEQ/L (5-15); AST (GOT) 33 U/L (15-37); BICARBONATE 29.1 MEQ/L (21.0-32.0); BLOOD UREA NITROGEN 15 MG/DL (7-18); CHLORIDE 99 MEQ/L (98-107); GLOMERULAR FILTRATION RATE 99 ML/MIN (>89); POTASSIUM 3.9 MEQ/L (3.5-5.1); SODIUM (NA) 133 MEQ/L (136-145)
[2017-07-05 22:06] LABS: ALKALINE PHOSPHATASE 151 U/L (45-117); ALT (GPT) 28 U/L (10-53); TOTAL BILIRUBIN ADULT 0.2 MG/DL (0.2-1.0)
[2017-07-05] MEDS ORDERED: SODIUM CHLOR 0.9% 1000 ML INJ 1,000 ML IV SCH (22:07)
[2017-07-05] MEDS ORDERED: HYDROmorphone HCL PF 1 MG/ML VIAL IVS ONE (22:15)
[2017-07-05] MEDS ORDERED: ONDANSETRON HCL 4 MG/2 ML VIAL IVP ONE (22:15)
[2017-07-05 22:16] VITALS: BP 163/96; PULSE 101
[2017-07-05 22:40] LABS: BACTERIA, URINE RARE /hpf; BLOOD, URINE NEG (NEG); COMMENT (UR) CULT NOT INDICATED; CULTURE IF INDICATED CULT NOT INDICATED; GLUCOSE,URINE NEG (NEG); KETONE, URINE NEG (NEG); MUCUS URINE FEW /lpf (OCC); NITRITE,URINE NEG (NEG); SQUAMOUS EPITHELIAL CELL URINE 17 /hpf (0-5); URINE COLOR YELLOW (YELLW/STRAW)
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
[2017-07-05 23:31] VITALS: BP 169/91; PULSE 91; RESP 16; O2SAT 95
[2017-07-06] MEDS ORDERED: HYDROmorphone HCL PF 1 MG/ML VIAL IV PUSH PRN
[2017-07-06] MEDS ORDERED: NALOXONE HCL 0.4 MG/ML AMP IV PRN
[2017-07-06] MEDS: SODIUM CHLOR 0.9% 1000 ML INJ 1,000 ML IV SCH ×3 (00:20→20:57)
--- NOTE | 2017-07-06 03:20 | HHI.HP ---
HPI Service [facility] Primary Care Physician No Primary Care Physician Admission Diagnosis Pancreatitis Diagnoses: Chief Complaint: abdominal pain Travel History International Travel<30 Days: No Contact w/Intl Traveler <30 Da: No History of Present Illness Written by RACHEL Goodman acting as scribe for [Megan] on 07/06/17 at 03: 13. 46 y/o female with a history of pancreatitis presented to the ED with increased pain. Patient was admitted for a pseudocyst that was drained by Dr. Ellis 12 days ago. She has had pain off and on and today it was increased. She complains of epigastric abdominal pain with palpation and she feels there is a knot there. She states she had a low grade fever at home with unknown temp with associated, nausea, and diarrhea. She states the pain medication she has at home is not working. She denies any vomiting, chest pain, sob, dizziness or chills. Review of Systems Except as stated in HPI: all other systems reviewed are Neg Past Family Social History Past Medical History Pancreatitis Past Surgical History Cholecystectomy Pseudocyst drained C section Reported Medications Reported Meds & Active Scripts Active Zofran Odt (Ondansetron Odt) 4 Mg Tab 4 Mg SL Q8HR PRN May substitute non-ODT form. Lortab (Hydrocodone-Acetaminophen) 5-325 Mg Tab 1-2 Tab PO Q6H PRN Bactrim DS (Sulfamethoxazole-Trimethoprim) 800-160 Mg Tab 1 Tab PO BID 10 Days Allergies: Coded Allergies: methadone (Unverified Allergy, Severe, 07/05/17) penicillin G (Unverified Allergy, Severe, Anaphylaxis, 07/05/17) *MDRO Multi-Drug Resistant Organism (Verified Adverse Reaction, Unknown, ) MRSA PCR Positive 06/06/17 Active Ordered Medications Current Medications Medications (Trade) Dose Ordered Sig/[place] Route Start Time Stop Time Status Last Admin (NS 1000 ml Inj) 1,000 ml @ 100 mls/hr Q10H IV 07/05/17 23:51 07/06/17 00:20 (NS Flush) 2 ml UNSCH PRN IV FLUSH 07/06/17 00:00 (NS Flush) 2 ml BID IV FLUSH 07/06/17 09:00 (Zofran Inj) 4 mg Q6H PRN IVP 07/06/17 00:00 (Narcan Inj) 0.4 mg UNSCH PRN IV 07/06/17 00:00 (Dilaudid Pf Inj) 0.5 mg Q4H PRN IV PUSH 07/06/17 00:00 07/06/17 01:36 Family History Patient denies any family history, no heart disease or cancer. Social History Tobacco use: 1PPD Alcohol use: Drank heavy for a few years Illicit drug use: Denies Physical Exam Vital Signs Vital Signs Date Time Temp Pulse Resp B/P Pulse Ox O2 Delivery O2 Flow Rate FiO2 07/05/17 23:31 91 16 169/91 95 Room Air 07/05/17 22:16 101 163/96 07/05/17 21:54 98.3 103 18 162/102 97 Room Air 07/05/17 19:22 99.2 109 15 171/94 96 Room Air Physical Exam GENERAL: This is a well-nourished, well-developed patient, in no apparent distress. SKIN: No rashes, ecchymoses or lesions. Cool and dry. HEAD: Atraumatic. Normocephalic. EYES: Pupils equal round and reactive. ENT: Nose without bleeding, purulent drainage or septal hematoma. Airway patent. NECK: Trachea midline. No JVD or lymphadenopathy. Supple, nontender, no meningeal signs. CARDIOVASCULAR: Regular rate and rhythm without murmurs, gallops, or rubs. RESPIRATORY: Clear to auscultation. Breath sounds equal bilaterally. No wheezes , rales, or rhonchi. GASTROINTESTINAL: Abdomen soft, epigastric tenderness, nondistended. No hepato- splenomegaly, or palpable masses. No guarding. MUSCULOSKELETAL: Extremities without clubbing, cyanosis, or edema. NEUROLOGICAL: Awake and alert. Motor and sensory grossly within normal limits. Normal speech. Laboratory Laboratory Tests Test 07/05/17 07/05/17 21:20 22:10 White Blood Count 12.8 Red Blood Count 4.33 Hemoglobin 11.9 Hematocrit 36.8 Mean Corpuscular Volume 84.9 Mean Corpuscular Hemoglobin 27.4 Mean Corpuscular Hemoglobin 32.3 Concent Red Cell Distribution Width 18.3 Platelet Count 366 Mean Platelet Volume 7.2 Neutrophils (%) (Auto) 68.8 Lymphocytes (%) (Auto) 19.9 Monocytes (%) (Auto) 7.6 Eosinophils (%) (Auto) 2.9 Basophils (%) (Auto) 0.8 Neutrophils # (Auto) 8.8 Lymphocytes # (Auto) 2.5 Monocytes # (Auto) 1.0 Eosinophils # (Auto) 0.4 Basophils # (Auto) 0.1 CBC Comment DIFF FINAL Differential Comment Sodium Level 133 Potassium Level 3.9 Chloride Level 99 Carbon Dioxide Level 29.1 Anion Gap 5 Blood Urea Nitrogen 15 Creatinine 0.65 Estimat Glomerular Filtration 99 Rate Random Glucose 120 Lactic Acid Level 1.3 Calcium Level 9.6 Total Bilirubin 0.2 Aspartate Amino Transf 33 (AST/SGOT) Alanine Aminotransferase 28 (ALT/SGPT) Alkaline Phosphatase 151 Total Protein 8.8 Albumin 3.9 Lipase 1025 Urine Color YELLOW Urine Turbidity HAZY Urine pH 6.0 Urine Specific [place] 1.036 Urine Protein TRACE Urine Glucose (UA) NEG Urine Ketones NEG Urine Occult Blood NEG Urine Nitrite NEG Urine Bilirubin NEG Urine Urobilinogen 2.0 Urine Leukocyte Esterase MOD Urine RBC 5 Urine WBC 3 Urine Squamous Epithelial 17 Cells Urine Bacteria RARE Urine Mucus FEW Microscopic Urinalysis Comment CULT NOT INDICATED Result Diagram: 07/05/17211907/05/172119 Assessment and Plan Problem List: (1) Pancreatitis ICD Code: K85.90 Status: Acute Assessment and Plan 46 y/o female with a history of pancreatitis presented to the ED with increased pain. Pancreatitis, Lipase 1025, recent pseudocyst drained Abdominal CT from 07/04 reviewed and shows persistent changes of pancreatitis and pseudocyst formation with surrounding inflammatory changes. -Consult GI for recommendations -IVF for hydration -Trend [place] -Pain management with IV Dilaudid Leukocytosis, wbc 12.8, likely reactive -Trend CBC DVT prophylaxis: SCDs This note was transcribed by jose [Lois Bishop]. I, Dr. Everette Guzman personally performed the history, physical exam, and medical decision making; and confirmed the accuracy of the information in the transcribed note. Authenticated by Dr. Everette Guzman on 07/06/17 at 03:13. Discussed Condition With Patient and ED physician Problem Qualifiers (1) Pancreatitis: Qualified Code: K86.1 - Other chronic pancreatitis Lois Bishop Jul 06, 2017 03:20 Everette Guzman MD Jul 06, 2017 09:34
[2017-07-06 03:30] VITALS: BP 151/88; PULSE 100; RESP 18; O2SAT 95
[2017-07-06] MEDS: HYDROmorphone HCL PF 1 MG/ML VIAL IV PUSH PRN ×5 (03:35→20:55)
[2017-07-06] MEDS ORDERED: TEMAZEPAM 15 MG CAP PO ONE (04:00)
[2017-07-06 07:05] LABS: AUTOMATED NEUTROPHIL # 5.3 TH/MM3 (1.8-7.7); BASOPHIL # 0.1 TH/MM3 (0-0.2); BASOPHIL % 0.9 % (0.0-2.0); EOSINOPHIL # 0.3 TH/MM3 (0-0.4); HEMATOCRIT 31.5 % (35.0-46.0); HEMO FLAGS DIFF FINAL; LYMPH % 24.5 % (9.0-44.0); LYMPHOCYTE # 2.1 TH/MM3 (1.0-4.8); MEAN CELL VOLUME 86.3 FL (80.0-100.0); MEAN CORPUSCULAR HEMOGLOBIN 27.5 PG (27.0-34.0); MEAN CORPUSCULAR HGB CONC 31.9 % (32.0-36.0); MONO % 9.7 % (0.0-8.0); NEUT % 60.9 % (16.0-70.0); PLATELET COUNT 275 TH/MM3 (150-450); RED BLOOD COUNT 3.65 MIL/MM3 (4.00-5.30); RED CELL DISTRIBUTION WIDTH 18.2 % (11.6-17.2); WHITE BLOOD COUNT 8.6 TH/MM3 (4.0-11.0)
[2017-07-06 07:19] LABS: ALKALINE PHOSPHATASE 107 U/L (45-117); ALT (GPT) 18 U/L (10-53); ANION GAP 8 MEQ/L (5-15); AST (GOT) 26 U/L (15-37); BICARBONATE 25.2 MEQ/L (21.0-32.0); BLOOD UREA NITROGEN 10 MG/DL (7-18); CHLORIDE 104 MEQ/L (98-107); GLOMERULAR FILTRATION RATE 208 ML/MIN (>89); SODIUM (NA) 137 MEQ/L (136-145); TOTAL BILIRUBIN ADULT 0.2 MG/DL (0.2-1.0)
[2017-07-06 07:26] VITALS: BP 160/93; PULSE 93; RESP 18; O2SAT 97
--- NOTE | 2017-07-06 08:02 | PD.CONS ---
HPI History of Present Illness This is a 46 year old female with a history of severe pancreatitis with pancreatic phlegmon. She was hospitalized in May for pancreatitis and was found to have a large multiloculated fluid collection that was not amenable to IR drainage. During this hospitalization, she was transferred to the ICU for sepsis and she underwent exploratory laparotomy with incision and drainage peripancreatic phlegmon with Dr. Ellis on 06/07/17. CT Scan abdomen and pelvis on 06/09/17 showed the left upper quadrant fluid collection/pseudocyst decreased in size from 10.0 x 3.6 cm to 6.3 x 2.1 cm. She was then discharged home on June 14 on Cipro. She reports that she was actually feeling better about a week after discharge, but started having more abdominal pain after a BROCK drain was pulled in the office. SHe then had more abdominal pain and returned to the hospital and was hospitalized from 06/23-06/27 for sepsis, pancreatitis, and C. difficile colitis. CT Scan abdomen and pelvis 06/23 noted the fluid collection to be 1 cm in width in the left upper quadrant and the a reduction in the cystic area in the tail of the pancreas to 1.8 cm. She was treated with Flagyl x 14 days. She reports that she was doing well, but started having more abdominal pain on 07/03. This is a severe epigastric pain that radiates to her left side, chest, and back. She describes this as an "intense" pain but is unable to further describe it. She reports that the pain meds will make it more bearable , but hte pain is still there and is constant. She has had associated nausea, for which she has been taking zofran. This helps with the nausea. She also reports a low grade fever for the past few days. She reports that her diarrhea resolved shortly after her last hospitalization. She has lost about 5-10 lbs since her symptoms began. She reports that she was eating well, but has not been able to eat for the past few days. She was then seen in the ER for worsening abdominal pain and nausea on 07/04. Her CT abdomen and pelvis with IV contrast (07/04/17)---> persistent changes of pancreatitis and pseudocyst formation extending from the pancreatic tail into the left upper quadrant with surrounding inflammatory change. This process is unchanged from prior exam. Splenomegaly with nonvisualization of the main splenic vein likely thrombosed. There are varices seen around the stomach and in the anterior mesentery. Hepatic steatosis. Mild cystic change seen at the left adnexa. This could be an ovarian follicle. 1.2 cm mass in the posterior medial right lower lobe. No other lung mass are seen in the CTA of the chest. This mass could be further evaluated with a PET CT studey to see if it is metabolically acitve or not. It would be difficult to percutaneously biopsy given it's location. She was discharged home with instructions to continue Flagyl as prescribed and bactrim/ zofran/lortab was added to her meds. She had no improvement in her symptoms and therefore returned yesterday. (Viacna Gomes) PFSH Past Medical History Severe pancreatitis Pancreatic pseudocyst Hx narcotic abuse/overdose Respiratory failure secondary to overdose Anxiety Past Surgical History Cholecystectomy Exploratory laparotomy with drainage of pancreatic phlegmon C section (Vianca Gomes) Coded Allergies: methadone (Unverified Allergy, Severe, 07/05/17) penicillin G (Unverified Allergy, Severe, Anaphylaxis, 07/05/17) *MDRO Multi-Drug Resistant Organism (Verified Adverse Reaction, Unknown, ) MRSA PCR Positive 06/06/17 Medications Allergies Coded Allergies Type Severity Reaction Last Updated Verified methadone Allergy Severe 07/05/17 No penicillin G Allergy Severe Anaphylaxis 07/05/17 No *MDRO Multi-Drug Resistant Organism Adverse Reaction Unknown 07/05/17 Yes Active Scripts Medications Dose Route/Sig Days Date Category Dose Instructions Zofran Odt (Ondansetron Odt) 4 Mg Tab 4 Mg SL Q8HR PRN 07/04/17 Rx May substitute non-ODT form. Lortab (Hydrocodone-Acetaminophen) 5-325 Mg Tab 1-2 Tab PO Q6H PRN 07/04/17 Rx Bactrim DS (Sulfamethoxazole-Trimethoprim) 800-160 Mg Tab 1 Tab PO BID 10 07/04/17 Rx Family History No h/o DM or CAD No esophageal, gastric, or colorectal cancer Sister recently diagnosed with brain and breast cancer, in her 60's Social History Tobacco use: 1PPD, trying to quit Alcohol use: Drank heavy for a few years, states now occasionally- has not had any since this last episode of pancreatitis Illicit drug use: Denies (Vianca Gomes RACHEL) Review of Systems Constitutional: COMPLAINS OF: Fatigue, Fever, Weight loss, Chills, Change in appetite Respiratory: COMPLAINS OF: Shortness of breath, DENIES: Cough Gastrointestinal: COMPLAINS OF: Abdominal pain, Nausea, DENIES: Black stools, Bloody stools, Constipation, Diarrhea, Vomiting, Swelling of Abdomen, Heartburn Musculoskeletal: COMPLAINS OF: Back pain Integumentary: DENIES: Abnormal pigmentation Neurologic: DENIES: Headache Psychiatric: DENIES: Confusion (Vianca Gomes RACHEL) GI Exam Vitals I&O Vital Signs Date Time Temp Pulse Resp B/P Pulse Ox O2 Delivery O2 Flow Rate FiO2 07/06/17 07:26 93 18 160/93 97 Room Air 07/06/17 03:30 100 18 151/88 95 Room Air 07/05/17 23:31 91 16 169/91 95 Room Air 07/05/17 22:16 101 163/96 07/05/17 21:54 98.3 103 18 162/102 97 Room Air 07/05/17 19:22 99.2 109 15 171/[address] abdomen and pelvis with IV contrast (07/04/17)---> persistent changes of pancreatitis and pseudocyst formation extending from the pancreatic tail into the left upper quadrant with surrounding inflammatory change. This process is unchanged from prior exam. Splenomegaly with nonvisualization of the main splenic vein likely thrombosed. There are varices seen around the stomach and in the anterior mesentery. Hepatic steatosis. Mild cystic change seen at the left adnexa. This could be an ovarian follicle. 1.2 cm mass in the posterior medial right lower lobe. No other lung mass are seen in the CTA of the chest. This mass could be further evaluated with a PET CT studey to see if it is metabolically acitve or not. Laboratory Test 07/05/17 07/05/17 07/06/17 21:20 22:10 06:01 White Blood Count 12.8 TH/MM3 8.6 TH/MM3 Red Blood Count 4.33 MIL/MM3 3.65 MIL/MM3 Hemoglobin 11.9 GM/DL 10.1 GM/DL Hematocrit 36.8 % 31.5 % Mean Corpuscular Volume 84.9 FL 86.3 FL Mean Corpuscular Hemoglobin 27.4 PG 27.5 PG Mean Corpuscular Hemoglobin 32.3 % 31.9 % Concent Red Cell Distribution Width 18.3 % 18.2 % Platelet Count 366 TH/MM3 275 TH/MM3 Mean Platelet Volume 7.2 FL 7.3 FL Neutrophils (%) (Auto) 68.8 % 60.9 % Lymphocytes (%) (Auto) 19.9 % 24.5 % Monocytes (%) (Auto) 7.6 % 9.7 % Eosinophils (%) (Auto) 2.9 % 4.0 % Basophils (%) (Auto) 0.8 % 0.9 % Neutrophils # (Auto) 8.8 TH/MM3 5.3 TH/MM3 Lymphocytes # (Auto) 2.5 TH/MM3 2.1 TH/MM3 Monocytes # (Auto) 1.0 TH/MM3 0.8 TH/MM3 Eosinophils # (Auto) 0.4 TH/MM3 0.3 TH/MM3 Basophils # (Auto) 0.1 TH/MM3 0.1 TH/MM3 CBC Comment DIFF FINAL DIFF FINAL Differential Comment Sodium Level 133 MEQ/L 137 MEQ/L Potassium Level 3.9 MEQ/L 4.0 MEQ/L Chloride Level 99 MEQ/L 104 MEQ/L Carbon Dioxide Level 29.1 MEQ/L 25.2 MEQ/L Anion Gap 5 MEQ/L 8 MEQ/L Blood Urea Nitrogen 15 MG/DL 10 MG/DL Creatinine 0.65 MG/DL 0.34 MG/DL Estimat Glomerular Filtration 99 ML/MIN 208 ML/MIN Rate Random Glucose 120 MG/DL 87 MG/DL Lactic Acid Level 1.3 mmol/L Calcium Level 9.6 MG/DL 8.6 MG/DL Total Bilirubin 0.2 MG/DL 0.2 MG/DL Aspartate Amino Transf 33 U/L 26 U/L (AST/SGOT) Alanine Aminotransferase 28 U/L 18 U/L (ALT/SGPT) Alkaline Phosphatase 151 U/L 107 U/L Total Protein 8.8 GM/DL 6.7 GM/DL Albumin 3.9 GM/DL 2.9 GM/DL Lipase 1025 U/L Urine Color YELLOW Urine Turbidity HAZY Urine pH 6.0 Urine Specific [place] 1.036 Urine Protein TRACE mg/dL Urine Glucose (UA) NEG mg/dL Urine Ketones NEG mg/dL Urine Occult Blood NEG Urine Nitrite NEG Urine Bilirubin NEG Urine Urobilinogen 2.0 MG/DL Urine Leukocyte Esterase MOD Urine RBC 5 /hpf Urine WBC 3 /hpf Urine Squamous Epithelial 17 /hpf Cells Urine Bacteria RARE /hpf Urine Mucus FEW /lpf Microscopic Urinalysis Comment CULT NOT INDICATED Physical Examination HEENT: Normocephalic; atraumatic; no jaundice. CHEST: CTA CARDIAC: RRR. ABDOMEN: Soft, mildly distended, diffuse tenderness; no hepatosplenomegaly; bowel sounds are present in all four quadrants. Healing midline incision line with one steristrip EXTREMITIES: No clubbing, cyanosis, or edema. SKIN: Normal; no rash; no jaundice. 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 (Vianca GomesP) Assessment and Plan Plan ASSESSMENT: - Chronic pancreatitis with pseudocyst. Pt has a hx of pancreatitis in the past , thought to be related to ETOH abuse. She was hospitalized in May with severe pancreatitis, sepsis, complicated by infected phlegmon. She underwent exploratory laparotomy with incision and drainage peripancreatic phlegmon with Dr. Ellis on 06/07/17. Afterwards, her CT Scan abdomen and pelvis on 06/09/17 showed the left upper quadrant fluid collection/pseudocyst decreased in size from 10.0 x 3.6 cm to 6.3 x 2.1 cm. She was then discharged home on June 14 on Cipro. She returned for worsening pain and was hospitalized from 06/23-06/27 for sepsis, pancreatitis, and C. difficile colitis. CT Scan abdomen and pelvis 06/23 noted the fluid collection to be 1 cm in width in the left upper quadrant and the a reduction in the cystic area in the tail of the pancreas to 1.8 cm. She was treated with Flagyl x 14 days. She was doing well until 07/03, when she had worsening abdominal pain/nausea/decreased appetite/low grade fevers on 07/03. CT abdomen and pelvis with IV contrast (07/04)---> persistent changes of pancreatitis and pseudocyst formation extending from the pancreatic tail into the left upper quadrant with surrounding inflammatory change. This process is unchanged from prior exam. Splenomegaly with nonvisualization of the main splenic vein likely thrombosed. There are varices seen around the stomach and in the anterior mesentery. Hepatic steatosis. Mild cystic change seen at the left adnexa. This could be an ovarian follicle. 1.2 cm mass in the posterior medial right lower lobe. No other lung mass are seen in the CTA of the chest. This mass could be further evaluated with a PET CT studey to see if it is metabolically acitve or not. It would be difficult to percutaneously biopsy given it's location. She was discharged home with bactrim, but states that her pain was not controlled with the pain meds and therefore she returned. Lipase 1025. IVF. PPI. NPO. - Anemia. 10.. - Recent C. difficile diarrhea. (1st episode). On Flagyl x 14 days. Diarrhea has subsided. - Lung mass posterior medial right lower lobe. Of note, she was noted to have abnormal thickening of the esophageal wall with surrounding soft tissue mass demonstrate some minimal enhancement possibly a malignant mass or malignant adenopathy with small lymph nodes in the cardiophrenic angle and very inhomogeneous liver with masses in the upper abdomen on CTA in May. There was a plan for EGD, but she became tachycardic and was transferred to the unit. S/P MRI during that visit. Per attending. PLAN: - NPO - IVF - PPI - Zofran prn - CBC, CMP, Lipase in am - Supportive care - Will see how she does with bowel rest. If she improves with this, we will consider possible G/J tube for post-pyloric feedings - Further recommendations to follow based on results of above - Pt seen and examined by Dr. Chaney and myself and this note is written on his behalf (Vianca Gomes) Physician Comments Patient seen and examined Agree with above Continue with current supportive care Monitor labs (Geoffrey Chaney MD) Vianca Gomes Jul 06, 2017 08:02 Geoffrey Chaney MD Jul 06, 2017 19:59
[2017-07-06] MEDS: SODIUM CHLORIDE 0.9% FLUSH 10 ML FLUSH IV FLUSH SCH ×2 (09:00→21:00)
[2017-07-06] MEDS: PANTOPRAZOLE SODIUM 40 MG VIAL IV PUSH SCH (09:55)
[2017-07-06 11:16] VITALS: BP 151/90; PULSE 90; RESP 18; O2SAT 98
[2017-07-06 14:45] VITALS: BP 143/78; PULSE 83; RESP 12; TEMP 98.1; O2SAT 97
[2017-07-06] MEDS: NICOTINE 14 MG/24 HR PATCH T-DERMAL SCH (16:09)
--- NOTE | 2017-07-06 16:49 | HHI.PR ---
Subjective Remarks Follow-up pancreatitis. Patient continues to have abdominal pain. Also reports feeling anxious. Objective Vitals Vital Signs Date Time Temp Pulse Resp B/P Pulse Ox O2 Delivery O2 Flow Rate FiO2 07/06/17 14:45 98.1 83 12 143/78 97 07/06/17 11:16 90 18 151/90 98 Room Air 07/06/17 09:50 18 07/06/17 07:26 93 18 160/93 97 Room Air 07/06/17 03:30 100 18 151/88 95 Room Air 07/05/17 23:31 91 16 169/91 95 Room Air 07/05/17 22:16 101 163/96 07/05/17 21:54 98.3 103 18 162/102 97 Room Air 07/05/17 19:22 99.2 109 15 171/94 96 Room Air Result Diagram: 07/06/17 0601 07/06/17 0601 Objective Remarks General: No acute distress. Heart: Regular rate and rhythm. No murmur. Lungs: Clear to auscultation bilaterally. No wheezes, rales, or rhonchi. Breathing is nonlabored. Abdomen: Soft, nontender, nondistended. Extremities: No lower extremity edema. Psych: Alert and oriented. Procedures None Urinary Catheter: No Vascular Central Line Catheter: No A/P Problem List: (1) Pancreatitis ICD Code: K85.90 Status: Acute Assessment and Plan 1. Pancreatitis: Lipase is elevated. Patient had recent drainage of pseudocyst. Appreciate GI recommendations. Continue IV fluids. Continue pain control. Nothing by mouth. 2. Leukocytosis: Likely reactive. Monitor labs. 3. DVT prophylaxis: SCDs. 4. Tobacco abuse: Counseled quit smoking. Nicotine patch. 5. Anxiety: Lorazepam as needed. Problem Qualifiers (1) Pancreatitis: Qualified Code: K86.1 - Other chronic pancreatitis Forest Dykes MD Jul 06, 2017 16:49
[2017-07-06] MEDS: ACETAMINOPHEN/HYDROcodone 325 MG/10 MG TAB PO PRN ×2 (18:20→22:19)
[2017-07-06 20:00] VITALS: BP 147/87; PULSE 87; RESP 18; TEMP 98.5; O2SAT 93
[2017-07-06] MEDS: ONDANSETRON HCL 4 MG/2 ML VIAL IVP PRN (22:15)
[2017-07-06] MEDS: LORazepam 0.5 MG TAB PO PRN (22:15)
[2017-07-07] VITALS (7 sets, daily range): BP systolic 110–138; BP diastolic 70–87; PULSE 83–99; RESP 18–20; TEMP 97.7–98.5; O2SAT 94–96
[2017-07-07] MEDS: HYDROmorphone HCL PF 1 MG/ML VIAL IV PUSH PRN ×6 (01:24→21:37)
[2017-07-07] MEDS: ACETAMINOPHEN/HYDROcodone 325 MG/10 MG TAB PO PRN ×5 (02:31→19:58)
[2017-07-07] MEDS: SODIUM CHLOR 0.9% 1000 ML INJ 1,000 ML IV SCH ×3 (06:43→21:43)
[2017-07-07] MEDS: REMOVE OLD PATCH T-DERMAL SCH (09:00)
[2017-07-07] MEDS: SODIUM CHLORIDE 0.9% FLUSH 10 ML FLUSH IV FLUSH SCH ×2 (09:00→21:38)
--- NOTE | 2017-07-07 09:25 | HHI.GIFU ---
Subjective Remarks Resting in bed in no distress. States pain is more controlled and she is feeling better today. Mild nausea, no vomiting. Labs have not been drawn yet. (Vianca Gomes) Objective Vitals I&O Vital Signs Date Time Temp Pulse Resp B/P Pulse Ox O2 Delivery O2 Flow Rate FiO2 07/07/17 08:33 97.7 92 19 115/71 95 07/07/17 04:00 98.0 83 18 110/78 95 07/07/17 00:00 98.0 89 18 138/87 95 07/06/17 20:00 98.5 87 18 147/87 93 07/06/17 14:45 98.1 83 12 143/78 97 07/06/17 11:16 90 18 151/90 98 Room Air 07/06/17 09:50 18 I/O 07/06/17 07/06/17 07/06/17 07/07/17 07/07/17 07/07/17 06:59 14:59 22:59 06:59 14:59 22:59 Intake Total 1070 ml Balance 1070 ml Intake IV Total 1070 ml # Voids 2 4 Physical Exam HEENT: Normocephalic; atraumatic; no jaundice. CHEST: CTA CARDIAC: RRR ABDOMEN: Soft, nondistended, mild epigastric tenderness; no hepatosplenomegaly ; bowel sounds are present in all four quadrants. EXTREMITIES: No clubbing, cyanosis, or edema. SKIN: Normal; no rash; no jaundice. SALES SUPPORT REP: No focal deficits; alert and oriented times three. (Vianca Gomes) Assessment and Plan Plan ASSESSMENT: - Chronic pancreatitis with pseudocyst. Pt has a hx of pancreatitis in the past , thought to be related to ETOH abuse. She was hospitalized in May with severe pancreatitis, sepsis, complicated by infected phlegmon. She underwent exploratory laparotomy with incision and drainage peripancreatic phlegmon with Dr. Ellis on 06/07/17. Afterwards, her CT Scan abdomen and pelvis on 06/09/17 showed the left upper quadrant fluid collection/pseudocyst decreased in size from 10.0 x 3.6 cm to 6.3 x 2.1 cm. She was then discharged home on June 14 on Cipro. She returned for worsening pain and was hospitalized from 06/23-06/27 for sepsis, pancreatitis, and C. difficile colitis. CT Scan abdomen and pelvis 06/23 noted the fluid collection to be 1 cm in width in the left upper quadrant and the a reduction in the cystic area in the tail of the pancreas to 1.8 cm. She was treated with Flagyl x 14 days. She was doing well until 07/03, when she had worsening abdominal pain/nausea/decreased appetite/low grade fevers on 07/03. CT abdomen and pelvis with IV contrast (07/04)---> persistent changes of pancreatitis and pseudocyst formation extending from the pancreatic tail into the left upper quadrant with surrounding inflammatory change. This process is unchanged from prior exam. Splenomegaly with nonvisualization of the main splenic vein likely thrombosed. There are varices seen around the stomach and in the anterior mesentery. Hepatic steatosis. Mild cystic change seen at the left adnexa. This could be an ovarian follicle. 1.2 cm mass in the posterior medial right lower lobe. No other lung mass are seen in the CTA of the chest. This mass could be further evaluated with a PET CT studey to see if it is metabolically acitve or not. It would be difficult to percutaneously biopsy given it's location. She was discharged home with bactrim, but states that her pain was not controlled with the pain meds and therefore she returned. Lipase 1025 yesterday, today's labs have not been drawn yet. IVF. PPI. NPO. If improves with bowel rest, plan is for G/J tube placement - Anemia. No signs of blood loss - Recent C. difficile diarrhea. (1st episode). On Flagyl x 14 days (started on 06/26---> 07/10. Diarrhea has subsided. - Lung mass posterior medial right lower lobe. Of note, she was noted to have abnormal thickening of the esophageal wall with surrounding soft tissue mass demonstrate some minimal enhancement possibly a malignant mass or malignant adenopathy with small lymph nodes in the cardiophrenic angle and very inhomogeneous liver with masses in the upper abdomen on CTA in May. There was a plan for EGD, but she became tachycardic and was transferred to the unit. S/P MRI during that visit. Per attending. PLAN: - NPO - IVF - PPI - Zofran prn - Add Flagyl 500mg po q8h ----> 07/10 to complete 14 days for recent cdiff. - Await today's labs, not drawn yet - CBC, BMP, Lipase in am - Supportive care - Will see how she does with bowel rest. If she improves with this, we will consider possible G/J tube for post-pyloric feedings - Further recommendations to follow based on results of above - Pt seen and examined by Dr. Chaney and myself and this note is written on his behalf (Vianca Gomes) Physician Comments Patient seen and examined agree with above Continue with current supportive care Monitor labs (Geoffrey Chaney MD) Vianca Gomes Jul 07, 2017 09:25 Geoffrey Chaney MD Jul 07, 2017 22:21
--- NOTE | 2017-07-07 09:41 | HHI.PR ---
Subjective Remarks Follow up pancreatitis. Patient states that she is feeling better today. Denies dyspnea, chest pain. Still having abdominal pain, but less today. No diarrhea. Objective Vitals Vital Signs Date Time Temp Pulse Resp B/P Pulse Ox O2 Delivery O2 Flow Rate FiO2 07/07/17 08:33 97.7 92 19 115/71 95 07/07/17 04:00 98.0 83 18 110/78 95 07/07/17 00:00 98.0 89 18 138/87 95 07/06/17 20:00 98.5 87 18 147/87 93 07/06/17 14:45 98.1 83 12 143/78 97 07/06/17 11:16 90 18 151/90 98 Room Air 07/06/17 09:50 18 I/O 07/06/17 07/06/17 07/06/17 07/07/17 07/07/17 07/07/17 07:00 15:00 23:00 07:00 15:00 23:00 Intake Total 1070 ml Balance 1070 ml Intake IV Total 1070 ml # Voids 2 4 Result Diagram: 07/06/17 0601 07/06/17 06 Objective Remarks General: No acute distress. Heart: Regular rate and rhythm. No murmur. Lungs: Clear to auscultation bilaterally. No wheezes, rales, or rhonchi. Breathing is nonlabored. Abdomen: Soft, tender to palpation in the midepigastric region, nondistended. Extremities: No lower extremity edema. Psych: Alert and oriented. Procedures None Urinary Catheter: No Vascular Central Line Catheter: No A/P Problem List: (1) Pancreatitis ICD Code: K85.90 Status: Acute Assessment and Plan 1. Pancreatitis: Lipase is elevated. Patient had recent drainage of pseudocyst. Appreciate GI recommendations. Continue IV fluids. Continue pain control. Nothing by mouth. Labs are pending today. 2. Leukocytosis: Likely reactive. Labs are pending today. Continue Flagyl per GI. 3. DVT prophylaxis: SCDs. 4. Tobacco abuse: Counseled quit smoking. Nicotine patch. 5. Anxiety: Lorazepam as needed. Discussed with Vianca RAMOS, gastroenterology. Problem Qualifiers (1) Pancreatitis: Qualified Code: K86.1 - Other chronic pancreatitis Forest Dykes MD Jul 07, 2017 09:41
[2017-07-07] MEDS: NICOTINE 14 MG/24 HR PATCH T-DERMAL SCH (09:47)
[2017-07-07] MEDS: PANTOPRAZOLE SODIUM 40 MG VIAL IV PUSH SCH (09:49)
[2017-07-07] MEDS ORDERED: PNEUMOCOCCAL POLYVALENT INJ 25 MCG/0.5 ML SYR IM ONE (10:00)
[2017-07-07 12:43] LABS: ALT (GPT) 14 U/L (10-53); ANION GAP 10 MEQ/L (5-15); AST (GOT) 19 U/L (15-37); BICARBONATE 25.8 MEQ/L (21.0-32.0); BLOOD UREA NITROGEN 5 MG/DL (7-18); CHLORIDE 102 MEQ/L (98-107); GLOMERULAR FILTRATION RATE 284 ML/MIN (>89); POTASSIUM 3.8 MEQ/L (3.5-5.1); SODIUM (NA) 138 MEQ/L (136-145)
[2017-07-07 12:46] LABS: ALKALINE PHOSPHATASE 100 U/L (45-117); TOTAL BILIRUBIN ADULT 0.2 MG/DL (0.2-1.0)
[2017-07-07] MEDS: metroNIDAZOLE 500 MG TAB PO SCH ×2 (13:53→21:38)
[2017-07-07 14:05] LABS: AUTOMATED NEUTROPHIL # 4.5 TH/MM3 (1.8-7.7); BASOPHIL # 0.1 TH/MM3 (0-0.2); BASOPHIL % 1.9 % (0.0-2.0); EOSINOPHIL # 0.2 TH/MM3 (0-0.4); EOSINOPHIL % 2.7 % (0.0-4.0); HEMATOCRIT 30.5 % (35.0-46.0); HEMO FLAGS DIFF FINAL; LYMPH % 22.4 % (9.0-44.0); LYMPHOCYTE # 1.5 TH/MM3 (1.0-4.8); MEAN CELL VOLUME 85.3 FL (80.0-100.0); MEAN CORPUSCULAR HEMOGLOBIN 27.2 PG (27.0-34.0); MEAN CORPUSCULAR HGB CONC 31.9 % (32.0-36.0); PLATELET COUNT 246 TH/MM3 (150-450); RED BLOOD COUNT 3.57 MIL/MM3 (4.00-5.30); WHITE BLOOD COUNT 6.7 TH/MM3 (4.0-11.0)
[2017-07-07] MEDS: LORazepam 0.5 MG TAB PO PRN (18:44)
[2017-07-08] VITALS (8 sets, daily range): BP systolic 123–138; BP diastolic 70–89; PULSE 81–98; RESP 18–20; TEMP 97.8–99.1; O2SAT 95–98
[2017-07-08] MEDS: ACETAMINOPHEN/HYDROcodone 325 MG/10 MG TAB PO PRN ×6 (00:04→20:41)
[2017-07-08] MEDS: HYDROmorphone HCL PF 1 MG/ML VIAL IV PUSH PRN ×6 (01:54→22:33)
[2017-07-08] MEDS: metroNIDAZOLE 500 MG TAB PO SCH ×3 (05:57→20:42)
[2017-07-08] MEDS: SODIUM CHLOR 0.9% 1000 ML INJ 1,000 ML IV SCH (05:58)
[2017-07-08] MEDS: PANTOPRAZOLE SODIUM 40 MG VIAL IV PUSH SCH (08:38)
[2017-07-08] MEDS: ONDANSETRON HCL 4 MG/2 ML VIAL IVP PRN (08:38)
[2017-07-08] MEDS: REMOVE OLD PATCH T-DERMAL SCH (08:39)
[2017-07-08] MEDS: NICOTINE 14 MG/24 HR PATCH T-DERMAL SCH (08:39)
[2017-07-08] MEDS: SODIUM CHLORIDE 0.9% FLUSH 10 ML FLUSH IV FLUSH SCH ×2 (08:51→21:00)
[2017-07-08 08:57] LABS: AUTOMATED NEUTROPHIL # 4.2 TH/MM3 (1.8-7.7); BASOPHIL # 0.1 TH/MM3 (0-0.2); BASOPHIL % 1.3 % (0.0-2.0); EOSINOPHIL # 0.1 TH/MM3 (0-0.4); EOSINOPHIL % 1.2 % (0.0-4.0); HEMATOCRIT 28.2 % (35.0-46.0); HEMO FLAGS DIFF FINAL; LYMPH % 20.7 % (9.0-44.0); LYMPHOCYTE # 1.2 TH/MM3 (1.0-4.8); MEAN CELL VOLUME 86.3 FL (80.0-100.0); MEAN CORPUSCULAR HGB CONC 32.4 % (32.0-36.0); MONO % 6.3 % (0.0-8.0); NEUT % 70.5 % (16.0-70.0); PLATELET COUNT 244 TH/MM3 (150-450); RED BLOOD COUNT 3.27 MIL/MM3 (4.00-5.30); RED CELL DISTRIBUTION WIDTH 17.5 % (11.6-17.2)
[2017-07-08 09:16] LABS: BICARBONATE 17.3 MEQ/L (21.0-32.0); POTASSIUM 3.8 MEQ/L (3.5-5.1)
--- NOTE | 2017-07-08 11:32 | HHI.PR ---
Subjective Remarks No acute events overnight. Afebrile, vital signs stable. Patient continues to complain of periumbilical and left sided abdominal pain. States her back pain has improved. Endorses nausea without emesis, relieved with Zofran. Objective Vitals Vital Signs Date Time Temp Pulse Resp B/P Pulse Ox O2 Delivery O2 Flow Rate FiO2 07/08/17 08:35 98.0 88 20 123/80 96 07/08/17 08:00 85 07/08/17 04:00 99.1 98 18 131/89 95 07/08/17 00:00 98.5 81 20 138/85 98 07/07/17 22:57 89 07/07/17 20:00 98.0 88 20 116/77 95 07/07/17 16:26 98.5 99 19 126/71 96 07/07/17 12:07 98.0 88 19 131/70 94 I/O 07/07/17 07/07/17 07/07/17 07/08/17 07/08/17 07/08/17 07:00 15:00 23:00 07:00 15:00 23:00 Intake Total 1070 ml 893 ml Output Total 4 ml Balance 1070 ml 889 ml Intake IV Total 1070 ml 893 ml Output Urine Total 4 ml # Voids 4 Result Diagram: 07/08/1782407/08/17824 Objective Remarks Gen.: No acute distress Head: Normocephalic. Atraumatic. EENT: Pupils equal round and reactive to light. Nose without drainage. Airway intact. Throat without injection. Cardiovascular: Regular rate and rhythm. No murmurs, rubs or gallops. Respiratory: Lungs clear to auscultation bilaterally. No wheezes or rhonchi. Abdomen: Soft, extremely tender to palpation, worse in the periumbilical region. Normal bowel sounds. Musculoskeletal: No gross deformities. No edema. Skin: No obvious rashes or erythema. Neuro: Sensory and motor grossly intact. Cranial nerves II through XII grossly intact. Psych: Appropriate mood and affect Procedures None A/P Problem List: (1) Pancreatitis ICD Code: K85.90 Status: Acute Assessment and Plan 1. Pancreatitis: Lipase is elevated, improving. Patient had recent drainage of pseudocyst. Appreciate GI recommendations. Continue IV fluids. Continue pain control. Nothing by mouth. Post-pyloric feeds per GI. 2. Leukocytosis: Improved. Likely reactive. Continue Flagyl per GI. 3. DVT prophylaxis: SCDs. 4. Tobacco abuse: Counseled quit smoking. Nicotine patch. 5. Anxiety: Lorazepam as needed. Discharge Planning Pending clinical improvement and tolerating feeds. Problem Qualifiers (1) Pancreatitis: Qualified Code: K86.1 - Other chronic pancreatitis Claudia Solano MD R3 Jul 08, 2017 11:32
--- NOTE | 2017-07-08 12:51 | HHI.GIFU ---
Subjective Remarks Still having abdominal pain but no nausea or vomiting now, requesting to try liquids. Objective Vitals I&O Vital Signs Date Time Temp Pulse Resp B/P Pulse Ox O2 Delivery O2 Flow Rate FiO2 07/08/17 12:15 97.8 87 20 133/70 95 07/08/17 08:35 98.0 88 20 123/80 96 07/08/17 08:00 85 07/08/17 04:00 99.1 98 18 131/89 95 07/08/17 00:00 98.5 81 20 138/85 98 07/07/17 22:57 89 07/07/17 20:00 98.0 88 20 116/77 95 07/07/17 16:26 98.5 99 19 126/71 96 I/O 07/07/17 07/07/17 07/07/17 07/08/17 07/08/17 07/08/17 07:00 15:00 23:00 07:00 15:00 23:00 Intake Total 1070 ml 893 ml Output Total 4 ml Balance 1070 ml 889 ml Intake IV Total 1070 ml 893 ml Output Urine Total 4 ml # Voids 4 Laboratory Laboratory Tests Test 07/08/17 08:25 White Blood Count 6.0 Red Blood Count 3.27 Hemoglobin 9.2 Hematocrit 28.2 Mean Corpuscular Volume 86.3 Mean Corpuscular Hemoglobin 28.0 Mean Corpuscular Hemoglobin 32.4 Concent Red Cell Distribution Width 17.5 Platelet Count 244 Mean Platelet Volume 7.3 Neutrophils (%) (Auto) 70.5 Lymphocytes (%) (Auto) 20.7 Monocytes (%) (Auto) 6.3 Eosinophils (%) (Auto) 1.2 Basophils (%) (Auto) 1.3 Neutrophils # (Auto) 4.2 Lymphocytes # (Auto) 1.2 Monocytes # (Auto) 0.4 Eosinophils # (Auto) 0.1 Basophils # (Auto) 0.1 CBC Comment DIFF FINAL Differential Comment Sodium Level 136 Potassium Level 3.8 Chloride Level 106 Carbon Dioxide Level 17.3 Anion Gap 13 Blood Urea Nitrogen 4 Creatinine 0.18 Estimat Glomerular Filtration 434 Rate Random Glucose 52 Calcium Level 7.7 Lipase 504 Physical Exam HEENT: Normocephalic; atraumatic; no jaundice. CHEST: CTA CARDIAC: RRR ABDOMEN: Soft, nondistended, mild epigastric tenderness; no hepatosplenomegaly ; bowel sounds are present in all four quadrants. EXTREMITIES: No clubbing, cyanosis, or edema. SKIN: Normal; no rash; no jaundice. 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 Assessment and Plan Plan ASSESSMENT: - Chronic pancreatitis with pseudocyst. Pt has a hx of pancreatitis in the past , thought to be related to ETOH abuse. She was hospitalized in May with severe pancreatitis, sepsis, complicated by infected phlegmon. She underwent exploratory laparotomy with incision and drainage peripancreatic phlegmon with Dr. Ellis on 06/07/17. Afterwards, her CT Scan abdomen and pelvis on 06/09/17 showed the left upper quadrant fluid collection/pseudocyst decreased in size from 10.0 x 3.6 cm to 6.3 x 2.1 cm. She was then discharged home on June 14 on Cipro. She returned for worsening pain and was hospitalized from 06/23-06/27 for sepsis, pancreatitis, and C. difficile colitis. CT Scan abdomen and pelvis 06/23 noted the fluid collection to be 1 cm in width in the left upper quadrant and the a reduction in the cystic area in the tail of the pancreas to 1.8 cm. She was treated with Flagyl x 14 days. She was doing well until 07/03, when she had worsening abdominal pain/nausea/decreased appetite/low grade fevers on 07/03. CT abdomen and pelvis with IV contrast (07/04)---> persistent changes of pancreatitis and pseudocyst formation extending from the pancreatic tail into the left upper quadrant with surrounding inflammatory change. This process is unchanged from prior exam. Splenomegaly with nonvisualization of the main splenic vein likely thrombosed. There are varices seen around the stomach and in the anterior mesentery. Hepatic steatosis. Mild cystic change seen at the left adnexa. This could be an ovarian follicle. 1.2 cm mass in the posterior medial right lower lobe. No other lung mass are seen in the CTA of the chest. This mass could be further evaluated with a PET CT studey to see if it is metabolically acitve or not. It would be difficult to percutaneously biopsy given it's location. She was discharged home with bactrim, but states that her pain was not controlled with the pain meds and therefore she returned. Lipase 1025 yesterday, today's labs have not been drawn yet. IVF. PPI. NPO. If improves with bowel rest, plan is for G/J tube placement - Anemia. No signs of blood loss - Recent C. difficile diarrhea. (1st episode). On Flagyl x 14 days (started on 06/26---> 07/10. Diarrhea has subsided. - Lung mass posterior medial right lower lobe. Of note, she was noted to have abnormal thickening of the esophageal wall with surrounding soft tissue mass demonstrate some minimal enhancement possibly a malignant mass or malignant adenopathy with small lymph nodes in the cardiophrenic angle and very inhomogeneous liver with masses in the upper abdomen on CTA in May. There was a plan for EGD, but she became tachycardic and was transferred to the unit. S/P MRI during that visit. Per attending. PLAN: - Clear liquid diet - IVF - PPI - Zofran prn - Add Flagyl 500mg po q8h ----> 07/10 to complete 14 days for recent cdiff. - CBC, BMP, Lipase in am - Supportive care - Will consider possible G/J tube for post-pyloric feedings if clears not tolerated. - Further recommendations to follow based on results of above Suni Duke MD Jul 08, 2017 12:51
[2017-07-08] MEDS: LORazepam 0.5 MG TAB PO PRN (15:26)
[2017-07-08] MEDS: SODIUM CHLORIDE 0.9% FLUSH 10 ML FLUSH IV FLUSH PRN (22:34)
[2017-07-09] VITALS (7 sets, daily range): BP systolic 126–147; BP diastolic 73–89; PULSE 82–96; RESP 16–20; TEMP 97.6–98.8; O2SAT 95–97
[2017-07-09] MEDS: ACETAMINOPHEN/HYDROcodone 325 MG/10 MG TAB PO PRN ×6 (00:36→20:14)
[2017-07-09] MEDS: SODIUM CHLOR 0.9% 1000 ML INJ 1,000 ML IV SCH ×4 (00:37→20:22)
[2017-07-09] MEDS: LORazepam 0.5 MG TAB PO PRN ×2 (00:42→20:14)
[2017-07-09] MEDS: HYDROmorphone HCL PF 1 MG/ML VIAL IV PUSH PRN ×6 (02:45→22:42)
[2017-07-09] MEDS: SODIUM CHLORIDE 0.9% FLUSH 10 ML FLUSH IV FLUSH PRN ×3 (02:45→22:43)
[2017-07-09] MEDS: metroNIDAZOLE 500 MG TAB PO SCH ×3 (04:37→20:14)
[2017-07-09 04:38] LABS: AUTOMATED NEUTROPHIL # 2.9 TH/MM3 (1.8-7.7); BASOPHIL # 0.1 TH/MM3 (0-0.2); BASOPHIL % 2.3 % (0.0-2.0); EOSINOPHIL # 0.1 TH/MM3 (0-0.4); EOSINOPHIL % 2.9 % (0.0-4.0); HEMO FLAGS DIFF FINAL; LYMPH % 24.9 % (9.0-44.0); LYMPHOCYTE # 1.2 TH/MM3 (1.0-4.8); MEAN CELL VOLUME 84.7 FL (80.0-100.0); MEAN CORPUSCULAR HEMOGLOBIN 27.9 PG (27.0-34.0); MEAN CORPUSCULAR HGB CONC 32.9 % (32.0-36.0); MONO % 8.5 % (0.0-8.0); NEUT % 61.4 % (16.0-70.0); PLATELET COUNT 228 TH/MM3 (150-450); RED BLOOD COUNT 2.95 MIL/MM3 (4.00-5.30); RED CELL DISTRIBUTION WIDTH 17.9 % (11.6-17.2); WHITE BLOOD COUNT 4.8 TH/MM3 (4.0-11.0)
[2017-07-09 04:51] LABS: BICARBONATE 24.7 MEQ/L (21.0-32.0); POTASSIUM 3.1 MEQ/L (3.5-5.1)
[2017-07-09] MEDS: SODIUM CHLORIDE 0.9% FLUSH 10 ML FLUSH IV FLUSH SCH ×2 (08:33→21:00)
[2017-07-09] MEDS: NICOTINE 14 MG/24 HR PATCH T-DERMAL SCH (08:33)
[2017-07-09] MEDS: REMOVE OLD PATCH T-DERMAL SCH (08:33)
[2017-07-09] MEDS: PANTOPRAZOLE SODIUM 40 MG VIAL IV PUSH SCH (08:33)
[2017-07-09] MEDS ORDERED: POTASSIUM CHLORIDE 20 MEQ CONTROLLED RELEASE TAB PO ONE ×2 (12:15→14:45)
--- NOTE | 2017-07-09 13:16 | HHI.PR ---
Subjective Remarks No acute events overnight. Afebrile, vital signs stable. Patient continues to complain of abdominal pain, worse than yesterday. Denies back pain. Is tolerating clear liquid diet. Requests yogurt. Objective Vitals Vital Signs Date Time Temp Pulse Resp B/P (MAP) Pulse Ox O2 Delivery O2 Flow Rate FiO2 07/09/17 07:54 98.2 82 20 126/85 (99) 96 07/09/17 04:30 98.1 95 16 145/80 (101) 96 07/09/17 00:30 97.6 88 17 128/73 (91) 97 07/08/17 20:00 98.6 92 18 130/75 (93) 95 07/08/17 18:00 93 07/08/17 17:13 97.9 82 20 133/85 (101) 98 I/O 07/08/17 07/08/17 07/08/17 07/09/17 07/09/17 07/09/17 07:00 15:00 23:00 07:00 15:00 23:00 Intake Total 893 ml 819 ml 220 ml 240 ml Output Total 4 ml 320 ml Balance 889 ml 819 ml -100 ml 240 ml Intake Oral 220 ml 240 ml IV Total 893 ml 819 ml Output Urine Total 4 ml 320 ml # Voids 2 # Bowel Movements 0 Result Diagram: 07/09/17 03407/09/17 0341 Objective Remarks Gen.: No acute distress Head: Normocephalic. Atraumatic. EENT: Pupils equal round and reactive to light. Nose without drainage. Airway intact. Throat without injection. Cardiovascular: Regular rate and rhythm. No murmurs, rubs or gallops. Respiratory: Lungs clear to auscultation bilaterally. No wheezes or rhonchi. Abdomen: Soft, extremely tender to palpation, worse in the periumbilical region. Normal bowel sounds. Musculoskeletal: No gross deformities. No edema. Skin: No obvious rashes or erythema. Neuro: Sensory and motor grossly intact. Cranial nerves II through XII grossly intact. Psych: Appropriate mood and affect Procedures None A/P Problem List: (1) Pancreatitis ICD Code: K85.90 - Acute pancreatitis without necrosis or infection, unspecified Status: Acute Assessment and Plan 1. Pancreatitis: Lipase is elevated him yesterday with the addition of clear liquid diet. Patient had recent drainage of pseudocyst. Appreciate GI recommendations. Continue IV fluids. Continue pain control. Feeds per GI. 2. Leukocytosis: Improved. Likely reactive. Continue Flagyl per GI to complete 2 weeks for recent history of C. difficile. 3. DVT prophylaxis: SCDs. 4. Tobacco abuse: Counseled quit smoking. Nicotine patch. 5. Anxiety: Lorazepam as needed. Discharge Planning Pending clinical improvement and tolerating feeds. Problem Qualifiers (1) Pancreatitis: Claudia Solano MD R3 Jul 09, 2017 13:16
[2017-07-09] MEDS: ONDANSETRON HCL 4 MG/2 ML VIAL IVP PRN (18:27)
[2017-07-10] VITALS (8 sets, daily range): BP systolic 108–136; BP diastolic 73–81; PULSE 84–93; RESP 18; TEMP 98.1–98.9; O2SAT 94–97
[2017-07-10] MEDS: ACETAMINOPHEN/HYDROcodone 325 MG/10 MG TAB PO PRN ×6 (00:56→20:39)
[2017-07-10] MEDS: SODIUM CHLORIDE 0.9% FLUSH 10 ML FLUSH IV FLUSH PRN ×2 (02:30→06:38)
[2017-07-10] MEDS: HYDROmorphone HCL PF 1 MG/ML VIAL IV PUSH PRN ×5 (02:30→20:40)
[2017-07-10] MEDS: metroNIDAZOLE 500 MG TAB PO SCH ×2 (05:30→13:15)
[2017-07-10] MEDS: LORazepam 0.5 MG TAB PO PRN ×3 (05:31→23:59)
[2017-07-10] MEDS: SODIUM CHLOR 0.9% 1000 ML INJ 1,000 ML IV SCH (05:40)
[2017-07-10] MEDS: REMOVE OLD PATCH T-DERMAL SCH (07:55)
[2017-07-10] MEDS: NICOTINE 14 MG/24 HR PATCH T-DERMAL SCH (07:55)
[2017-07-10] MEDS: SODIUM CHLORIDE 0.9% FLUSH 10 ML FLUSH IV FLUSH SCH (07:56)
[2017-07-10] MEDS: PANTOPRAZOLE SODIUM 40 MG VIAL IV PUSH SCH (07:56)
[2017-07-10 08:59] LABS: BICARBONATE 27.3 MEQ/L (21.0-32.0); POTASSIUM 3.2 MEQ/L (3.5-5.1)
[2017-07-10 09:12] LABS: AUTOMATED NEUTROPHIL # 2.6 TH/MM3 (1.8-7.7); BASOPHIL # 0.1 TH/MM3 (0-0.2); BASOPHIL % 1.3 % (0.0-2.0); EOSINOPHIL # 0.1 TH/MM3 (0-0.4); EOSINOPHIL % 2.3 % (0.0-4.0); HEMATOCRIT 25.4 % (35.0-46.0); HEMO FLAGS DIFF FINAL; MEAN CELL VOLUME 84.8 FL (80.0-100.0); MEAN CORPUSCULAR HEMOGLOBIN 27.2 PG (27.0-34.0); MEAN CORPUSCULAR HGB CONC 32.1 % (32.0-36.0); MONO % 7.6 % (0.0-8.0); NEUT % 63.8 % (16.0-70.0); PLATELET COUNT 256 TH/MM3 (150-450); RED CELL DISTRIBUTION WIDTH 18.3 % (11.6-17.2)
--- NOTE | 2017-07-10 11:00 | HHI.PR ---
Subjective Remarks slight nausea + flatus, no diarrhea still with epigastric discomfort "slight" Objective Vitals Vital Signs Date Time Temp Pulse Resp B/P (MAP) Pulse Ox O2 Delivery O2 Flow Rate FiO2 07/10/17 08:28 84 07/10/17 08:18 98.3 88 18 108/75 (86) 94 07/10/17 04:30 98.3 93 18 136/81 (99) 97 07/10/17 00:36 98.3 84 18 131/73 (92) 97 07/09/17 20:00 98.8 86 20 141/89 (106) 96 07/09/17 18:00 95 07/09/17 16:12 98.4 94 20 143/83 (103) 95 07/09/17 11:30 98.4 96 20 147/ 95 I/O 07/09/17 07/09/17 07/09/17 07/10/17 07/10/17 07/10/17 07:00 15:00 23:00 07:00 15:00 23:00 Intake Total 240 ml 720 ml 360 ml Balance 240 ml 720 ml 360 ml Intake Oral 240 ml 720 ml 360 ml # Voids 2 4 4 # Bowel Movements 0 Result Diagram: 07/10/1772507/10/17725 Objective Remarks awake and alert, NAD anicteric lungs clear regular rhythm abdomen- slightly distended, soft, few bowel sounds extremities no edema Procedures None A/P Problem List: (1) Pancreatitis ICD Code: K85.90 - Acute pancreatitis without necrosis or infection, unspecified Status: Acute Assessment and Plan 46 years old female 1.Acute Pancreatitis: LIpase down. tolerating clears. Patient had recent drainage of pseudocyst. Appreciate GI recommendations. Continue IV fluids. Continue pain control. Feeds per GI. continue to monitor GI ff closely along with us- ? considering GJ tube placement- if lipase not improving 2. Leukocytosis: Improved. Likely reactive. Continue Flagyl per GI to complete 2 weeks for recent history of C. difficile. No reported diarrhea 3. HYpokalemia- replace IV and po 4. Tobacco abuse: Counseled quit smoking. Nicotine patch. 5. Anxiety: Lorazepam as needed. UP and ambulating Problem Qualifiers (1) Pancreatitis: Pato Noble MD Jul 10, 2017 11:00
[2017-07-10] MEDS: NS + KCL 20 MEQ INJ 1,000 ML IV SCH (12:15)
[2017-07-10] MEDS: POTASSIUM CHLOR 10 MEQ PREMIX 100 ML IV SCH ×3 (14:17→18:46)
--- NOTE | 2017-07-10 17:47 | HHI.GIFU ---
Subjective Remarks Pt resting in bed. Tolerated clears but became nauseous today after adv to full , had oj and ice cream and vomited blood and clots. Admits frequent NSAID use in past month. No prior hx GIB. Admits black stool this morning. (Mary Lou Higgins) Objective Vitals I&O Vital Signs Date Time Temp Pulse Resp B/P (MAP) Pulse Ox O2 Delivery O2 Flow Rate FiO2 07/10/17 16:07 98.7 87 18 130/79 (96) 96 07/10/17 12:19 98.9 86 18 128/73 (91) 97 07/10/17 08:28 84 07/10/17 08:18 98.3 88 18 108/75 (86) 94 07/10/17 04:30 98.3 93 18 136/81 (99) 97 07/10/17 00:36 98.3 84 18 131/73 (92) 97 07/09/17 20:00 98.8 86 20 141/89 (106) 96 07/09/17 18:00 95 I/O 07/09/17 07/09/17 07/09/17 07/10/17 07/10/17 07/10/17 07:00 15:00 23:00 07:00 15:00 23:00 Intake Total 240 ml 720 ml 360 ml 1020 ml Balance 240 ml 720 ml 360 ml 1020 ml Intake Oral 240 ml 720 ml 360 ml 240 ml IV Total 780 ml # Voids 2 4 4 4 # Bowel Movements 0 Laboratory Laboratory Tests Test 07/10/17 07:26 White Blood Count 4.0 Red Blood Count 3.00 Hemoglobin 8.1 Hematocrit 25.4 Mean Corpuscular Volume 84.8 Mean Corpuscular Hemoglobin 27.2 Mean Corpuscular Hemoglobin Concent 32.1 Red Cell Distribution Width 18.3 Platelet Count 256 Mean Platelet Volume 6.9 Neutrophils (%) (Auto) 63.8 Lymphocytes (%) (Auto) 25.0 Monocytes (%) (Auto) 7.6 Eosinophils (%) (Auto) 2.3 Basophils (%) (Auto) 1.3 Neutrophils # (Auto) 2.6 Lymphocytes # (Auto) 1.0 Monocytes # (Auto) 0.3 Eosinophils # (Auto) 0.1 Basophils # (Auto) 0.1 CBC Comment DIFF FINAL Differential Comment Blood Urea Nitrogen 2 Creatinine 0.19 Random Glucose 100 Calcium Level 8.2 Sodium Level 140 Potassium Level 3.2 Chloride Level 106 Carbon Dioxide Level 27.3 Anion Gap 7 Estimat Glomerular Filtration Rate 408 Lipase 224 Physical Exam HEENT: Normocephalic; atraumatic; no jaundice. CHEST: CTA CARDIAC: RRR ABDOMEN: Soft, nondistended, upper abd TTP; no hepatosplenomegaly; bowel sounds are present in all four quadrants. EXTREMITIES: No clubbing, cyanosis, or edema. SKIN: Normal; no rash; no jaundice. 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 (Mary Lou Higgins) Assessment and Plan Plan ASSESSMENT: - Chronic pancreatitis with pseudocyst. Pt has a hx of pancreatitis in the past , thought to be related to ETOH abuse. She was hospitalized in May with severe pancreatitis, sepsis, complicated by infected phlegmon. She underwent exploratory laparotomy with incision and drainage peripancreatic phlegmon with Dr. Ellis on 06/07/17. Afterwards, her CT Scan abdomen and pelvis on 06/09/17 showed the left upper quadrant fluid collection/pseudocyst decreased in size from 10.0 x 3.6 cm to 6.3 x 2.1 cm. She was then discharged home on June 14 on Cipro. She returned for worsening pain and was hospitalized from 06/23-06/27 for sepsis, pancreatitis, and C. difficile colitis. CT Scan abdomen and pelvis 06/23 noted the fluid collection to be 1 cm in width in the left upper quadrant and the a reduction in the cystic area in the tail of the pancreas to 1.8 cm. She was treated with Flagyl x 14 days. She was doing well until 07/03, when she had worsening abdominal pain/nausea/decreased appetite/low grade fevers on 07/03. CT abdomen and pelvis with IV contrast (07/04)---> persistent changes of pancreatitis and pseudocyst formation extending from the pancreatic tail into the left upper quadrant with surrounding inflammatory change. This process is unchanged from prior exam. Splenomegaly with nonvisualization of the main splenic vein likely thrombosed. There are varices seen around the stomach and in the anterior mesentery. Hepatic steatosis. Mild cystic change seen at the left adnexa. This could be an ovarian follicle. 1.2 cm mass in the posterior medial right lower lobe. No other lung mass are seen in the CTA of the chest. This mass could be further evaluated with a PET CT studey to see if it is metabolically acitve or not. It would be difficult to percutaneously biopsy given it's location. She was discharged home with bactrim, but states that her pain was not controlled with the pain meds and therefore she returned. IVF. PPI. lipase now 224 - hematemeis, black stool - vomited clots, blood today after advancing to full liquids - Anemia. Hgb gradually decreasing from admission, poss 2/2 above. admits recent frequen NSAID use. - Recent C. difficile diarrhea. (1st episode). On Flagyl x 14 days (started on 06/26---> 07/10. Diarrhea has subsided. - Lung mass posterior medial right lower lobe. Of note, she was noted to have abnormal thickening of the esophageal wall with surrounding soft tissue mass demonstrate some minimal enhancement possibly a malignant mass or malignant adenopathy with small lymph nodes in the cardiophrenic angle and very inhomogeneous liver with masses in the upper abdomen on CTA in May. There was a plan for EGD, but she became tachycardic and was transferred to the unit. S/P MRI during that visit. Per attending. PLAN: - NPO for now - EGD tomorrow - obtain consent - monitor HH - IVF - PPI - Zofran prn - Supportive care - Will consider possible G/J tube for post-pyloric feedings if clears not tolerated. - Further recommendations to follow based on results of above This pt seen by myself and Dr Duke and this note is written on his behalf (Mary Lou Higgins) Physician Comments As above, EGD in AM. Further recommendations to follow. (Suni Duke MD) Mary Lou Higgins Jul 10, 2017 17:47 Suni Duke MD Jul 10, 2017 18:48
[2017-07-11] VITALS: BP 137/79; PULSE 89; RESP 18; TEMP 98.3; O2SAT 96
[2017-07-11] MEDS: HYDROmorphone HCL PF 1 MG/ML VIAL IV PUSH PRN ×4 (00:11→15:35)
[2017-07-11 04:00] VITALS: BP 119/80; PULSE 77; RESP 18; TEMP 98.2; O2SAT 96
[2017-07-11] MEDS: NS + KCL 20 MEQ INJ 1,000 ML IV SCH ×2 (07:01→15:36)
[2017-07-11] MEDS: ACETAMINOPHEN/HYDROcodone 325 MG/10 MG TAB PO PRN ×3 (08:19→18:25)
[2017-07-11] MEDS: PANTOPRAZOLE SODIUM 40 MG VIAL IV PUSH SCH (08:19)
[2017-07-11] MEDS: NICOTINE 14 MG/24 HR PATCH T-DERMAL SCH (08:19)
[2017-07-11] MEDS: SODIUM CHLORIDE 0.9% FLUSH 10 ML FLUSH IV FLUSH SCH (08:21)
[2017-07-11] MEDS: REMOVE OLD PATCH T-DERMAL SCH (08:22)
[2017-07-11 08:32] VITALS: BP 128/76; PULSE 96; RESP 18; TEMP 98.1; O2SAT 97
[2017-07-11] MEDS: SODIUM CHLOR 0.9% 1000 ML INJ 1,000 ML IV SCH (09:51)
[2017-07-11] MEDS: LORazepam 0.5 MG TAB PO PRN (12:09)
[2017-07-11 12:24] VITALS: BP 132/74; PULSE 76; RESP 18; TEMP 97.9; O2SAT 100
[2017-07-11] MEDS ORDERED: PROPOFOL 200 MG/20 ML AMP IV ONE (14:26)
--- NOTE | 2017-07-11 14:33 | GIPROC ---
[facility] [address] [facility], [address] EGD PROCEDURE REPORT EXAM DATE: 07/11/2017 PATIENT NAME: Yari Martin MR #: [id number] BIRTHDATE: 1970 ATTENDING: Suni Duke MD ORDER #: [id number] ASSISTANT PRESSMAN: Leonel Zafar and Meagan Kong STATUS: inpatient INDICATIONS: The patient is a 46 yr old female here for an EGD due to anemia PROCEDURE PERFORMED: EGD, diagnostic MEDICATIONS: None and Per Anesthesia. TOPICAL ANESTHETIC: none CONSENT: The patient understands the risks and benefits of the procedure and understands that these risks include, but are not limited to: sedation, allergic reaction, infection, perforation and/or bleeding. Alternative means of evaluation and treatment include, among others: physical exam, x-rays, and/or surgical intervention. The patient elects to proceed with this endoscopic procedure. medical equipment was checked for proper function. Hand hygiene and appropriate measures for infection prevention was taken. After the risks, benefits and alternatives of the procedure were thoroughly explained, Informed consent was verified, confirmed and timeout was successfully executed by the treatment team. The patient was anesthetized with topical anesthesia and the Pentax [id number] endoscope was introduced through the mouth and advanced to the second portion of the duodenum. Retroflexion was performed and was normal The gastroscope was then slowly withdrawn and removed. The endoscopy was otherwise normal. ADVERSE EVENTS: There were no complications. IMPRESSIONS: 1. Normal endoscopy otherwise 2. Retroflexion was performed and was normal RECOMMENDATIONS: No treatment PATIENT CONDITION: stable DISPOSITION: Observation REPEAT EXAM: NONE Suni Duke MD eSigned: Suni Duke MD 07/11/2017 2:33 PM cc:
[2017-07-11] MEDS ORDERED: DO NOT ADM ANY ANTICOAGULANT DRUGS PRN (14:40)
--- NOTE | 2017-07-11 15:03 | HHI.PR ---
Subjective Remarks tolerated EGD well- normal findings had a good BM Objective Vitals Vital Signs Date Time Temp Pulse Resp B/P (MAP) Pulse Ox O2 Delivery O2 Flow Rate FiO2 07/11/17 12:24 97.9 76 18 132/74 (93) 100 07/11/17 08:32 98.1 96 18 128/76 (93) 97 07/11/17 04:00 98.2 77 18 119/80 (93) 96 07/11/17 00:00 98.3 89 18 137/79 (98) 96 07/10/17 20:00 98.1 86 18 126/73 (90) 97 07/10/17 19:00 85 07/10/17 16:07 98.7 87 18 130/79 (96) 96 I/O 07/10/17 07/10/17 07/10/17 07/11/17 07/11/17 07/11/17 07:00 15:00 23:00 07:00 15:00 23:00 Intake Total 360 ml 1020 ml 200 ml Balance 360 ml 1020 ml 200 ml Intake Oral 360 ml 240 ml IV Total 780 ml Other 200 ml # Voids 4 4 3 # Bowel Movements 0 3 Result Diagram: 07/10/1772507/10/17725 Objective Remarks awake and alert, NAD anicteric lungs clear regular rhythm abdomen- soft, good bowel sounds, no guarding extremities no edema Procedures 07/11- EGD- normal findings A/P Problem List: (1) Pancreatitis ICD Code: K85.90 - Acute pancreatitis without necrosis or infection, unspecified Status: Acute Assessment and Plan 46 years old female 1.Acute Pancreatitis: LIpase down. tolerating clears. Patient had recent drainage of pseudocyst. Appreciate GI recommendations. Continue IV fluids. Continue pain control. Feeds per GI. continue to monitor Normal EGD- 2. Leukocytosis: Improved. S/P Flagyl cpurse 07/10 per GI to complete recent history of C. difficile. No reported diarrhea 3. HYpokalemia- corrected 4. Tobacco abuse: Counseled quit smoking. Nicotine patch. 5. Anxiety: Lorazepam as needed. UP and ambulating start po and advance- states that when we advance diet- she feels abdominla fullness- d/w with her results of EGD and lipase advise non dairy products- history of lactose intolerance if tolerated well DC later today or in am Problem Qualifiers (1) Pancreatitis: Pato Noble MD Jul 11, 2017 15:03
[2017-07-11 15:12] LABS: BICARBONATE 27.3 MEQ/L (21.0-32.0); POTASSIUM 3.6 MEQ/L (3.5-5.1)
[2017-07-11 15:56] VITALS: BP 137/76; PULSE 83; RESP 18; TEMP 98; O2SAT 97
[2017-07-11] MEDS ORDERED: HYDR-3533 PO (17:09)
[2017-07-11] MEDS ORDERED: LORA-392 PO (17:10)
--- NOTE | 2017-07-11 17:13 | HHI.DS ---
Discharge Summary Admission Date Jul 06, 2017 at 12:06 Discharge Date: Jul 11, 2017 Admitting Diagnosis Pancreatitis (1) Pancreatitis ICD Code: K85.90 - Acute pancreatitis without necrosis or infection, unspecified Status: Acute Procedures 07/11- EGD- normal findings Brief History - From Admission Written by RACHEL Goodman acting as scribe for [Megan] on 07/06/17 at 03: 13. 46 y/o female with a history of pancreatitis presented to the ED with increased pain. Patient was admitted for a pseudocyst that was drained by Dr. Ellis 12 days ago. She has had pain off and on and today it was increased. She complains of epigastric abdominal pain with palpation and she feels there is a knot there. She states she had a low grade fever at home with unknown temp with associated, nausea, and diarrhea. She states the pain medication she has at home is not working. She denies any vomiting, chest pain, sob, dizziness or chills. CBC/BMP: 07/10/17 0726 07/11/17 1345 Significant Findings Laboratory Tests Test 07/09/17 03:41 07/10/17 07:26 07/11/17 13:45 Red Blood Count 2.95 MIL/MM3 (4.00-5.30) 3.00 MIL/MM3 (4.00-5.30) Hemoglobin 8.2 GM/DL (11.6-15.3) 8.1 GM/DL (11.6-15.3) Hematocrit 25.0 % (35.0-46.0) 25.4 % (35.0-46.0) Red Cell Distribution Width 17.9 % (11.6-17.2) 18.3 % (11.6-17.2) Monocytes (%) (Auto) 8.5 % (0.0-8.0) Basophils (%) (Auto) 2.3 % (0.0-2.0) Blood Urea Nitrogen 4 MG/DL (7-18) 2 MG/DL (7-18) 3 MG/DL (7-18) Creatinine 0.17 MG/DL (0.50-1.00) 0.19 MG/DL (0.50-1.00) 0.32 MG/DL (0.50-1.00) Calcium Level 8.4 MG/DL (8.5-10.1) 8.2 MG/DL (8.5-10.1) Potassium Level 3.1 MEQ/L (3.5-5.1) 3.2 MEQ/L (3.5-5.1) Chloride Level 108 MEQ/L (98-107) Lipase 726 U/L (73-393) Mean Platelet Volume 6.9 FL (7.0-11.0) PE at Discharge awake and alert, NAD anicteric lungs clear regular rhythm abdomen- soft, good bowel sounds, no guarding extremities no edema Pt update on day of discharge tolerating diet no diarrhea afebrile d/w her diet/avoid dairy products and monitor Hospital Course 46 years old female 1.Acute Pancreatitis: LIpase down. tolerating clears. Patient had recent drainage of pseudocyst. Appreciate GI recommendations. Continue IV fluids. Continue pain control. Feeds per GI. continue to monitor Normal EGD- 2. Leukocytosis: Improved. S/P Flagyl cpurse 07/10 per GI to complete recent history of C. difficile. No reported diarrhea 3. HYpokalemia- corrected 4. Tobacco abuse: Counseled quit smoking. Nicotine patch. 5. Anxiety: Lorazepam as needed. UP and ambulating start po and advance- states that when we advance diet- she feels abdominla fullness- d/w with her results of EGD and lipase advise non dairy products- history of lactose intolerance if tolerated well DC later today or in am Pt Condition on Discharge: Good Discharge Disposition: Discharge Home Discharge Time: <= 30 minutes Discharge Instructions DIET: Follow Instructions for: Low Fat Diet, No Milk Products Speech Therapy-Diet Recommends: Regular Activities you can perform: Weight Bearing as Lori Activities to Avoid: Weight Bearing Follow up Referrals: PCP Follow-up - 1 Week with cvkenisha New Medications: Hydrocodone-Acetaminophen (Lortab) 5-325 Mg Tab 1 TAB PO Q6H PRN for PAIN, #20 TAB 0 Refills Lorazepam (Ativan) 0.5 Mg Tab 0.5 MG PO daily prn PRN for ANXIETY AND/OR AGITATION, #7 TAB 0 Refills Pato Noble MD Jul 11, 2017 17:13
[2017-07-11] MEDS ORDERED: HYDROmorphone HCL PF 1 MG/ML VIAL IV PUSH PRN (20:00)
[2017-07-13 19:22] LABS: BICARBONATE ND MEQ/L (21.0-32.0)
[2017-07-13 19:31] LABS: ANION GAP 11 MEQ/L (5-15); BLOOD UREA NITROGEN 4 MG/DL (7-18); CHLORIDE 105 MEQ/L (98-107); GLOMERULAR FILTRATION RATE 178 ML/MIN (>89); GLUCOSE,FASTING 84 MG/DL (74-99); POTASSIUM 3.8 MEQ/L (3.5-5.1); SODIUM (NA) 139 MEQ/L (136-145)
== END 2017-07-11 19:07 | disposition home or self-care (01) | DRG 439 ==
LOC: NEPD 19:20 → NEDA 23:33 → INTOOBSV 23:33 → NEDH 07-06 03:49 → OBSVTOIN 07-06 12:06 → N05B 07-06 14:38
PROVIDERS: ADMIT Internal Medicine; ATTEND Internal Medicine
PROC: 0DJ08ZZ Inspection of Upper Intestinal Tract, Via Natural or Artificial Opening Endoscopic (ICD-10-PCS; principal; 2017-07-11 14:06)
DX: K85.90 Acute pancreatitis without necrosis or infection, unspecified (principal); K92.0 Hematemesis; E73.9 Lactose intolerance, unspecified; E87.6 Hypokalemia; D64.9 Anemia, unspecified; K86.1 Other chronic pancreatitis; K21.9 Gastro-esophageal reflux disease without esophagitis; F41.9 Anxiety disorder, unspecified; F17.200 Nicotine dependence, unspecified, uncomplicated
CPT/HCPCS: 76937; 80048; 80053; 80069; 81001; 83605; 83690; 85025; 96361; 96374; 96375; C9113; J1170; J2405; J3480; J7030; J7613

== ENCOUNTER 2017-07-23 20:41 | Observation (INO) | payer OTHER ==
[~2017-07-23] VITALS: Ht 160 cm; Wt 45.5 kg
[~2017-07-23 20:41] MED LIST changes: +LORA-392 PO
[2017-07-23 20:43] VITALS: BP 129/87; RESP 16; TEMP 98.6; O2SAT 100
--- NOTE | 2017-07-23 21:02 | PD ---
Physical Exam Date Seen by Provider: Jul 23, 2017 Time Seen by Provider: 21:00 Narrative Pt presents with c/o abdominal pain that radiates into her chest. Patient states her pain started last night. Pain is an 8/10, and associated nausea and vomiting. Pt reports subjective fevers. VSS, awaiting bed placement. Data Data Last Documented VS Vital Signs Date Time Temp Pulse Resp B/P (MAP) Pulse Ox O2 Delivery O2 Flow Rate FiO2 07/23/17 20:43 98.6 16 129/87 (101) 100 Room Air MDM Supervised Visit with CORKY: Francy Barnard Jul 23, 2017 21:02
[2017-07-23] MEDS ORDERED: ZANT150T2 PO (21:26)
--- NOTE | 2017-07-23 21:26 | PD ---
HPI Chief Complaint: Abdominal Pain Time Seen by Provider: 21:25 Travel History International Travel<30 days: No Contact w/Intl Traveler<30days: No Traveled to known affect area: No History of Present Illness HPI 47-year-old female presents the emergency department with nausea, vomiting, and abdominal pain radiating to the back and left shoulder. Patient feels it may be her pancreatitis. Patient has had pancreatitis recently and has been admitted for approximately 2 months ago. Patient states that she is trying to be eating more healthy and not drinking alcohol. Patient states she has had her gallbladder removed. Patient states her symptoms started yesterday and progressively worsened through the day today. Pain is currently an 8 out of 10. She last vomited approximately 3 PM this afternoon. Patient denies urinary symptoms or diarrhea. He denies changes in color of the urine or feces. Patient's history of allergies to methadone, penicillin, and has a history of MRSA. PFSH Past Medical History Asthma: No Autoimmune Disease: No Blood Disorders: No Anxiety: Yes Depression: No Heart Rhythm Problems: No Cardiovascular Problems: No High Cholesterol: No Chemotherapy: No Chest Pain: Yes Congestive Heart Failure: No COPD: No Diminished Hearing: No Endocrine: No Gastrointestinal Disorders: Yes GERD: Yes Glaucoma: No Genitourinary: Yes Headaches: Yes Hepatitis: No Hiatal Hernia: No Hypertension: No Immune Disorder: No Musculoskeletal: No Neurologic: No Psychiatric: Yes Reproductive: No Respiratory: No Migraines: Yes Myocardial Infarction: No Pancreatitis: Yes Radiation Therapy: No Renal Failure: No Sleep Apnea: No Ulcer: No Tetanus Vaccination: > 5 Years Influenza Vaccination: No ?: Not LMP: 07/06/2017 : 1 Para: 1 Miscarriage: 0 : 0 Past Surgical History Abdominal Surgery: Yes (Cholecesectomy) AICD: No Arteriovenous Shunt: No Section: Yes Cholecystectomy: Yes Gynecologic Surgery: Yes () Insulin Pump: No Other Surgery: Yes Social History Alcohol Use: No Tobacco Use: Yes (1 ppd) Substance Use: No Allergies-Medications (Allergen,Severity, Reaction): Coded Allergies: methadone (Unverified Allergy, Severe, 07/23/17) penicillin G (Unverified Allergy, Severe, Anaphylaxis, 07/23/17) *MDRO Multi-Drug Resistant Organism (Verified Adverse Reaction, Unknown, ) MRSA PCR Positive 7/18/17 Reported Meds & Prescriptions Reported Meds & Active Scripts Active Ativan (Lorazepam) 0.5 Mg Tab 0.5 Mg PO DAILY PRN PRN Lortab (Hydrocodone-Acetaminophen) 5-325 Mg Tab 1 Tab PO Q6H PRN Zofran Odt (Ondansetron Odt) 4 Mg Tab 4 Mg SL Q8HR PRN May substitute non-ODT form. Lortab (Hydrocodone-Acetaminophen) 5-325 Mg Tab 1-2 Tab PO Q6H PRN Reported Ibuprofen 400 Mg Tab 400 Mg PO Q4H PRN Zantac (Ranitidine HCl) 150 Mg Tab 150 Mg PO BID Review of Systems Except as stated in HPI: all other systems reviewed are Neg General / Constitutional: No: Fever, Chills Eyes: No: Visual changes HENT: No: Headaches Cardiovascular: No: Chest Pain or Discomfort Respiratory: No: Shortness of Breath Gastrointestinal: Positive: Nausea, Vomiting, Abdominal Pain, Loss of Appetite , No: Diarrhea, Hematemesis, Hematochezia, Constipation, Changes in Bowel Habits , Indigestion, Dysphagia Genitourinary: No: Urgency, Frequency, Dysuria Musculoskeletal: No: Pain Skin: No Rash Neurologic: No: Weakness Psychiatric: No: Depression Endocrine: No: Polydipsia Hematologic/Lymphatic: No: Easy Bruising Physical Exam Narrative GENERAL: Patient is quite thin, in no obvious distress. SKIN: Warm and dry. Normal color. Normal turgor. No diaphoresis. HEAD: Atraumatic. Normocephalic. EYES: Pupils equal and round. No scleral icterus. No injection or drainage. ENT: No nasal bleeding or discharge. Mucous membranes pink and moist. Pharynx is clear. Airway is patent. NECK: Trachea midline. Supple and nontender. CARDIOVASCULAR: Regular rate and rhythm. No murmurs gallops or rubs appreciated. RESPIRATORY: No accessory muscle use. Clear to auscultation. Breath sounds equal bilaterally. GASTROINTESTINAL: Abdomen soft, moderate generalized tenderness more in the epigastric region, nondistended. Bowel sounds are present in all quadrants. There is no rebound tenderness. Hepatic and splenic margins not palpable. No CVA tenderness. MUSCULOSKELETAL: Extremities without clubbing, cyanosis, or edema. No obvious deformities. NEUROLOGICAL: Awake and alert. No obvious cranial nerve deficits. Motor grossly within normal limits. Five out of 5 muscle strength in the arms and legs. Normal speech. PSYCHIATRIC: Appropriate mood and affect; insight and judgment normal. Data Data Last Documented VS Vital Signs Date Time Temp Pulse Resp B/P (MAP) Pulse Ox O2 Delivery O2 Flow Rate FiO2 07/23/17 20:43 98.6 16 129/87 (101) 100 Room Air Orders Orders Complete Blood Count With Diff (07/23/17 21:29) Comprehensive Metabolic Panel (07/23/17 21:29) Lipase (07/23/17 21:29) Lactic Acid (07/23/17 21:29) Prothrombin Time / Inr (Pt) (07/23/17 21:29) Act Partial Throm Time (Ptt) (07/23/17 21:29) Urinalysis - C+S If Indicated (07/23/17:29) Ct Abd/Pel W Iv Contrast(Rout) (07/23/17 21:29) Iv Access Insert/Monitor (07/23/17 21:29) Ecg Monitoring (07/23/17 21:29) Oximetry (07/23/17 21:29) Morphine Inj (Morphine Inj) (07/23/17 21:30) Ondansetron Inj (Zofran Inj) (07/23/17 21:30) Pantoprazole Inj (Protonix Inj) (07/23/17 21:30) Sodium Chlor 0.9% 1000 Ml Inj (Ns 1000 M (07/23/17 21:29) Sodium Chloride 0.9% Flush (Ns Flush) (07/23/17 21:30) Electrocardiogram (07/23/17 21:29) Ketorolac Inj (Toradol Inj) (07/23/17 21:30) Iohexol 350 Inj (Omnipaque 350 Inj) (07/23/17 22:17) Type And Screen (07/23/17 22:36) Red Blood Cells (Rbc) (07/23/17 22:36) Blood Product Administration (07/23/17 22:36) Sodium Chlor 0.9% 250 Ml Inj (Ns 250 Ml (07/23/17 22:45) Diphenhydramine (Benadryl) (07/23/17 22:45) Acetaminophen (Tylenol) (07/23/17 22:45) Admit Order (Ed Use Only) (07/23/17 23:07) Labs Laboratory Tests Test 07/23/17 21:10 07/23/17 21:20 07/23/17 22:00 White Blood Count 7.4 TH/MM3 Red Blood Count 2.57 MIL/MM3 Hemoglobin 6.7 GM/DL Hematocrit 20.7 % Mean Corpuscular Volume 80.5 FL Mean Corpuscular Hemoglobin 26.0 PG Mean Corpuscular Hemoglobin Concent 32.3 % Red Cell Distribution Width 18.8 % Platelet Count 315 TH/MM3 Mean Platelet Volume 7.4 FL Neutrophils (%) (Auto) 62.1 % Lymphocytes (%) (Auto) 29.6 % Monocytes (%) (Auto) 5.3 % Eosinophils (%) (Auto) 2.1 % Basophils (%) (Auto) 0.9 % Neutrophils # (Auto) 4.6 TH/MM3 Lymphocytes # (Auto) 2.2 TH/MM3 Monocytes # (Auto) 0.4 TH/MM3 Eosinophils # (Auto) 0.2 TH/MM3 Basophils # (Auto) 0.1 TH/MM3 CBC Comment DIFF FINAL Differential Comment Prothrombin Time 10.6 SEC Prothromb Time International Ratio 1.0 RATIO Activated Partial Thromboplast Time 23.1 SEC Blood Urea Nitrogen 11 MG/DL Creatinine 0.42 MG/DL Random Glucose 108 MG/DL Total Protein 7.4 GM/DL Albumin 3.3 GM/DL Calcium Level 9.0 MG/DL Alkaline Phosphatase 154 U/L Aspartate Amino Transf (AST/SGOT) 21 U/L Alanine Aminotransferase (ALT/SGPT) 19 U/L Total Bilirubin 0.1 MG/DL Sodium Level 136 MEQ/L Potassium Level 3.9 MEQ/L Chloride Level 103 MEQ/L Carbon Dioxide Level 28.0 MEQ/L Anion Gap 5 MEQ/L Estimat Glomerular Filtration Rate 162 ML/MIN Lipase 339 U/L Lactic Acid Level 0.6 mmol/L Urine Color YELLOW Urine Turbidity HAZY Urine pH 6.5 Urine Specific [place] 1.017 Urine Protein NEG mg/dL Urine Glucose (UA) NEG mg/dL Urine Ketones NEG mg/dL Urine Occult Blood NEG Urine Nitrite NEG Urine Bilirubin NEG Urine Urobilinogen LESS THAN 2.0 MG/DL Urine Leukocyte Esterase NEG Urine RBC 1 /hpf Urine WBC 6 /hpf Urine Squamous Epithelial Cells 8 /hpf Urine Amorphous Sediment RARE Urine Bacteria OCC /hpf Urine Mucus FEW /lpf Microscopic Urinalysis Comment CULT NOT INDICATED MDM Medical Decision Making Medical Screen Exam Complete: Yes Emergency Medical Condition: Yes Medical Record Reviewed: Yes Differential Diagnosis Nausea. Vomiting. Abdominal pain. Pancreatitis. Hepatitis. Gastritis. Narrative Course Patient appears medically stable at time of exam. Labs ordered including CBC, CMP, lactic acid, lipase, urinalysis. CT of the abdomen with IV contrast was ordered. IV access is obtained patient is given 1000 miles normal saline bolus as well as 30 mg Toradol IV and 4 mg Zofran IV. Patient is given 4 mg morphine IV. Patient given 40 mg IV pantoprazole. CBC is significant for hemoglobin of 6.7, hematocrit of 20.7. Rectal guaiac is checked and found to be positive. CMP notable for creatinine of 0.42. Normal lactic acid. Alkaline phosphatase slightly elevated at 154, and a lipase of 339. Urinalysis is unremarkable. Coagulation studies are normal. 2 units of blood are ordered after cross and screen. Findings were discussed with Dr. Fraga. In hospitalist is called. Last 24 hours Impressions Abdomen/Pelvis CT 07/23/172128 Signed Impressions: Service Date/Time: Sunday, July 23, 2017 22:15 - CONCLUSION: 1. Changes consistent with acute and chronic hepatitis again noted with inflammatory change surrounding the tail of the pancreas and new ill-defined low attenuation fluid along the stomach. The previously noted pseudocyst is not significantly changed. 2. New cystic structure in the right adnexa most consistent with an ovarian cyst. 3. Hepatic steatosis. 4. The noncalcified pulmonary nodule in the right lung base it is not significantly changed. Damien Montalvo MD Patient discussed with Dr. Renteria, who agreed to admit the patient. Diagnosis Primary Impression: Anemia Qualified Codes: D64.89 - Other specified anemias Additional Impressions: Guaiac + stool Abdominal pain Qualified Codes: R10.13 - Epigastric pain Admitting Information Admitting Physician Requests: Admit Condition: Stable Brooks Gaspar Jul 23, 2017 21:26
[2017-07-23] MEDS ORDERED: IBUP400T20 PO (21:27)
[2017-07-23] MEDS ORDERED: SODIUM CHLOR 0.9% 1000 ML INJ 1,000 ML IV SCH (21:29)
[2017-07-23] MEDS ORDERED: MORPHINE SULFATE 4 MG/ML INJ IV PUSH ONE (21:30)
[2017-07-23] MEDS ORDERED: KETOROLAC TROMETHAMINE 30 MG/ML (IVP) VIAL IVP ONE (21:30)
[2017-07-23] MEDS ORDERED: PANTOPRAZOLE SODIUM 40 MG VIAL IVP ONE (21:30)
[2017-07-23] MEDS ORDERED: SODIUM CHLORIDE 0.9% FLUSH 10 ML FLUSH IV FLUSH PRN (21:30)
[2017-07-23] MEDS ORDERED: ONDANSETRON HCL 4 MG/2 ML VIAL IVP ONE (21:30)
[2017-07-23 22:15] LABS: AUTOMATED NEUTROPHIL # 4.6 TH/MM3 (1.8-7.7); BASOPHIL # 0.1 TH/MM3 (0-0.2); BASOPHIL % 0.9 % (0.0-2.0); EOSINOPHIL # 0.2 TH/MM3 (0-0.4); EOSINOPHIL % 2.1 % (0.0-4.0); LYMPH % 29.6 % (9.0-44.0); LYMPHOCYTE # 2.2 TH/MM3 (1.0-4.8); MEAN CELL VOLUME 80.5 FL (80.0-100.0); MEAN CORPUSCULAR HGB CONC 32.3 % (32.0-36.0); MONO % 5.3 % (0.0-8.0); NEUT % 62.1 % (16.0-70.0); PLATELET COUNT 315 TH/MM3 (150-450); RED BLOOD COUNT 2.57 MIL/MM3 (4.00-5.30); RED CELL DISTRIBUTION WIDTH 18.8 % (11.6-17.2); WHITE BLOOD COUNT 7.4 TH/MM3 (4.0-11.0)
[2017-07-23 22:17] LABS: BACTERIA, URINE OCC /hpf; BLOOD, URINE NEG (NEG); COMMENT (UR) CULT NOT INDICATED; CULTURE IF INDICATED CULT NOT INDICATED; GLUCOSE,URINE NEG (NEG); KETONE, URINE NEG (NEG); MUCUS URINE FEW /lpf (OCC); NITRITE,URINE NEG (NEG); PH, URINE 6.5 (5.0-8.5); SQUAMOUS EPITHELIAL CELL URINE 8 /hpf (0-5); URINE COLOR YELLOW (YELLW/STRAW)
[2017-07-23] MEDS ORDERED: IOHEXOL 350 MG/ML 10 ML VIAL (for RAD DIAG) IVCONTRAST ONE (22:17)
[2017-07-23 22:21] LABS: HEMO FLAGS DIFF FINAL
[2017-07-23 22:23] LABS: HEMATOCRIT 20.7 % (35.0-46.0)
--- NOTE | 2017-07-23 22:34 | RADRPT ---
EXAM DATE/TIME: 07/23/2017 22:15 [facility] COMPARISON: CT ABDOMEN & PELVIS W CONTRAST, July 04, 2017, 10:30. INDICATIONS : Diffuse abdominal pain. Acute and chronic pancreatitis. IV CONTRAST: 95 cc Omnipaque 350 (iohexol) IV ORAL CONTRAST: No oral contrast ingested. RADIATION DOSE: 4.52 CTDIvol (mGy) MEDICAL HISTORY : Pancreatitis. SURGICAL HISTORY : Cholecystectomy. section. ENCOUNTER: Initial ACUITY: 1 day PAIN SCALE: 8/10 LOCATION: Bilateral Abdomen TECHNIQUE: Volumetric scanning of the abdomen and pelvis was performed. Using automated exposure control and ad justment of the mA and/or kV according to patient size, radiation dose was kept as low as reasonably achievable to obtain optimal diagnostic quality images. DICOM format image data is available electro nically for review and comparison. FINDINGS: LOWER LUNGS: The previously noted noncalcified pulmonary nodule in the right medial lung base is unchanged. There are no new nodules or infiltrates. LIVER: Homogeneous density without lesion. There is no dilation of the biliary tree. Hepatic steatosis is again noted. The patient is status post cholecystectomy. SPLEEN: At upper limits of normal in size. PANCREAS: Multiple pancreatic calcifications are again noted greatest in the head and body of the pancreas. The previously noted pseudocyst extending from the pancreatic tail into the left posterior upper quadran t is not significantly changed. There is a second small cystic collection in the tail the pancreas wh ich is unchanged as well. Mild surrounding inflammatory changes are noted surrounding the tail of the pancreas there is ill-defined fluid along the stomach measuring up to 2.4 x 1.7 [address] in greatest diame ter. KIDNEYS: Normal in size and shape. There is no mass, stone or hydronephrosis. ADRENAL GLANDS: Within normal limits. VASCULAR: There is no aortic aneurysm. BOWEL/MESENTERY: No oral contrast was given limiting the sensitivity of the exam.. The stomach, small bowel, and colon demonstrate no acute abnormality. There is no free intraperitoneal air or fluid. ABDOMINAL WALL: Within normal limits. RETROPERITONEUM: There is no lymphadenopathy. BLADDER: No wall thickening or mass. REPRODUCTIVE: A simple-appearing cyst is now noted in the right adnexa measuring 2 x 1.9 cm. INGUINAL: There is no lymphadenopathy or hernia. MUSCULOSKELETAL: Within normal limits for patient age. CONCLUSION: 1. Changes consistent with acute and chronic hepatitis again noted with inflammatory change surroundi ng the tail of the pancreas and new ill-defined low attenuation fluid along the stomach. The previou sly noted pseudocyst is not significantly changed. 2. New cystic structure in the right adnexa most consistent with an ovarian cyst. 3. Hepatic steatosis. 4. The noncalcified pulmonary nodule in the right lung base it is not significantly changed. Damien Montalvo MD on July 23, 2017 at 22:23 Board Certified Radiologist. This report was verified electronically.
[2017-07-23 22:35] LABS: ANION GAP 5 MEQ/L (5-15); AST (GOT) 21 U/L (15-37); BLOOD UREA NITROGEN 11 MG/DL (7-18); CHLORIDE 103 MEQ/L (98-107); GLOMERULAR FILTRATION RATE 162 ML/MIN (>89); POTASSIUM 3.9 MEQ/L (3.5-5.1); SODIUM (NA) 136 MEQ/L (136-145)
[2017-07-23 22:36] LABS: ALT (GPT) 19 U/L (10-53)
[2017-07-23 22:37] LABS: APTT (PATIENT) 23.1 SEC (24.3-30.1); PROTHROMBIN TIME - PATIENT 10.6 SEC (9.8-11.6)
[2017-07-23 22:38] LABS: ALKALINE PHOSPHATASE 154 U/L (45-117); TOTAL BILIRUBIN ADULT 0.1 MG/DL (0.2-1.0)
[2017-07-23] MEDS ORDERED: SODIUM CHLOR 0.9% 250 ML INJ 250 ML IV ONE (22:45)
[2017-07-23] MEDS ORDERED: diphenhydrAMINE HCL 25 MG CAP PO ONE (22:45)
[2017-07-23] MEDS ORDERED: ACETAMINOPHEN 325 MG TAB PO ONE (22:45)
[2017-07-23] MEDS ORDERED: MORPHINE SULFATE 4 MG/ML INJ IV PRN (23:30)
[2017-07-23] MEDS ORDERED: NALOXONE HCL 0.4 MG/ML AMP IV PRN (23:30)
[2017-07-23 23:40] VITALS: BP 110/62; PULSE 86; RESP 18; O2SAT 98
[2017-07-23] MEDS: MORPHINE SULFATE 4 MG/ML INJ IV PRN (23:54)
[2017-07-23 23:55] VITALS: BP 103/61; PULSE 85; RESP 18; O2SAT 99
[2017-07-24] VITALS (14 sets, daily range): BP systolic 94–124; BP diastolic 54–83; PULSE 71–87; RESP 16–19; TEMP 96.4–99; O2SAT 96–99
--- NOTE | 2017-07-24 01:39 | HHI.HP ---
HPI Service [facility] Hospitalists Primary Care Physician No Primary Care Physician Admission Diagnosis GI Bleed/Anemic Diagnoses: Chief Complaint: Abdominal and chest ending, severe anemia hemoglobin 6.2, nausea vomiting Travel History International Travel<30 Days: No Contact w/Intl Traveler <30 Da: No Traveled to Known Affected Are: No History of Present Illness 47 years old with history of pancreatitis and pseudocyst presented with generalized pain mostly in the stomach transferred to the back and the shoulder , positive nausea and vomiting 1, positive feeling of fever and chills. Patient had a history of pseudocyst 2 month ago, questionable history of peptic ulcer she did have EGD 2 months ago but she is not aware of the exact result. Patient quit drinking alcohol a month ago she smoked one pack per day for 20 years. Stated the pain is about 8 out of 10 constant, she doesn't think it's related to the pancreas. Diarrhea, dysuria urgency or frequency Review of Systems Except as stated in HPI: all other systems reviewed are Neg All systems reviewed and was positive for what is mentioned in history of present illness otherwise negative Past Family Social History Past Medical History Anxiety Chest pain GERD Headache Migraine Pancreatitis Pseudocyst Past Surgical History Cholecystectomy section Allergies: Coded Allergies: methadone (Unverified Allergy, Severe, 07/23/17) penicillin G (Unverified Allergy, Severe, Anaphylaxis, 07/23/17) *MDRO Multi-Drug Resistant Organism (Verified Adverse Reaction, Unknown, ) MRSA PCR Positive 06/06/17 Family History adopted not aware of any significant disease runs in the biological family Social History Smoke one pack per day for 20 years, she quit drinking alcohol 1-2 months ago Physical Exam Vital Signs Vital Signs Date Time Temp Pulse Resp B/P (MAP) Pulse Ox O2 Delivery O2 Flow Rate FiO2 07/23/17 23:55 85 18 103/61 (75) 99 Room Air 07/23/17 23:40 86 18 110/62 (78) 98 Room Air 07/23/17 20:43 98.6 16 129/87 (101) 100 Room Air Physical Exam GENERAL: This is a well-nourished, well-developed patient, in no apparent distress. SKIN: No rashes, warm and dry HEAD: Atraumatic. Normocephalic. EYES: Pupils equal round and reactive. Extraocular motions intact. No scleral icterus. ENT: Nose without bleeding, or drainage, Airway patent. NECK: Trachea midline. Supple CARDIOVASCULAR: Regular rate and rhythm without murmurs, gallops, or rubs. RESPIRATORY: Fair air entry bilaterally. No wheezes, rales, or rhonchi. GASTROINTESTINAL: Abdomen soft, obese, positive tenderness, nondistended. Positive bowel sounds MUSCULOSKELETAL: Extremities without clubbing, cyanosis, or edema. Pedal pulses appreciated NEUROLOGICAL: Awake and alert. Moves all extremity. Normal speech.no focal neurological deficit Laboratory Laboratory Tests Test 07/23/17 21:10 07/23/17 21:20 07/23/17 22:00 White Blood Count 7.4 Red Blood Count 2.57 Hemoglobin 6.7 Hematocrit 20.7 Mean Corpuscular Volume 80.5 Mean Corpuscular Hemoglobin 26.0 Mean Corpuscular Hemoglobin Concent 32.3 Red Cell Distribution Width 18.8 Platelet Count 315 Mean Platelet Volume 7.4 Neutrophils (%) (Auto) 62.1 Lymphocytes (%) (Auto) 29.6 Monocytes (%) (Auto) 5.3 Eosinophils (%) (Auto) 2.1 Basophils (%) (Auto) 0.9 Neutrophils # (Auto) 4.6 Lymphocytes # (Auto) 2.2 Monocytes # (Auto) 0.4 Eosinophils # (Auto) 0.2 Basophils # (Auto) 0.1 CBC Comment DIFF FINAL Differential Comment Prothrombin Time 10.6 Prothromb Time International Ratio 1.0 Activated Partial Thromboplast Time 23.1 Blood Urea Nitrogen 11 Creatinine 0.42 Random Glucose 108 Total Protein 7.4 Albumin 3.3 Calcium Level 9.0 Alkaline Phosphatase 154 Aspartate Amino Transf (AST/SGOT) 21 Alanine Aminotransferase (ALT/SGPT) 19 Total Bilirubin 0.1 Sodium Level 136 Potassium Level 3.9 Chloride Level 103 Carbon Dioxide Level 28.0 Anion Gap 5 Estimat Glomerular Filtration Rate 162 Lipase 339 Lactic Acid Level 0.6 Urine Color YELLOW Urine Turbidity HAZY Urine pH 6.5 Urine Specific [place] 1.017 Urine Protein NEG Urine Glucose (UA) NEG Urine Ketones NEG Urine Occult Blood NEG Urine Nitrite NEG Urine Bilirubin NEG Urine Urobilinogen LESS THAN 2.0 Urine Leukocyte Esterase NEG Urine RBC 1 Urine WBC 6 Urine Squamous Epithelial Cells 8 Urine Amorphous Sediment RARE Urine Bacteria OCC Urine Mucus FEW Microscopic Urinalysis Comment CULT NOT INDICATED Result Diagram: 07/23/17210907/23/172109 Imaging Last Impressions Abdomen/Pelvis CT 07/23/172128 Signed Impressions: Service Date/Time: Sunday, July 23, 2017 22:15 - CONCLUSION: 1. Changes consistent with acute and chronic hepatitis again noted with inflammatory change surrounding the tail of the pancreas and new ill-defined low attenuation fluid along the stomach. The previously noted pseudocyst is not significantly changed. 2. New cystic structure in the right adnexa most consistent with an ovarian cyst. 3. Hepatic steatosis. 4. The noncalcified pulmonary nodule in the right lung base it is not significantly changed. MD Santino Lindsey VTE Risk Assessment Capmaryi VTE Risk Assessment: Mod/High Risk (score >= 2) VTE Pharm Contraindication: High risk for bleeding Caprini Risk Assessment Model Point Value = 1 Point Value = 2 Point Value = 3 Point Value = 5 Age 41-60 Minor surgery BMI > 25 kg/m2 Swollen legs Varicose veins or History of unexplained or recurrent spontaneous Oral contraceptives or hormone replacement Sepsis (< 1 month) Serious lung disease, including pneumonia (< 1 month) Abnormal pulmonary function Acute myocardial infarction Congestive heart failure (< 1 month) History of inflammatory bowel disease Medical patient at bed rest Age 61-74 Arthroscopic surgery Major open surgery (> 45 min) Laparoscopic surgery (> 45 min) Malignancy Confined to bed (> 72 hours) Immobilizing plaster cast Central venous access Age >= 75 History of VTE Family history of VTE Factor V Leiden Prothrombin [id number] Lupus anticoagulant Anticardiolipin antibodies Elevated serum homocysteine Heparin-induced thrombocytopenia Other congenital or acquired thrombophilia Stroke (< 1 month) Elective arthroplasty Hip, pelvis, or leg fracture Acute spinal cord injury (< 1 month) Prophylaxis Regimen Total Risk Factor Score Risk Level Prophylaxis Regimen 0-1 Low Early ambulation 2 Moderate Order ONE of the following: *Sequential Compression Device (SCD) *Heparin 5000 units SQ BID 3-4 Higher Order ONE of the following medications: *Heparin 5000 units SQ TID *Enoxaparin/Lovenox 40 mg SQ daily (WT < 150 kg, CrCl > 30 mL/min) *Enoxaparin/Lovenox 30 mg SQ daily (WT < 150 kg, CrCl > 10-29 mL/min) *Enoxaparin/Lovenox 30 mg SQ BID (WT < 150 kg, CrCl > 30 mL/min) AND/OR *Sequential Compression Device (SCD) 5 or more Highest Order ONE of the following medications: *Heparin 5000 units SQ TID (Preferred with Epidurals) *Enoxaparin/Lovenox 40 mg SQ daily (WT < 150 kg, CrCl > 30 mL/min) *Enoxaparin/Lovenox 30 mg SQ daily (WT < 150 kg, CrCl > 10-29 mL/min) *Enoxaparin/Lovenox 30 mg SQ BID (WT < 150 kg, CrCl > 30 mL/min) AND *Sequential Compression Device (SCD) Assessment and Plan Assessment and Plan 47 years old female presented with Chest/abdominal pain rule out underlying worsening pseudocyst History of pancreatitis and pseudocyst lipase of 332, still not completely exclude possibility of pancreatitis Severe anemia with positive Hemoccult in the stool: Hemoglobin 6.2 Very mild asymptomatic bacteriuria> no TX Plan:: Admit for inpatient, Telemetry Type cross and match 2 units of packed red blood cells and transfused H&H every 8 hours Consul GI Morphine sulfate for pain management Discussed Condition With Patient in ED physician Physician Certification 2 Midnight Certification Type: Admission for Inpatient Services Order for Inpatient Services The services are ordered in accordance with Medicare regulations or non- Medicare payer requirements, as applicable. In the case of services not specified as inpatient-only, they are appropriately provided as inpatient services in accordance with the 2-midnight benchmark. Estimated LOS (days): 3 days is the estimated time the patient will need to remain in the hospital, assuming treatment plan goals are met and no additional complications. Post-Hospital Plan: SN[facility] Cole Lloyd MD Jul 24, 2017 01:39
[2017-07-24] MEDS: SODIUM CHLOR 0.9% 1000 ML INJ 1,000 ML IV SCH ×3 (02:22→20:48)
[2017-07-24] MEDS: MORPHINE SULFATE 4 MG/ML INJ IV PRN ×3 (03:01→09:19)
--- NOTE | 2017-07-24 09:41 | PD.CONS ---
HPI History of Present Illness This is a 47 year old female patient who is admitted for abdominal pain, moderate epigastric and left upper quadrant pain radiating to her left shoulder. She feels it is her pancreas pain. she has history of chronic pancreatitis and had pseudocyst removed surgically a few months ago. Since then she has had a few admissions for pancreas pain. she has lost weight and is now quite anemic. Her stools are dark but not black and not bloody. She has not had a colonoscopy. ROS: No shortness of breath, no fever or chills. No chest pain. Otherwise complete ros is negative. PFSH Past Medical History Anxiety Chest pain GERD Headache Migraine Pancreatitis Pseudocyst Past Surgical History Cholecystectomy section Coded Allergies: methadone (Unverified Allergy, Severe, 07/23/17) penicillin G (Unverified Allergy, Severe, Anaphylaxis, 07/23/17) *MDRO Multi-Drug Resistant Organism (Verified Adverse Reaction, Unknown, ) MRSA PCR Positive 06/06/17 Medications Current Medications Medications (Trade) Dose Ordered Sig/Flores Route Start Time Stop Time Status Last Admin (NS Flush) 2 ml UNSCH PRN IV FLUSH 07/23/17 21:30 Sodium Chloride 250 ml @ 15 mls/hr ONCE ONCE IV 07/23/17 22:45 07/24/17 15:24 07/24/17 02:19 Sodium Chloride 1,000 ml @ 100 mls/hr Q10H IV 07/23/17 23:29 07/24/17 02:22 (Morphine Inj) 2 mg Q3H PRN IV 07/23/17 23:30 07/24/17 09:19 (Morphine Inj) 1 mg Q3H PRN IV 07/23/17 23:30 (Narcan Inj) 0.4 mg UNSCH PRN IV 07/23/17 23:30 (Flu (Quadrivalent) Vaccine Inj) 0.5 ml ONCE ONCE IM 07/25/17 10:00 07/25/17 10:01 Family History adopted not aware of any significant disease runs in the biological family Social History Smoke one pack per day for 20 years, she quit drinking alcohol 1-2 months ago GI Exam Vitals I&O Vital Signs Date Time Temp Pulse Resp B/P (MAP) Pulse Ox O2 Delivery O2 Flow Rate FiO2 07/24/17 09:26 16 07/24/17 08:11 98.1 71 19 108/69 (82) 96 07/24/17 06:27 96.4 71 16 104/64 97 07/24/17 04:00 97.6 74 19 107/73 (84) 97 07/24/17 03:56 97.6 74 19 107/73 97 07/24/17 03:07 97.1 83 17 103/65 97 07/24/17 02:50 97.5 79 16 94/54 99 07/24/17 01:56 97.1 77 17 97/61 (73) 98 07/23/17 23:55 85 18 103/61 (75) 99 Room Air 07/23/17 23:40 86 18 110/62 (78) 98 Room Air 07/23/17 20:43 98.6 16 129/87 (101) 100 Room Air I/O 07/23/17 07/23/17 07/23/17 07/24/17 07/24/17 07/24/17 07:00 15:00 23:00 07:00 15:00 23:00 Intake Total 1250 ml Balance 1250 ml Intake IV Total 1000 ml Packed Cells 250 ml Laboratory Test 07/23/17 21:10 07/23/17 21:20 07/23/17 22:00 White Blood Count 7.4 TH/MM3 Red Blood Count 2.57 MIL/MM3 Hemoglobin 6.7 GM/DL Hematocrit 20.7 % Mean Corpuscular Volume 80.5 FL Mean Corpuscular Hemoglobin 26.0 PG Mean Corpuscular Hemoglobin Concent 32.3 % Red Cell Distribution Width 18.8 % Platelet Count 315 TH/MM3 Mean Platelet Volume 7.4 FL Neutrophils (%) (Auto) 62.1 % Lymphocytes (%) (Auto) 29.6 % Monocytes (%) (Auto) 5.3 % Eosinophils (%) (Auto) 2.1 % Basophils (%) (Auto) 0.9 % Neutrophils # (Auto) 4.6 TH/MM3 Lymphocytes # (Auto) 2.2 TH/MM3 Monocytes # (Auto) 0.4 TH/MM3 Eosinophils # (Auto) 0.2 TH/MM3 Basophils # (Auto) 0.1 TH/MM3 CBC Comment DIFF FINAL Differential Comment Prothrombin Time 10.6 SEC Prothromb Time International Ratio 1.0 RATIO Activated Partial Thromboplast Time 23.1 SEC Blood Urea Nitrogen 11 MG/DL Creatinine 0.42 MG/DL Random Glucose 108 MG/DL Total Protein 7.4 GM/DL Albumin 3.3 GM/DL Calcium Level 9.0 MG/DL Alkaline Phosphatase 154 U/L Aspartate Amino Transf (AST/SGOT) 21 U/L Alanine Aminotransferase (ALT/SGPT) 19 U/L Total Bilirubin 0.1 MG/DL Sodium Level 136 MEQ/L Potassium Level 3.9 MEQ/L Chloride Level 103 MEQ/L Carbon Dioxide Level 28.0 MEQ/L Anion Gap 5 MEQ/L Estimat Glomerular Filtration Rate 162 ML/MIN Lipase 339 U/L Lactic Acid Level 0.6 mmol/L Urine Color YELLOW Urine Turbidity HAZY Urine pH 6.5 Urine Specific [place] 1.017 Urine Protein NEG mg/dL Urine Glucose (UA) NEG mg/dL Urine Ketones NEG mg/dL Urine Occult Blood NEG Urine Nitrite NEG Urine Bilirubin NEG Urine Urobilinogen LESS THAN 2.0 MG/DL Urine Leukocyte Esterase NEG Urine RBC 1 /hpf Urine WBC 6 /hpf Urine Squamous Epithelial Cells 8 /hpf Urine Amorphous Sediment RARE Urine Bacteria OCC /hpf Urine Mucus FEW /lpf Microscopic Urinalysis Comment CULT NOT INDICATED Physical Examination HEENT: Very thin and frail appearing NECK: Neck is supple, no JVD, no lymphadenopathy. CHEST: Chest is clear to auscultation and percussion. CARDIAC: Regular rate and rhythm with no murmur gallop or rubs. ABDOMEN: Tender with some voluntary guarding in left upper quadrant. EXTREMITIES: No clubbing, cyanosis, or edema. SKIN: Normal; no rash; no jaundice. FUND DEVELOPMENT MANAGER: No focal deficits; alert and oriented times three. Assessment and Plan Plan Imp: Chronic pancreatitis Abdominal pain Severe anemia Plan: Clear liquids Colonoscopy will be planned. Pancreatic enzymes PO when she begins eating. Further recommendations as the case progresses. Delano Richard MD Jul 24, 2017 09:41
--- NOTE | 2017-07-24 10:28 | HHI.PR ---
Subjective Remarks Follow up for abdominal pain, GI bleed, anemia. The patient reports continued unchanged epigastric pain that radiates to the left shoulder. She states her morphine isn't working, requesting dilaudid. She has intermittent nausea but no vomiting since arrival. Her BM yesterday were reported as normal, formed. She denies noticing any hematochezia or melena. She did vomit yesterday but denies any hematemesis. Denies fevers/chills. She has lost 20lbs in the past 1- 2years. She has never had a colonoscopy. She does admit to NSAID use. She states when her abdominal pains started a few days ago, she started taking 3- 4tabs of ibuprofen 3-4x per day. Objective Vitals Vital Signs Date Time Temp Pulse Resp B/P (MAP) Pulse Ox O2 Delivery O2 Flow Rate FiO2 07/24/17 09:37 72 07/24/17 09:26 16 07/24/17 08:11 98.1 71 19 108/69 (82) 96 07/24/17 06:27 96.4 71 16 104/64 97 07/24/17 04:00 97.6 74 19 107/73 (84) 97 07/24/17 03:56 97.6 74 19 107/73 97 07/24/17 03:07 97.1 83 17 103/65 97 07/24/17 02:50 97.5 79 16 94/54 99 07/24/17 01:56 97.1 77 17 97/61 (73) 98 07/23/17 23:55 85 18 103/61 (75) 99 Room Air 07/23/17 23:40 86 18 110/62 (78) 98 Room Air 07/23/17 20:43 98.6 16 129/87 (101) 100 Room Air I/O 07/23/17 07/23/17 07/23/17 07/24/17 07/24/17 07/24/17 07:00 15:00 23:00 07:00 15:00 23:00 Intake Total 1250 ml Balance 1250 ml Intake IV Total 1000 ml Packed Cells 250 ml Result Diagram: 07/23/17210907/23/172109 Imaging Last Impressions Abdomen/Pelvis CT 07/23/172128 Signed Impressions: Service Date/Time: Sunday, July 23, 2017 22:15 - CONCLUSION: 1. Changes consistent with acute and chronic hepatitis again noted with inflammatory change surrounding the tail of the pancreas and new ill-defined low attenuation fluid along the stomach. The previously noted pseudocyst is not significantly changed. 2. New cystic structure in the right adnexa most consistent with an ovarian cyst. 3. Hepatic steatosis. 4. The noncalcified pulmonary nodule in the right lung base it is not significantly changed. Damien Montalvo MD Objective Remarks GENERAL: Thin cachectic appearing middle aged female patient in NAD. SKIN: Warm and dry. No rash. HEENT: Normocephalic. Atraumatic.Pupils equal and round. Mucous membranes pink and moist. CARDIOVASCULAR: Regular rate and rhythm. S1, S2 noted. No murmur appreciated. RESPIRATORY: No accessory muscle use. Clear to auscultation. Breath sounds equal bilaterally. GASTROINTESTINAL: Abdomen soft, nondistended, moderate epigastric TTP. Normoactive bowel sounds x4. MUSCULOSKELETAL: No obvious deformities. Extremities without clubbing, cyanosis , or edema. NEUROLOGICAL: Awake and alert. No obvious cranial nerve deficits. Motor grossly within normal limits. Normal speech. PSYCHIATRIC: Appropriate mood and affect; insight and judgment normal. Medications and IVs Current Medications Medications (Trade) Dose Ordered Sig/Flores Route Start Time Stop Time Status Last Admin (NS Flush) 2 ml UNSCH PRN IV FLUSH 07/23/17 21:30 Sodium Chloride 250 ml @ 15 mls/hr ONCE ONCE IV 07/23/17 22:45 07/24/17 15:24 07/24/17 02:19 Sodium Chloride 1,000 ml @ 100 mls/hr Q10H IV 07/23/17 23:29 07/24/17 09:29 (Morphine Inj) 2 mg Q3H PRN IV 07/23/17 23:30 07/24/17 09:19 (Morphine Inj) 1 mg Q3H PRN IV 07/23/17 23:30 (Narcan Inj) 0.4 mg UNSCH PRN IV 07/23/17 23:30 (Flu (Quadrivalent) Vaccine Inj) 0.5 ml ONCE ONCE IM 07/25/17 10:00 07/25/17 10:01 A/P Assessment and Plan 47-year-old female with history of chronic pancreatitis, pseudocyst, anxiety, GERD, migraines, presents with a 2-3 day history of abdominal pain and nausea/ vomiting. Epigastric Pain/Nausea/Vomiting: possibly flare of chronic pancreatitis vs gastritis/PUD with +NSAID use. Start on PPI. Supportive treatment with IVF, antiemetics, and pain control with IV Dilaudid prn. GI consulted. Clear liquid diet for now. GI Bleeding with Anemia: Hgb 6.7 upon arrival, Guaiac positive in the ED. + NSAID use. Start on Protonix bid. Give 2u pRBCs transfusion. Monitor serial H& H. GI consulted, plan for colonoscopy. Severe Protein Calorie Malnutrition: BMI 17, Albumin 3.3. Patient cachectic on exam. Will recommend Ensure with meals. Growth Media Mixer Mushroom consulted. All other medical conditions stable, continue home medications as appropriate. DVT Prophylaxis: teds/SCDs Discharge Planning Discharge pending further clinical improvement and colonoscopy. Sybil Reeves PA-C Jul 24, 2017 10:28 am
[2017-07-24] MEDS ORDERED: HYDROmorphone HCL PF 1 MG/ML VIAL IV PUSH PRN (11:00)
[2017-07-24] MEDS: PANTOPRAZOLE SOD 40 MG DELAYED RELEASE TAB PO SCH ×2 (11:40→20:22)
[2017-07-24] MEDS: NICOTINE 14 MG/24 HR PATCH T-DERMAL SCH (11:40)
[2017-07-24] MEDS: HYDROmorphone HCL PF 1 MG/ML VIAL IV PUSH PRN ×3 (11:41→20:24)
[2017-07-24 13:51] LABS: BASOPHIL # 0.1 TH/MM3 (0-0.2); BASOPHIL % 1.1 % (0.0-2.0); EOSINOPHIL # 0.1 TH/MM3 (0-0.4); HEMATOCRIT 24.7 % (35.0-46.0); HEMO FLAGS DIFF FINAL; LYMPH % 26.2 % (9.0-44.0); LYMPHOCYTE # 1.6 TH/MM3 (1.0-4.8); MEAN CELL VOLUME 81.3 FL (80.0-100.0); MEAN CORPUSCULAR HEMOGLOBIN 26.9 PG (27.0-34.0); MONO % 6.1 % (0.0-8.0); NEUT % 64.6 % (16.0-70.0); PLATELET COUNT 239 TH/MM3 (150-450); RED BLOOD COUNT 3.04 MIL/MM3 (4.00-5.30); RED CELL DISTRIBUTION WIDTH 18.2 % (11.6-17.2); WHITE BLOOD COUNT 6.3 TH/MM3 (4.0-11.0)
[2017-07-24 14:29] LABS: HDL CHOLESTEROL 25.2 MG/DL (40.0-60.0); INDIRECT BILIRUBIN 0.6 MG/DL (0.0-0.8); TOTAL BILIRUBIN ADULT 0.7 MG/DL (0.2-1.0)
[2017-07-24] MEDS ORDERED: LORazepam 0.5 MG TAB PO PRN (17:45)
[2017-07-24 19:21] LABS: HEMATOCRIT 26.1 % (35.0-46.0); REVIEW FLAG FINAL
[2017-07-24] MEDS ORDERED: MAGNESIUM CITRATE SOLN 300 ML BTL PO ONE ×2 (20:00→22:00)
--- NOTE | 2017-07-24 20:07 | EKG ---
Date Performed: 07/23/2017 Time Performed: 21:24:01 PTAGE: 47 years EKG: Sinus rhythm NORMAL ECG PREVIOUS TRACING : 06/23/2017 18.49 DOCTOR: Lyndsey Hutson Interpretating Date/Time 07/24/2017 20:04:37
[2017-07-25] VITALS (7 sets, daily range): BP systolic 107–127; BP diastolic 64–71; PULSE 71–85; RESP 16–18; TEMP 97.7–98.5; O2SAT 95–97
[2017-07-25] MEDS: HYDROmorphone HCL PF 1 MG/ML VIAL IV PUSH PRN ×4 (00:37→14:29)
[2017-07-25 01:45] LABS: HEMATOCRIT 28.1 % (35.0-46.0); REVIEW FLAG FINAL
[2017-07-25 06:46] LABS: AUTOMATED NEUTROPHIL # 2.8 TH/MM3 (1.8-7.7); BASOPHIL # 0.1 TH/MM3 (0-0.2); BASOPHIL % 1.3 % (0.0-2.0); EOSINOPHIL # 0.1 TH/MM3 (0-0.4); HEMATOCRIT 24.8 % (35.0-46.0); HEMO FLAGS DIFF FINAL; LYMPH % 32.7 % (9.0-44.0); LYMPHOCYTE # 1.6 TH/MM3 (1.0-4.8); MEAN CORPUSCULAR HEMOGLOBIN 26.5 PG (27.0-34.0); MEAN CORPUSCULAR HGB CONC 32.3 % (32.0-36.0); MONO % 6.9 % (0.0-8.0); NEUT % 56.1 % (16.0-70.0); PLATELET COUNT 207 TH/MM3 (150-450); RED BLOOD COUNT 3.02 MIL/MM3 (4.00-5.30); RED CELL DISTRIBUTION WIDTH 17.7 % (11.6-17.2); WHITE BLOOD COUNT 4.9 TH/MM3 (4.0-11.0)
[2017-07-25 07:20] LABS: ALKALINE PHOSPHATASE 128 U/L (45-117); ALT (GPT) 16 U/L (10-53); ANION GAP 5 MEQ/L (5-15); AST (GOT) 18 U/L (15-37); BICARBONATE 24.4 MEQ/L (21.0-32.0); BLOOD UREA NITROGEN 4 MG/DL (7-18); CHLORIDE 111 MEQ/L (98-107); GLOMERULAR FILTRATION RATE 296 ML/MIN (>89); SODIUM (NA) 140 MEQ/L (136-145); TOTAL BILIRUBIN ADULT 0.3 MG/DL (0.2-1.0)
[2017-07-25] MEDS ORDERED: REMOVE OLD PATCH T-DERMAL SCH (09:00)
[2017-07-25] MEDS ORDERED: PROPOFOL 200 MG/20 ML AMP IV ONE (09:09)
--- NOTE | 2017-07-25 09:43 | HHI.GIFU ---
Subjective Remarks Colonoscopy with single polypectomy with hot snare performed. No bleeding lesions seen. Tolerated well. Objective Vitals I&O Vital Signs Date Time Temp Pulse Resp B/P (MAP) Pulse Ox O2 Delivery O2 Flow Rate FiO2 07/25/17 07:52 98.1 76 16 107/64 (78) 95 07/25/17 07:32 77 07/25/17 04:44 98.5 76 18 109/66 (80) 96 07/25/17 01:07 16 07/24/17 23:59 98.2 77 18 119/65 (83) 97 07/24/17 23:00 77 07/24/17 21:20 21 07/24/17 20:47 99.0 87 19 124/83 (97) 98 07/24/17 16:15 85 07/24/17 15:37 97.5 78 18 108/67 (81) 96 07/24/17 10:05 97.7 76 16 100/60 98 I/O 07/24/17 07/24/17 07/24/17 07/25/17 07/25/17 07/25/17 07:00 15:00 23:00 07:00 15:00 23:00 Intake Total 1250 ml 405 ml Balance 1250 ml 405 ml Intake IV Total 1000 ml 150 ml Packed Cells 250 ml 250 ml Blood Product IV Normal Saline Flush 5 ml Laboratory Laboratory Tests Test 07/24/17 13:20 07/24/17 18:40 07/25/17 01:03 07/25/17 06:05 White Blood Count 6.3 4.9 Red Blood Count 3.04 3.02 Hemoglobin 8.2 8.1 9.1 8.0 Hematocrit 24.7 26.1 28.1 24.8 Mean Corpuscular Volume 81.3 82.0 Mean Corpuscular Hemoglobin 26.9 26.5 Mean Corpuscular Hemoglobin Concent 33.0 32.3 Red Cell Distribution Width 18.2 17.7 Platelet Count 239 207 Mean Platelet Volume 6.7 6.9 Neutrophils (%) (Auto) 64.6 56.1 Lymphocytes (%) (Auto) 26.2 32.7 Monocytes (%) (Auto) 6.1 6.9 Eosinophils (%) (Auto) 2.0 3.0 Basophils (%) (Auto) 1.1 1.3 Neutrophils # (Auto) 4.0 2.8 Lymphocytes # (Auto) 1.6 1.6 Monocytes # (Auto) 0.4 0.3 Eosinophils # (Auto) 0.1 0.1 Basophils # (Auto) 0.1 0.1 CBC Comment DIFF FINAL DIFF FINAL Differential Comment Total Bilirubin 0.7 0.3 Direct Bilirubin 0.1 Indirect Bilirubin 0.6 Aspartate Amino Transf (AST/SGOT) 16 18 Alanine Aminotransferase (ALT/SGPT) 16 16 Alkaline Phosphatase 132 128 Total Protein 6.3 6.1 Albumin 2.8 2.6 Triglycerides Level 117 Cholesterol Level 142 LDL Cholesterol 93 HDL Cholesterol 25.2 Cholesterol/HDL Ratio 5.63 Blood Urea Nitrogen 4 Creatinine 0.25 Random Glucose 82 Calcium Level 8.1 Magnesium Level 2.0 Sodium Level 140 Potassium Level 4.0 Chloride Level 111 Carbon Dioxide Level 24.4 Anion Gap 5 Estimat Glomerular Filtration Rate 296 Lipase 213 Physical Exam HEENT: Pupils round and reactive to light; normocephalic; atraumatic; no jaundice. Throat is clear. NECK: Neck is supple, no JVD, no lymphadenopathy. CHEST: Chest is clear to auscultation and percussion. CARDIAC: Regular rate and rhythm with no murmur gallop or rubs. ABDOMEN: Soft, nondistended, nontender; no hepatosplenomegaly; bowel sounds are present in all four quadrants. EXTREMITIES: No clubbing, cyanosis, or edema. SKIN: Normal; no rash; no jaundice. DIVINE HEALER: No focal deficits; alert and oriented times three. Assessment and Plan Plan Imp: Chronic pancreatitis Abdominal pain Severe anemia Colonoscopy showed single small benign polyp, removed. Plan: Clear liquids Colonoscopy will be planned. Pancreatic enzymes PO when she begins eating. Further recommendations as the case progresses. Delano Richard MD Jul 25, 2017 09:42
[2017-07-25] MEDS ORDERED: INFLUENZA VIRUS VACCINE (QUADRIVALENT) 0.5 ML SYR IM ONE (10:00)
[2017-07-25] MEDS: NICOTINE 14 MG/24 HR PATCH T-DERMAL SCH (10:56)
[2017-07-25] MEDS: PANTOPRAZOLE SOD 40 MG DELAYED RELEASE TAB PO SCH (10:57)
--- NOTE | 2017-07-25 14:12 | HHI.PR ---
Subjective Remarks Follow up for GI bleed, anemia, abdominal pain. The patient reports feeling well post colonoscopy today. She tolerated clear liquids. No further nausea/ vomiting. Denies noticing any hematochezia/melena in stool last night. She wants to try soft foods and go home today if possible. Objective Vitals Vital Signs Date Time Temp Pulse Resp B/P (MAP) Pulse Ox O2 Delivery O2 Flow Rate FiO2 07/25/17 12:02 97.7 74 16 117/71 (86) 97 07/25/17 11:27 71 07/25/17 10:15 76 16 115/78 (90) 99 Room Air 07/25/17 09:48 98.1 87 16 116/72 (87) 99 Room Air 07/25/17 07:52 98.1 76 16 107/64 (78) 95 07/25/17 07:32 77 07/25/17 04:44 98.5 76 18 109/66 (80) 96 07/25/17 01:07 16 07/24/17 23:59 98.2 77 18 119/65 (83) 97 07/24/17 23:00 77 07/24/17 21:20 21 07/24/17 20:47 99.0 87 19 124/83 (97) 98 07/24/17 16:15 85 07/24/17 15:37 97.5 78 18 108/67 (81) 96 I/O 07/24/17 07/24/17 07/24/17 07/25/17 07/25/17 07/25/17 07:00 15:00 23:00 07:00 15:00 23:00 Intake Total 1250 ml 405 ml Balance 1250 ml 405 ml Intake IV Total 1000 ml 150 ml Packed Cells 250 ml 250 ml Blood Product IV Normal Saline Flush 5 ml Result Diagram: 07/25/1760407/25/17604 Imaging Last Impressions Abdomen/Pelvis CT 07/23/172128 Signed Impressions: Service Date/Time: Sunday, July 23, 2017 22:15 - CONCLUSION: 1. Changes consistent with acute and chronic hepatitis again noted with inflammatory change surrounding the tail of the pancreas and new ill-defined low attenuation fluid along the stomach. The previously noted pseudocyst is not significantly changed. 2. New cystic structure in the right adnexa most consistent with an ovarian cyst. 3. Hepatic steatosis. 4. The noncalcified pulmonary nodule in the right lung base it is not significantly changed. Damien Montalvo MD Objective Remarks GENERAL: Thin cachectic appearing middle aged female patient in NAD. SKIN: Warm and dry. No rash. HEENT: Normocephalic. Atraumatic.Pupils equal and round. Mucous membranes pink and moist. CARDIOVASCULAR: Regular rate and rhythm. S1, S2 noted. No murmur appreciated. RESPIRATORY: No accessory muscle use. Clear to auscultation. Breath sounds equal bilaterally. GASTROINTESTINAL: Scaphoid abdomen, soft, nondistended, nontender today. Normoactive bowel sounds x4. MUSCULOSKELETAL: No obvious deformities. Extremities without clubbing, cyanosis , or edema. NEUROLOGICAL: Awake and alert. No obvious cranial nerve deficits. Motor grossly within normal limits. Normal speech. PSYCHIATRIC: Appropriate mood and affect; insight and judgment normal. Medications and IVs Current Medications Medications (Trade) Dose Ordered Sig/Flores Route Start Time Stop Time Status Last Admin (NS Flush) 2 ml UNSCH PRN IV FLUSH 07/23/17 21:30 Sodium Chloride 1,000 ml @ 100 mls/hr Q10H IV 07/23/17 23:29 07/24/17 20:48 (Narcan Inj) 0.4 mg UNSCH PRN IV 07/23/17 23:30 (Dilaudid Pf Inj) 0.2 mg Q4H PRN IV PUSH 07/24/17 11:00 (Dilaudid Pf Inj) 0.5 mg Q4H PRN IV PUSH 07/24/17 11:00 07/25/17 10:56 (Protonix) 40 mg Q12HR PO 07/24/17 11:00 07/25/17 10:57 (Habitrol 14 Mg Patch.24 Hr) 1 patch DAILY T-DERMAL 07/24/17 11:30 07/25/17 10:56 Miscellaneous Information 1 DAILY T-DERMAL 07/25/17 09:00 (Ativan) 0.5 mg DAILY PRN PO 07/24/17 17:45 07/25/17 01:27 A/P Assessment and Plan 47-year-old female with history of chronic pancreatitis, pseudocyst, anxiety, GERD, migraines, presents with a 2-3 day history of abdominal pain and nausea/ vomiting. Epigastric Pain/Nausea/Vomiting: suspect flare of chronic pancreatitis vs gastritis/PUD with +NSAID use. Started on PPI. Supportive treatment with IVF, antiemetics, and pain control with IV Dilaudid prn. GI consulted. Clear liquid diet for now. GI Bleeding with Anemia: Hgb 6.7 upon arrival, Guaiac positive in the ED. + NSAID use. Start on Protonix bid. S/p 2u pRBCs transfusion. Monitor serial H&H, currently stable with Hgb 8.0. GI consulted, colonoscopy done today, showed single polyp, polypectomy performed, some internal hemorrhoids, no bleeding lesions. Recommends high fiber diet. Severe Protein Calorie Malnutrition: BMI 17, Albumin 3.3. Patient cachectic on exam. Recommended Ensure with meals. Hims Coder consulted. All other medical conditions stable, continue home medications as appropriate. DVT Prophylaxis: teds/SCDs Discharge Planning Discharge pending clearance from GI. 1420hrs: Discussed with GI, ok to d/c home if patient tolerates soft diet. Started on Creon. Patient understanding and agreeable with this plan. Discharge patient to home Condition on discharge: Improved Regular Soft Diet as tolerated Ad Lyly activity Rx written: Protonix, Creon Follow-up with primary care physician and gastroenterology in 1 week Sybil Reeves PA-C Jul 25, 2017 2:12 pm
[2017-07-25] MEDS ORDERED: CREON24 PO (14:22)
[2017-07-25] MEDS ORDERED: PANT40TA3 PO (14:22)
--- NOTE | 2017-07-25 14:25 | HHI.DCPOC ---
Discharge Care Plan Diagnosis: (1) Chronic pancreatitis (2) Internal hemorrhoids (3) Polyp of colon (4) Anemia (5) Abdominal pain Goals to Promote Your Health * To prevent worsening of your condition and complications * To maintain your health at the optimal level Directions to Meet Your Goals Take your medications as prescribed Follow your dietary instruction Follow activity as directed Keep your appointments as scheduled Take your immunizations and boosters as scheduled If your symptoms worsen call your PCP, if no PCP go to Urgent Care Center or Emergency Room Smoking is Dangerous to Your Health. Avoid second hand smoke Call the 24-hour hour crisis hotline for domestic abuse at Sybil Reeves PA-C Jul 25, 2017 14:25
[2017-07-25] MEDS ORDERED: LIPASE/PROTEASE/AMYLASE (24,000/76,000/120,000) CAP PO SCH (18:00)
== END 2017-07-25 18:25 | disposition home or self-care (01) ==
LOC: NEPC 20:41 → UNDOADMOB 23:11 → NEDA 23:11 → INTOOBSV 23:11 → NEDA 23:32 → NEPFCDU 07-24 01:02 → UNDODISOB 07-25 18:25
PROVIDERS: ADMIT Hospitalist; ATTEND Hospitalist
DX: K63.5 Polyp of colon (principal); K86.1 Other chronic pancreatitis; K64.8 Other hemorrhoids; K92.2 Gastrointestinal hemorrhage, unspecified; D50.0 Iron deficiency anemia secondary to blood loss (chronic); R07.89 Other chest pain; Z72.0 Tobacco use; Z86.14 Personal history of Methicillin resistant Staphylococcus aureus infection; Z88.0 Allergy status to penicillin
CPT/HCPCS: 00810; 36430; 45385; 74177; 80053; 80061; 80076; 81001; 82948; 83605; 83690; 83735; 85014; 85018; 85025; 85610; 85730; 86850; 86900; 86901; 86920; 88305; 93005; 96361; 96374; 96375; 96376; 99285; C9113; G0378; J1170; J1885; J2270; J2405; J7030; J7050; P9016; Q9967

== ENCOUNTER 2017-08-07 14:46 | Emergency (ER) | payer OTHER ==
[~2017-08-07] VITALS: Ht 160 cm; Wt 45.0 kg
[~2017-08-07 14:46] MED LIST changes: -BACT800T5 PO; +CREON24 PO; +PANT40TA3 PO
[2017-08-07 14:49] VITALS: BP 123/66; PULSE 110; RESP 13; TEMP 98; O2SAT 100
[2017-08-07] MEDS ORDERED: ZANT150T2 PO (15:15)
[2017-08-07] MEDS ORDERED: SODIUM CHLOR 0.9% 1000 ML INJ 1,000 ML IV SCH (15:22)
--- NOTE | 2017-08-07 15:26 | PD ---
HPI Chief Complaint: Abdominal Pain Time Seen by Provider: 15:15 Travel History International Travel<30 days: No Contact w/Intl Traveler<30days: No Traveled to known affect area: No History of Present Illness HPI Examined in the presence of a female nurse. 47-year-old female presents for evaluation of chronic epigastric abdominal pain. She reports that she has had pain in her epigastric for 3 years. She has occasional exacerbations of this pain which she relates to chronic pancreatitis. Her current exacerbation started a few days ago. The pain is an aching pain which is constant, Goodman with nausea. Denies vomiting, black or tarry stools, hematochezia, chest pain or shortness of breath, fevers or chills, vaginal bleeding or discharge, dysuria. Most recently the patient was seen here on July 23 were she was admitted for GI bleed and anemia. She underwent a colonoscopy which revealed a polyp with no evidence of bleeding. She was discharged with a prescription for creon which she has been unable to afford. She has a follow-up appointment with primary care physician Dr. Balta العلي in 10 days. She has been using Zantac on a regular basis. She reports that the street her pain she uses approximately 12 tablets of ibuprofen on a daily basis although she has been told in the past to discontinue NSAID use. She had an endoscopy on July 11 which was normal. She had a CT of the abdomen and pelvis which revealed chronic /acute hepatitis as well as pancreatic pseudocyst, ovarian cyst. No other complaints. PFSH Past Medical History Asthma: No Autoimmune Disease: No Blood Disorders: Yes (ANEMIA) Anxiety: Yes Depression: No Heart Rhythm Problems: No Cancer: No Cardiovascular Problems: No High Cholesterol: No Chemotherapy: No Chest Pain: Yes Congestive Heart Failure: No COPD: No Diabetes: No Diminished Hearing: No Endocrine: No Gastrointestinal Disorders: Yes (C-DIFF) GERD: Yes Glaucoma: No Genitourinary: Yes (UTI) Headaches: Yes Hepatitis: No Hiatal Hernia: No Hypertension: No Immune Disorder: No Musculoskeletal: No Neurologic: No Psychiatric: Yes Reproductive: No Respiratory: No Migraines: Yes Myocardial Infarction: No Pancreatitis: Yes Radiation Therapy: No Renal Failure: No Sleep Apnea: No Thyroid Disease: No Ulcer: No ?: Not : 1 Para: 1 Miscarriage: 0 : 0 Past Surgical History Abdominal Surgery: Yes (Cholecesectomy) AICD: No Arteriovenous Shunt: No Section: Yes Cholecystectomy: Yes Gynecologic Surgery: Yes () Insulin Pump: No Other Surgery: Yes (GALLBLADDER, , PANCREAS) Social History Alcohol Use: No Tobacco Use: Yes (1 ppd) Substance Use: No Allergies-Medications (Allergen,Severity, Reaction): Coded Allergies: methadone (Unverified Allergy, Severe, 08/07/17) penicillin G (Unverified Allergy, Severe, Anaphylaxis, 08/07/17) Reported Meds & Prescriptions Reported Meds & Active Scripts Active Zofran (Ondansetron HCl) 4 Mg Tab 4 Mg PO Q6HR PRN Tylenol-Codeine #3 (Acetaminophen-Codeine) 300-30 mg Tab 1-2 Tab PO Q6H PRN Reported Zantac (Ranitidine HCl) 150 Mg Tab 150 Mg PO DAILY Review of Systems Except as stated in HPI: all other systems reviewed are Neg Physical Exam Narrative GENERAL: Well-developed well-nourished female in no acute distress. Tachycardic. SKIN: Warm and dry. Midline abdominal wall incision/scar noted. HEAD: Atraumatic. Normocephalic. EYES: Pupils equal and round. No scleral icterus. No injection or drainage. ENT: No nasal bleeding or discharge. Mucous membranes pink and moist. NECK: Trachea midline. No JVD. CARDIOVASCULAR: Regular rate and rhythm. No murmur appreciated. RESPIRATORY: No accessory muscle use. Clear to auscultation. Breath sounds equal bilaterally. GASTROINTESTINAL: Abdomen soft, epigastric tenderness to palpation without guarding. MUSCULOSKELETAL: No obvious deformities. No clubbing. No cyanosis. No edema. NEUROLOGICAL: Awake and alert. No obvious cranial nerve deficits. Motor grossly within normal limits. Normal speech. PSYCHIATRIC: Appropriate mood and affect; insight and judgment normal. Data Data Last Documented VS Vital Signs Date Time Temp Pulse Resp B/P (MAP) Pulse Ox O2 Delivery O2 Flow Rate FiO2 08/07/17 16:00 100 20 121/72 (88) 99 Room Air 08/07/17 14:49 98.0 Orders Orders Complete Blood Count With Diff (08/07/17 15:22) Comprehensive Metabolic Panel (08/07/17 15:22) Lipase (08/07/17 15:22) Urinalysis - C+S If Indicated (08/07/17 15:22) Iv Access Insert/Monitor (08/07/17 15:22) Ecg Monitoring (08/07/17 15:) Oximetry (08/07/17 15:) Ondansetron Inj (Zofran Inj) (08/07/17 15:30) Sodium Chlor 0.9% 1000 Ml Inj (Ns 1000 M (08/07/17 15:22) Sodium Chloride 0.9% Flush (Ns Flush) (08/07/17 15:30) Electrocardiogram (08/07/17 15:) Morphine Inj (Morphine Inj) (08/07/17 15:30) Al-Mag Hy-Si 40-40-4 Mg/Ml Liq (Mag-Al P (08/07/17 15:30) Lidocaine 2% Viscous (Xylocaine 2% Visco (08/07/17 15:30) Ed Urine Pregnancytest Poc (08/07/17 15:22) Labs Laboratory Tests Test 08/07/17 15:45 White Blood Count 7.9 TH/MM3 Red Blood Count 3.33 MIL/MM3 Hemoglobin 8.6 GM/DL Hematocrit 26.8 % Mean Corpuscular Volume 80.7 FL Mean Corpuscular Hemoglobin 26.0 PG Mean Corpuscular Hemoglobin Concent 32.2 % Red Cell Distribution Width 19.6 % Platelet Count 254 TH/MM3 Mean Platelet Volume 7.8 FL Neutrophils (%) (Auto) 66.4 % Lymphocytes (%) (Auto) 23.9 % Monocytes (%) (Auto) 5.9 % Eosinophils (%) (Auto) 3.0 % Basophils (%) (Auto) 0.8 % Neutrophils # (Auto) 5.2 TH/MM3 Lymphocytes # (Auto) 1.9 TH/MM3 Monocytes # (Auto) 0.5 TH/MM3 Eosinophils # (Auto) 0.2 TH/MM3 Basophils # (Auto) 0.1 TH/MM3 CBC Comment DIFF FINAL Differential Comment Urine Color YELLOW Urine Turbidity CLEAR Urine pH 6.5 Urine Specific Wright 1.020 Urine Protein NEG mg/dL Urine Glucose (UA) NEG mg/dL Urine Ketones NEG mg/dL Urine Occult Blood NEG Urine Nitrite NEG Urine Bilirubin NEG Urine Urobilinogen LESS THAN 2.0 MG/DL Urine Leukocyte Esterase TRACE Urine WBC 1 /hpf Urine Squamous Epithelial Cells 2 /hpf Urine Mucus FEW /lpf Microscopic Urinalysis Comment CULT NOT INDICATED Blood Urea Nitrogen 13 MG/DL Creatinine 0.41 MG/DL Random Glucose 94 MG/DL Total Protein 7.5 GM/DL Albumin 3.3 GM/DL Calcium Level 8.9 MG/DL Alkaline Phosphatase 121 U/L Aspartate Amino Transf (AST/SGOT) 13 U/L Alanine Aminotransferase (ALT/SGPT) 17 U/L Total Bilirubin LESS THAN 0.1 MG/DL Sodium Level 140 MEQ/L Potassium Level 3.9 MEQ/L Chloride Level 106 MEQ/L Carbon Dioxide Level 28.1 MEQ/L Anion Gap 6 MEQ/L Lipase 2621 U/L MDM Medical Decision Making Medical Screen Exam Complete: Yes Emergency Medical Condition: Yes Medical Record Reviewed: Yes Differential Diagnosis Chronic pancreatitis, peptic ulcer disease, AAA, mesenteric ischemia, colitis, ACS, renal stone Narrative Course This is a 47-year-old female with chronic epigastric abdominal pain, chronic pancreatitis, who presents for evaluation of worsening epigastric pain over the past 8 days. She was admitted on July 23, had a CT of the abdomen and pelvis on July 23, colonoscopy during her hospitalization which revealed no evidence of acute bleeding. She had an endoscopy on July 11 which is normal. On examination initially she is tachycardic with epigastric tenderness to palpation. Plan is for basic lab work, EKG, and ECG monitor and pulse oximetry. She will be given GI cocktail, IV Zofran, morphine, 1 L normal saline. Upon reexamination the patient feels improved, she is tolerating oral fluids. Her hemoglobin is 8.6 which is improved from her recent discharge. Her CMP reveals an AST of 13, and ALT of 17, her lipase is 2621 consistent with pancreatitis. At this point in time because the patient is tolerating oral hydration the plan is to discharge her with a short course of Zofran, Tylenol with Codeine. Recommended following up with Dr. العلي, outpatient gastroenterology. Discussed signs and symptoms were to return to the emergency room. She is stable for discharge. Procedures EKG Prior to Arrival: Yes Diagnosis Primary Impression: Pancreatitis Qualified Codes: K85.90 - Acute pancreatitis without necrosis or infection, unspecified Additional Instructions: Follow-up with Dr. العلي as scheduled. Medication as needed. Liquid diet over the next few days and slowly advance as tolerated. Return for any acutely new or worsening symptoms. Med/Other Pt SpecificInfo: Prescription(s) given Scripts Ondansetron (Zofran) 4 Mg Tab 4 MG PO Q6HR Y for NAUSEA OR VOMITING, #20 TAB 0 Refills Prov: Darlene Carvalho MD 08/07/17 Acetaminophen-Codeine (Tylenol-Codeine #3) 300-30 mg Tab 1-2 TAB PO Q6H Y for PAIN, #15 TAB 0 Refills Prov: Darlene Carvalho MD 08/07/17 Disposition: 01 DISCHARGE HOME Condition: Stable Gene Velasco Aug 07, 2017 15:26
[2017-08-07] MEDS ORDERED: ALUMINUM/MAGNESIUM/SIMETH 30 ML CUP PO ONE (15:30)
[2017-08-07] MEDS ORDERED: ONDANSETRON HCL 4 MG/2 ML VIAL IVP ONE (15:30)
[2017-08-07] MEDS ORDERED: SODIUM CHLORIDE 0.9% FLUSH 10 ML FLUSH IV FLUSH PRN (15:30)
[2017-08-07] MEDS ORDERED: MORPHINE SULFATE 4 MG/ML INJ IV PUSH ONE (15:30)
[2017-08-07] MEDS ORDERED: LIDOCAINE VISCOUS 2% SOLN 15 ML UDC PO ONE (15:30)
[2017-08-07 15:54] VITALS: BP 117/67; PULSE 99; O2SAT 99
[2017-08-07 15:55] VITALS: BP 117/67; O2SAT 99
[2017-08-07 16:00] VITALS: BP 121/72; PULSE 100; RESP 20; O2SAT 99
[2017-08-07 16:11] LABS: AUTOMATED NEUTROPHIL # 5.2 TH/MM3 (1.8-7.7); BASOPHIL # 0.1 TH/MM3 (0-0.2); BASOPHIL % 0.8 % (0.0-2.0); EOSINOPHIL # 0.2 TH/MM3 (0-0.4); HEMATOCRIT 26.8 % (35.0-46.0); HEMO FLAGS DIFF FINAL; LYMPH % 23.9 % (9.0-44.0); LYMPHOCYTE # 1.9 TH/MM3 (1.0-4.8); MEAN CELL VOLUME 80.7 FL (80.0-100.0); MEAN CORPUSCULAR HGB CONC 32.2 % (32.0-36.0); MONO % 5.9 % (0.0-8.0); NEUT % 66.4 % (16.0-70.0); PLATELET COUNT 254 TH/MM3 (150-450); RED BLOOD COUNT 3.33 MIL/MM3 (4.00-5.30); RED CELL DISTRIBUTION WIDTH 19.6 % (11.6-17.2); WHITE BLOOD COUNT 7.9 TH/MM3 (4.0-11.0)
[2017-08-07 16:22] LABS: BLOOD, URINE NEG (NEG); COMMENT (UR) CULT NOT INDICATED; CULTURE IF INDICATED CULT NOT INDICATED; GLUCOSE,URINE NEG (NEG); KETONE, URINE NEG (NEG); MUCUS URINE FEW /lpf (OCC); NITRITE,URINE NEG (NEG); PH, URINE 6.5 (5.0-8.5); SQUAMOUS EPITHELIAL CELL URINE 2 /hpf (0-5); URINE COLOR YELLOW (YELLW/STRAW)
[2017-08-07 16:33] LABS: ALT (GPT) 17 U/L (10-53); ANION GAP 6 MEQ/L (5-15); AST (GOT) 13 U/L (15-37); BICARBONATE 28.1 MEQ/L (21.0-32.0); BLOOD UREA NITROGEN 13 MG/DL (7-18); CHLORIDE 106 MEQ/L (98-107); POTASSIUM 3.9 MEQ/L (3.5-5.1); SODIUM (NA) 140 MEQ/L (136-145)
[2017-08-07 16:35] LABS: ALKALINE PHOSPHATASE 121 U/L (45-117); TOTAL BILIRUBIN ADULT LESS THAN 0.1 MG/DL (0.2-1.0)
[2017-08-07] MEDS ORDERED: TYLETAB34 PO (16:43)
[2017-08-07] MEDS ORDERED: ZOFR4TAB PO (16:43)
[2017-08-07 17:00] VITALS: BP 114/71; PULSE 90; RESP 23; O2SAT 97
[2017-08-07 17:07] VITALS: RESP 20
--- NOTE | 2017-08-08 14:13 | EKG ---
Date Performed: 08/07/2017 Time Performed: 15:56:39 PTAGE: 47 years EKG: SINUS TACHYCARDIA ABNORMAL RHYTHM ECG Compared to prior tracing no significant change PREVIOUS TRACING : 07/23/2017 21.24 DOCTOR: Milton Li Interpretating Date/Time 08/08/2017 14:10:19
== END 2017-08-07 18:39 | disposition home or self-care (01) ==
LOC: NEPC 14:46
DX: K85.90 Acute pancreatitis without necrosis or infection, unspecified (principal); F17.200 Nicotine dependence, unspecified, uncomplicated
CPT/HCPCS: 80053; 81001; 83690; 84703; 85025; 93005; 96361; 96374; 96375; 99284; J2270; J2405; J7030

== ENCOUNTER 2017-12-22 09:29 | Observation (INO) | payer SELFPAY ==
[~2017-12-22] VITALS: Ht 160 cm; Wt 52.0 kg
[~2017-12-22 09:29] MED LIST changes: -CREON24 PO; -HYDR-3533 PO; -LORA-392 PO; -PANT40TA3 PO; +TYLETAB34 PO; +ZANT150T2 PO; +ZOFR4TAB PO; -ZOFR4TAB3 SL
[2017-12-22 09:31] VITALS: BP 134/76; PULSE 96; RESP 18; TEMP 98.3; O2SAT 100
[2017-12-22 10:11] LABS: AUTOMATED NEUTROPHIL # 3.4 TH/MM3 (1.8-7.7); BASOPHIL # 0.1 TH/MM3 (0-0.2); BASOPHIL % 1.1 % (0.0-2.0); EOSINOPHIL # 0.1 TH/MM3 (0-0.4); EOSINOPHIL % 2.2 % (0.0-4.0); HEMATOCRIT 29.5 % (35.0-46.0); HEMOGLOBIN 9.5 GM/DL (11.6-15.3); LYMPH % 20.1 % (9.0-44.0); MEAN CELL VOLUME 76.4 FL (80.0-100.0); MEAN CORPUSCULAR HEMOGLOBIN 24.6 PG (27.0-34.0); MEAN CORPUSCULAR HGB CONC 32.2 % (32.0-36.0); MEAN PLATELET VOLUME 7.4 FL (7.0-11.0); MONO % 10.7 % (0.0-8.0); MONOCYTE # 0.5 TH/MM3 (0-0.9); NEUT % 65.9 % (16.0-70.0); PLATELET COUNT 176 TH/MM3 (150-450); RED BLOOD COUNT 3.86 MIL/MM3 (4.00-5.30); RED CELL DISTRIBUTION WIDTH 20.6 % (11.6-17.2); WHITE BLOOD COUNT 5.1 TH/MM3 (4.0-11.0)
[2017-12-22] MEDS ORDERED: HYDROmorphone HCL PF 2 MG/ML VIAL IV PUSH ONE (10:15)
[2017-12-22] MEDS ORDERED: ONDANSETRON HCL 4 MG/2 ML VIAL IV PUSH ONE (10:15)
[2017-12-22] MEDS ORDERED: SODIUM CHLOR 0.9% 1000 ML INJ 1,000 ML IV ONE (10:15)
[2017-12-22] MEDS ORDERED: IOHEXOL 350 MG/ML 10 ML VIAL (for RAD DIAG) IVCONTRAST ONE (10:28)
[2017-12-22 10:30] LABS: ALBUMIN 3.2 GM/DL (3.4-5.0); AST (GOT) 16 U/L (15-37); BICARBONATE 25.6 MEQ/L (21.0-32.0); BLOOD UREA NITROGEN 3 MG/DL (7-18); CALCIUM 8.7 MG/DL (8.5-10.1); CREATININE 0.45 MG/DL (0.50-1.00); GLOMERULAR FILTRATION RATE 150 ML/MIN (>89); GLUCOSE,RANDOM 108 MG/DL (74-106)
--- NOTE | 2017-12-22 10:31 | PD ---
HPI Chief Complaint: Abdominal Pain Time Seen by Provider: 09:40 Travel History International Travel<30 days: No Contact w/Intl Traveler<30days: No Traveled to known affect area: No History of Present Illness HPI This is a 47-year-old female who has a history of recurrent pancreatitis who presents to the emergency department with pain in her upper abdomen, constant, sharp and stabbing radiating to the back associated with nausea and several episodes of vomiting. She says she has had the pain for over a week and she has been trying to deal with it by doing a clear liquid diet but she says it is not getting better. She has been taking ibuprofen at home but that is not helping. Patient's pancreatitis is attributed to heavy alcohol use in her younger years. She says she does not drink currently. She has had a pancreatic pseudocyst in the past. PFSH Past Medical History Asthma: No Autoimmune Disease: No Blood Disorders: Yes (ANEMIA) Anxiety: Yes Depression: No Heart Rhythm Problems: No Cancer: No Cardiovascular Problems: No High Cholesterol: No Chemotherapy: No Chest Pain: Yes Congestive Heart Failure: No COPD: No Diabetes: No Diminished Hearing: No Endocrine: No Gastrointestinal Disorders: Yes (C-DIFF) GERD: Yes Glaucoma: No Genitourinary: Yes (UTI) Headaches: Yes Hepatitis: No Hiatal Hernia: No Hypertension: No Immune Disorder: No Musculoskeletal: No Neurologic: No Psychiatric: Yes Reproductive: No Respiratory: No Migraines: Yes Myocardial Infarction: No Pancreatitis: Yes Radiation Therapy: No Renal Failure: No Sleep Apnea: No Thyroid Disease: No Ulcer: No ?: Not LMP: 12/07/17 : 1 Para: 1 Miscarriage: 0 : 0 Past Surgical History Abdominal Surgery: Yes (Cholecesectomy) AICD: No Arteriovenous Shunt: No Section: Yes Cholecystectomy: Yes Gynecologic Surgery: Yes () Insulin Pump: No Other Surgery: Yes (GALLBLADDER, , PANCREAS) Social History Alcohol Use: No Tobacco Use: Yes (1 ppd) Substance Use: No Allergies-Medications (Allergen,Severity, Reaction): Coded Allergies: methadone (Unverified Allergy, Severe, 12/22/17) penicillin G (Unverified Allergy, Severe, Anaphylaxis, 12/22/17) Reported Meds & Prescriptions Reported Meds & Active Scripts Active Tylenol-Codeine #3 (Acetaminophen-Codeine) 300-30 mg Tab 1-2 Tab PO Q6H PRN Review of Systems Except as stated in HPI: all other systems reviewed are Neg Physical Exam Narrative GENERAL:Well appearing, no acute distress SKIN: Focused skin assessment warm and dry. HEAD: Atraumatic. Normocephalic. EYES: Pupils equal and round. No injection or drainage. ENT: Moist mucous membranes NECK: Trachea midline. CARDIOVASCULAR: Regular rate and rhythm. No murmur appreciated. RESPIRATORY: Clear to auscultation. Breath sounds equal bilaterally. GASTROINTESTINAL: Abdomen soft, diffusely tender to palpation worse in the epigastrium and left upper quadrant.. MUSCULOSKELETAL: No obvious deformities. NEUROLOGICAL: Awake and alert. No obvious cranial nerve deficits. Moving all extremities. PSYCHIATRIC: Appropriate mood and affect; insight and judgment normal. Data Data Last Documented VS Vital Signs Date Time Temp Pulse Resp B/P (MAP) Pulse Ox O2 Delivery O2 Flow Rate FiO2 12/22/17 09:31 98.3 96 18 134/76 (95) 100 Room Air Orders Orders Complete Blood Count With Diff (12/22/17 09:45) Comprehensive Metabolic Panel (12/22/17 09:45) Lipase (12/22/17 09:45) ^ Insert Iv (12/22/17 09:45) Ct Abd/Pel W Iv Contrast(Rout) (12/22/17 ) Hydromorphone Pf Inj (Dilaudid Pf Inj) (12/22/17 10:15) Ondansetron Inj (Zofran Inj) (12/22/17 10:15) Sodium Chlor 0.9% 1000 Ml Inj (Ns 1000 M (12/22/17 10:15) Iohexol 350 Inj (Omnipaque 350 Inj) (12/22/17 10:28) Admit Order (Ed Use Only) (12/22/17 12:04) Consult Gastroenterology (12/22/17 ) Labs Laboratory Tests Test 12/22/17 09:50 White Blood Count 5.1 TH/MM3 Red Blood Count 3.86 MIL/MM3 Hemoglobin 9.5 GM/DL Hematocrit 29.5 % Mean Corpuscular Volume 76.4 FL Mean Corpuscular Hemoglobin 24.6 PG Mean Corpuscular Hemoglobin Concent 32.2 % Red Cell Distribution Width 20.6 % Platelet Count 176 TH/MM3 Mean Platelet Volume 7.4 FL Neutrophils (%) (Auto) 65.9 % Lymphocytes (%) (Auto) 20.1 % Monocytes (%) (Auto) 10.7 % Eosinophils (%) (Auto) 2.2 % Basophils (%) (Auto) 1.1 % Neutrophils # (Auto) 3.4 TH/MM3 Lymphocytes # (Auto) 1.0 TH/MM3 Monocytes # (Auto) 0.5 TH/MM3 Eosinophils # (Auto) 0.1 TH/MM3 Basophils # (Auto) 0.1 TH/MM3 CBC Comment DIFF FINAL Differential Comment Blood Urea Nitrogen 3 MG/DL Creatinine 0.45 MG/DL Random Glucose 108 MG/DL Total Protein 6.8 GM/DL Albumin 3.2 GM/DL Calcium Level 8.7 MG/DL Alkaline Phosphatase 113 U/L Aspartate Amino Transf (AST/SGOT) 16 U/L Alanine Aminotransferase (ALT/SGPT) 11 U/L Total Bilirubin 0.2 MG/DL Sodium Level 138 MEQ/L Potassium Level 3.2 MEQ/L Chloride Level 104 MEQ/L Carbon Dioxide Level 25.6 MEQ/L Anion Gap 8 MEQ/L Estimat Glomerular Filtration Rate 150 ML/MIN Lipase 666 U/L [facility] Medical Decision Making Medical Screen Exam Complete: Yes Emergency Medical Condition: Yes Medical Record Reviewed: Yes (Patient has been admitted multiple times in the past in the setting of acute pancreatitis and has had a pseudocyst in the past which has required surgery) Interpretation(s) Anemia similar to prior Electrolytes are reassuring Mild hypokalemia Lipase is [address] CT abdomen pelvis: Pancreatic calcifications consistent with chronic pancreatitis as well as a fluid collection along the pancreatic tail with some fluid around the liver and in the pelvis Differential Diagnosis Pancreatitis, dehydration, pancreatic pseudocyst, necrotizing pancreatitis Narrative Course This is a 47-year-old female who presents to the emergency department with symptoms consistent with her pancreatitis. She has been trying treated at home with a clear liquid diet that her symptoms are worsening. She was placed on a monitor and an IV was established labs were obtained which demonstrate a lipase of 666. She is no leukocytosis. CT demonstrates a possible fluid collection at the tail of the pancreas concerning for a pseudocyst. Patient will be placed in observation for symptomatic control and GI consultation. Physician Communication Physician Communication Discussed with Dr. Lloyd Diagnosis Primary Impression: Pancreatitis Qualified Codes: K85.90 - Acute pancreatitis without necrosis or infection, unspecified Additional Impression: Fluid collection of pancreas Admitting Information Admitting Physician Requests: Observation Jonelle Gross MD Dec 22, 2017 10:31
--- NOTE | 2017-12-22 10:44 | RADRPT ---
EXAM DATE/TIME: 12/22/2017 10:22 [facility] COMPARISON: CT ABDOMEN & PELVIS W CONTRAST, July 23, 2017, 22:15. INDICATIONS : Abdominal pain, nausea, vomiting, diarrhea IV CONTRAST: 97 cc Omnipaque 350 (iohexol) IV ORAL CONTRAST: No oral contrast ingested. RADIATION DOSE: 6.64 CTDIvol (mGy) MEDICAL HISTORY : Pancreatitis. C-Diff SURGICAL HISTORY : Cholecystectomy. section. ENCOUNTER: Initial ACUITY: 2 weeks PAIN SCALE: 7/10 LOCATION: Bilateral upper quadrant TECHNIQUE: Volumetric scanning of the abdomen and pelvis was performed. Using automated exposure control and ad justment of the mA and/or kV according to patient size, radiation dose was kept as low as reasonably achievable to obtain optimal diagnostic quality images. DICOM format image data is available electro nically for review and comparison. FINDINGS: LOWER LUNGS: The visualized lower lungs are clear. LIVER: A. liver remains at the upper limits of normal in size. There is mild hepatic steatosis again noted. A focal low density lesion is again noted in the right lobe without a definite change. There is a sma ll amount of surrounding ascitic fluid. SPLEEN: Normal size without lesion. PANCREAS: Numerous punctate calcifications are again noted. There is ill-defined low attenuation area along the tail of the pancreas measuring up to approximately 4 x 3 cm. KIDNEYS: Normal in size and shape. There is no mass, stone or hydronephrosis. ADRENAL GLANDS: Within normal limits. VASCULAR: There is no aortic aneurysm. BOWEL/MESENTERY: There is a moderate amount of fluid in the pelvis greatest in the posterior cul-de-sac region. The st omach, small bowel, and colon demonstrate no acute abnormality. There is no free intraperitoneal air or fluid. ABDOMINAL WALL: Within normal limits. RETROPERITONEUM: There is no lymphadenopathy. BLADDER: No wall thickening or mass. REPRODUCTIVE: Within normal limits. INGUINAL: There is no lymphadenopathy or hernia. MUSCULOSKELETAL: Within normal limits for patient age. CONCLUSION: 1. Numerous pancreatic calcifications are again noted consistent chronic pancreatitis. There is a low attenuation fluid like collection which is poorly defined lung detail 2. The liver remains at the upper limits of normal with stable benign appearing low attenuation area in the right lobe. There is a small amount of cystic fluid surrounding the liver. 3. Moderate amount of fluid now noted in the pelvis which is new. 4. Nonobstructive bowel gas pattern. Damien Montalvo MD on December 22, 2017 at 10:31 Board Certified Radiologist. This report was verified electronically.
[2017-12-22 11:10] LABS: ALKALINE PHOSPHATASE 113 U/L (45-117); ALT (GPT) 11 U/L (10-53); CHLORIDE 104 MEQ/L (98-107); SODIUM (NA) 138 MEQ/L (136-145); TOTAL BILIRUBIN ADULT 0.2 MG/DL (0.2-1.0); TOTAL PROTEIN 6.8 GM/DL (6.4-8.2)
[2017-12-22] MEDS ORDERED: NALOXONE HCL 0.4 MG/ML AMP IV PUSH PRN (12:15)
[2017-12-22] MEDS ORDERED: SODIUM CHLORIDE 0.9% FLUSH 10 ML FLUSH IV FLUSH PRN (12:15)
[2017-12-22] MEDS ORDERED: MORPHINE SULFATE 2 MG/ML INJ IV PUSH PRN (13:00)
--- NOTE | 2017-12-22 13:26 | PD.CONS ---
HPI History of Present Illness This is a 47 year old female with hx chronic pancreatitis and pseudocysts well known to our service who presented with abd pain, dyspepsia, distention, n/v, diarrhea. This has been for last couple weeks. She tried liquid diet and that did not help the symptoms. She is noticing a protruding area in her epigastric region and her umbilicus is protuding and that area is tender. Denies sick contacts, cites taking bactrim recently for "blisters in my throat." Admits subjective fevers. She has had multiple admissions over the last year for abd pain and pseudocysts. She has been trying to get discounted pancreatic enzymes but is still having difficulties doing so. She had an EUS 10/09/[address] Chaney found chronic pancreatitis, dilated CBD, pancreatic pseudocyst connecting to pancreatic duct. 11 months ago she had ex lap with Dr Ellis to remove pancreatic abscess. She denies any ETOH in the last year, prior was heavy drinker. (Mary Lou Higgins) [facility] Past Medical History denies Past Surgical History ex lap for removal pancreatic abscess (Mary Lou Higgins) Coded Allergies: methadone (Unverified Allergy, Severe, 12/22/17) penicillin G (Unverified Allergy, Severe, Anaphylaxis, 12/22/17) Review of Systems Constitutional: COMPLAINS OF: Fever Eyes: DENIES: Blurred vision Ears, nose, mouth, throat: DENIES: Hearing loss Respiratory: DENIES: Cough Cardiovascular: DENIES: Chest pain Gastrointestinal: COMPLAINS OF: Abdominal pain, Diarrhea, Nausea, Vomiting, DENIES: Black stools, Bloody stools, Hematemesis Genitourinary: DENIES: Hematuria Musculoskeletal: DENIES: Joint Swelling Integumentary: DENIES: Jaundice Hematologic/lymphatic: DENIES: Bruising Immunologic/allergic: DENIES: Eczema Neurologic: DENIES: Abnormal gait Psychiatric: DENIES: Confusion (Mary Lou Higgins) GI Exam Vitals I&O Vital Signs Date Time Temp Pulse Resp B/P (MAP) Pulse Ox O2 Delivery O2 Flow Rate FiO2 12/22/17 09:31 98.3 96 18 134/76 (95) 100 Room Air Imaging Last Impressions Abdomen/Pelvis CT 12/22/17 0000 Signed Impressions: Service Date/Time: Friday, December 22, 2017 10:22 - CONCLUSION: 1. Numerous pancreatic calcifications are again noted consistent chronic pancreatitis. There is a low attenuation fluid like collection which is poorly defined lung detail 2. The liver remains at the upper limits of normal with stable benign appearing low attenuation area in the right lobe. There is a small amount of cystic fluid surrounding the liver. 3. Moderate amount of fluid now noted in the pelvis which is new. 4. Nonobstructive bowel gas pattern. Damien Montalvo MD Laboratory Test 12/22/17 09:50 White Blood Count 5.1 TH/MM3 Red Blood Count 3.86 MIL/MM3 Hemoglobin 9.5 GM/DL Hematocrit 29.5 % Mean Corpuscular Volume 76.4 FL Mean Corpuscular Hemoglobin 24.6 PG Mean Corpuscular Hemoglobin Concent 32.2 % Red Cell Distribution Width 20.6 % Platelet Count 176 TH/MM3 Mean Platelet Volume 7.4 FL Neutrophils (%) (Auto) 65.9 % Lymphocytes (%) (Auto) 20.1 % Monocytes (%) (Auto) 10.7 % Eosinophils (%) (Auto) 2.2 % Basophils (%) (Auto) 1.1 % Neutrophils # (Auto) 3.4 TH/MM3 Lymphocytes # (Auto) 1.0 TH/MM3 Monocytes # (Auto) 0.5 TH/MM3 Eosinophils # (Auto) 0.1 TH/MM3 Basophils # (Auto) 0.1 TH/MM3 CBC Comment DIFF FINAL Differential Comment Blood Urea Nitrogen 3 MG/DL Creatinine 0.45 MG/DL Random Glucose 108 MG/DL Total Protein 6.8 GM/DL Albumin 3.2 GM/DL Calcium Level 8.7 MG/DL Alkaline Phosphatase 113 U/L Aspartate Amino Transf (AST/SGOT) 16 U/L Alanine Aminotransferase (ALT/SGPT) 11 U/L Total Bilirubin 0.2 MG/DL Sodium Level 138 MEQ/L Potassium Level 3.2 MEQ/L Chloride Level 104 MEQ/L Carbon Dioxide Level 25.6 MEQ/L Anion Gap 8 MEQ/L Estimat Glomerular Filtration Rate 150 ML/MIN Lipase 666 U/L Physical Examination HEENT: PERRL; normocephalic; atraumatic; no jaundice. CHEST: CTA CARDIAC: RRR ABDOMEN: Soft, epigastric area distended, epigastric TTP; no hepatosplenomegaly ; bowel sounds are present in all four quadrants. EXTREMITIES: No clubbing, cyanosis, or edema. SKIN: Normal; no rash; no jaundice. EDITING CLERK: No focal deficits; alert and oriented times three. (Mary Lou Higgins) Assessment and Plan Plan ASSESSMENT - abd pain, n/v - suspect acute on chronic pancreatitis, developing pseudocyst. CT showed chronic pancreatitis, poorly defined fluid collection pancreatic tail 4-3 cm, new fluid pelvis. hx chronic pancreatitis 2/2 etoh, pancreatic abscess, pseudocysts. has not had ETOH in a year. EUS 09/2017 showed chronic pancreatitis, dilated CBD, pseudocyst connecting with pancreatic duct. PLAN - clear liquids for now - creon TID - pain mgmt - hydration - supportive care - further recs to follow pt seen by myself and Dr Pink and this note is written on his behalf (Mary Lou Higgins) Physician Comments Seen and examined with RACHEL, recurrent pancreatitis, no etoh now for some time. Creon 2 po tid ac meals. Liquid diet. Ct reviewed. Thank you (Nahomi Pink MD) Mary Lou Higgins Dec 22, 2017 13:26 Nahomi Pink MD Dec 22, 2017 15:07
[2017-12-22] MEDS: HEPARIN SODIUM - SQ 10,000 UNITS/ML VIAL SQ SCH ×2 (13:29→20:57)
[2017-12-22] MEDS: SODIUM CHLOR 0.9% 1000 ML INJ 1,000 ML IV SCH ×2 (14:18→20:57)
[2017-12-22 14:20] VITALS: BP 115/69; PULSE 75; RESP 17; TEMP 98.3; O2SAT 96
--- NOTE | 2017-12-22 15:17 | HHI.HP ---
[facility] Balta العلي M.D. Admission Diagnosis acute pancreatitis, fluid collection Diagnoses: Chief Complaint: Severe abdominal pain with nausea vomiting and diarrhea Travel History International Travel<30 Days: No Contact w/Intl Traveler <30 Da: No Traveled to Known Affected Are: No History of Present Illness 7 years old female with history of chronic pancreatitis and pseudocyst in the past status post resection presented with worsening abdominal pain transferred to the back 8 out of 10 with nausea and vomiting and significant diarrhea. Patient came to the ED CT scan of the abdomen showed new fluid collection around the pancreatic tail, patient had an EUS on September 21, 2017 with dilated CBD and pancreatic pseudocyst connecting to the pancreatic duct, 11 month ago she had exploratory laparoscopy by Dr. Ellis to remove pancreatic abscess. Patient denied alcohol abuse within the last year prior to that she was a heavy drinker Review of Systems All systems reviewed and was positive for what is mentioned in history of present illness otherwise negative Past Family Social History Past Medical History Chronic pancreatitis Past Surgical History ex lap for removal pancreatic abscess Cholecystectomy Allergies: Coded Allergies: methadone (Unverified Allergy, Severe, 12/22/17) penicillin G (Unverified Allergy, Severe, Anaphylaxis, 12/22/17) Family History Review with the patient,not aware of significant medical history runs in his family Social History Patient smoke 1 pack per day, she quit drinking alcohol for last year him a no substance abuse Physical Exam Vital Signs Vital Signs Date Time Temp Pulse Resp B/P (MAP) Pulse Ox O2 Delivery O2 Flow Rate FiO2 12/22/17 14:20 98.3 75 17 115/69 (84) 96 12/22/17 09:31 98.3 96 18 134/76 (95) 100 Room Air Physical Exam GENERAL: This is a well-nourished, well-developed patient, in no apparent distress. SKIN: No rashes, warm and dry HEAD: Atraumatic. Normocephalic. EYES: Pupils equal round and reactive. Extraocular motions intact. No scleral icterus. ENT: Nose without bleeding, or drainage, Airway patent. NECK: Trachea midline. Supple CARDIOVASCULAR: Regular rate and rhythm without murmurs, gallops, or rubs. RESPIRATORY: Fair air entry bilaterally. No wheezes, rales, or rhonchi. GASTROINTESTINAL: Abdomen soft, and significant epigastric tenderness, nondistended. Positive bowel sounds MUSCULOSKELETAL: Extremities without clubbing, cyanosis, or edema. Pedal pulses appreciated NEUROLOGICAL: Awake and alert. Moves all extremity. Normal speech.no focal neurological deficit Laboratory Laboratory Tests Test 12/22/17 09:50 White Blood Count 5.1 Red Blood Count 3.86 Hemoglobin 9.5 Hematocrit 29.5 Mean Corpuscular Volume 76.4 Mean Corpuscular Hemoglobin 24.6 Mean Corpuscular Hemoglobin Concent 32.2 Red Cell Distribution Width 20.6 Platelet Count 176 Mean Platelet Volume 7.4 Neutrophils (%) (Auto) 65.9 Lymphocytes (%) (Auto) 20.1 Monocytes (%) (Auto) 10.7 Eosinophils (%) (Auto) 2.2 Basophils (%) (Auto) 1.1 Neutrophils # (Auto) 3.4 Lymphocytes # (Auto) 1.0 Monocytes # (Auto) 0.5 Eosinophils # (Auto) 0.1 Basophils # (Auto) 0.1 CBC Comment DIFF FINAL Differential Comment Blood Urea Nitrogen 3 Creatinine 0.45 Random Glucose 108 Total Protein 6.8 Albumin 3.2 Calcium Level 8.7 Alkaline Phosphatase 113 Aspartate Amino Transf (AST/SGOT) 16 Alanine Aminotransferase (ALT/SGPT) 11 Total Bilirubin 0.2 Sodium Level 138 Potassium Level 3.2 Chloride Level 104 Carbon Dioxide Level 25.6 Anion Gap 8 Estimat Glomerular Filtration Rate 150 Lipase 666 Result Diagram: 12/22/17 0950 12/22/17 0950 Imaging Last Impressions Abdomen/Pelvis CT 12/22/17 0000 Signed Impressions: Service Date/Time: Friday, December 22, 2017 10:22 - CONCLUSION: 1. Numerous pancreatic calcifications are again noted consistent chronic pancreatitis. There is a low attenuation fluid like collection which is poorly defined lung detail 2. The liver remains at the upper limits of normal with stable benign appearing low attenuation area in the right lobe. There is a small amount of cystic fluid surrounding the liver. 3. Moderate amount of fluid now noted in the pelvis which is new. 4. Nonobstructive bowel gas pattern. MD Santino Lindsey VTE Risk Assessment Caprini VTE Risk Assessment: Mod/High Risk (score >= 2) Caprini Risk Assessment Model Point Value = 1 Point Value = 2 Point Value = 3 Point Value = 5 Age 41-60 Minor surgery BMI > 25 kg/m2 Swollen legs Varicose veins or History of unexplained or recurrent spontaneous Oral contraceptives or hormone replacement Sepsis (< 1 month) Serious lung disease, including pneumonia (< 1 month) Abnormal pulmonary function Acute myocardial infarction Congestive heart failure (< 1 month) History of inflammatory bowel disease Medical patient at bed rest Age 61-74 Arthroscopic surgery Major open surgery (> 45 min) Laparoscopic surgery (> 45 min) Malignancy Confined to bed (> 72 hours) Immobilizing plaster cast Central venous access Age >= 75 History of VTE Family history of VTE Factor V Leiden Prothrombin [id number] Lupus anticoagulant Anticardiolipin antibodies Elevated serum homocysteine Heparin-induced thrombocytopenia Other congenital or acquired thrombophilia Stroke (< 1 month) Elective arthroplasty Hip, pelvis, or leg fracture Acute spinal cord injury (< 1 month) Prophylaxis Regimen Total Risk Factor Score Risk Level Prophylaxis Regimen 0-1 Low Early ambulation 2 Moderate Order ONE of the following: *Sequential Compression Device (SCD) *Heparin 5000 units SQ BID 3-4 Higher Order ONE of the following medications: *Heparin 5000 units SQ TID *Enoxaparin/Lovenox 40 mg SQ daily (WT < 150 kg, CrCl > 30 mL/min) *Enoxaparin/Lovenox 30 mg SQ daily (WT < 150 kg, CrCl > 10-29 mL/min) *Enoxaparin/Lovenox 30 mg SQ BID (WT < 150 kg, CrCl > 30 mL/min) AND/OR *Sequential Compression Device (SCD) 5 or more Highest Order ONE of the following medications: *Heparin 5000 units SQ TID (Preferred with Epidurals) *Enoxaparin/Lovenox 40 mg SQ daily (WT < 150 kg, CrCl > 30 mL/min) *Enoxaparin/Lovenox 30 mg SQ daily (WT < 150 kg, CrCl > 10-29 mL/min) *Enoxaparin/Lovenox 30 mg SQ BID (WT < 150 kg, CrCl > 30 mL/min) AND *Sequential Compression Device (SCD) Assessment and Plan Assessment and Plan 47 years old female with history of chronic pancreatitis and pseudocyst presented with Acute epigastric pain with nausea vomiting and steatosis diarrhea mostly due to chronic pancreatitis New fluid collection in the abdomen rule out relation to recurrent pseudocyst . 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 fink Continue pancreatic enzyme replacement Heparin for DVT prophylaxis Expect discharge once symptoms improve to follow up as an outpatient Discussed Condition With ED physician patient and Cole Machado MD Dec 22, 2017 15:17
[2017-12-22] MEDS: MORPHINE SULFATE 2 MG/ML INJ IV PUSH PRN (17:23)
[2017-12-22] MEDS ORDERED: GADODIAMIDE PF 287 MG/ML 5 ML VIAL (for RAD MRI) IV PUSH ONE (18:21)
[2017-12-22] MEDS: LIPASE/PROTEASE/AMYLASE (12,000/38,000/60,000) CAP PO SCH (19:10)
[2017-12-22 20:14] VITALS: BP 128/82; PULSE 83; RESP 16; TEMP 99.6; O2SAT 98
[2017-12-22 20:30] LABS: IRON (FE) 16 MCG/DL (50-170)
[2017-12-22 20:33] LABS: % SATURATION IRON PROFILE 3.3 % (20-50); FERRITIN 53 NG/ML (8-252); TOTAL IRON BINDING CAPACITY 489 MCG/DL (250-450)
[2017-12-22] MEDS: ONDANSETRON HCL 4 MG/2 ML VIAL IVP PRN (20:55)
[2017-12-22] MEDS: SODIUM CHLORIDE 0.9% FLUSH 10 ML FLUSH IV FLUSH SCH (20:58)
[2017-12-22] MEDS ORDERED: NICOTINE 14 MG/24 HR PATCH T-DERMAL ONE (21:00)
[2017-12-22] MEDS: REMOVE OLD PATCH T-DERMAL SCH (21:00)
[2017-12-22] MEDS ORDERED: TEMAZEPAM 7.5 MG CAP PO ONE (21:00)
[2017-12-22 22:49] VITALS: BP 118/67; PULSE 93; RESP 17; TEMP 98.7; O2SAT 96
[2017-12-23 03:30] VITALS: BP 118/62; PULSE 84; RESP 17; TEMP 98.1; O2SAT 96
[2017-12-23] MEDS: SODIUM CHLOR 0.9% 1000 ML INJ 1,000 ML IV SCH ×4 (04:54→21:53)
[2017-12-23] MEDS: HEPARIN SODIUM - SQ 10,000 UNITS/ML VIAL SQ SCH ×3 (04:54→21:50)
[2017-12-23 06:41] LABS: AUTOMATED NEUTROPHIL # 1.7 TH/MM3 (1.8-7.7); BASOPHIL % 1.2 % (0.0-2.0); EOSINOPHIL # 0.2 TH/MM3 (0-0.4); EOSINOPHIL % 5.9 % (0.0-4.0); HEMATOCRIT 24.4 % (35.0-46.0); HEMOGLOBIN 7.8 GM/DL (11.6-15.3); LYMPH % 31.9 % (9.0-44.0); LYMPHOCYTE # 1.1 TH/MM3 (1.0-4.8); MEAN CELL VOLUME 77.1 FL (80.0-100.0); MEAN CORPUSCULAR HEMOGLOBIN 24.5 PG (27.0-34.0); MEAN CORPUSCULAR HGB CONC 31.8 % (32.0-36.0); MEAN PLATELET VOLUME 7.4 FL (7.0-11.0); MONO % 12.1 % (0.0-8.0); MONOCYTE # 0.4 TH/MM3 (0-0.9); NEUT % 48.9 % (16.0-70.0); PLATELET COUNT 136 TH/MM3 (150-450); RED BLOOD COUNT 3.17 MIL/MM3 (4.00-5.30); RED CELL DISTRIBUTION WIDTH 20.1 % (11.6-17.2); WHITE BLOOD COUNT 3.5 TH/MM3 (4.0-11.0)
[2017-12-23 06:53] LABS: ALBUMIN 2.4 GM/DL (3.4-5.0); ALKALINE PHOSPHATASE 94 U/L (45-117); ALT (GPT) 11 U/L (10-53); AST (GOT) 13 U/L (15-37); BICARBONATE 26.4 MEQ/L (21.0-32.0); BLOOD UREA NITROGEN 3 MG/DL (7-18); CALCIUM 7.6 MG/DL (8.5-10.1); CHLORIDE 109 MEQ/L (98-107); CREATININE 0.33 MG/DL (0.50-1.00); GLOMERULAR FILTRATION RATE 215 ML/MIN (>89); GLUCOSE,RANDOM 86 MG/DL (74-106); SODIUM (NA) 143 MEQ/L (136-145); TOTAL BILIRUBIN ADULT 0.1 MG/DL (0.2-1.0); TOTAL PROTEIN 5.3 GM/DL (6.4-8.2)
[2017-12-23] MEDS: LIPASE/PROTEASE/AMYLASE (12,000/38,000/60,000) CAP PO SCH ×3 (08:25→17:40)
[2017-12-23] MEDS: SODIUM CHLORIDE 0.9% FLUSH 10 ML FLUSH IV FLUSH SCH ×2 (08:26→21:50)
[2017-12-23] MEDS: ONDANSETRON HCL 4 MG/2 ML VIAL IVP PRN ×2 (08:26→22:59)
[2017-12-23 09:04] VITALS: BP 114/68; PULSE 84; RESP 20; TEMP 98.2; O2SAT 84
[2017-12-23] MEDS ORDERED: POTASSIUM CHLORIDE 10 MEQ CONTROLLED RELEASE TAB PO ONE (10:15)
--- NOTE | 2017-12-23 11:33 | HHI.GIFU ---
Subjective Remarks patient is resting in bed, doing much better, still with mild diffused abd pain , but tolerating clears okay, no nausea or vomiting (Fabrizio Mejias) Objective Vitals I&O Vital Signs Date Time Temp Pulse Resp B/P (MAP) Pulse Ox O2 Delivery O2 Flow Rate FiO2 12/23/17 09:04 98.2 84 20 114/68 (83) 84 12/23/17 03:30 98.1 84 17 118/62 (80) 96 12/22/17 23:16 18 12/22/17 22:49 98.7 93 17 118/67 (84) 96 12/22/17 20:14 99.6 83 16 128/82 (97) 98 12/22/17 14:20 98.3 75 17 115/69 (84) 96 I/O 12/22/17 12/22/17 12/22/17 12/23/17 12/23/17 12/23/17 07:00 15:00 23:00 07:00 15:00 23:00 Intake Total 1000 ml Balance 1000 ml Intake IV Total 1000 ml # Voids 2 Laboratory Laboratory Tests Test 12/23/17 05:37 White Blood Count 3.5 Red Blood Count 3.17 Hemoglobin 7.8 Hematocrit 24.4 Mean Corpuscular Volume 77.1 Mean Corpuscular Hemoglobin 24.5 Mean Corpuscular Hemoglobin Concent 31.8 Red Cell Distribution Width 20.1 Platelet Count 136 Mean Platelet Volume 7.4 Neutrophils (%) (Auto) 48.9 Lymphocytes (%) (Auto) 31.9 Monocytes (%) (Auto) 12.1 Eosinophils (%) (Auto) 5.9 Basophils (%) (Auto) 1.2 Neutrophils # (Auto) 1.7 Lymphocytes # (Auto) 1.1 Monocytes # (Auto) 0.4 Eosinophils # (Auto) 0.2 Basophils # (Auto) 0.0 CBC Comment DIFF FINAL Differential Comment Blood Urea Nitrogen 3 Creatinine 0.33 Random Glucose 86 Total Protein 5.3 Albumin 2.4 Calcium Level 7.6 Alkaline Phosphatase 94 Aspartate Amino Transf (AST/SGOT) 13 Alanine Aminotransferase (ALT/SGPT) 11 Total Bilirubin 0.1 Sodium Level 143 Potassium Level 3.2 Chloride Level 109 Carbon Dioxide Level 26.4 Anion Gap 8 Estimat Glomerular Filtration Rate 215 Lipase 463 Imaging Last Impressions Abdomen/Pelvis CT 2/2/18 0000 Signed Impressions: Service Date/Time: Friday, December 22, 2017 10:22 - CONCLUSION: 1. Numerous pancreatic calcifications are again noted consistent chronic pancreatitis. There is a low attenuation fluid like collection which is poorly defined lung detail 2. The liver remains at the upper limits of normal with stable benign appearing low attenuation area in the right lobe. There is a small amount of cystic fluid surrounding the liver. 3. Moderate amount of fluid now noted in the pelvis which is new. 4. Nonobstructive bowel gas pattern. Damien Montalvo MD Physical Exam HEENT: normocephalic; atraumatic; no jaundice. CHEST: Chest is clear to auscultation and percussion. CARDIAC: Regular rate and rhythm with no murmur gallop or rubs. ABDOMEN: Soft, nondistended, diffused abd tenderness; bowel sounds are present in all four quadrants. EXTREMITIES: No clubbing, cyanosis, or edema. SKIN: Normal; no rash; no jaundice. 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 (Fabrizio Mejias) Assessment and Plan Plan ASSESSMENT - abd pain, n/v - suspect acute on chronic pancreatitis, developing pseudocyst. CT showed chronic pancreatitis, poorly defined fluid collection pancreatic tail 4-3 cm, new fluid pelvis. hx chronic pancreatitis 2/2 etoh, pancreatic abscess, pseudocysts. has not had ETOH in a year. EUS 09/2017 showed chronic pancreatitis, dilated CBD, pseudocyst connecting with pancreatic duct. lipase trending down, tolerating clears PLAN - Advance to full liquid - creon TID - pain mgmt - hydration - lipase, LFTs, CBC, in the am - supportive care - further recs to follow pt seen by myself and Dr Pink and this note is written on his behalf (Fabrizio Mejias) Physician Comments Seen and examined with [facility]. Still with abdominal pain. Started on Creon yesterday. Pain management. (Nahomi Pink MD) Fabrizio Mejias Dec 23, 2017 11:33 Nahomi Pink MD Dec 23, 2017 12:06
--- NOTE | 2017-12-23 12:03 | HHI.PR ---
Subjective Remarks Follow-up for acute on chronic pancreatitis Patient stated that abdominal pain has improved. She tolerated clear liquid diet. She will bloated. She stated that she has chronic diarrhea but that has improved. She has no other complaints. Denied any nausea or vomiting. She remains afebrile. Objective Vitals Vital Signs Date Time Temp Pulse Resp B/P (MAP) Pulse Ox O2 Delivery O2 Flow Rate FiO2 12/23/17 09:04 98.2 84 20 114/68 (83) 84 12/23/17 03:30 98.1 84 17 118/62 (80) 96 12/22/17 23:16 18 12/22/17 22:49 98.7 93 17 118/67 (84) 96 12/22/17 20:14 99.6 83 16 128/82 (97) 98 12/22/17 14:20 98.3 75 17 115/69 (84) 96 I/O 12/22/17 12/22/17 12/22/17 12/23/17 12/23/17 12/23/17 07:00 15:00 23:00 07:00 15:00 23:00 Intake Total 1000 ml Balance 1000 ml Intake IV Total 1000 ml # Voids 2 Result Diagram: 12/23/17 0537 12/23/17 0537 Objective Remarks GENERAL: in NAD CARDIOVASCULAR: Regular rate and rhythm without murmurs, gallops, or rubs. RESPIRATORY: Breath sounds equal bilaterally. No accessory muscle use. GASTROINTESTINAL: Abdomen soft, distended but soft, mild tenderness palpation diffusely. No peritoneal signs. MUSCULOSKELETAL: No cyanosis, or edema. BACK: Nontender without obvious deformity. No CVA tenderness. Medications and IVs Current Medications Hydromorphone HCl (Dilaudid Pf Inj) 0.5 mg ONCE ONCE IV PUSH Last administered on 12/22/17at 10:35; Start 12/22/17 at 10:15; Stop 12/22/17 at 10:16; Status DC Ondansetron HCl (Zofran Inj) 4 mg ONCE ONCE IV PUSH Last administered on at 10:35; Start 12/22/17 at 10:15; Stop 12/22/17 at 10:16; Status DC Sodium Chloride 1,000 ml @ 999 mls/hr BOLUS ONCE IV Last administered on at 10:34; Start 12/22/17 at 10:15; Stop 12/22/17 at 11:15; Status DC Iohexol (Omnipaque 350 Inj) 97 ml STK-MED ONCE IVCONTRAST Last administered on 12/22/17 10:28; Start 12/22/17 at 10:28; Stop 12/22/17 at 10:29; Status DC Sodium Chloride 1,000 ml @ 150 mls/hr Q6H40M IV Last administered on 12/23/17 04:54; Start 12/22/17 at 13:00 Sodium Chloride (NS Flush) 2 ml UNSCH PRN IV FLUSH FLUSH AFTER USING IV ACCESS ; Start 12/22/17 at 12:15 Sodium Chloride (NS Flush) 2 ml BID IV FLUSH Last administered on 12/23/17 08: 26; Start 12/22/17 at 21:00 Ondansetron HCl (Zofran Inj) 4 mg Q6H PRN IVP NAUSEA OR VOMITING Last administered on 12/23/17 08:26; Start 12/22/17 at 13:00 Heparin Sodium (Porcine) (Heparin Inj) 5,000 units Q8H SQ Last administered on 12/23/17 04:54; Start 12/22/17 at 13:00 Oxycodone HCl (Roxicodone) 10 mg Q4H PRN PO PAIN SCALE 6 TO 10 Last administered on 12/23/17 08:26; Start 12/22/17 at 13:00 Morphine Sulfate (Morphine Inj) 2 mg Q3H PRN IV PUSH Pain 3-5; if unable to take PO Last administered on 12/22/17 17:23; Start 12/22/17 at 13:00 Morphine Sulfate (Morphine Inj) 4 mg Q3H PRN IV PUSH Pain 6-10;if unable to take PO; Start 12/22/17 at 13:00 Oxycodone HCl (Roxicodone) 5 mg Q4H PRN PO PAIN SCALE 3 TO 5; Start 12/22/17 at 13:00 Naloxone HCl (Narcan Inj) 0.4 mg UNSCH PRN IV PUSH SEE LABEL COMMENTS; Start at 12:15 Amylase/Lipase/ Protease (Creon 12-38-60) 1 cap TID PO Last administered on 2/3 /18at 08:25; Start 12/22/17 at 18:00 Temazepam (Restoril) 7.5 mg ONCE ONCE PO Last administered on 12/22/17at 21:14; Start 12/22/17 at 21:00; Stop 12/22/17 at 21:09; Status DC Nicotine (Habitrol 14 Mg Patch.24 Hr) 1 patch ONCE ONCE T-DERMAL Last administered on 12/22/17at 21:14; Start 12/22/17 at 21:00; Stop 12/22/17 at 21:09; Status DC Nicotine (Habitrol 14 Mg Patch.24 Hr) 1 patch DAILY T-DERMAL ; Start 12/23/17 at 21:00 Miscellaneous Information 1 HS T-DERMAL ; Start 12/22/17 at 21:00 Potassium Chloride (KCl) 60 meq ONCE ONCE PO ; Start 12/23/17 at 10:15; Stop 12/23/17 at 10:22; Status DC A/P Assessment and Plan 47 years old female with history of chronic pancreatitis and pseudocyst presented with Acute on chronic pancreatitis -CT scan showed possible recurrent pseudocyst -GI consulted and following. -Clinically doing better. Advance diet per GI. -Continue with supportive care with IV fluids and antiemetics and pain management. 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 Hypochromic microcytic anemia - just stated she had colonoscopy recently and it was negative however she has heavy period Menorrhagia -Patient to follow-up as outpatient for her menorrhagia. Heparin for DVT prophylaxis Discharge Planning Once patient able to tolerate diet and cleared by GI she can be discharged home. Harriet Noyola MD Dec 23, 2017 12:03
[2017-12-23 12:04] VITALS: BP 120/60; PULSE 68; RESP 20; TEMP 98.6; O2SAT 98
[2017-12-23] MEDS: LACTOBACILLUS ACIDOPHILUS TAB PO SCH ×2 (12:14→17:40)
[2017-12-23 16:10] VITALS: BP 116/62; PULSE 68; RESP 20; TEMP 98.2; O2SAT 98
[2017-12-23 20:44] VITALS: BP 123/70; PULSE 88; RESP 17; TEMP 98.2; O2SAT 94
[2017-12-23] MEDS: REMOVE OLD PATCH T-DERMAL SCH (21:00)
[2017-12-23] MEDS: NICOTINE 14 MG/24 HR PATCH T-DERMAL SCH (21:52)
[2017-12-23 23:36] VITALS: BP 136/83; PULSE 95; RESP 16; TEMP 98.7; O2SAT 95
[2017-12-24 04:07] VITALS: BP 134/90; PULSE 83; RESP 17; TEMP 98.5; O2SAT 95
[2017-12-24] MEDS ORDERED: diphenhydrAMINE HCL 25 MG CAP PO ONE (04:15)
[2017-12-24] MEDS: SODIUM CHLOR 0.9% 1000 ML INJ 1,000 ML IV SCH ×3 (05:09→18:20)
[2017-12-24] MEDS: HEPARIN SODIUM - SQ 10,000 UNITS/ML VIAL SQ SCH ×3 (05:10→21:09)
[2017-12-24 07:04] LABS: BASOPHIL % 1.1 % (0.0-2.0); EOSINOPHIL # 0.2 TH/MM3 (0-0.4); EOSINOPHIL % 6.1 % (0.0-4.0); HEMATOCRIT 24.5 % (35.0-46.0); HEMOGLOBIN 7.8 GM/DL (11.6-15.3); LYMPH % 32.1 % (9.0-44.0); LYMPHOCYTE # 1.3 TH/MM3 (1.0-4.8); MEAN CORPUSCULAR HEMOGLOBIN 24.4 PG (27.0-34.0); MEAN CORPUSCULAR HGB CONC 31.7 % (32.0-36.0); MEAN PLATELET VOLUME 7.5 FL (7.0-11.0); MONO % 10.1 % (0.0-8.0); MONOCYTE # 0.4 TH/MM3 (0-0.9); NEUT % 50.6 % (16.0-70.0); PLATELET COUNT 143 TH/MM3 (150-450); RED BLOOD COUNT 3.18 MIL/MM3 (4.00-5.30); RED CELL DISTRIBUTION WIDTH 20.3 % (11.6-17.2); WHITE BLOOD COUNT 3.9 TH/MM3 (4.0-11.0)
[2017-12-24 07:36] LABS: ALBUMIN 2.5 GM/DL (3.4-5.0); BICARBONATE 27.9 MEQ/L (21.0-32.0); CALCIUM 8.2 MG/DL (8.5-10.1); CREATININE 0.31 MG/DL (0.50-1.00); DIRECT BILIRUBIN ADULT 0.1 MG/DL (0.0-0.2)
[2017-12-24 07:39] LABS: TOTAL BILIRUBIN ADULT 0.1 MG/DL (0.2-1.0); TOTAL PROTEIN 5.4 GM/DL (6.4-8.2)
[2017-12-24 07:52] VITALS: BP 129/78; PULSE 74; RESP 18; TEMP 97.1; O2SAT 95
[2017-12-24] MEDS: LIPASE/PROTEASE/AMYLASE (12,000/38,000/60,000) CAP PO SCH ×3 (08:33→17:39)
[2017-12-24] MEDS: LACTOBACILLUS ACIDOPHILUS TAB PO SCH ×3 (08:33→17:39)
[2017-12-24] MEDS: SODIUM CHLORIDE 0.9% FLUSH 10 ML FLUSH IV FLUSH SCH ×2 (08:33→21:09)
[2017-12-24] MEDS: NICOTINE 14 MG/24 HR PATCH T-DERMAL SCH (08:33)
[2017-12-24 11:25] VITALS: BP 128/87; PULSE 90; RESP 18; TEMP 98.9; O2SAT 94
--- NOTE | 2017-12-24 11:50 | HHI.PR ---
Subjective Remarks Follow-up for acute on chronic pancreatitis Patient stated that abdominal pain has improved. She stated that she tolerated her diet yesterday. Patient also stated that diarrhea has improved. She still still distended but mild improvement. She has no complaints. Objective Vitals Vital Signs Date Time Temp Pulse Resp B/P (MAP) Pulse Ox O2 Delivery O2 Flow Rate FiO2 12/24/17 11:25 98.9 90 18 128/87 (101) 94 12/24/17 07:52 97.1 74 18 129/78 (95) 95 12/24/17 04:07 98.5 83 17 134/90 (105) 95 12/24/17 00:05 21 12/23/17 23:36 98.7 95 16 136/83 (100) 95 12/23/17 20:44 98.2 88 17 123/70 (87) 94 12/23/17 16:10 98.2 68 20 116/62 (80) 98 12/23/17 12:04 98.6 68 20 120/60 (80) 98 I/O 12/23/17 12/23/17 12/23/17 12/24/17 12/24/17 12/24/17 07:00 15:00 23:00 07:00 15:00 23:00 Intake Total 1850 ml Balance 1850 ml Intake Oral 750 ml IV Total 1100 ml Result Diagram: 12/24/1746 12/24/17 0646 Objective Remarks GENERAL: in NAD CARDIOVASCULAR: Regular rate and rhythm without murmurs, gallops, or rubs. RESPIRATORY: Breath sounds equal bilaterally. No accessory muscle use. GASTROINTESTINAL: Abdomen soft, distended but soft, mild tenderness palpation diffusely. Distention has improved from yesterday. No peritoneal signs. MUSCULOSKELETAL: No cyanosis, or edema. BACK: Nontender without obvious deformity. No CVA tenderness. Medications and IVs Current Medications Hydromorphone HCl (Dilaudid Pf Inj) 0.5 mg ONCE ONCE IV PUSH Last administered on 12/22/17at 10:35; Start 12/22/17 at 10:15; Stop 12/22/17 at 10:16; Status DC Ondansetron HCl (Zofran Inj) 4 mg ONCE ONCE IV PUSH Last administered on at 10:35; Start 12/22/17 at 10:15; Stop 12/22/17 at 10:16; Status DC Sodium Chloride 1,000 ml @ 999 mls/hr BOLUS ONCE IV Last administered on at 10:34; Start 12/22/17 at 10:15; Stop 12/22/17 at 11:15; Status DC Iohexol (Omnipaque 350 Inj) 97 ml STK-MED ONCE IVCONTRAST Last administered on 12/22/17at 10:28; Start 12/22/17 at 10:28; Stop 12/22/17 at 10:29; Status DC Sodium Chloride 1,000 ml @ 150 mls/hr Q6H40M IV Last administered on 12/24/17at 05:09; Start 12/22/17 at 13:00 Sodium Chloride (NS Flush) 2 ml UNSCH PRN IV FLUSH FLUSH AFTER USING IV ACCESS ; Start 12/22/17 at 12:15 Sodium Chloride (NS Flush) 2 ml BID IV FLUSH Last administered on 12/24/17at 08: 33; Start 12/22/17 at 21:00 Ondansetron HCl (Zofran Inj) 4 mg Q6H PRN IVP NAUSEA OR VOMITING Last administered on 12/23/17at 22:59; Start 12/22/17 at 13:00 Heparin Sodium (Porcine) (Heparin Inj) 5,000 units Q8H SQ Last administered on 12/24/17at 05:10; Start 12/22/17 at 13:00 Oxycodone HCl (Roxicodone) 10 mg Q4H PRN PO PAIN SCALE 6 TO 10 Last administered on 12/24/17at 09:25; Start 12/22/17 at 13:00 Morphine Sulfate (Morphine Inj) 2 mg Q3H PRN IV PUSH Pain 3-5; if unable to take PO Last administered on 12/22/17at 17:23; Start 12/22/17 at 13:00 Morphine Sulfate (Morphine Inj) 4 mg Q3H PRN IV PUSH Pain 6-10;if unable to take PO; Start 12/22/17 at 13:00 Oxycodone HCl (Roxicodone) 5 mg Q4H PRN PO PAIN SCALE 3 TO 5; Start 12/22/17 at 13:00 Naloxone HCl (Narcan Inj) 0.4 mg UNSCH PRN IV PUSH SEE LABEL COMMENTS; Start at 12:15 Amylase/Lipase/ Protease (Creon 12-38-60) 1 cap TID PO Last administered on 12/24 08:33; Start 12/22/17 at 18:00 Temazepam (Restoril) 7.5 mg ONCE ONCE PO Last administered on 12/22/17 21:14; Start 12/22/17 at 21:00; Stop 12/22/17 at 21:09; Status DC Nicotine (Habitrol 14 Mg Patch.24 Hr) 1 patch ONCE ONCE T-DERMAL Last administered on 12/22/17 21:14; Start 12/22/17 at 21:00; Stop 12/22/17 at 21:09; Status DC Nicotine (Habitrol 14 Mg Patch.24 Hr) 1 patch DAILY T-DERMAL Last administered on 12/24/17 08:33; Start 12/23/17 at 21:00 Miscellaneous Information 1 HS T-DERMAL ; Start 12/22/17 at 21:00 Potassium Chloride (KCl) 60 meq ONCE ONCE PO Last administered on 12/23/17at 12: 15; Start 12/23/17 at 10:15; Stop 12/23/17 at 10:22; Status DC Lactobacillus Acidophilus (Lactinex) 1 tab TID PO Last administered on 08:33; Start 12/23/17 at 13:00 Diphenhydramine HCl (Benadryl) 25 mg ONCE ONCE PO ; Start 12/24/17 at 04:15; Stop 12/24/17 at 04:16; Status DC A/P Assessment and Plan 47 years old female with history of chronic pancreatitis and pseudocyst presented with Acute on chronic pancreatitis -CT scan showed possible recurrent pseudocyst -GI consulted and following. -Clinically doing better. Advance diet per GI. -Continue with supportive care with IV fluids and antiemetics and pain management. 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 Hypochromic microcytic anemia - just stated she had colonoscopy recently and it was negative however she has heavy period Menorrhagia -Patient to follow-up as outpatient for her menorrhagia. Heparin for DVT prophylaxis Discharge Planning Once patient able to tolerate advancement in diet and cleared by GI she can be discharged home. Harriet Noyola MD Dec 24, 2017 11:50
--- NOTE | 2017-12-24 11:52 | HHI.GIFU ---
Subjective Remarks Patient is resting in bed, tolerated fulls okay, still with abd pain but states this is not worse. Some nausea but no vomiting (Fabrizio Mejias) Objective Vitals I&O Vital Signs Date Time Temp Pulse Resp B/P (MAP) Pulse Ox O2 Delivery O2 Flow Rate FiO2 12/24/17 11:25 98.9 90 18 128/87 (101) 94 12/24/17 07:52 97.1 74 18 129/78 (95) 95 12/24/17 04:07 98.5 83 17 134/90 (105) 95 12/24/17 00:05 21 12/23/17 23:36 98.7 95 16 136/83 (100) 95 12/23/17 20:44 98.2 88 17 123/70 (87) 94 12/23/17 16:10 98.2 68 20 116/62 (80) 98 12/23/17 12:04 98.6 68 20 120/60 (80) 98 I/O 12/23/17 12/23/17 12/23/17 12/24/17 12/24/17 12/24/17 07:00 15:00 23:00 07:00 15:00 23:00 Intake Total 1850 ml Balance 1850 ml Intake Oral 750 ml IV Total 1100 ml Laboratory Laboratory Tests Test 12/24/17 06:46 White Blood Count 3.9 Red Blood Count 3.18 Hemoglobin 7.8 Hematocrit 24.5 Mean Corpuscular Volume 77.0 Mean Corpuscular Hemoglobin 24.4 Mean Corpuscular Hemoglobin Concent 31.7 Red Cell Distribution Width 20.3 Platelet Count 143 Mean Platelet Volume 7.5 Neutrophils (%) (Auto) 50.6 Lymphocytes (%) (Auto) 32.1 Monocytes (%) (Auto) 10.1 Eosinophils (%) (Auto) 6.1 Basophils (%) (Auto) 1.1 Neutrophils # (Auto) 2.0 Lymphocytes # (Auto) 1.3 Monocytes # (Auto) 0.4 Eosinophils # (Auto) 0.2 Basophils # (Auto) 0.0 CBC Comment DIFF FINAL Differential Comment Blood Urea Nitrogen 3 Creatinine 0.31 Random Glucose 87 Total Protein 5.4 Albumin 2.5 Calcium Level 8.2 Alkaline Phosphatase 96 Aspartate Amino Transf (AST/SGOT) 18 Alanine Aminotransferase (ALT/SGPT) 10 Total Bilirubin 0.1 Direct Bilirubin 0.1 Sodium Level 139 Potassium Level 3.8 Chloride Level 107 Carbon Dioxide Level 27.9 Anion Gap 4 Estimat Glomerular Filtration Rate 231 Indirect Bilirubin 0.0 Lipase 464 Imaging Last Impressions Abdomen/Pelvis CT 12/22/17 0000 Signed Impressions: Service Date/Time: Friday, December 22, 2017 10:22 - CONCLUSION: 1. Numerous pancreatic calcifications are again noted consistent chronic pancreatitis. There is a low attenuation fluid like collection which is poorly defined lung detail 2. The liver remains at the upper limits of normal with stable benign appearing low attenuation area in the right lobe. There is a small amount of cystic fluid surrounding the liver. 3. Moderate amount of fluid now noted in the pelvis which is new. 4. Nonobstructive bowel gas pattern. Damien Montalvo MD Physical Exam HEENT: normocephalic; atraumatic; no jaundice. CHEST: Chest is clear to auscultation and percussion. CARDIAC: Regular rate and rhythm with no murmur gallop or rubs. ABDOMEN: Soft, nondistended, diffused abd tenderness; bowel sounds are present in all four quadrants. EXTREMITIES: No clubbing, cyanosis, or edema. SKIN: Normal; no rash; no jaundice. AUTOMOBILE UPHOLSTERER: No focal deficits; alert and oriented times three. (Fabrizio Mejias) Assessment and Plan Plan ASSESSMENT - abd pain, n/v - Cont. to have same abd pain, tolerating fulls okay, no vomiting. lipase remains high but stable suspect acute on chronic pancreatitis, developing pseudocyst. CT showed chronic pancreatitis, poorly defined fluid collection pancreatic tail 4-3 cm, new fluid pelvis. hx chronic pancreatitis 2/2 etoh, pancreatic abscess, pseudocysts. has not had ETOH in a year. EUS 09/2017 showed chronic pancreatitis, dilated CBD, pseudocyst connecting with pancreatic duct. PLAN - Advance to low fat diet - if tolerating diet okay, okay to DC home later in the day - Cont. creon TID - pain mgmt - hydration - supportive care - further recs to follow pt seen by myself and Dr Pink and this note is written on his behalf (Fabrizio Mejias) Physician Comments Seen and examined with RACHEL, doing better, tolerating liquids. Advance to low fat diet. Gi fu upon dc. (Nahomi Pink MD) Fabrizio Mejias Dec 24, 2017 11:52 Nahomi Pink MD Dec 24, 2017 12:16
[2017-12-24] MEDS: ONDANSETRON HCL 4 MG/2 ML VIAL IVP PRN ×2 (12:43→21:10)
[2017-12-24 15:49] VITALS: BP 139/83; PULSE 82; RESP 18; TEMP 98.4; O2SAT 93
[2017-12-24] MEDS: REMOVE OLD PATCH T-DERMAL SCH (21:00)
[2017-12-24 21:03] VITALS: BP 147/87; PULSE 88; RESP 17; TEMP 98.6; O2SAT 96
[2017-12-25] MEDS: SODIUM CHLOR 0.9% 1000 ML INJ 1,000 ML IV SCH ×4 (01:00→20:08)
[2017-12-25 01:03] VITALS: BP 132/76; PULSE 80; RESP 17; TEMP 98.3; O2SAT 96
[2017-12-25 03:51] VITALS: BP 129/81; PULSE 77; RESP 16; TEMP 98.3; O2SAT 95
[2017-12-25] MEDS: HEPARIN SODIUM - SQ 10,000 UNITS/ML VIAL SQ SCH ×3 (05:27→20:10)
[2017-12-25 07:08] VITALS: BP 148/87; PULSE 74; RESP 16; TEMP 97.8; O2SAT 96
[2017-12-25] MEDS: NICOTINE 14 MG/24 HR PATCH T-DERMAL SCH (08:42)
[2017-12-25] MEDS: ONDANSETRON HCL 4 MG/2 ML VIAL IVP PRN ×2 (08:42→23:48)
[2017-12-25] MEDS: LACTOBACILLUS ACIDOPHILUS TAB PO SCH ×3 (08:42→18:00)
[2017-12-25] MEDS: LIPASE/PROTEASE/AMYLASE (12,000/38,000/60,000) CAP PO SCH ×3 (08:42→18:00)
[2017-12-25] MEDS: SODIUM CHLORIDE 0.9% FLUSH 10 ML FLUSH IV FLUSH SCH ×2 (09:00→20:08)
--- NOTE | 2017-12-25 10:04 | HHI.PR ---
Subjective Remarks Follow-up for acute on chronic pancreatitis Patient stated that her abdominal pain is coming back. Deny nausea vomiting. Patient asking to see GI again. discussed case with Pauline Higgins, CORKY and patient's nurse Sue. Objective Vitals Vital Signs Date Time Temp Pulse Resp B/P (MAP) Pulse Ox O2 Delivery O2 Flow Rate FiO2 12/25/17 07:08 97.8 74 16 148/87 (107) 96 12/25/17 06:28 18 12/25/17 03:51 98.3 77 16 129/81 (97) 95 12/25/17 01:03 98.3 80 17 132/76 (94) 96 12/24/17 21:03 98.6 88 17 147/87 (107) 96 12/24/17 15:49 98.4 82 18 139/83 (101) 93 12/24/17 11:25 98.9 90 18 128/87 (101) 94 Result Diagram: 12/24/1746 12/24/1746 Objective Remarks GENERAL: in NAD CARDIOVASCULAR: Regular rate and rhythm without murmurs, gallops, or rubs. RESPIRATORY: Breath sounds equal bilaterally. No accessory muscle use. GASTROINTESTINAL: Abdomen soft, distended but soft, mild tenderness palpation diffusely. Distention has improved from yesterday. No peritoneal signs. MUSCULOSKELETAL: No cyanosis, or edema. BACK: Nontender without obvious deformity. No CVA tenderness. Medications and IVs Current Medications Hydromorphone HCl (Dilaudid Pf Inj) 0.5 mg ONCE ONCE IV PUSH Last administered on 12/22/17 10:35; Start 12/22/17 at 10:15; Stop 12/22/17 at 10:16; Status DC Ondansetron HCl (Zofran Inj) 4 mg ONCE ONCE IV PUSH Last administered on at 10:35; Start 12/22/17 at 10:15; Stop 12/22/17 at 10:16; Status DC Sodium Chloride 1,000 ml @ 999 mls/hr BOLUS ONCE IV Last administered on at 10:34; Start 12/22/17 at 10:15; Stop 12/22/17 at 11:15; Status DC Iohexol (Omnipaque 350 Inj) 97 ml STK-MED ONCE IVCONTRAST Last administered on 12/22/17 10:28; Start 12/22/17 at 10:28; Stop 12/22/17 at 10:29; Status DC Sodium Chloride 1,000 ml @ 150 mls/hr Q6H40M IV Last administered on 12/24/17 05:09; Start 12/22/17 at 13:00 Sodium Chloride (NS Flush) 2 ml UNSCH PRN IV FLUSH FLUSH AFTER USING IV ACCESS ; Start 12/22/17 at 12:15 Sodium Chloride (NS Flush) 2 ml BID IV FLUSH Last administered on 12/25/17 09: 00; Start 12/22/17 at 21:00 Ondansetron HCl (Zofran Inj) 4 mg Q6H PRN IVP NAUSEA OR VOMITING Last administered on 12/25/17 08:42; Start 12/22/17 at 13:00 Heparin Sodium (Porcine) (Heparin Inj) 5,000 units Q8H SQ Last administered on 12/25/17 05:27; Start 12/22/17 at 13:00 Oxycodone HCl (Roxicodone) 10 mg Q4H PRN PO PAIN SCALE 6 TO 10 Last administered on 12/25/17 09:31; Start 12/22/17 at 13:00 Morphine Sulfate (Morphine Inj) 2 mg Q3H PRN IV PUSH Pain 3-5; if unable to take PO Last administered on 12/22/17 17:23; Start 12/22/17 at 13:00 Morphine Sulfate (Morphine Inj) 4 mg Q3H PRN IV PUSH Pain 6-10;if unable to take PO; Start 12/22/17 at 13:00 Oxycodone HCl (Roxicodone) 5 mg Q4H PRN PO PAIN SCALE 3 TO 5; Start 12/22/17 at 13:00 Naloxone HCl (Narcan Inj) 0.4 mg UNSCH PRN IV PUSH SEE LABEL COMMENTS; Start at 12:15 Amylase/Lipase/ Protease (Creon 12-38-60) 1 cap TID PO Last administered on 12/25 08:42; Start 12/22/17 at 18:00 Temazepam (Restoril) 7.5 mg ONCE ONCE PO Last administered on 12/22/17 21:14; Start 12/22/17 at 21:00; Stop 12/22/17 at 21:09; Status DC Nicotine (Habitrol 14 Mg Patch.24 Hr) 1 patch ONCE ONCE T-DERMAL Last administered on 12/22/17at 21:14; Start 12/22/17 at 21:00; Stop 12/22/17 at 21:09; Status DC Nicotine (Habitrol 14 Mg Patch.24 Hr) 1 patch DAILY T-DERMAL Last administered on 12/25/17at 08:42; Start 12/23/17 at 21:00 Miscellaneous Information 1 HS T-DERMAL Last administered on 12/24/17at 21:00; Start 12/22/17 at 21:00 Potassium Chloride (KCl) 60 meq ONCE ONCE PO Last administered on 12/23/17at 12: 15; Start 12/23/17 at 10:15; Stop 12/23/17 at 10:22; Status DC Lactobacillus Acidophilus (Lactinex) 1 tab TID PO Last administered on at 08:42; Start 12/23/17 at 13:00 Diphenhydramine HCl (Benadryl) 25 mg ONCE ONCE PO ; Start 12/24/17 at 04:15; Stop 12/24/17 at 04:16; Status DC A/P Assessment and Plan 47 years old female with history of chronic pancreatitis and pseudocyst presented with Acute on chronic pancreatitis -CT scan showed possible recurrent pseudocyst -GI consulted and following. -Patient now feels like her symptoms are getting worse. Clinically she is the same. Management per GI. Most likely she will to go back to a clear liquid diet. -Continue with supportive care with IV fluids and antiemetics and pain management. 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 Hypochromic microcytic anemia - just stated she had colonoscopy recently and it was negative however she has heavy period Menorrhagia -Patient to follow-up as outpatient for her menorrhagia. Heparin for DVT prophylaxis Discharge Planning Pain reoccurred. Management per GI. Harriet Noyola MD Dec 25, 2017 10:04
--- NOTE | 2017-12-25 10:28 | HHI.GIFU ---
Subjective Remarks c/o persistent abd pain, a bit worse today. Says she had worse pain when eating regular diet and did better with heart healthy. still feels distended. diarrhea has improved however. some nausea no vomiting. (Mary Lou Higgins) Objective Vitals I&O Vital Signs Date Time Temp Pulse Resp B/P (MAP) Pulse Ox O2 Delivery O2 Flow Rate FiO2 12/25/17 07:08 97.8 74 16 148/87 (107) 96 12/25/17 06:28 18 12/25/17 03:51 98.3 77 16 129/81 (97) 95 12/25/17 01:03 98.3 80 17 132/76 (94) 96 12/24/17 21:03 98.6 88 17 147/87 (107) 96 12/24/17 15:49 98.4 82 18 139/83 (101) 93 12/24/17 11:25 98.9 90 18 128/87 (101) 94 Imaging Last Impressions Abdomen/Pelvis CT 12/22/17 0000 Signed Impressions: Service Date/Time: Friday, December 22, 2017 10:22 - CONCLUSION: 1. Numerous pancreatic calcifications are again noted consistent chronic pancreatitis. There is a low attenuation fluid like collection which is poorly defined lung detail 2. The liver remains at the upper limits of normal with stable benign appearing low attenuation area in the right lobe. There is a small amount of cystic fluid surrounding the liver. 3. Moderate amount of fluid now noted in the pelvis which is new. 4. Nonobstructive bowel gas pattern. Damien Montalvo MD Physical Exam HEENT: normocephalic; atraumatic; no jaundice. CHEST: CTA CARDIAC: RRR ABDOMEN: firmness palpated upper quadrants, mild distended upper quadrants, diffuse abd tenderness > epigastrium; bowel sounds are present in all four quadrants. EXTREMITIES: No clubbing, cyanosis, or edema. SKIN: Normal; no rash; no jaundice. LURER: No focal deficits; alert and oriented times three. (Mary Lou Higgins) Assessment and Plan Plan ASSESSMENT - abd pain, n/v - Cont. to have same abd pain, tolerating fulls okay, no vomiting. lipase remains high but stable suspect acute on chronic pancreatitis, developing pseudocyst. CT showed chronic pancreatitis, poorly defined fluid collection pancreatic tail 4-3 cm, new fluid pelvis. hx chronic pancreatitis 2/2 etoh, pancreatic abscess, pseudocysts. has not had ETOH in a year. EUS 09/2017 showed chronic pancreatitis, dilated CBD, pseudocyst connecting with pancreatic duct. 12/25/17 diarrhea improved, pain somewhat worsened. on probiotics, creon PLAN - clears for now - rck lipase - advance diet as tolerated, keep no low fat, no full liquid - Cont. creon TID - pain mgmt - hydration - supportive care - further recs to follow pt seen by myself and Dr Cary and this note is written on his behalf (Mary Lou Higgins) Physician Comments patietn states her pain is not better Had diarrhea when she came , now better she was seen in the past by , who had a pseudocyst drained in 2016 mrcp may need repeat eus with possible drainage or ir with drainage if no surgical intervention recommended we will obtain eus report [facility] (April Cary MD) Mary Lou Higgins Dec 25, 2017 10:28 April Cary MD Dec 25, 2017 13:00
[2017-12-25 11:07] VITALS: BP 136/83; PULSE 79; RESP 16; TEMP 97.6; O2SAT 95
[2017-12-25] MEDS: MORPHINE SULFATE 2 MG/ML INJ IV PUSH PRN (14:45)
--- NOTE | 2017-12-25 14:50 | PD.CONS ---
cc: Damien Ellis MD [facility] Service General Surgery Consult Requested By Dr. Cary Reason for Consult Known pancreatic pseudocyst Primary Care Physician Balta العلي M.D. History of Present Illness This is a 46-year-old female with a past medical history of pancreatitis, cholecystectomy, and history of respiratory failure secondary to narcotic overdose. The patient is well-known to the General Surgery service from prior admissions. The patient has a known pseudocyst with acute on chronic pancreatitis. On June 20, 2017 the patient had exploratory laparotomy with incision and drainage of an pancreatic phlegmon. The patient has had issues with abdominal pain. A CT abdomen and pelvis was obtained which shows pancreatic calcifications that are consistent with chronic pancreatitis. The patient is able to tolerate a low-fat diet without abdominal pain. Of note, the patient has been taking ibuprofen in excess, up to 800 mg 4 times daily. GI has evaluated the patient and requested a General Surgery consultation for possible intraoperative drainage of pancreatic pseudocyst. Review of Systems Constitutional: DENIES: Weight loss, Chills Endocrine: DENIES: Polydipsia, Polyuria, Polyphagia Eyes: DENIES: Diplopia, Eye inflammation Ears, nose, mouth, throat: DENIES: Hearing loss Respiratory: DENIES: Cough, Snoring Cardiovascular: DENIES: Palpitations Gastrointestinal: COMPLAINS OF: Abdominal pain, Diarrhea, DENIES: Nausea, Vomiting Musculoskeletal: DENIES: Joint pain Integumentary: DENIES: Abnormal pigmentation Hematologic/lymphatic: DENIES: Bruising Immunologic/allergic: DENIES: Eczema Neurologic: DENIES: Headache, Localized weakness Psychiatric: DENIES: Mood changes, Depression, Hallucinations Past Family Social History Past Medical History Chronic pancreatitis Past Surgical History Cholecystectomy Exploratory laparotomy and incision and drainage of pancreatic phlegmon on June 20, [address] Ellis Reported Medications None Allergies: Coded Allergies: methadone (Unverified Allergy, Severe, 12/22/17) penicillin G (Unverified Allergy, Severe, Anaphylaxis, 12/22/17) Active Ordered Medications Current Medications Medications (Trade) Dose Ordered Sig/Flores Route Start Time Stop Time Status Last Admin Sodium Chloride 1,000 ml @ 150 mls/hr Q6H40M IV 12/22/17 13:00 12/24/17 05:09 (NS Flush) 2 ml UNSCH PRN IV FLUSH 12/22/17 12:15 (NS Flush) 2 ml BID IV FLUSH 12/22/17 21:00 12/25/17 09:00 (Zofran Inj) 4 mg Q6H PRN IVP 12/22/17 13:00 12/25/17 08:42 (Heparin Inj) 5,000 units Q8H SQ 12/22/17 13:00 12/25/17 05:27 (Roxicodone) 10 mg Q4H PRN PO 12/22/17 13:00 12/25/17 09:31 (Morphine Inj) 2 mg Q3H PRN IV PUSH 12/22/17 13:00 12/22/17 17:23 (Morphine Inj) 4 mg Q3H PRN IV PUSH 12/22/17 13:00 (Roxicodone) 5 mg Q4H PRN PO 12/22/17 13:00 (Narcan Inj) 0.4 mg UNSCH PRN IV PUSH 12/22/17 12:15 (Creon 12-38-60) 1 cap TID PO 12/22/17 18:00 12/25/17 08:42 (Habitrol 14 Mg Patch.24 Hr) 1 patch DAILY T-DERMAL 12/23/17 21:00 12/25/17 08:42 Miscellaneous Information 1 HS T-DERMAL 12/22/17 21:00 12/24/17 21:00 (Lactinex) 1 tab TID PO 12/23/17 13:00 12/25/17 08:42 Family History Noncontributory Social History Positive tobacco use--- decreased in quantity Denies current EtOH use--history of prior heavy EtOH use; reports no EtOH use in greater than 12 months Denies EtOH use Physical Exam Vital Signs Vital Signs Date Time Temp Pulse Resp B/P (MAP) Pulse Ox O2 Delivery O2 Flow Rate FiO2 12/25/17 11:07 97.6 79 16 136/83 (100) 95 12/25/17 10:31 20 12/25/17 07:08 97.8 74 16 148/87 (107) 96 12/25/17 03:51 98.3 77 16 129/81 (97) 95 12/25/17 01:03 98.3 80 17 132/76 (94) 96 12/24/17 21:03 98.6 88 17 147/87 (107) 96 12/24/17 15:49 98.4 82 18 139/83 (101) 93 Physical Exam GENERAL: Very pleasant 47-year-old female resting in bed in no acute distress. SKIN: Warm and dry. HEAD: Atraumatic. Normocephalic. EYES: Pupils equal and round. No scleral icterus. No injection or drainage. ENT: No nasal bleeding or discharge. Mucous membranes pink and moist. NECK: Trachea midline. CARDIOVASCULAR: Regular rate and rhythm. RESPIRATORY: No accessory muscle use. Clear to auscultation. Breath sounds equal bilaterally. GASTROINTESTINAL: Abdomen soft, but mildly distended. Tender in LUQ with palpation. Well healed midline incision. MUSCULOSKELETAL: Extremities without clubbing, cyanosis, or edema. No obvious deformities. NEUROLOGICAL: Awake and alert. No obvious cranial nerve deficits. Motor grossly within normal limits. Five out of 5 muscle strength in the arms and legs. Normal speech. PSYCHIATRIC: Appropriate mood and affect; insight and judgment normal. Laboratory Laboratory Tests Test 12/25/17 11:30 Lipase 641 Result Diagram: 12/24/17 0646 12/24/17 0646 Assessment and Plan Assessment and Plan 47 year old female with chronic pancreatitis; pancreatic pseudocyst -Would recommend GI to do endoscopy ultrasound for drainage -Diet as tolerated; recommend low-fat diet -Would recommend to continue monitor lipase -General Surgery will be available PRN; please call with questions -Thank you for this consult Attending Note - Dr. Ellis Patient has actually gained weight since her hospitalization. Abdomen is moderately tender with minimal guarding. No signs sepsis/bleeding or other problems requiring emergent intervention. Pancreatic insufficiency with phlegmon in more distal pancreas Nothing to drain at this time from surgical standpoint. Agree with MRCP to assess pancreatic duct; I expect it will be patent. The exam, history, and the medical decision-making described in the above note were completed with the assistance of the mid-level provider. I reviewed and agree with the findings presented. I attest that I had a [id number] encounter with the patient on the same day, and personally performed and documented my assessment and findings in the medical record. Discussed Condition With Dr. Caleb Roblero. Nette Stringer Dec 25, 2017 14:50 Damien Ellis MD Dec 25, 2017 17:57
[2017-12-25 15:38] VITALS: BP 148/91; PULSE 76; RESP 16; TEMP 98.9; O2SAT 95
--- NOTE | 2017-12-25 19:16 | RADRPT ---
EXAM DATE/TIME: 12/25/2017 18:19 [place] COMPARISON: CT ABDOMEN & PELVIS W CONTRAST, December 22, 2017, 10:22. INDICATIONS : Pain. CONTRAST: 11 cc Omniscan (gadodiamide) IV MEDICAL HISTORY : Pancreatitis. Gastroesophageal reflux disease. SURGICAL HISTORY : section. Cholecystectomy. Pancreatic cyst removed. ENCOUNTER: Subsequent ACUITY: 1 week PAIN SCORE: 3/10 LOCATION: Abdomen. TECHNIQUE: Multiplanar, multisequence magnetic resonance imaging of the abdomen was performed. High-resolution 3D dataset was utilized to reconstruct maximum-intensity projection (MIP) images. FINDINGS: INTRAHEPATIC BILE DUCTS: Within normal limits. No significant anatomical variant is present. EXTRAHEPATIC BILE DUCTS: The common bile duct measures 4 mm No stone or filling defect is identified. No distal obstructing ma ss is visualized. GALLBLADDER: No stones, wall thickening, or pericholecystic fluid. LIVER: Liver is within normal limits for size. There is a 1.9 cm high signal lesion on the T2-weighted image s in the left lobe of the liver. There is a second high signal lesion in the right lobe liver measuri ng 1.7 cm. On the postcontrast images, there is some peripheral nodular enhancement which fills in ov er time characteristics of hemangiomas. There is a small amount of ascites adjacent to the liver. PANCREAS: The main pancreatic duct is normal in size. The pancreatic appears to be within normal limits for siz e. However there are multiple small calcifications throughout the pancreas characteristic of chronic pancreatitis. These findings were also noted in the CT scan.. OTHER: The remaining visualized structures demonstrate no acute abnormality. CONCLUSION: 1. There are 2 hemangiomas within the liver. There is a hemangioma measuring 1.9 cm and the left lobe . There is a hemangioma measuring 1.7 cm in the right lobe. 2. No definite gallstones or biliary tract obstruction. 3. Chronic pancreatitis. 4. Small amount of ascites adjacent to the liver. Jeronimo Milton MD on December 25, 2017 at 19:06 Board Certified Radiologist. This report was verified electronically.
[2017-12-25] MEDS: REMOVE OLD PATCH T-DERMAL SCH (20:12)
[2017-12-25 20:38] VITALS: BP 132/94; PULSE 91; RESP 18; TEMP 98.1; O2SAT 97
[2017-12-26] MEDS: SODIUM CHLOR 0.9% 1000 ML INJ 1,000 ML IV SCH ×3 (02:43→17:45)
[2017-12-26 04:00] VITALS: BP 123/75; PULSE 68; RESP 18; TEMP 98.1; O2SAT 95
[2017-12-26] MEDS: HEPARIN SODIUM - SQ 10,000 UNITS/ML VIAL SQ SCH ×3 (04:59→21:42)
[2017-12-26 08:15] VITALS: BP 125/76; PULSE 65; RESP 18; TEMP 98.7; O2SAT 96
[2017-12-26] MEDS: SODIUM CHLORIDE 0.9% FLUSH 10 ML FLUSH IV FLUSH SCH ×2 (09:00→21:00)
[2017-12-26] MEDS: LACTOBACILLUS ACIDOPHILUS TAB PO SCH ×3 (09:50→18:40)
[2017-12-26] MEDS: NICOTINE 14 MG/24 HR PATCH T-DERMAL SCH (09:50)
[2017-12-26] MEDS: LIPASE/PROTEASE/AMYLASE (12,000/38,000/60,000) CAP PO SCH ×3 (09:50→18:41)
--- NOTE | 2017-12-26 10:12 | HHI.PR ---
Subjective Remarks Follow-up for acute on chronic pancreatitis Patient found sitting in bed. She stated abdominal pain improved today but she is very hesitant that it might worsen. Patient has a food tray in front of her and had a sip of fluids with no problems. Deny any diarrhea. Objective Vitals Vital Signs Date Time Temp Pulse Resp B/P (MAP) Pulse Ox O2 Delivery O2 Flow Rate FiO2 12/26/17 08:15 98.7 65 18 125/76 (92) 96 12/26/17 04:00 98.1 68 18 123/75 (91) 95 12/25/17 20:38 98.1 91 18 132/94 (107) 97 12/25/17 15:38 98.9 76 16 148/91 (110) 95 12/25/17 14:50 20 12/25/17 11:07 97.6 79 16 136/83 (100) 95 12/25/17 10:31 20 Result Diagram: 12/24/17 0646 12/24/17 0646 Objective Remarks GENERAL: in NAD CARDIOVASCULAR: Regular rate and rhythm without murmurs, gallops, or rubs. RESPIRATORY: Breath sounds equal bilaterally. No accessory muscle use. GASTROINTESTINAL: Abdomen soft, distended but soft, mild tenderness palpation diffusely. Distention has improved from yesterday. No peritoneal signs. MUSCULOSKELETAL: No cyanosis, or edema. BACK: Nontender without obvious deformity. No CVA tenderness. Medications and IVs Current Medications Hydromorphone HCl (Dilaudid Pf Inj) 0.5 mg ONCE ONCE IV PUSH Last administered on 12/22/17 10:35; Start 12/22/17 at 10:15; Stop 12/22/17 at 10:16; Status DC Ondansetron HCl (Zofran Inj) 4 mg ONCE ONCE IV PUSH Last administered on at 10:35; Start 12/22/17 at 10:15; Stop 12/22/17 at 10:16; Status DC Sodium Chloride 1,000 ml @ 999 mls/hr BOLUS ONCE IV Last administered on at 10:34; Start 12/22/17 at 10:15; Stop 12/22/17 at 11:15; Status DC Iohexol (Omnipaque 350 Inj) 97 ml STK-MED ONCE IVCONTRAST Last administered on 12/22/17 10:28; Start 12/22/17 at 10:28; Stop 12/22/17 at 10:29; Status DC Sodium Chloride 1,000 ml @ 150 mls/hr Q6H40M IV Last administered on 12/26/17 02:43; Start 12/22/17 at 13:00 Sodium Chloride (NS Flush) 2 ml UNSCH PRN IV FLUSH FLUSH AFTER USING IV ACCESS ; Start 12/22/17 at 12:15 Sodium Chloride (NS Flush) 2 ml BID IV FLUSH Last administered on 12/25/17 20: 08; Start 12/22/17 at 21:00 Ondansetron HCl (Zofran Inj) 4 mg Q6H PRN IVP NAUSEA OR VOMITING Last administered on 12/25/17 23:48; Start 12/22/17 at 13:00 Heparin Sodium (Porcine) (Heparin Inj) 5,000 units Q8H SQ Last administered on 12/26/17 04:59; Start 12/22/17 at 13:00 Oxycodone HCl (Roxicodone) 10 mg Q4H PRN PO PAIN SCALE 6 TO 10 Last administered on 12/26/17 09:50; Start 12/22/17 at 13:00 Morphine Sulfate (Morphine Inj) 2 mg Q3H PRN IV PUSH Pain 3-5; if unable to take PO Last administered on 12/25/17 14:45; Start 12/22/17 at 13:00 Morphine Sulfate (Morphine Inj) 4 mg Q3H PRN IV PUSH Pain 6-10;if unable to take PO; Start 12/22/17 at 13:00 Oxycodone HCl (Roxicodone) 5 mg Q4H PRN PO PAIN SCALE 3 TO 5; Start 12/22/17 at 13:00 Naloxone HCl (Narcan Inj) 0.4 mg UNSCH PRN IV PUSH SEE LABEL COMMENTS; Start at 12:15 Amylase/Lipase/ Protease (Creon 12-38-60) 1 cap TID PO Last administered on 12/26 09:50; Start 12/22/17 at 18:00 Temazepam (Restoril) 7.5 mg ONCE ONCE PO Last administered on 12/22/17 21:14; Start 12/22/17 at 21:00; Stop 12/22/17 at 21:09; Status DC Nicotine (Habitrol 14 Mg Patch.24 Hr) 1 patch ONCE ONCE T-DERMAL Last administered on 12/22/17at 21:14; Start 12/22/17 at 21:00; Stop 12/22/17 at 21:09; Status DC Nicotine (Habitrol 14 Mg Patch.24 Hr) 1 patch DAILY T-DERMAL Last administered on 12/26/17at 09:50; Start 12/23/17 at 21:00 Miscellaneous Information 1 HS T-DERMAL Last administered on 12/25/17at 20:12; Start 12/22/17 at 21:00 Potassium Chloride (KCl) 60 meq ONCE ONCE PO Last administered on 12/23/17at 12: 15; Start 12/23/17 at 10:15; Stop 12/23/17 at 10:22; Status DC Lactobacillus Acidophilus (Lactinex) 1 tab TID PO Last administered on at 09:50; Start 12/23/17 at 13:00 Diphenhydramine HCl (Benadryl) 25 mg ONCE ONCE PO ; Start 12/24/17 at 04:15; Stop 12/24/17 at 04:16; Status DC Gadodiamide (Omniscan Pf Inj) 11 ml STK-MED ONCE IV PUSH Last administered on at 18:21; Start 12/22/17 at 18:21; Stop 12/25/17 at 18:21; Status DC A/P Assessment and Plan 47 years old female with history of chronic pancreatitis and pseudocyst presented with Acute on chronic pancreatitis -CT scan showed possible recurrent pseudocyst -GI consulted and following. -General surgeon also consulted and stated patient is not a surgical candidate. -Continue with supportive care with IV fluids and antiemetics and pain management. -Today abdominal pain has improved. Management per GI. 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 -Continue with probiotics. Hypochromic microcytic anemia - just stated she had colonoscopy recently and it was negative however she has heavy period Menorrhagia -Patient to follow-up as outpatient for her menorrhagia. Heparin for DVT prophylaxis Discharge Planning Complicated case. Management per GI. Harriet Noyola MD Dec 26, 2017 10:12
[2017-12-26 12:37] VITALS: BP 122/79; PULSE 75; RESP 18; TEMP 97.6; O2SAT 94
--- NOTE | 2017-12-26 16:23 | HHI.GIFU ---
Subjective Remarks Pt resting in bed, states her abdominal pain has eased some today compared to yesterday. Reports nausea before meals, denies emesis. Has not had a BM. She is requesting her diet be advanced. (Shanti Gibson) Objective Vitals I&O Vital Signs Date Time Temp Pulse Resp B/P (MAP) Pulse Ox O2 Delivery O2 Flow Rate FiO2 12/26/17 12:37 97.6 75 18 122/79 (93) 94 12/26/17 08:15 98.7 65 18 125/76 (92) 96 12/26/17 04:00 98.1 68 18 123/75 (91) 95 12/25/17 20:38 98.1 91 18 132/94 (107) 97 Laboratory Laboratory Tests Test 12/26/17 06:00 Lipase 410 Imaging Last Impressions Cholangiopancreatography MRI 12/25/17 0000 Signed Impressions: Service Date/Time: Monday, December 25, 2017 18:19 - CONCLUSION: 1. There are 2 hemangiomas within the liver. There is a hemangioma measuring 1.9 cm and the left lobe. There is a hemangioma measuring 1.7 cm in the right lobe. 2. No definite gallstones or biliary tract obstruction. 3. Chronic pancreatitis. 4. Small amount of ascites adjacent to the liver. Jeronimo Milton MD Abdomen/Pelvis CT 12/22/17 0000 Signed Impressions: Service Date/Time: Friday, December 22, 2017 10:22 - CONCLUSION: 1. Numerous pancreatic calcifications are again noted consistent chronic pancreatitis. There is a low attenuation fluid like collection which is poorly defined lung detail 2. The liver remains at the upper limits of normal with stable benign appearing low attenuation area in the right lobe. There is a small amount of cystic fluid surrounding the liver. 3. Moderate amount of fluid now noted in the pelvis which is new. 4. Nonobstructive bowel gas pattern. Damien Montalvo MD Physical Exam HEENT: Normocephalic; atraumatic CHEST: Even/unlabored CARDIAC: RRR ABDOMEN: Distended, firm, diffuse TTP, bowel sounds active EXTREMITIES: No clubbing, cyanosis, or edema. SKIN: Normal; no rash; no jaundice. 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 (Shanti Gibson) Assessment and Plan Plan ASSESSMENT - abd pain, n/v - Cont. to have same abd pain, tolerating fulls okay, no vomiting. lipase remains high but stable suspect acute on chronic pancreatitis, developing pseudocyst. CT showed chronic pancreatitis, poorly defined fluid collection pancreatic tail 4-3 cm, new fluid pelvis. hx chronic pancreatitis 2/2 etoh, pancreatic abscess, pseudocysts. has not had ETOH in a year. EUS 09/2017 showed chronic pancreatitis, dilated CBD, pseudocyst connecting with pancreatic duct. 12/25/17 diarrhea improved, pain somewhat worsened. on probiotics, creon (12/26) --> S/P MRCP yesterday --> There are 2 hemangiomas within the liver. There is hemangioma measuring 1.9 cm in the left lobe. There is a hemangioma measuring 1.7 cm in the right lobe. No definite gallstones or biliary tract obstruction. Chronic pancreatitis. Small amount of ascites adjacent to liver. Pt was evaluated by GS who states not a surgical candidate, recommends EUS with gastrostomy. Last EUS (10/09/17) reviewed --> Pancreatic pseudocyst connecting to the pancreatic duct. Dilated CBD, no filling defects. Evidence of chronic pancreatitis. Pt reports abdominal pain has eased some today compared to yesterday. Nausea before meals, denies emesis. Requesting diet be advanced. Lipase trending down. Drop in H/H noted, no repeat CBC since Dec 24. Will recheck. No obvious GIB. PLAN - Full liquid diet - Possible EUS- timing to be determined - Monitor labs - Continue Creon - Pain control - Further recommendations to follow based on clinical course Pt has been seen and examined by myself and Dr. Cary and this note is written on her behalf (Shanti Gibson) Shanti Gibson Dec 26, 2017 16:23 April Cary MD Dec 26, 2017 21:24
[2017-12-26 16:37] VITALS: BP 137/81; PULSE 73; RESP 18; TEMP 98.8; O2SAT 94
[2017-12-26] MEDS: ONDANSETRON HCL 4 MG/2 ML VIAL IVP PRN (17:40)
[2017-12-26 20:18] VITALS: BP 144/77; PULSE 72; RESP 18; TEMP 98.9; O2SAT 94
[2017-12-26] MEDS: REMOVE OLD PATCH T-DERMAL SCH (21:43)
[2017-12-27] MEDS: SODIUM CHLOR 0.9% 1000 ML INJ 1,000 ML IV SCH ×4 (00:31→19:40)
[2017-12-27 03:03] VITALS: BP 118/75; PULSE 76; RESP 18; TEMP 98.6; O2SAT 96
[2017-12-27] MEDS: ONDANSETRON HCL 4 MG/2 ML VIAL IVP PRN ×3 (03:21→17:13)
[2017-12-27] MEDS: HEPARIN SODIUM - SQ 10,000 UNITS/ML VIAL SQ SCH ×3 (05:37→20:33)
[2017-12-27 06:40] LABS: AUTOMATED NEUTROPHIL # 2.3 TH/MM3 (1.8-7.7); BASOPHIL # 0.1 TH/MM3 (0-0.2); BASOPHIL % 1.3 % (0.0-2.0); EOSINOPHIL # 0.3 TH/MM3 (0-0.4); EOSINOPHIL % 5.7 % (0.0-4.0); HEMOGLOBIN 8.3 GM/DL (11.6-15.3); LYMPH % 31.8 % (9.0-44.0); LYMPHOCYTE # 1.4 TH/MM3 (1.0-4.8); MEAN CELL VOLUME 76.4 FL (80.0-100.0); MEAN CORPUSCULAR HEMOGLOBIN 24.3 PG (27.0-34.0); MEAN CORPUSCULAR HGB CONC 31.8 % (32.0-36.0); MEAN PLATELET VOLUME 7.6 FL (7.0-11.0); MONO % 8.6 % (0.0-8.0); MONOCYTE # 0.4 TH/MM3 (0-0.9); NEUT % 52.6 % (16.0-70.0); PLATELET COUNT 182 TH/MM3 (150-450); RED BLOOD COUNT 3.41 MIL/MM3 (4.00-5.30); RED CELL DISTRIBUTION WIDTH 20.4 % (11.6-17.2); WHITE BLOOD COUNT 4.5 TH/MM3 (4.0-11.0)
[2017-12-27 08:02] VITALS: BP 138/79; PULSE 68; RESP 19; TEMP 98.5; O2SAT 96
[2017-12-27] MEDS: LIPASE/PROTEASE/AMYLASE (12,000/38,000/60,000) CAP PO SCH ×3 (08:58→17:12)
[2017-12-27] MEDS: LACTOBACILLUS ACIDOPHILUS TAB PO SCH ×3 (08:58→17:12)
[2017-12-27] MEDS: NICOTINE 14 MG/24 HR PATCH T-DERMAL SCH (08:58)
[2017-12-27] MEDS: SODIUM CHLORIDE 0.9% FLUSH 10 ML FLUSH IV FLUSH SCH ×2 (08:59→20:32)
--- NOTE | 2017-12-27 10:07 | HHI.PR ---
Subjective Remarks Follow-up for acute on chronic pancreatitis Patient stated that she feels better today. Still abdominal pain but that has improved. Tolerating her diet yesterday. No other complaints. No nausea/ vomiting. No diarrhea. No GI bleed. Objective Vitals Vital Signs Date Time Temp Pulse Resp B/P (MAP) Pulse Ox O2 Delivery O2 Flow Rate FiO2 12/27/17 08:45 22 12/27/17 08:02 98.5 68 19 138/79 (98) 96 12/27/17 03:03 98.6 76 18 118/75 (89) 96 12/26/17 20:18 98.9 72 18 144/77 (99) 94 12/26/17 16:37 98.8 73 18 137/81 (99) 94 12/26/17 12:37 97.6 75 18 122/79 (93) 94 Result Diagram: 12/27/17 0547 12/24/17 0646 Objective Remarks GENERAL: in NAD CARDIOVASCULAR: Regular rate and rhythm without murmurs, gallops, or rubs. RESPIRATORY: Breath sounds equal bilaterally. No accessory muscle use. GASTROINTESTINAL: Abdomen soft, distended but soft, mild tenderness palpation diffusely. No peritoneal signs. MUSCULOSKELETAL: No cyanosis, or edema. BACK: Nontender without obvious deformity. No CVA tenderness. Medications and IVs Current Medications Hydromorphone HCl (Dilaudid Pf Inj) 0.5 mg ONCE ONCE IV PUSH Last administered on 12/22/17 10:35; Start 12/22/17 at 10:15; Stop 12/22/17 at 10:16; Status DC Ondansetron HCl (Zofran Inj) 4 mg ONCE ONCE IV PUSH Last administered on at 10:35; Start 12/22/17 at 10:15; Stop 12/22/17 at 10:16; Status DC Sodium Chloride 1,000 ml @ 999 mls/hr BOLUS ONCE IV Last administered on 10:34; Start 12/22/17 at 10:15; Stop 12/22/17 at 11:15; Status DC Iohexol (Omnipaque 350 Inj) 97 ml STK-MED ONCE IVCONTRAST Last administered on 12/22/17 10:28; Start 12/22/17 at 10:28; Stop 12/22/17 at 10:29; Status DC Sodium Chloride 1,000 ml @ 150 mls/hr Q6H40M IV Last administered on 12/27/17 05:38; Start 12/22/17 at 13:00 Sodium Chloride (NS Flush) 2 ml UNSCH PRN IV FLUSH FLUSH AFTER USING IV ACCESS ; Start 12/22/17 at 12:15 Sodium Chloride (NS Flush) 2 ml BID IV FLUSH Last administered on 12/26/17 09: 00; Start 12/22/17 at 21:00 Ondansetron HCl (Zofran Inj) 4 mg Q6H PRN IVP NAUSEA OR VOMITING Last administered on 12/27/17 03:21; Start 12/22/17 at 13:00 Heparin Sodium (Porcine) (Heparin Inj) 5,000 units Q8H SQ Last administered on 12/27/17 05:37; Start 12/22/17 at 13:00 Oxycodone HCl (Roxicodone) 10 mg Q4H PRN PO PAIN SCALE 6 TO 10 Last administered on 12/27/17 07:26; Start 12/22/17 at 13:00 Morphine Sulfate (Morphine Inj) 2 mg Q3H PRN IV PUSH Pain 3-5; if unable to take PO Last administered on 12/25/17 14:45; Start 12/22/17 at 13:00 Morphine Sulfate (Morphine Inj) 4 mg Q3H PRN IV PUSH Pain 6-10;if unable to take PO; Start 12/22/17 at 13:00 Oxycodone HCl (Roxicodone) 5 mg Q4H PRN PO PAIN SCALE 3 TO 5; Start 12/22/17 at 13:00 Naloxone HCl (Narcan Inj) 0.4 mg UNSCH PRN IV PUSH SEE LABEL COMMENTS; Start at 12:15 Amylase/Lipase/ Protease (Creon 12-38-60) 1 cap TID PO Last administered on 12/27at 08:58; Start 12/22/17 at 18:00 Temazepam (Restoril) 7.5 mg ONCE ONCE PO Last administered on 12/22/17 21:14; Start 12/22/17 at 21:00; Stop 12/22/17 at 21:09; Status DC Nicotine (Habitrol 14 Mg Patch.24 Hr) 1 patch ONCE ONCE T-DERMAL Last administered on 12/22/17 21:14; Start 12/22/17 at 21:00; Stop 12/22/17 at 21:09; Status DC Nicotine (Habitrol 14 Mg Patch.24 Hr) 1 patch DAILY T-DERMAL Last administered on 12/27/17at 08:58; Start 12/23/17 at 21:00 Miscellaneous Information 1 HS T-DERMAL Last administered on 12/26/17at 21:43; Start 12/22/17 at 21:00 Potassium Chloride (KCl) 60 meq ONCE ONCE PO Last administered on 12/23/17at 12: 15; Start 12/23/17 at 10:15; Stop 12/23/17 at 10:22; Status DC Lactobacillus Acidophilus (Lactinex) 1 tab TID PO Last administered on 08:58; Start 12/23/17 at 13:00 Diphenhydramine HCl (Benadryl) 25 mg ONCE ONCE PO ; Start 12/24/17 at 04:15; Stop 12/24/17 at 04:16; Status DC Gadodiamide (Omniscan Pf Inj) 11 ml STK-MED ONCE IV PUSH Last administered on 18:21; Start 12/22/17 at 18:21; Stop 12/25/17 at 18:21; Status DC A/P Assessment and Plan 47 years old female with history of chronic pancreatitis and pseudocyst presented with Acute on chronic pancreatitis -CT scan showed possible recurrent pseudocyst -GI consulted and following. -General surgeon also consulted and stated patient is not a surgical candidate. -Continue with supportive care with IV fluids and antiemetics and pain management. -Abdominal pain continued to improve. Management per GI. Discussed case with CORKY Pauline Higgins and she stated that patient may have a procedure done. 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 -Continue with probiotics. Hypochromic microcytic anemia - just stated she had colonoscopy recently and it was negative however she has heavy period Menorrhagia -Patient to follow-up as outpatient for her menorrhagia. Heparin for DVT prophylaxis Discharge Planning Complicated case. Management per GI. Once cleared by GI patient to be discharged home. Harriet Noyola MD Dec 27, 2017 10:06
--- NOTE | 2017-12-27 11:15 | HHI.GIFU ---
Subjective Remarks Pt resting in in bed. Tolerating liquid diet. Pain unchanged. No bleeding. (Mary Lou Higgins) Objective Vitals I&O Vital Signs Date Time Temp Pulse Resp B/P (MAP) Pulse Ox O2 Delivery O2 Flow Rate FiO2 12/27/17 08:45 22 12/27/17 08:02 98.5 68 19 138/79 (98) 96 12/27/17 03:03 98.6 76 18 118/75 (89) 96 12/26/17 20:18 98.9 72 18 144/77 (99) 94 12/26/17 16:37 98.8 73 18 137/81 (99) 94 12/26/17 12:37 97.6 75 18 122/79 (93) 94 Laboratory Laboratory Tests Test 12/27/17 05:47 White Blood Count 4.5 Red Blood Count 3.41 Hemoglobin 8.3 Hematocrit 26.0 Mean Corpuscular Volume 76.4 Mean Corpuscular Hemoglobin 24.3 Mean Corpuscular Hemoglobin Concent 31.8 Red Cell Distribution Width 20.4 Platelet Count 182 Mean Platelet Volume 7.6 Neutrophils (%) (Auto) 52.6 Lymphocytes (%) (Auto) 31.8 Monocytes (%) (Auto) 8.6 Eosinophils (%) (Auto) 5.7 Basophils (%) (Auto) 1.3 Neutrophils # (Auto) 2.3 Lymphocytes # (Auto) 1.4 Monocytes # (Auto) 0.4 Eosinophils # (Auto) 0.3 Basophils # (Auto) 0.1 CBC Comment DIFF FINAL Differential Comment Imaging Last Impressions Cholangiopancreatography MRI 12/25/17 0000 Signed Impressions: Service Date/Time: Monday, December 25, 2017 18:19 - CONCLUSION: 1. There are 2 hemangiomas within the liver. There is a hemangioma measuring 1.9 cm and the left lobe. There is a hemangioma measuring 1.7 cm in the right lobe. 2. No definite gallstones or biliary tract obstruction. 3. Chronic pancreatitis. 4. Small amount of ascites adjacent to the liver. Jeronimo Milton MD Abdomen/Pelvis CT 12/22/17 0000 Signed Impressions: Service Date/Time: Friday, December 22, 2017 10:22 - CONCLUSION: 1. Numerous pancreatic calcifications are again noted consistent chronic pancreatitis. There is a low attenuation fluid like collection which is poorly defined lung detail 2. The liver remains at the upper limits of normal with stable benign appearing low attenuation area in the right lobe. There is a small amount of cystic fluid surrounding the liver. 3. Moderate amount of fluid now noted in the pelvis which is new. 4. Nonobstructive bowel gas pattern. Damien Montalvo MD Physical Exam HEENT: Normocephalic; atraumatic CHEST: Even/unlabored CARDIAC: RRR ABDOMEN: Distended, soft, epigastric TTP, bowel sounds active EXTREMITIES: No clubbing, cyanosis, or edema. SKIN: Normal; no rash; no jaundice. RELIEF MASTER: No focal deficits; alert and oriented times three. (Mary Lou Higgins MANAGER RENTAL) Assessment and Plan Plan ASSESSMENT - abd pain, n/v - Cont. to have same abd pain, tolerating fulls okay, no vomiting. lipase remains high but stable suspect acute on chronic pancreatitis, developing pseudocyst. CT showed chronic pancreatitis, poorly defined fluid collection pancreatic tail 4-3 cm, new fluid pelvis. hx chronic pancreatitis 2/2 etoh, pancreatic abscess, pseudocysts. has not had ETOH in a year. EUS 09/2017 showed chronic pancreatitis, dilated CBD, pseudocyst connecting with pancreatic duct. 12/25/17 diarrhea improved, pain somewhat worsened. on probiotics, creon (12/26) --> S/P MRCP yesterday --> There are 2 hemangiomas within the liver. There is hemangioma measuring 1.9 cm in the left lobe. There is a hemangioma measuring 1.7 cm in the right lobe. No definite gallstones or biliary tract obstruction. Chronic pancreatitis. Small amount of ascites adjacent to liver. Pt was evaluated by GS who states not a surgical candidate, recommends EUS with gastrostomy. Last EUS (10/09/17) reviewed --> Pancreatic pseudocyst connecting to the pancreatic duct. Dilated CBD, no filling defects. Evidence of chronic pancreatitis. Pt reports abdominal pain has eased some today compared to yesterday. Nausea before meals, denies emesis. Requesting diet be advanced. Lipase trending down. Drop in H/H noted, no repeat CBC since Dec 24. Will recheck. No obvious GIB. 12/27/17 d/w MRCP and CT with radiology, specifically fluid collection pancreas seen on CT and not mentioned MRCP. it is felt that from IR standpoing there is nothing to drain at this time and nothing to be gained by any IR interventions. Imaging findings consistent with chronic pancreatitis HH mildly improved today. no obvious bleeding. PLAN - low fat diet - could consider EUS if a pseudocyst or organized fluid collection develops - Monitor labs - Continue Creon - Pain control - Further recommendations to follow based on clinical course Pt has been seen and examined by myself and Dr. Cary and this note is written on her behalf (Mary Lou Higgins) Mary Lou Higgins Dec 27, 2017 11:15 April Cary MD Dec 27, 2017 20:57
[2017-12-27 11:46] VITALS: BP 121/79; PULSE 86; RESP 18; TEMP 98.4; O2SAT 96
[2017-12-27 16:19] VITALS: BP 130/72; PULSE 77; RESP 19; TEMP 98.4; O2SAT 97
[2017-12-27] MEDS ORDERED: TEMA15CA PO (18:06)
[2017-12-27] MEDS ORDERED: TEMAZEPAM 15 MG CAP PO PRN (18:15)
[2017-12-27 20:04] VITALS: BP 130/70; PULSE 76; RESP 18; TEMP 98.4; O2SAT 98
[2017-12-27] MEDS: FAMOTIDINE 20 MG TAB PO SCH (20:31)
[2017-12-27] MEDS: REMOVE OLD PATCH T-DERMAL SCH (20:36)
[2017-12-27 23:29] VITALS: BP 120/70; PULSE 70; RESP 18; TEMP 98.6; O2SAT 96
[2017-12-28] MEDS: SODIUM CHLOR 0.9% 1000 ML INJ 1,000 ML IV SCH ×3 (01:41→15:40)
[2017-12-28 04:45] VITALS: BP 144/68; PULSE 68; RESP 18; TEMP 98.1; O2SAT 97
[2017-12-28] MEDS: HEPARIN SODIUM - SQ 10,000 UNITS/ML VIAL SQ SCH ×2 (04:53→13:19)
[2017-12-28 07:52] VITALS: BP 128/80; PULSE 81; RESP 16; TEMP 98; O2SAT 97
[2017-12-28] MEDS: SODIUM CHLORIDE 0.9% FLUSH 10 ML FLUSH IV FLUSH SCH (09:00)
[2017-12-28] MEDS: FAMOTIDINE 20 MG TAB PO SCH (09:15)
[2017-12-28] MEDS: LIPASE/PROTEASE/AMYLASE (12,000/38,000/60,000) CAP PO SCH ×3 (09:15→17:39)
[2017-12-28] MEDS: LACTOBACILLUS ACIDOPHILUS TAB PO SCH ×3 (09:15→17:39)
[2017-12-28] MEDS: NICOTINE 14 MG/24 HR PATCH T-DERMAL SCH (09:16)
--- NOTE | 2017-12-28 09:58 | HHI.GIFU ---
Subjective Remarks Pt resting in bed in NAD. Tolerating diet. now c/o umbilical pain, but otherwise not much change. (Mary Lou Higgins LINK CUTTER) Objective Vitals I&O Vital Signs Date Time Temp Pulse Resp B/P (MAP) Pulse Ox O2 Delivery O2 Flow Rate FiO2 12/28/17 07:52 98.0 81 16 128/80 (96) 97 12/28/17 07:34 22 12/28/17 04:45 98.1 68 18 144/68 (93) 97 12/27/17 23:29 98.6 70 18 120/70 (87) 96 12/27/17 20:04 98.4 76 18 130/70 (90) 98 12/27/17 16:19 98.4 77 19 130/72 (91) 97 12/27/17 11:46 98.4 86 18 121/79 (93) 96 Imaging Last Impressions Cholangiopancreatography MRI 12/25/17 0000 Signed Impressions: Service Date/Time: Monday, December 25, 2017 18:19 - CONCLUSION: 1. There are 2 hemangiomas within the liver. There is a hemangioma measuring 1.9 cm and the left lobe. There is a hemangioma measuring 1.7 cm in the right lobe. 2. No definite gallstones or biliary tract obstruction. 3. Chronic pancreatitis. 4. Small amount of ascites adjacent to the liver. Jeronimo Milton MD Abdomen/Pelvis CT 12/22/17 0000 Signed Impressions: Service Date/Time: Friday, December 22, 2017 10:22 - CONCLUSION: 1. Numerous pancreatic calcifications are again noted consistent chronic pancreatitis. There is a low attenuation fluid like collection which is poorly defined lung detail 2. The liver remains at the upper limits of normal with stable benign appearing low attenuation area in the right lobe. There is a small amount of cystic fluid surrounding the liver. 3. Moderate amount of fluid now noted in the pelvis which is new. 4. Nonobstructive bowel gas pattern. Damien Montalvo MD Physical Exam HEENT: Normocephalic; atraumatic CHEST: Even/unlabored CARDIAC: RRR ABDOMEN: mildly distended, soft, epigastric and umbilical TTP, bowel sounds active EXTREMITIES: No clubbing, cyanosis, or edema. SKIN: Normal; no rash; no jaundice. 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 (Mary Lou Higgins LINK CUTTER) Assessment and Plan Plan ASSESSMENT - abd pain, n/v - Cont. to have same abd pain, tolerating fulls okay, no vomiting. lipase remains high but stable suspect acute on chronic pancreatitis, developing pseudocyst. CT showed chronic pancreatitis, poorly defined fluid collection pancreatic tail 4-3 cm, new fluid pelvis. hx chronic pancreatitis 2/2 etoh, pancreatic abscess, pseudocysts. has not had ETOH in a year. EUS 09/2017 showed chronic pancreatitis, dilated CBD, pseudocyst connecting with pancreatic duct. 12/25/17 diarrhea improved, pain somewhat worsened. on probiotics, creon (12/26) --> S/P MRCP yesterday --> There are 2 hemangiomas within the liver. There is hemangioma measuring 1.9 cm in the left lobe. There is a hemangioma measuring 1.7 cm in the right lobe. No definite gallstones or biliary tract obstruction. Chronic pancreatitis. Small amount of ascites adjacent to liver. Pt was evaluated by GS who states not a surgical candidate, recommends EUS with gastrostomy. Last EUS (10/09/17) reviewed --> Pancreatic pseudocyst connecting to the pancreatic duct. Dilated CBD, no filling defects. Evidence of chronic pancreatitis. Pt reports abdominal pain has eased some today compared to yesterday. Nausea before meals, denies emesis. Requesting diet be advanced. Lipase trending down. Drop in H/H noted, no repeat CBC since Dec 24. Will recheck. No obvious GIB. 12/27/17 d/w MRCP and CT with radiology, specifically fluid collection pancreas seen on CT and not mentioned MRCP. it is felt that from IR standpoing there is nothing to drain at this time and nothing to be gained by any IR interventions. Imaging findings consistent with chronic pancreatitis HH mildly improved today. no obvious bleeding. 12/28/17 no labs today. pt now complaining of umbilical tenderness, otherwise no change. tolerating low fat diet. looks like iron deficiency component of her anemia if not cause, d/w her sources dietary iron as well as supplementation PLAN - check CBC - check lipase - low fat diet - could consider EUS if a pseudocyst or organized fluid collection develops but no indication currently - Monitor labs - iron rich foods - Continue Creon - Pain control Pt has been seen and examined by myself and Dr. Cary and this note is written on her behalf (Mary Lou Higgins) Physician Comments seen, examined agree with above continue Creon with meals and snacks avoid etoh ct abdomen and pelvis in 4 weeks may need eus op if pseudocyst matures or increases in size ppi ok to dc home from [facility] if today labs ok fu gi 2 weeks (April Cary MD) Mary Lou Higgins Dec 28, 2017 09:58 April Cary MD Dec 28, 2017 12:18
[2017-12-28 12:01] VITALS: BP 136/76; PULSE 75; RESP 16; TEMP 98.5; O2SAT 96
[2017-12-28] MEDS ORDERED: MAGNESIUM HYDROXIDE SUSP 30 ML CUP PO ONE (12:30)
[2017-12-28] MEDS: ONDANSETRON HCL 4 MG/2 ML VIAL IVP PRN ×2 (13:19→17:40)
[2017-12-28] MEDS ORDERED: OXYC-392 PO (14:22)
[2017-12-28] MEDS ORDERED: CREON12 PO (14:22)
[2017-12-28] MEDS ORDERED: NICO14DI23 T-DERMAL (14:22)
[2017-12-28] MEDS ORDERED: LACT PO (14:22)
--- NOTE | 2017-12-28 14:22 | HHI.DCPOC ---
Discharge Care Plan Diagnosis: (1) Pancreatitis Goals to Promote Your Health * To prevent worsening of your condition and complications * To maintain your health at the optimal level Directions to Meet Your Goals Take your medications as prescribed Follow your dietary instruction Follow activity as directed Keep your appointments as scheduled Take your immunizations and boosters as scheduled If your symptoms worsen call your PCP, if no PCP go to Urgent Care Center or Emergency Room Smoking is Dangerous to Your Health. Avoid second hand smoke Call the 24-hour hour crisis hotline for domestic abuse at Harriet Noyola MD Dec 28, 2017 14:22
--- NOTE | 2017-12-28 14:23 | HHI.PR ---
Subjective Remarks Follow-up for pancreatitis Patient feels like her abdominal pain worsened today. She is able tolerate oral intake. She stated that if there is no procedure being done she wants to go home, but talked to GI first. Otherwise remains afebrile. No other complaints. Objective Vitals Vital Signs Date Time Temp Pulse Resp B/P (MAP) Pulse Ox O2 Delivery O2 Flow Rate FiO2 12/28/17 12:01 98.5 75 16 136/76 (96) 96 12/28/17 11:45 22 12/28/17 07:52 98.0 81 16 128/80 (96) 97 12/28/17 04:45 98.1 68 18 144/68 (93) 97 12/27/17 23:29 98.6 70 18 120/70 (87) 96 12/27/17 20:04 98.4 76 18 130/70 (90) 98 12/27/17 16:19 98.4 77 19 130/72 (91) 97 Result Diagram: 12/27/17 0547 12/24/17 0646 Objective Remarks GENERAL: in NAD CARDIOVASCULAR: Regular rate and rhythm without murmurs, gallops, or rubs. RESPIRATORY: Breath sounds equal bilaterally. No accessory muscle use. GASTROINTESTINAL: Abdomen soft, distended but soft, mild tenderness palpation diffusely. No peritoneal signs. MUSCULOSKELETAL: No cyanosis, or edema. BACK: Nontender without obvious deformity. No CVA tenderness. Medications and IVs Current Medications Hydromorphone HCl (Dilaudid Pf Inj) 0.5 mg ONCE ONCE IV PUSH Last administered on 12/22/17 10:35; Start 12/22/17 at 10:15; Stop 12/22/17 at 10:16; Status DC Ondansetron HCl (Zofran Inj) 4 mg ONCE ONCE IV PUSH Last administered on at 10:35; Start 12/22/17 at 10:15; Stop 12/22/17 at 10:16; Status DC Sodium Chloride 1,000 ml @ 999 mls/hr BOLUS ONCE IV Last administered on at 10:34; Start 12/22/17 at 10:15; Stop 12/22/17 at 11:15; Status DC Iohexol (Omnipaque 350 Inj) 97 ml STK-MED ONCE IVCONTRAST Last administered on 12/22/17 10:28; Start 12/22/17 at 10:28; Stop 12/22/17 at 10:29; Status DC Sodium Chloride 1,000 ml @ 150 mls/hr Q6H40M IV Last administered on 12/28/17 09:16; Start 12/22/17 at 13:00 Sodium Chloride (NS Flush) 2 ml UNSCH PRN IV FLUSH FLUSH AFTER USING IV ACCESS ; Start 12/22/17 at 12:15 Sodium Chloride (NS Flush) 2 ml BID IV FLUSH Last administered on 12/27/17 20: 32; Start 12/22/17 at 21:00 Ondansetron HCl (Zofran Inj) 4 mg Q6H PRN IVP NAUSEA OR VOMITING Last administered on 12/28/17 13:19; Start 12/22/17 at 13:00 Heparin Sodium (Porcine) (Heparin Inj) 5,000 units Q8H SQ Last administered on 12/28/17 13:19; Start 12/22/17 at 13:00 Oxycodone HCl (Roxicodone) 10 mg Q4H PRN PO PAIN SCALE 6 TO 10 Last administered on 12/28/17 13:18; Start 12/22/17 at 13:00 Morphine Sulfate (Morphine Inj) 2 mg Q3H PRN IV PUSH Pain 3-5; if unable to take PO Last administered on 12/25/17 14:45; Start 12/22/17 at 13:00 Morphine Sulfate (Morphine Inj) 4 mg Q3H PRN IV PUSH Pain 6-10;if unable to take PO; Start 12/22/17 at 13:00 Oxycodone HCl (Roxicodone) 5 mg Q4H PRN PO PAIN SCALE 3 TO 5; Start 12/22/17 at 13:00 Naloxone HCl (Narcan Inj) 0.4 mg UNSCH PRN IV PUSH SEE LABEL COMMENTS; Start at 12:15 Amylase/Lipase/ Protease (Creon 12-38-60) 1 cap TID PO Last administered on 12/28 13:17; Start 12/22/17 at 18:00 Temazepam (Restoril) 7.5 mg ONCE ONCE PO Last administered on 12/22/17 21:14; Start 12/22/17 at 21:00; Stop 12/22/17 at 21:09; Status DC Nicotine (Habitrol 14 Mg Patch.24 Hr) 1 patch ONCE ONCE T-DERMAL Last administered on 12/22/17 21:14; Start 12/22/17 at 21:00; Stop 12/22/17 at 21:09; Status DC Nicotine (Habitrol 14 Mg Patch.24 Hr) 1 patch DAILY T-DERMAL Last administered on 12/28/17 09:16; Start 12/23/17 at 21:00 Miscellaneous Information 1 HS T-DERMAL Last administered on 12/27/17 20:36; Start 12/22/17 at 21:00 Potassium Chloride (KCl) 60 meq ONCE ONCE PO Last administered on 12/23/17 12: 15; Start 12/23/17 at 10:15; Stop 12/23/17 at 10:22; Status DC Lactobacillus Acidophilus (Lactinex) 1 tab TID PO Last administered on 13:17; Start 12/23/17 at 13:00 Diphenhydramine HCl (Benadryl) 25 mg ONCE ONCE PO ; Start 12/24/17 at 04:15; Stop 12/24/17 at 04:16; Status DC Gadodiamide (Omniscan Pf Inj) 11 ml STK-MED ONCE IV PUSH Last administered on 18:21; Start 12/22/17 at 18:21; Stop 12/25/17 at 18:21; Status DC Temazepam (Restoril) 15 mg HS PRN PO insomnia Last administered on 12/27/17 23: 34; Start 12/27/17 at 18:15 Famotidine (Pepcid) 20 mg Q12HR PO Last administered on 12/28/17 09:15; Start 12/27/17 at 21:00 Magnesium Hydroxide (Milk Of Magnesia Liq) 30 ml ONCE ONCE PO Last administered on 12/28/17 13:17; Start 12/28/17 at 12:30; Stop 12/28/17 at 13:01; Status DC A/P Assessment and Plan 47 years old female with history of chronic pancreatitis and pseudocyst presented with Acute on chronic pancreatitis -CT scan showed possible recurrent pseudocyst -GI consulted and following. -General surgeon also consulted and stated patient is not a surgical candidate. -Continue with supportive care with IV fluids and antiemetics and pain management. -Per GI if labs are stable can be discharged home today. 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 -Continue with probiotics. Hypochromic microcytic anemia - just stated she had colonoscopy recently and it was negative however she has heavy period Menorrhagia -Patient to follow-up as outpatient for her menorrhagia. Heparin for DVT prophylaxis Discharge Planning Pending labs. Per GI if labs are stable can go home today. Harriet Noyola MD Dec 28, 2017 14:23
[2017-12-28 16:05] VITALS: BP 131/81; PULSE 78; RESP 16; TEMP 98.4; O2SAT 96
[2017-12-28 16:44] VITALS: RESP 18
[2017-12-28 17:39] LABS: HEMATOCRIT 27.6 % (35.0-46.0); HEMOGLOBIN 8.6 GM/DL (11.6-15.3); MEAN CELL VOLUME 77.7 FL (80.0-100.0); MEAN CORPUSCULAR HEMOGLOBIN 24.1 PG (27.0-34.0); MEAN CORPUSCULAR HGB CONC 31.1 % (32.0-36.0); PLATELET COUNT 202 TH/MM3 (150-450); RED BLOOD COUNT 3.56 MIL/MM3 (4.00-5.30); RED CELL DISTRIBUTION WIDTH 19.5 % (11.6-17.2); WHITE BLOOD COUNT 4.8 TH/MM3 (4.0-11.0)
--- NOTE | 2017-12-28 17:44 | HHI.DS ---
Discharge Summary Admission Date Dec 22, 2017 at 12:06 Admitting Diagnosis acute pancreatitis, fluid collection Brief History - From Admission 7 years old female with history of chronic pancreatitis and pseudocyst in the past status post resection presented with worsening abdominal pain transferred to the back 8 out of 10 with nausea and vomiting and significant diarrhea. Patient came to the ED CT scan of the abdomen showed new fluid collection around the pancreatic tail, patient had an EUS on September 21, 2017 with dilated CBD and pancreatic pseudocyst connecting to the pancreatic duct, 11 month ago she had exploratory laparoscopy by Dr. Ellis to remove pancreatic abscess. Patient denied alcohol abuse within the last year prior to that she was a heavy drinker CBC/BMP: 12/28/17 1112 12/24/17 0646 Significant Findings Laboratory Tests Test 12/26/17 06:00 12/27/17 05:47 12/28/17 11:12 Lipase 410 U/L (73-393) 659 U/L (73-393) Red Blood Count 3.41 MIL/MM3 (4.00-5.30) 3.56 MIL/MM3 (4.00-5.30) Hemoglobin 8.3 GM/DL (11.6-15.3) 8.6 GM/DL (11.6-15.3) Hematocrit 26.0 % (35.0-46.0) 27.6 % (35.0-46.0) Mean Corpuscular Volume 76.4 FL (80.0-100.0) 77.7 FL (80.0-100.0) Mean Corpuscular Hemoglobin 24.3 PG (27.0-34.0) 24.1 PG (27.0-34.0) Mean Corpuscular Hemoglobin Concent 31.8 % (32.0-36.0) 31.1 % (32.0-36.0) Red Cell Distribution Width 20.4 % (11.6-17.2) 19.5 % (11.6-17.2) Monocytes (%) (Auto) 8.6 % (0.0-8.0) Eosinophils (%) (Auto) 5.7 % (0.0-4.0) PE at Discharge GENERAL: in NAD CARDIOVASCULAR: Regular rate and rhythm without murmurs, gallops, or rubs. RESPIRATORY: Breath sounds equal bilaterally. No accessory muscle use. GASTROINTESTINAL: Abdomen soft, distended but soft, mild tenderness palpation diffusely. No peritoneal signs. MUSCULOSKELETAL: No cyanosis, or edema. BACK: Nontender without obvious deformity. No CVA tenderness. Pt Condition on Discharge: Stable Discharge Disposition: Discharge Home Discharge Instructions DIET: Follow Instructions for: Heart Healthy Diet, Low Fat Diet Activities you can perform: Regular-No Restrictions, See Additionl Instruction Other Activity Instructions: Do not drive or operate heavy machinery if you are sedated on narcotics. Harriet Noyola MD Dec 28, 2017 17:44
== END 2017-12-28 19:08 | disposition home or self-care (01) ==
LOC: NEPD 09:29 → NEDA 12:06 → NEPFCDU 13:45
PROVIDERS: ADMIT Hospitalist; ATTEND Hospitalist
DX: K85.90 Acute pancreatitis without necrosis or infection, unspecified (principal); K52.9 Noninfective gastroenteritis and colitis, unspecified; K21.9 Gastro-esophageal reflux disease without esophagitis; K86.3 Pseudocyst of pancreas; D18.00 Hemangioma unspecified site; K86.0 Alcohol-induced chronic pancreatitis; N92.0 Excessive and frequent menstruation with regular cycle; K83.8 Other specified diseases of biliary tract; D50.9 Iron deficiency anemia, unspecified; Z72.0 Tobacco use
CPT/HCPCS: 74177; 74183; 76377; 80048; 80053; 80076; 82728; 82948; 83540; 83690; 84466; 85025; 85027; 96361; 96372; 96374; 96375; 96376; 99285; A9579; G0378; J1170; J1644; J2270; J2405; J7030; Q9967; 83550

== ENCOUNTER 2018-04-19 11:18 | Inpatient (IN) | payer SELFPAY ==
[~2018-04-19] VITALS: Ht 160 cm; Wt 51.5 kg
[~2018-04-19 11:18] MED LIST changes: +CREON12 PO; +LACT PO; +NICO14DI23 T-DERMAL; +OXYC-392 PO; +TEMA15CA PO; -TYLETAB34 PO; -ZANT150T2 PO; -ZOFR4TAB PO
[2018-04-19 11:27] VITALS: BP 133/86; PULSE 100; RESP 16; TEMP 99.1; O2SAT 100
[2018-04-19] MEDS ORDERED: SODIUM CHLOR 0.9% 1000 ML INJ 1,000 ML IV SCH ×2 (12:40→18:15)
[2018-04-19] MEDS ORDERED: SODIUM CHLORIDE 0.9% FLUSH 10 ML FLUSH IV FLUSH PRN (12:45)
--- NOTE | 2018-04-19 12:52 | PD ---
HPI Chief Complaint: Lump, Cyst, Hernia Time Seen by Provider: 12:36 Travel History International Travel<30 days: No Contact w/Intl Traveler<30days: No Traveled to known affect area: No History of Present Illness HPI 47-year-old female with PMH of chronic pancreatitis, pancreatic abscess, exploratory laparotomy, lap kiko presents to the ED for evaluation of intermittent abdominal pain. Pain is rated 7/10, described as stinging. States the pain seems centered around her umbilicus and midline abdominal scar. She identified no alleviating or exacerbating factors. She denies associated fever , chills, nausea, vomiting, diarrhea, constipation, melena, hematochezia. Denies risk of , hematuria, dysuria, urinary urgency, vaginal discharge , vaginal odor. She denies alcohol use. No treatment attempted at home. PFSH Past Medical History Asthma: No Autoimmune Disease: No Blood Disorders: No Anxiety: Yes Depression: No Heart Rhythm Problems: No Cancer: No Cardiovascular Problems: No High Cholesterol: No Chemotherapy: No Chest Pain: Yes (in the past) Congestive Heart Failure: No COPD: No Diabetes: No Diminished Hearing: No Endocrine: No Gastrointestinal Disorders: Yes (C-DIFF) GERD: Yes Glaucoma: No Genitourinary: No Headaches: Yes Hepatitis: No Hiatal Hernia: No Hypertension: No Immune Disorder: No Musculoskeletal: No Neurologic: No Psychiatric: No Reproductive: No Respiratory: No Migraines: Yes Myocardial Infarction: No Pancreatitis: Yes Radiation Therapy: No Renal Failure: No Sleep Apnea: No Thyroid Disease: No Ulcer: No LMP: March 29, 2018 : 1 Para: 1 Miscarriage: 0 : 0 Past Surgical History Abdominal Surgery: Yes (Cholecesectomy) AICD: No Arteriovenous Shunt: No Section: Yes Cholecystectomy: Yes Gynecologic Surgery: Yes () Insulin Pump: No Other Surgery: Yes (GALLBLADDER, , PANCREAS) Social History Alcohol Use: No Tobacco Use: Yes (1 ppd) Substance Use: No Allergies-Medications (Allergen,Severity, Reaction): Coded Allergies: methadone (Unverified Allergy, Severe, 04/19/18) penicillin G (Unverified Allergy, Severe, Anaphylaxis, 04/19/18) Reported Meds & Prescriptions Reported Meds & Active Scripts Active Acidophilus/l-Sporogenes (Lactobacillus Acidophilus) 35 Million Cell-25 Million Cell Tab 1 Tab PO TID Creon (Amylase/Lipase/Protease) 12,000-38,000-60,000 Units Cap 1 Cap PO TID Oxycodone (Oxycodone HCl) 5 Mg Tab 5 Mg PO Q4H PRN Eq Nicotine (Nicotine) 14 Mg/24 Hour Dis 1 Patch T-DERMAL DAILY Reported Temazepam 15 Mg Cap 15 Mg PO HS PRN Review of Systems Except as stated in HPI: all other systems reviewed are Neg Physical Exam Narrative GENERAL: Well-nourished, well-developed white female no acute distress. SKIN: Focused skin assessment warm/dry. Well-healed midline scar of the abdomen. Well-healed laparoscopic port scars of the abdomen. HEAD: Normocephalic. EYES: No scleral icterus. No injection or drainage. NECK: Supple, trachea midline. No JVD or lymphadenopathy. CARDIOVASCULAR: Regular rate and rhythm without murmurs, gallops, or rubs. RESPIRATORY: Breath sounds equal bilaterally. No accessory muscle use. GASTROINTESTINAL: Abdomen soft, nondistended. Active bowel sounds. Small, easily reducible umbilical hernia noted. Tender to palpation of the midline scar of the abdomen. Tender to palpation in the left upper quadrant. No palpable hepatosplenomegaly. Patient with some voluntary guarding. MUSCULOSKELETAL: No cyanosis, or edema. BACK: Nontender without obvious deformity. No CVA tenderness. Data Data Last Documented VS Vital Signs Date Time Temp Pulse Resp B/P (MAP) Pulse Ox O2 Delivery O2 Flow Rate FiO2 04/19/18 16:25 76 18 163/87 (112) 99 Room Air 04/19/18 11:27 99.1 Orders Orders Complete Blood Count With Diff (04/19/18 12:40) Comprehensive Metabolic Panel (04/19/18 12:40) Lipase (04/19/18 12:40) Lactic Acid (04/19/18 12:40) Prothrombin Time / Inr (Pt) (04/19/18 12:40) Act Partial Throm Time (Ptt) (04/19/18 12:40) Urinalysis - C+S If Indicated (04/19/18 12:40) Ct Abd/Pel W Iv Contrast(Rout) (04/19/18 12:40) Iv Access Insert/Monitor (04/19/18 12:40) Ecg Monitoring (04/19/18 12:40) Oximetry (04/19/18 12:40) Sodium Chlor 0.9% 1000 Ml Inj (Ns 1000 M (04/19/18 12:40) Sodium Chloride 0.9% Flush (Ns Flush) (04/19/18 12:45) Ed Urine Pregnancytest Poc (04/19/18 12:40) NPO (04/19/18 12:52) Ondansetron Odt (Zofran Odt) (04/19/18 16:15) Morphine Inj (Morphine Inj) (04/19/18 16:15) Sodium Chlor 0.9% 1000 Ml Inj (Ns 1000 M (04/19/18 16:15) Potassium Chloride (Kcl) (04/19/18 16:15) Admit Order (Ed Use Only) (04/19/18 17:02) Labs Laboratory Tests Test 04/19/18 13:02 04/19/18 13:50 White Blood Count 9.1 TH/MM3 Red Blood Count 4.45 MIL/MM3 Hemoglobin 10.6 GM/DL Hematocrit 33.7 % Mean Corpuscular Volume 75.7 FL Mean Corpuscular Hemoglobin 23.7 PG Mean Corpuscular Hemoglobin Concent 31.3 % Red Cell Distribution Width 21.6 % Platelet Count 198 TH/MM3 Mean Platelet Volume 7.6 FL Neutrophils (%) (Auto) 69.8 % Lymphocytes (%) (Auto) 19.4 % Monocytes (%) (Auto) 5.5 % Eosinophils (%) (Auto) 4.0 % Basophils (%) (Auto) 1.3 % Neutrophils # (Auto) 6.3 TH/MM3 Lymphocytes # (Auto) 1.8 TH/MM3 Monocytes # (Auto) 0.5 TH/MM3 Eosinophils # (Auto) 0.4 TH/MM3 Basophils # (Auto) 0.1 TH/MM3 CBC Comment DIFF FINAL Differential Comment Prothrombin Time 11.4 SEC Prothromb Time International Ratio 1.1 RATIO Activated Partial Thromboplast Time 21.5 SEC Blood Urea Nitrogen 10 MG/DL Creatinine 0.52 MG/DL Random Glucose 107 MG/DL Total Protein 7.6 GM/DL Albumin 3.6 GM/DL Calcium Level 8.7 MG/DL Alkaline Phosphatase 165 U/L Aspartate Amino Transf (AST/SGOT) 36 U/L Alanine Aminotransferase (ALT/SGPT) 36 U/L Total Bilirubin 0.2 MG/DL Sodium Level 140 MEQ/L Potassium Level 3.0 MEQ/L Chloride Level 100 MEQ/L Carbon Dioxide Level 29.6 MEQ/L Anion Gap 10 MEQ/L Estimat Glomerular Filtration Rate 127 ML/MIN Lipase 2273 U/L Urine Color YELLOW Urine Turbidity HAZY Urine pH 6.5 Urine Specific [place] 1.021 Urine Protein TRACE mg/dL Urine Glucose (UA) NEG mg/dL Urine Ketones NEG mg/dL Urine Occult Blood NEG Urine Nitrite NEG Urine Bilirubin NEG Urine Urobilinogen 2.0 MG/DL Urine Leukocyte Esterase MOD Urine RBC 2 /hpf Urine WBC 7 /hpf Urine Squamous Epithelial Cells 11 /hpf Urine Mucus FEW /lpf Microscopic Urinalysis Comment CULT NOT INDICATED Lactic Acid Level 1.4 mmol/L MDM Medical Decision Making Medical Screen Exam Complete: Yes Emergency Medical Condition: Yes Differential Diagnosis Umbilical hernia versus ventral hernia versus pancreatitis versus other Narrative Course 47-year-old female with PMH of chronic pancreatitis, pancreatic abscess, exploratory laparotomy, lap kiko presents to the ED for evaluation of intermittent abdominal pain. States the pain seems centered around her umbilicus and midline abdominal scar. Patient is afebrile on presentation. On exam she has some tenderness around the midline scar and easily hernia. IV is established. Patient was administered 1 L normal saline, 4 mg Zofran, 4 mg morphine IV. CBC: WBC 9.1. Hemoglobin 10.6. Coags: INR 1.1. CMP: Potassium 3.0. BUN 10, creatinine 0.52. Lactic acid 1.4. Lipase 2273. UA no culture indicated. CT reveals chronic pancreatitis, numerous calcifications, indistinct pancreas. There is a fluid collection along the tail of the pancreas which is slightly increased as compared to previous. I discussed the results of the workup with the patient. I recommended observation by the medicine team, possible drainage of the pseudocyst by IR. Patient is agreeable to the plan. RACHEL Martinez, spoke with Dr. Serrano who agrees to accept the patient the medicine service. Please see medicine notes for disposition. Meera Croft April 19, 2018 12:52
[2018-04-19 14:00] VITALS: O2SAT 96
[2018-04-19 14:37] LABS: AUTOMATED NEUTROPHIL # 6.3 TH/MM3 (1.8-7.7); BASOPHIL # 0.1 TH/MM3 (0-0.2); BASOPHIL % 1.3 % (0.0-2.0); EOSINOPHIL # 0.4 TH/MM3 (0-0.4); HEMATOCRIT 33.7 % (35.0-46.0); HEMOGLOBIN 10.6 GM/DL (11.6-15.3); LYMPH % 19.4 % (9.0-44.0); LYMPHOCYTE # 1.8 TH/MM3 (1.0-4.8); MEAN CELL VOLUME 75.7 FL (80.0-100.0); MEAN CORPUSCULAR HEMOGLOBIN 23.7 PG (27.0-34.0); MEAN CORPUSCULAR HGB CONC 31.3 % (32.0-36.0); MEAN PLATELET VOLUME 7.6 FL (7.0-11.0); MONO % 5.5 % (0.0-8.0); MONOCYTE # 0.5 TH/MM3 (0-0.9); NEUT % 69.8 % (16.0-70.0); PLATELET COUNT 198 TH/MM3 (150-450); RED BLOOD COUNT 4.45 MIL/MM3 (4.00-5.30); RED CELL DISTRIBUTION WIDTH 21.6 % (11.6-17.2); WHITE BLOOD COUNT 9.1 TH/MM3 (4.0-11.0)
[2018-04-19 14:49] LABS: INTERNATIONAL NORMALIZED RATIO 1.1 RATIO; PROTHROMBIN TIME - PATIENT 11.4 SEC (9.8-11.6)
[2018-04-19 14:50] LABS: BILIRUBIN, URINE NEG (NEG); BLOOD, URINE NEG (NEG); GLUCOSE,URINE NEG (NEG); KETONE, URINE NEG (NEG); MUCUS URINE FEW /lpf (OCC); NITRITE,URINE NEG (NEG); PH, URINE 6.5 (5.0-8.5); SQUAMOUS EPITHELIAL CELL URINE 11 /hpf (0-5); URINE COLOR YELLOW (YELLW/STRAW); URINE LEUKOCYTE ESTERASE MOD (NEG)
[2018-04-19 15:07] LABS: ALBUMIN 3.6 GM/DL (3.4-5.0); ALKALINE PHOSPHATASE 165 U/L (45-117); ALT (GPT) 36 U/L (10-53); AST (GOT) 36 U/L (15-37); BICARBONATE 29.6 MEQ/L (21.0-32.0); BLOOD UREA NITROGEN 10 MG/DL (7-18); CALCIUM 8.7 MG/DL (8.5-10.1); CHLORIDE 100 MEQ/L (98-107); CREATININE 0.52 MG/DL (0.50-1.00); GLOMERULAR FILTRATION RATE 127 ML/MIN (>89); GLUCOSE,RANDOM 107 MG/DL (74-106); SODIUM (NA) 140 MEQ/L (136-145); TOTAL BILIRUBIN ADULT 0.2 MG/DL (0.2-1.0); TOTAL PROTEIN 7.6 GM/DL (6.4-8.2)
[2018-04-19] MEDS ORDERED: IOHEXOL 350 MG/ML 10 ML VIAL (for RAD DIAG) IVCONTRAST ONE (15:12)
[2018-04-19] MEDS ORDERED: MORPHINE SULFATE 4 MG/ML INJ IV PUSH ONE ×2 (16:15→22:45)
[2018-04-19] MEDS ORDERED: ONDANSETRON ODT 4 MG TAB PO ONE (16:15)
[2018-04-19] MEDS ORDERED: POTASSIUM CHLORIDE 20 MEQ CONTROLLED RELEASE TAB PO ONE (16:15)
[2018-04-19] MEDS ORDERED: SODIUM CHLOR 0.9% 1000 ML INJ 1,000 ML IV ONE (16:15)
--- NOTE | 2018-04-19 16:24 | RADRPT ---
EXAM DATE: 04/19/2018 3:54 PM EDT AGE/SEX: 47 years / Female INDICATIONS: Abdominal pain for one month. Chronic pancreatitis. CLINICAL DATA: This is the patient's initial encounter. Patient reports that signs and symptoms have been present for 1 month and indicates a pain score of 7/10. MEDICAL/SURGICAL HISTORY: Pancreatitis. Hypertension. Gastroesophageal reflux disease. Cholec ystectomy. section. ORAL CONTRAST: No oral contrast ingested. RADIATION DOSE: 5.05 CTDI (mGy) COMPARISON: [facility] – [place], CT ABDOMEN & PELVIS W CONTRAST, 06/23/2017. . TECHNIQUE: Multiple contiguous axial images were obtained through the abdomen and pelvis following b olus infusion of 93 ml Omnipaque 350 (iohexol) nonionic water-soluble contrast as a single exam dos e. No oral contrast ingested. Using automated exposure control and adjustment of the mA and/or kV ac cording to patient size, the radiation dose was kept as low as reasonably achievable to obtain optima l diagnostic quality images. FINDINGS: Lower Lungs: Table appearance with stable nodular structure in the medial right lung base.. Liver: The liver has a homogeneous density with small stable low-attenuation lesion again noted in th e right lobe. There is mild hepatic steatosis. There is no dilation of the biliary tree. There is a s mall amount of surrounding ascitic fluid. Spleen: Homogeneous density without enlargement. Pancreas: Stable appearance with numerous punctate calcifications throughout the pancreas. This clarisa ins mildly distinct. There is an ill-defined low-attenuation collection along the tail the pancreas w hich appears slightly better defined and larger in size. This measures up to approximately 2.6 x 1.8 cm in diameter. Kidneys: Normal in size and shape. No evidence of mass or hydronephrosis. Adrenal Glands: Unremarkable. Aorta: The aorta and proximal iliac vessels are grossly unremarkable without aneurysmal dilation. Bowel/Mesentery: No oral contrast was given limiting the sensitivity of the exam. The bowel loops are grossly unremarkable. The cecum and sigmoid colon have a normal configuration. Ascitic fluid is agai n noted in the pelvis which is mildly improved. Abdominal Wall: Intact. Retroperitoneum: No evidence of adenopathy in the retrocrural, para-aortic, or deep pelvic regions. Bladder: Contours are smooth. Reproductive Organs: No abnormal masses or calcifications seen. Inguinal: The inguinal region is unremarkable without evidence of adenopathy. Bony Structures: Unremarkable. CONCLUSION: 1. Chronic pancreatitis again noted with numerous punctate calcifications. The pancreas remains jillian stinct. 2. The low-attenuation fluid collection along the tail the pancreas is slightly better defined and m ildly increased in size. 3. Moderate hepatic steatosis again noted with stable benign low attenuation area again noted right lobe of the liver. 4. Stable noncalcified nodular structure in the medial right lung base unchanged dating back to the 06/23/[address] follow-up is recommended in one year. Electronically signed by: Damien Montalvo MD 04/19/2018 4:23 PM EDT
[2018-04-19 16:25] VITALS: BP 163/87; PULSE 76; RESP 18; O2SAT 99
--- NOTE | 2018-04-19 17:09 | PD ---
Physical Exam Time Seen by Provider: 17:05 Narrative 1700: I spoke with SHAI Saldivar and gave report for patient admission. Data Data Last Documented VS Vital Signs Date Time Temp Pulse Resp B/P (MAP) Pulse Ox O2 Delivery O2 Flow Rate FiO2 04/19/18 16:25 76 18 163/87 (112) 99 Room Air 04/19/18 11:27 99.1 Orders Orders Complete Blood Count With Diff (04/19/18 12:40) Comprehensive Metabolic Panel (04/19/18 12:40) Lipase (04/19/18 12:40) Lactic Acid (04/19/18 12:40) Prothrombin Time / Inr (Pt) (04/19/18 12:40) Act Partial Throm Time (Ptt) (04/19/18 12:40) Urinalysis - C+S If Indicated (04/19/18 12:40) Ct Abd/Pel W Iv Contrast(Rout) (04/19/18 12:40) Iv Access Insert/Monitor (04/19/18 12:40) Ecg Monitoring (04/19/18 12:40) Oximetry (04/19/18 12:40) Sodium Chlor 0.9% 1000 Ml Inj (Ns 1000 M (04/19/18 12:40) Sodium Chloride 0.9% Flush (Ns Flush) (04/19/18 12:45) Ed Urine Pregnancytest Poc (04/19/18 12:40) NPO (04/19/18 12:52) Ondansetron Odt (Zofran Odt) (04/19/18 16:15) Morphine Inj (Morphine Inj) (04/19/18 16:15) Sodium Chlor 0.9% 1000 Ml Inj (Ns 1000 M (04/19/18 16:15) Potassium Chloride (Kcl) (04/19/18 16:15) Admit Order (Ed Use Only) (04/19/18 17:02) Labs Laboratory Tests Test 04/19/18 13:02 04/19/18 13:50 White Blood Count 9.1 TH/MM3 Red Blood Count 4.45 MIL/MM3 Hemoglobin 10.6 GM/DL Hematocrit 33.7 % Mean Corpuscular Volume 75.7 FL Mean Corpuscular Hemoglobin 23.7 PG Mean Corpuscular Hemoglobin Concent 31.3 % Red Cell Distribution Width 21.6 % Platelet Count 198 TH/MM3 Mean Platelet Volume 7.6 FL Neutrophils (%) (Auto) 69.8 % Lymphocytes (%) (Auto) 19.4 % Monocytes (%) (Auto) 5.5 % Eosinophils (%) (Auto) 4.0 % Basophils (%) (Auto) 1.3 % Neutrophils # (Auto) 6.3 TH/MM3 Lymphocytes # (Auto) 1.8 TH/MM3 Monocytes # (Auto) 0.5 TH/MM3 Eosinophils # (Auto) 0.4 TH/MM3 Basophils # (Auto) 0.1 TH/MM3 CBC Comment DIFF FINAL Differential Comment Prothrombin Time 11.4 SEC Prothromb Time International Ratio 1.1 RATIO Activated Partial Thromboplast Time 21.5 SEC Blood Urea Nitrogen 10 MG/DL Creatinine 0.52 MG/DL Random Glucose 107 MG/DL Total Protein 7.6 GM/DL Albumin 3.6 GM/DL Calcium Level 8.7 MG/DL Alkaline Phosphatase 165 U/L Aspartate Amino Transf (AST/SGOT) 36 U/L Alanine Aminotransferase (ALT/SGPT) 36 U/L Total Bilirubin 0.2 MG/DL Sodium Level 140 MEQ/L Potassium Level 3.0 MEQ/L Chloride Level 100 MEQ/L Carbon Dioxide Level 29.6 MEQ/L Anion Gap 10 MEQ/L Estimat Glomerular Filtration Rate 127 ML/MIN Lipase 2273 U/L Urine Color YELLOW Urine Turbidity HAZY Urine pH 6.5 Urine Specific [place] 1.021 Urine Protein TRACE mg/dL Urine Glucose (UA) NEG mg/dL Urine Ketones NEG mg/dL Urine Occult Blood NEG Urine Nitrite NEG Urine Bilirubin NEG Urine Urobilinogen 2.0 MG/DL Urine Leukocyte Esterase MOD Urine RBC 2 /hpf Urine WBC 7 /hpf Urine Squamous Epithelial Cells 11 /hpf Urine Mucus FEW /lpf Microscopic Urinalysis Comment CULT NOT INDICATED Lactic Acid Level 1.4 mmol/L MDM Supervised Visit with CORKY: No Narrative Course 1700: I spoke with SHAI Saldivar and gave report for patient admission. Nya Steiner April 19, 2018 17:09
--- NOTE | 2018-04-19 18:23 | HHI.HP ---
[facility] Service [facility] Primary Care Physician Balta العلي M.D. Admission Diagnosis Pancreatitis Diagnoses: (1) Pancreatitis Diagnosis: Principal Chief Complaint: abdominal pain Travel History International Travel<30 Days: No Contact w/Intl Traveler <30 Da: No Traveled to Known Affected Are: No History of Present Illness patient is a 47 y/o female with history of pancreatitis who presented to ER with worsening abdominal pain. she says that she's had this pain- on and off- for sometime but its getting worse. pain is more or less generalized with no radiation. she had on and off nausea - no emesis today.she syas that it seems she has some difficult swallowing. she denies any fever, chills. Review of Systems Constitutional: DENIES: Fever, Weight loss, Chills, Night Sweats Eyes: DENIES: Blurred vision, Diplopia, Vision loss, Double Vision Ears, nose, mouth, throat: DENIES: Tinnitus, Vertigo, Throat pain, Epistaxis Respiratory: DENIES: Apneas, Cough, Snoring, Wheezing, Hemoptysis, Sputum production, Shortness of breath Cardiovascular: DENIES: Chest pain, Palpitations, Syncope, Dyspnea on Exertion , PND, Lower Extremity Edema, Orthopnea, Claudication Gastrointestinal: COMPLAINS OF: Abdominal pain, Nausea, Difficulty Swallowing, DENIES: Black stools, Bloody stools, Constipation, Diarrhea, Vomiting, Anorexia Genitourinary: DENIES: Urinary frequency, Urgency, Hematuria, Dysuria Musculoskeletal: DENIES: Joint pain, Muscle aches, Stiffness, Joint Swelling Integumentary: DENIES: Rash Neurologic: DENIES: Abnormal gait, Headache, Localized weakness, Paresthesias, Seizures, Speech Problems, Tremor, Poor Balance Psychiatric: DENIES: Anxiety, Confusion, Mood changes, Depression, Hallucinations, Agitation, Suicidal Ideation, Homicidal Ideation, Delusions Past Family Social History Past Medical History pancreatitis Past Surgical History cholecystectomy/ Reported Medications Acidophilus/l-Sporogenes (Lactobacillus Acidophilus) 35 Million Cell-25 Million Cell Tab 1 Tab PO TID Creon (Amylase/Lipase/Protease) 12,000-38,000-60,000 Units Cap 1 Cap PO TID Oxycodone (Oxycodone HCl) 5 Mg Tab 5 Mg PO Q4H PRN Eq Nicotine (Nicotine) 14 Mg/24 Hour Dis 1 Patch T-DERMAL DAILY Reported Temazepam 15 Mg Cap 15 Mg PO HS PRN Allergies: Coded Allergies: methadone (Unverified Allergy, Severe, 04/19/18) penicillin G (Unverified Allergy, Severe, Anaphylaxis, 04/19/18) Active Ordered Medications Inpatient Medications Morphine Sulfate (Morphine Inj) 4 mg ONCE ONCE IV PUSH Last administered on at 16:17; Start 04/19/18 at 16:15; Stop 04/19/18 at 16:16; Status DC Ondansetron HCl (Zofran Odt) 4 mg ONCE ONCE PO Last administered on at 16:16; Start 04/19/18 at 16:15; Stop 04/19/18 at 16:16; Status DC Potassium Chloride (KCl) 40 meq ONCE ONCE PO Last administered on 04/19/18at 16 :16; Start 04/19/18 at 16:15; Stop 04/19/18 at 16:16; Status DC Sodium Chloride 1,000 ml @ 999 mls/hr BOLUS ONCE IV Last administered on 04/19at 16:17; Start 04/19/18 at 16:15; Stop 04/19/18 at 17:15; Status DC Sodium Chloride (NS Flush) 2 ml UNSCH PRN IV FLUSH FLUSH AFTER USING IV ACCESS ; Start 04/19/18 at 12:45 Social History smokes a pack a day- doesn't drink. Physical Exam Vital Signs Vital Signs Date Time Temp Pulse Resp B/P (MAP) Pulse Ox O2 Delivery O2 Flow Rate FiO2 04/19/18 16:25 76 18 163/87 (112) 99 Room Air 04/19/18 14:00 96 04/19/18 11:27 99.1 100 16 133/86 (102) 100 Physical Exam GENERAL: This is a well-nourished, well-developed patient, in no apparent distress. SKIN: No rashes, ecchymoses or lesions. Cool and dry. HEAD: Atraumatic. Normocephalic. No temporal or scalp tenderness. EYES: Pupils equal round and reactive. Extraocular motions intact. No scleral icterus. No injection or drainage. ENT: Nose without bleeding, purulent drainage or septal hematoma. Throat without erythema, tonsillar hypertrophy or exudate. Uvula midline. Airway patent. NECK: Trachea midline. No JVD or lymphadenopathy. Supple, nontender, no meningeal signs. CARDIOVASCULAR: Regular rate and rhythm without murmurs, gallops, or rubs. RESPIRATORY: Clear to auscultation. Breath sounds equal bilaterally. No wheezes , rales, or rhonchi. GASTROINTESTINAL: Abdomen soft,mild generalized tenderness, nondistended. No hepato-splenomegaly, or palpable masses. No guarding. MUSCULOSKELETAL: Extremities without clubbing, cyanosis, or edema. No joint tenderness, effusion, or edema noted. No calf tenderness. Negative Homans sign bilaterally. NEUROLOGICAL: Awake and alert. Cranial nerves II through XII intact. Motor and sensory grossly within normal limits. Five out of 5 muscle strength in all muscle groups. Normal speech. Laboratory Laboratory Tests Test 04/19/18 13:02 04/19/18 13:50 White Blood Count 9.1 Red Blood Count 4.45 Hemoglobin 10.6 Hematocrit 33.7 Mean Corpuscular Volume 75.7 Mean Corpuscular Hemoglobin 23.7 Mean Corpuscular Hemoglobin Concent 31.3 Red Cell Distribution Width 21.6 Platelet Count 198 Mean Platelet Volume 7.6 Neutrophils (%) (Auto) 69.8 Lymphocytes (%) (Auto) 19.4 Monocytes (%) (Auto) 5.5 Eosinophils (%) (Auto) 4.0 Basophils (%) (Auto) 1.3 Neutrophils # (Auto) 6.3 Lymphocytes # (Auto) 1.8 Monocytes # (Auto) 0.5 Eosinophils # (Auto) 0.4 Basophils # (Auto) 0.1 CBC Comment DIFF FINAL Differential Comment Prothrombin Time 11.4 Prothromb Time International Ratio 1.1 Activated Partial Thromboplast Time 21.5 Blood Urea Nitrogen 10 Creatinine 0.52 Random Glucose 107 Total Protein 7.6 Albumin 3.6 Calcium Level 8.7 Alkaline Phosphatase 165 Aspartate Amino Transf (AST/SGOT) 36 Alanine Aminotransferase (ALT/SGPT) 36 Total Bilirubin 0.2 Sodium Level 140 Potassium Level 3.0 Chloride Level 100 Carbon Dioxide Level 29.6 Anion Gap 10 Estimat Glomerular Filtration Rate 127 Lipase 2273 Urine Color YELLOW Urine Turbidity HAZY Urine pH 6.5 Urine Specific [place] 1.021 Urine Protein TRACE Urine Glucose (UA) NEG Urine Ketones NEG Urine Occult Blood NEG Urine Nitrite NEG Urine Bilirubin NEG Urine Urobilinogen 2.0 Urine Leukocyte Esterase MOD Urine RBC 2 Urine WBC 7 Urine Squamous Epithelial Cells 11 Urine Mucus FEW Microscopic Urinalysis Comment CULT NOT INDICATED Lactic Acid Level 1.4 Result Diagram: 04/19/18 1302 04/19/18 1302 Imaging Last Impressions Abdomen/Pelvis CT 04/19/18 1240 Signed Impressions: CONCLUSION: 1. Chronic pancreatitis again noted with numerous punctate calcifications. The pancreas remains indistinct. 2. The low-attenuation fluid collection along the tail the pancreas is slightl y better defined and mildly increased in size. 3. Moderate hepatic steatosis again noted with stable benign low attenuation a calvin again noted right lobe of the liver. 4. Stable noncalcified nodular structure in the medial right lung base unchang ed dating back to the 06/23/[address] follow-up is recommended in one year. Caprini VTE Risk Assessment Caprini VTE Risk Assessment: Mod/High Risk (score >= 2) Caprini Risk Assessment Model Point Value = 1 Point Value = 2 Point Value = 3 Point Value = 5 Age 41-60 Minor surgery BMI > 25 kg/m2 Swollen legs Varicose veins or History of unexplained or recurrent spontaneous Oral contraceptives or hormone replacement Sepsis (< 1 month) Serious lung disease, including pneumonia (< 1 month) Abnormal pulmonary function Acute myocardial infarction Congestive heart failure (< 1 month) History of inflammatory bowel disease Medical patient at bed rest Age 61-74 Arthroscopic surgery Major open surgery (> 45 min) Laparoscopic surgery (> 45 min) Malignancy Confined to bed (> 72 hours) Immobilizing plaster cast Central venous access Age >= 75 History of VTE Family history of VTE Factor V Leiden Prothrombin [id number] Lupus anticoagulant Anticardiolipin antibodies Elevated serum homocysteine Heparin-induced thrombocytopenia Other congenital or acquired thrombophilia Stroke (< 1 month) Elective arthroplasty Hip, pelvis, or leg fracture Acute spinal cord injury (< 1 month) Prophylaxis Regimen Total Risk Factor Score Risk Level Prophylaxis Regimen 0-1 Low Early ambulation 2 Moderate Order ONE of the following: *Sequential Compression Device (SCD) *Heparin 5000 units SQ BID 3-4 Higher Order ONE of the following medications: *Heparin 5000 units SQ TID *Enoxaparin/Lovenox 40 mg SQ daily (WT < 150 kg, CrCl > 30 mL/min) *Enoxaparin/Lovenox 30 mg SQ daily (WT < 150 kg, CrCl > 10-29 mL/min) *Enoxaparin/Lovenox 30 mg SQ BID (WT < 150 kg, CrCl > 30 mL/min) AND/OR *Sequential Compression Device (SCD) 5 or more Highest Order ONE of the following medications: *Heparin 5000 units SQ TID (Preferred with Epidurals) *Enoxaparin/Lovenox 40 mg SQ daily (WT < 150 kg, CrCl > 30 mL/min) *Enoxaparin/Lovenox 30 mg SQ daily (WT < 150 kg, CrCl > 10-29 mL/min) *Enoxaparin/Lovenox 30 mg SQ BID (WT < 150 kg, CrCl > 30 mL/min) AND *Sequential Compression Device (SCD) Assessment and Plan Assessment and Plan A/P - acute on chronic pancreatitis - with pancreatic pseudocyst- mildly larger on CT study NPO for now-supportive care with IV fluid and pain control- consult GI continue Creon -questionable dysphagia- GI consult as noted above. -hypokalemia; will replace and monitor. Discussed Condition With ER and the patient. Physician Certification 2 Midnight Certification Type: Admission for Inpatient Services Order for Inpatient Services The services are ordered in accordance with Medicare regulations or non- Medicare payer requirements, as applicable. In the case of services not specified as inpatient-only, they are appropriately provided as inpatient services in accordance with the 2-midnight benchmark. Estimated LOS (days): 2 days is the estimated time the patient will need to remain in the hospital, assuming treatment plan goals are met and no additional complications. Post-Hospital Plan: Home Sandy Serrano MD April 19, 2018 18:22
[2018-04-19 20:00] VITALS: BP 153/84; PULSE 79; RESP 20; TEMP 98.1; O2SAT 95
[2018-04-19] MEDS: NS + KCL 20 MEQ INJ 1,000 ML IV SCH (20:01)
[2018-04-19] MEDS ORDERED: TEMAZEPAM 7.5 MG CAP PO ONE (22:45)
[2018-04-20] VITALS: BP 125/71; PULSE 91; RESP 20; TEMP 97.9; O2SAT 92
[2018-04-20] MEDS: PROCHLORPERAZINE INJ 10 MG/2 ML VIAL IV PUSH PRN ×2 (02:45→11:17)
[2018-04-20] MEDS: NS + KCL 20 MEQ INJ 1,000 ML IV SCH ×2 (06:12→15:03)
[2018-04-20] MEDS: LIPASE/PROTEASE/AMYLASE (12,000/38,000/60,000) CAP PO SCH ×3 (07:47→17:53)
[2018-04-20 07:50] LABS: BICARBONATE 25.9 MEQ/L (21.0-32.0); CALCIUM 7.6 MG/DL (8.5-10.1); CREATININE 0.35 MG/DL (0.50-1.00)
[2018-04-20 08:00] VITALS: BP 149/88; PULSE 85; RESP 20; TEMP 98; O2SAT 93
--- NOTE | 2018-04-20 09:29 | PD.CONS ---
HPI History of Present Illness This is a 47 year old F with PMH significant for chronic pancreatitis with previous pancreatic pseudocyst S/P exploratory laparotomy with I&D, pancreatic phlegmon in June 2017 and EUS in Sep 2017, fatty liver, and history of ETOH abuse. Pt presented to the ER yesterday with complaints of abdominal pain, states initially all over but now seems more localized to her upper abdomen. Pain is intermittent but sometimes the pain lasts for long periods of time, worse after eating. Associated nausea, reports two episodes of emesis but states this was two weeks ago. Reports the emesis was more from her being unable to swallow her food and felt like she was just regurgitating the food back up. Has noticed a few pounds of unintentional weight loss. Denies any changes in bowel movement. Pt reports was drinking heavy for approximately two years after her divorce but that she quit drinking alcohol after her surgery in June 2017. Still admits to an occasional sip of alcohol here and there. Smokes a pack a day. Denies illicit drug use. Also reports taking Ibuprofen or Aleve daily, tries not to take more than 3-4 a day. Unsure of family history, pt reports being adopted. Previous office records: EUS (Sep 2017) --> Pancreatic parenchyma had the appearance of the salt and pepper with hyper intense foci suggestive of calcification and chronic pancreatitis. There was pancreatic body cyst this was a simple cyst measuring 2 x 1 almost and it looked like it was communicating with the pancreatic duct which appeared to be slightly dilated. No lymphadenopathy noted. Mild dilation of the common bile duct with no filling defects. EGD (Sep 2017) Gastritis in the antrum. Normal duodenum. small hiatal hernia. Biopsy benign. Colonoscopy (Jul 2017) Sessile polyp ranging between 3-7 mm in size was found in the sigmoid colon, polypectomy. Internal hemorrhoids. Pathology (sigmoid colon polyp) tubular adenoma. (Shanti Gibson) PFSH Past Medical History Pancreatitis Pancreatic pseudocyst Previous ETOH abuse Fatty liver Past Surgical History Cholecystectomy C- section EUS EGD Colonoscopy Exploratory laparotomy with I&D of pancreatic pseudocyst (Shanti Gibson) Coded Allergies: methadone (Unverified Allergy, Severe, 04/19/18) penicillin G (Unverified Allergy, Severe, Anaphylaxis, 04/19/18) Family History Unknown, states adopted Social History Smoke 1 PPD States quit drinking alcohol June 2017 but admits to occasional sips here and there Denies illicit drug use (Shanti Gibson) Review of Systems Gastrointestinal: COMPLAINS OF: Abdominal pain, Nausea, Vomiting, Difficulty Swallowing, Swelling of Abdomen, Heartburn, DENIES: Black stools, Bloody stools , Constipation, Diarrhea, Anorexia, Odynophagia, Hematemesis (Shanti Gibson) GI Exam Vitals I&O Vital Signs Date Time Temp Pulse Resp B/P (MAP) Pulse Ox O2 Delivery O2 Flow Rate FiO2 04/20/18 08:00 98.0 85 20 149/88 (108) 93 04/20/18 00:00 97.9 91 20 125/71 (89) 92 04/19/18 20:00 98.1 79 20 153/84 (107) 95 04/19/18 16:25 76 18 163/87 (112) 99 Room Air 04/19/18 14:00 96 04/19/18 11:27 99.1 100 16 133/86 (102) 100 I/O 04/19/18 04/19/18 04/19/18 04/20/18 04/20/18 04/20/18 07:00 15:00 23:00 07:00 15:00 23:00 Intake Total 1000 ml Output Total 125 ml Balance 875 ml Intake IV Total 1000 ml Output Urine Total 125 ml Imaging Last Impressions Abdomen/Pelvis CT 04/19/18 1240 Signed Impressions: CONCLUSION: 1. Chronic pancreatitis again noted with numerous punctate calcifications. The pancreas remains indistinct. 2. The low-attenuation fluid collection along the tail the pancreas is slightl y better defined and mildly increased in size. 3. Moderate hepatic steatosis again noted with stable benign low attenuation a calvin again noted right lobe of the liver. 4. Stable noncalcified nodular structure in the medial right lung base unchang ed dating back to the 06/23/[address] follow-up is recommended in one year. Laboratory Test 04/19/18 13:02 04/19/18 13:50 04/20/18 06:28 White Blood Count 9.1 TH/MM3 Red Blood Count 4.45 MIL/MM3 Hemoglobin 10.6 GM/DL Hematocrit 33.7 % Mean Corpuscular Volume 75.7 FL Mean Corpuscular Hemoglobin 23.7 PG Mean Corpuscular Hemoglobin Concent 31.3 % Red Cell Distribution Width 21.6 % Platelet Count 198 TH/MM3 Mean Platelet Volume 7.6 FL Neutrophils (%) (Auto) 69.8 % Lymphocytes (%) (Auto) 19.4 % Monocytes (%) (Auto) 5.5 % Eosinophils (%) (Auto) 4.0 % Basophils (%) (Auto) 1.3 % Neutrophils # (Auto) 6.3 TH/MM3 Lymphocytes # (Auto) 1.8 TH/MM3 Monocytes # (Auto) 0.5 TH/MM3 Eosinophils # (Auto) 0.4 TH/MM3 Basophils # (Auto) 0.1 TH/MM3 CBC Comment DIFF FINAL Differential Comment Prothrombin Time 11.4 SEC Prothromb Time International Ratio 1.1 RATIO Activated Partial Thromboplast Time 21.5 SEC Blood Urea Nitrogen 10 MG/DL 6 MG/DL Creatinine 0.52 MG/DL 0.35 MG/DL Random Glucose 107 MG/DL 89 MG/DL Total Protein 7.6 GM/DL Albumin 3.6 GM/DL Calcium Level 8.7 MG/DL 7.6 MG/DL Alkaline Phosphatase 165 U/L Aspartate Amino Transf (AST/SGOT) 36 U/L Alanine Aminotransferase (ALT/SGPT) 36 U/L Total Bilirubin 0.2 MG/DL Sodium Level 140 MEQ/L 142 MEQ/L Potassium Level 3.0 MEQ/L 3.9 MEQ/L Chloride Level 100 MEQ/L 109 MEQ/L Carbon Dioxide Level 29.6 MEQ/L 25.9 MEQ/L Anion Gap 10 MEQ/L 7 MEQ/L Estimat Glomerular Filtration Rate 127 ML/MIN 200 ML/MIN Lipase 2273 U/L 982 U/L Urine Color YELLOW Urine Turbidity HAZY Urine pH 6.5 Urine Specific [place] 1.021 Urine Protein TRACE mg/dL Urine Glucose (UA) NEG mg/dL Urine Ketones NEG mg/dL Urine Occult Blood NEG Urine Nitrite NEG Urine Bilirubin NEG Urine Urobilinogen 2.0 MG/DL Urine Leukocyte Esterase MOD Urine RBC 2 /hpf Urine WBC 7 /hpf Urine Squamous Epithelial Cells 11 /hpf Urine Mucus FEW /lpf Microscopic Urinalysis Comment CULT NOT INDICATED Lactic Acid Level 1.4 mmol/L Physical Examination HEENT: Normocephalic; atraumatic CHEST: Even/unlabored CARDIAC: RRR ABDOMEN: Distended, semi-firm, upper abdominal tenderness, bowel sounds active EXTREMITIES: No clubbing, cyanosis, or edema. SKIN: Normal; no rash; no jaundice. GROCERY ASSOCIATE: Alert and oriented times three. (Shanti Gibson) Assessment and Plan Plan Assessment: - Pancreatitis with CT findings suggestive of pancreatic pseudocyst Pt complaining of abdominal pain, upper abdomen, worse with food, associated nausea with two episodes of emesis but sounds more like regurgitation of food because of dysphagia Lipase on admission-2272 CT abdomen and pelvis W IV contrast --> Chronic pancreatitis again noted with numerous punctate calcification. The pancreas remains indistinct. The low-attenuation fluid collection along the tail of the pancreas is slightly better defined and mildly increased in size. Moderate hepatic steatosis again noted with stable benign low attenuation area again noted right lobe of the liver. Previous ETOH abuse, drinking heavy for two years, quit drinking June 2017 but admits to occasional sips of alcohol - Dysphagia- regurgitation of food x 2- felt like her food was getting stuck. Previous EGD as below. Of note, pt reports taking Ibuprofen or Aleve every day, tries not to take more than 3-4 a day. - History of C. Diff in June 2017- Pt on contact precautions- last BM was two days ago and states formed. Previous office records: EUS (Sep 2017) --> Pancreatic parenchyma had the appearance of the salt and pepper with hyper intense foci suggestive of calcification and chronic pancreatitis. There was pancreatic body cyst this was a simple cyst measuring 2 x 1 almost and it looked like it was communicating with the pancreatic duct which appeared to be slightly dilated. No lymphadenopathy noted. Mild dilation of the common bile duct with no filling defects. EGD (Sep 2017) Gastritis in the antrum. Normal duodenum. small hiatal hernia. Biopsy benign. Colonoscopy (Jul 2017) Sessile polyp ranging between 3-7 mm in size was found in the sigmoid colon, polypectomy. Internal hemorrhoids. Pathology (sigmoid colon polyp) tubular adenoma. Plan: NPO IVF Antiemetics PRN Pain control IR for possible drainage of pseudocyst If unable possible EUS if mature enough Monitor labs Further recommendations based on clinical course Pt has been seen and examined by myself and Dr. Duke and this note is written on his behalf (Shanti Gibson) Physician Comments Plan as above, seen and examined with Shanti. For possible percutaneous drainage today, will folow up with you. Thank you for the consult. (Suin Duke MD) Sahnti Gibson Apr 20, 2018 09:29 Suni Duke MD Apr 20, 2018 10:45
--- NOTE | 2018-04-20 10:20 | RADRPT ---
EXAM DATE: 04/20/2018 9:59 AM EDT AGE/SEX: 47 years / Female INDICATIONS: Evaluate for pancreatic pseudocyst drainage. COMPARISON: [facility] [place], CT ABDOMEN & PELVIS W CONTRAST, 04/19/2018. . CONSULTATION: There is a small 2 cm fluid collection in the pancreatic bed junction of body and tail the pancreas s ignificantly improved from multiple comparison studies in this patient with history of chronic pancre atitis. Attempted percutaneous drainage at this time is not recommended because of its location and size. Pse udocyst in the tail of pancreas are prone to fistulization at the distal duct is obstructed. Thank you for this consultation. Electronically signed by: Buddy Mccartney MD 04/20/2018 10:18 AM EDT
[2018-04-20 12:00] VITALS: BP 140/87; PULSE 74; RESP 20; TEMP 97.7; O2SAT 91
[2018-04-20] MEDS: NICOTINE 21 MG/24 HR PATCH T-DERMAL SCH (14:30)
[2018-04-20] MEDS ORDERED: MORPHINE SULFATE 2 MG/ML SYRINGE IM PRN (14:30)
[2018-04-20] MEDS ORDERED: oxyCODONE/ACETAMINOPHEN 5 MG/325 MG TAB PO PRN (14:30)
--- NOTE | 2018-04-20 14:53 | HHI.PR ---
Subjective Remarks Still complains of epigastric abdominal pain, but states is improving. The patient denies fevers or chills. Denies shortness of breath Denies chest pain. Feels hungry and is thirsty. Objective Vitals Vital Signs Date Time Temp Pulse Resp B/P (MAP) Pulse Ox O2 Delivery O2 Flow Rate FiO2 04/20/18 12:00 97.7 74 20 140/87 (104) 91 04/20/18 09:08 16 04/20/18 08:00 98.0 85 20 149/88 (108) 93 04/20/18 00:00 97.9 91 20 125/71 (89) 92 04/19/18 20:00 98.1 79 20 153/84 (107) 95 04/19/18 16:25 76 18 163/87 (112) 99 Room Air I/O 04/19/18 04/19/18 04/19/18 04/20/18 04/20/18 04/20/18 07:00 15:00 23:00 07:00 15:00 23:00 Intake Total 1000 ml Output Total 125 ml Balance 875 ml Intake IV Total 1000 ml Output Urine Total 125 ml Result Diagram: 04/19/18 1302 04/20/18 0628 Imaging Last 72 hours Impressions Abdomen/Pelvis CT 04/19/18 1240 Signed Impressions: CONCLUSION: 1. Chronic pancreatitis again noted with numerous punctate calcifications. The pancreas remains indistinct. 2. The low-attenuation fluid collection along the tail the pancreas is slightl y better defined and mildly increased in size. 3. Moderate hepatic steatosis again noted with stable benign low attenuation a calvin again noted right lobe of the liver. 4. Stable noncalcified nodular structure in the medial right lung base unchang ed dating back to the 06/23/[address] follow-up is recommended in one year. Objective Remarks AAox3 Clear lungs BL S1S2+ RRR abdomen soft, tender to palpation of epigastric region. No edema in lower extremities. A/P Problem List: (1) Pseudocyst, pancreas ICD Code: K86.3 - Pseudocyst of pancreas (2) Chronic pancreatitis ICD Code: K86.1 - Other chronic pancreatitis (3) Acute pancreatitis ICD Code: K85.90 - Acute pancreatitis without necrosis or infection, unspecified Assessment and Plan 1. Acute on chronic pancreatitis. With pancreatic pseudocyst as seen on CT as described above. GI consulted who recommended IR drainage. Interventional radiology was consulted. Dr. Mccartney did not recommend percutaneous drainage at this time because of its location and size. Pseudocyst significant of the pancreas are prone to fistulization if the distal duct is obstructed. Continue IV fluids. I will modify the patient's pain control with oral Percocet and IV morphine for breakthrough pain. Start on clear liquids. Monitor lipase and clinical response. continue Creon with meals. 2. Tobacco abuse I will start on a nicotine patch. 3. I will add heparin subcutaneous tendency for DVT prophylaxis. Continue with SCDs. 4. Add PPI for GI prophylaxis Discharge Planning Possible DC in the next 1-2 days. Pending GI clearance and clinical improvement Vitor Aguilar MD Apr 20, 2018 14:53
[2018-04-20] MEDS: oxyCODONE/ACETAMINOPHEN 5 MG/325 MG TAB PO PRN ×2 (15:05→21:18)
--- NOTE | 2018-04-20 15:11 | PD.PN.STU ---
Subjective Remarks 47 y f w/ hx of alcohol use ad chronic pancreatitis is being followed for an acute episode of pancreatitis and pseudocyst She has constant mid abdominal pain that is dull and radiates to the back. it is a 5/10 on a scale of 0-10. She has mild nasuea. No diarrhea. Last BM was 2 days ago. She also complains of mouth being dry and requests a nicotine patch She denies fever, headache, chest pain, SOB, vomitting, swelling Objective Vitals Vital Signs Date Time Temp Pulse Resp B/P (MAP) Pulse Ox O2 Delivery O2 Flow Rate FiO2 04/20/18 12:00 97.7 74 20 140/87 (104) 91 04/20/18 09:08 16 04/20/18 08:00 98.0 85 20 149/88 (108) 93 04/20/18 00:00 97.9 91 20 125/71 (89) 92 04/19/18 20:00 98.1 79 20 153/84 (107) 95 04/19/18 16:25 76 18 163/87 (112) 99 Room Air I/O 04/19/18 04/19/18 04/19/18 04/20/18 04/20/18 04/20/18 07:00 15:00 23:00 07:00 15:00 23:00 Intake Total 1000 ml Output Total 125 ml Balance 875 ml Intake IV Total 1000 ml Output Urine Total 125 ml Result Diagram: 04/19/18 1302 04/20/18 0628 Other Results Vital Signs, 24 Hour Date Time Temp Pulse Resp B/P (MAP) Pulse Ox O2 Delivery O2 Flow Rate FiO2 04/20/18 12:00 97.7 74 20 140/87 (104) 91 04/20/18 09:08 16 04/20/18 08:00 98.0 85 20 149/88 (108) 93 04/20/18 00:00 97.9 91 20 125/71 (89) 92 04/19/18 20:00 98.1 79 20 153/84 (107) 95 04/19/18 16:25 76 18 163/87 (112) 99 Room Air Allergies Coded Allergies methadone (Unverified Allergy, Severe, 04/19/18) penicillin G (Unverified Allergy, Severe, Anaphylaxis, 04/19/18) Intake/Outtake 04/20/18 04/20/18 11:00 23:00 Intake Total 1000 ml Output Total 125 ml Balance 875 ml Laboratory Tests per [place] Test 04/20/18 06:28 Blood Urea Nitrogen 6 MG/DL Creatinine 0.35 MG/DL Random Glucose 89 MG/DL Calcium Level 7.6 MG/DL Sodium Level 142 MEQ/L Potassium Level 3.9 MEQ/L Chloride Level 109 MEQ/L Carbon Dioxide Level 25.9 MEQ/L Active Scripts Active Acidophilus/l-Sporogenes (Lactobacillus Acidophilus) 35 Million Cell-25 Million Cell Tab 1 Tab PO TID Creon (Amylase/Lipase/Protease) 12,000-38,000-60,000 Units Cap 1 Cap PO TID Oxycodone (Oxycodone HCl) 5 Mg Tab 5 Mg PO Q4H PRN Eq Nicotine (Nicotine) 14 Mg/24 Hour Dis 1 Patch T-DERMAL DAILY Reported Temazepam 15 Mg Cap 15 Mg PO HS PRN Objective Remarks well appearing,in no acute distress HEENT: normocephalic pulm: clear to auscultation. no rails, rhonchi or wheezing cardiac; RRR. normal s1 and s2 Abdomen: mildly distended. diffuse tenderness to superficial palpation Medications and IVs Current Medications Medications (Trade) Dose Ordered Sig/Flores Route Start Time Stop Time Status Last Admin (NS Flush) 2 ml UNSCH PRN IV FLUSH 04/19/18 12:45 04/19/18 20:01 (Compazine Inj) 5 mg Q6H PRN IV PUSH 04/19/18 18:15 04/20/18 11:17 (Creon 12-38-60) 1 cap TID PO 04/20/18 09:00 04/20/18 12:36 Potassium Chloride/Sodium Chloride 1,000 ml @ 100 mls/hr Q10H IV 04/19/18 19:00 04/20/18 06:12 (Habitrol 21 Mg Patch.24 Hr) 1 patch DAILY T-DERMAL 04/20/18 14:30 Miscellaneous Information 1 DAILY T-DERMAL 04/21/18 09:00 (Percocet 5-325 Mg) 1 tab Q4H PRN PO 04/20/18 14:30 (Percocet 5-325 Mg) 2 tab Q4H PRN PO 6/1/18 14:30 (Morphine Inj) 2 mg Q4H PRN IM 04/20/18 14:30 A/P Assessment and Plan Acute on chronic pancreatitis Lipase trending down, <1000 IR deemed not a candidate for CT drain of pseudocyst awaiting GI evaluation for EUS no signs of ARDS pt can be progressed to clear liquid diet as tolerated Tobacco use pt counseled on risks and cessation will provide nicotine patch Continue to follow labs and await evaluation for treatment approach for pseudocyst Ilan Dotson M3 Apr 20, 2018 15:11
[2018-04-20 16:00] VITALS: BP 150/82; PULSE 85; RESP 20; TEMP 98.1; O2SAT 94
[2018-04-20] MEDS: MORPHINE SULFATE 4 MG/ML INJ IV PRN (17:54)
[2018-04-20] MEDS ORDERED: POTASSIUM CHLORIDE INJ 20 MEQ in SODIUM CHLOR 0.9% 1000 ML INJ 1,000 ML IV SCH (18:15)
[2018-04-20 20:00] VITALS: BP 145/83; PULSE 95; RESP 18; TEMP 97.9; O2SAT 97
[2018-04-20] MEDS ORDERED: TEMAZEPAM 7.5 MG CAP PO PRN (23:30)
[2018-04-21] MEDS: NS + KCL 20 MEQ INJ 1,000 ML IV SCH ×2 (00:06→07:50)
[2018-04-21 00:41] VITALS: BP 159/89; PULSE 88; RESP 18; TEMP 97.8; O2SAT 97
[2018-04-21] MEDS: oxyCODONE/ACETAMINOPHEN 5 MG/325 MG TAB PO PRN ×3 (03:31→13:59)
[2018-04-21 08:00] VITALS: BP 153/88; PULSE 94; RESP 18; TEMP 97.8; O2SAT 95
[2018-04-21] MEDS ORDERED: REMOVE OLD PATCH T-DERMAL SCH (09:00)
[2018-04-21] MEDS: LIPASE/PROTEASE/AMYLASE (12,000/38,000/60,000) CAP PO SCH ×2 (09:09→12:44)
[2018-04-21] MEDS: NICOTINE 21 MG/24 HR PATCH T-DERMAL SCH (09:09)
[2018-04-21 09:18] LABS: HEMATOCRIT 30.2 % (35.0-46.0); HEMOGLOBIN 9.8 GM/DL (11.6-15.3); MEAN CELL VOLUME 74.7 FL (80.0-100.0); MEAN CORPUSCULAR HEMOGLOBIN 24.1 PG (27.0-34.0); MEAN CORPUSCULAR HGB CONC 32.3 % (32.0-36.0); PLATELET COUNT 174 TH/MM3 (150-450); RED BLOOD COUNT 4.04 MIL/MM3 (4.00-5.30); RED CELL DISTRIBUTION WIDTH 21.8 % (11.6-17.2); WHITE BLOOD COUNT 5.2 TH/MM3 (4.0-11.0)
[2018-04-21 09:35] LABS: BICARBONATE 25.8 MEQ/L (21.0-32.0); CREATININE 0.4 MG/DL (0.50-1.00)
[2018-04-21] MEDS: MORPHINE SULFATE 4 MG/ML INJ IV PRN (11:15)
[2018-04-21] MEDS ORDERED: NICO14DI23 T-DERMAL (11:53)
[2018-04-21] MEDS ORDERED: OXYC1TAB63 PO (11:53)
--- NOTE | 2018-04-21 11:54 | HHI.DCPOC ---
Discharge Care Plan Diagnosis: (1) Pseudocyst, pancreas (2) Pancreatitis (3) Chronic pancreatitis (4) Polyp of colon (5) Internal hemorrhoids (6) Abdominal pain Goals to Promote Your Health * To prevent worsening of your condition and complications * To maintain your health at the optimal level Directions to Meet Your Goals Take your medications as prescribed Follow your dietary instruction Follow activity as directed Keep your appointments as scheduled Take your immunizations and boosters as scheduled If your symptoms worsen call your PCP, if no PCP go to Urgent Care Center or Emergency Room Smoking is Dangerous to Your Health. Avoid second hand smoke Call the 24-hour hour crisis hotline for domestic abuse at Vitor Aguilar MD Apr 21, 2018 11:54
[2018-04-21 12:00] VITALS: BP 167/93; PULSE 80; RESP 18; TEMP 98.1; O2SAT 95
--- NOTE | 2018-04-21 14:04 | HHI.GIFU ---
Subjective Remarks Pt resting in bed Tolerating diet Denies nausea, vomiting Mild abdominal pain, but states has chronic abdominal pain (Shanti Gibson) Objective Vitals I&O Vital Signs Date Time Temp Pulse Resp B/P (MAP) Pulse Ox O2 Delivery O2 Flow Rate FiO2 04/21/18 08:00 97.8 94 18 153/88 (109) 95 04/21/18 00:41 97.8 88 18 159/89 (112) 97 04/20/18 22:18 18 04/20/18 20:00 97.9 95 18 145/83 (103) 97 04/20/18 18:19 16 04/20/18 16:00 98.1 85 20 150/82 (104) 94 I/O 04/20/18 04/20/18 04/20/18 04/21/18 04/21/18 04/21/18 07:00 15:00 23:00 07:00 15:00 23:00 Intake Total 1000 ml 480 ml 580 ml Output Total 125 ml Balance 875 ml 480 ml 580 ml Intake Oral 480 ml 580 ml IV Total 1000 ml Output Urine Total 125 ml # Voids 8 4 Laboratory Laboratory Tests Test 04/21/18 09:00 White Blood Count 5.2 Red Blood Count 4.04 Hemoglobin 9.8 Hematocrit 30.2 Mean Corpuscular Volume 74.7 Mean Corpuscular Hemoglobin 24.1 Mean Corpuscular Hemoglobin Concent 32.3 Red Cell Distribution Width 21.8 Platelet Count 174 Mean Platelet Volume 7.0 Blood Urea Nitrogen 4 Creatinine 0.40 Random Glucose 90 Calcium Level 8.0 Sodium Level 138 Potassium Level 3.7 Chloride Level 106 Carbon Dioxide Level 25.8 Anion Gap 6 Estimat Glomerular Filtration Rate 172 Lipase 971 Imaging Last Impressions Abdomen/Pelvis CT 04/19/18 1240 Signed Impressions: CONCLUSION: 1. Chronic pancreatitis again noted with numerous punctate calcifications. The pancreas remains indistinct. 2. The low-attenuation fluid collection along the tail the pancreas is slightl y better defined and mildly increased in size. 3. Moderate hepatic steatosis again noted with stable benign low attenuation a calvin again noted right lobe of the liver. 4. Stable noncalcified nodular structure in the medial right lung base unchang ed dating back to the 06/23/[address] follow-up is recommended in one year. Physical Exam HEENT: Normocephalic; atraumatic CHEST: even/unlabored CARDIAC: RRR ABDOMEN: Mildly distended, semi-firm, nontender, bowel sounds active EXTREMITIES: No clubbing, cyanosis, or edema. SKIN: Normal; no rash; no jaundice. STUDENT LIFE VICE PRESIDENT: Alert and oriented times three. (Shanti Gibson) Assessment and Plan Plan Assessment: - Pancreatitis with CT findings suggestive of pancreatic pseudocyst Pt complaining of abdominal pain, upper abdomen, worse with food, associated nausea with two episodes of emesis but sounds more like regurgitation of food because of dysphagia Lipase on admission-2272 CT abdomen and pelvis W IV contrast --> Chronic pancreatitis again noted with numerous punctate calcification. The pancreas remains indistinct. The low-attenuation fluid collection along the tail of the pancreas is slightly better defined and mildly increased in size. Moderate hepatic steatosis again noted with stable benign low attenuation area again noted right lobe of the liver. Previous ETOH abuse, drinking heavy for two years, quit drinking June 2017 but admits to occasional sips of alcohol - Dysphagia- regurgitation of food x 2- felt like her food was getting stuck. Previous EGD as below. Of note, pt reports taking Ibuprofen or Aleve every day, tries not to take more than 3-4 a day. - History of C. Diff in June 2017- Pt on contact precautions- last BM was two days ago and states formed. Previous office records: EUS (Sep 2017) --> Pancreatic parenchyma had the appearance of the salt and pepper with hyper intense foci suggestive of calcification and chronic pancreatitis. There was pancreatic body cyst this was a simple cyst measuring 2 x 1 almost and it looked like it was communicating with the pancreatic duct which appeared to be slightly dilated. No lymphadenopathy noted. Mild dilation of the common bile duct with no filling defects. EGD (Sep 2017) Gastritis in the antrum. Normal duodenum. small hiatal hernia. Biopsy benign. Colonoscopy (Jul 2017) Sessile polyp ranging between 3-7 mm in size was found in the sigmoid colon, polypectomy. Internal hemorrhoids. Pathology (sigmoid colon polyp) tubular adenoma. (04/21) Pt reports improvement in symptoms, tolerating regular diet, denies nausea , vomiting. Mild abdominal pain but states abdominal pain is chronic. Seen by IR who states attempted percutaneous drainage at this time is not recommended because of size and location of pseudocyst. Plan: Low fat diet Avoid ETOH Ok for DC today Have pt follow up in office, possible need for EUS Pt has been seen and examined by myself and Dr. Duke and this note is written on his behalf (Shanti Gibson) Physician Comments Seen with Shanti, plan as above, will need out patient follow up. (Suni Duke MD) Shanti Gibson Apr 21, 2018 14:04 Suni Duke MD Apr 21, 2018 16:26
--- NOTE | 2018-04-24 17:28 | PD ---
Physical Exam Narrative I, Dr. Muñoz, have reviewed the mid-level providers documentation and am in agreement, is, made the diagnosis, and medical decision making was done by me. Please see the mid-level provider note for full history, physical, and disposition. My assessment and findings: Patient presents with periumbilical abdominal pain. She has a history of prior abdominal surgeries, pancreatitis, pancreatic abscess. She was afebrile, slightly hypertensive at 163/87, remaining vital signs stable on exam patient had periumbilical abdominal pain that was near her prior abdominal surgical scar. She was placed on a gambling monitor, IV access is obtained, and labs and CT ordered. She was also given IV fluids, Zofran for antiemetic, and morphine for pain. Labs showed an elevated lipase and CT scan was positive for evidence of chronic pancreatitis and pseudocyst. Patient was admitted for pain control and possible drainage of pseudocyst. Data Data Orders Orders Complete Blood Count With Diff (04/19/18 12:40) Comprehensive Metabolic Panel (04/19/18 12:40) Lipase (04/19/18 12:40) Lactic Acid (04/19/18 12:40) Prothrombin Time / Inr (Pt) (04/19/18 12:40) Act Partial Throm Time (Ptt) (04/19/18 12:40) Urinalysis - C+S If Indicated (04/19/18 12:40) Ct Abd/Pel W Iv Contrast(Rout) (04/19/18 12:40) Iv Access Insert/Monitor (04/19/18 12:40) Ecg Monitoring (04/19/18 12:40) Oximetry (04/19/18 12:40) Sodium Chlor 0.9% 1000 Ml Inj (Ns 1000 M (04/19/18 12:40) Sodium Chloride 0.9% Flush (Ns Flush) (04/19/18 12:45) Ed Urine Pregnancytest Poc (04/19/18 12:40) NPO (04/19/18 12:52) Ondansetron Odt (Zofran Odt) (04/19/18 16:15) Morphine Inj (Morphine Inj) (04/19/18 16:15) Sodium Chlor 0.9% 1000 Ml Inj (Ns 1000 M (04/19/18 16:15) Potassium Chloride (Kcl) (04/19/18 16:15) Admit Order (Ed Use Only) (04/19/18 17:02) Labs Laboratory Tests Test 04/19/18 13:02 04/19/18 13:50 White Blood Count 9.1 TH/MM3 Red Blood Count 4.45 MIL/MM3 Hemoglobin 10.6 GM/DL Hematocrit 33.7 % Mean Corpuscular Volume 75.7 FL Mean Corpuscular Hemoglobin 23.7 PG Mean Corpuscular Hemoglobin Concent 31.3 % Red Cell Distribution Width 21.6 % Platelet Count 198 TH/MM3 Mean Platelet Volume 7.6 FL Neutrophils (%) (Auto) 69.8 % Lymphocytes (%) (Auto) 19.4 % Monocytes (%) (Auto) 5.5 % Eosinophils (%) (Auto) 4.0 % Basophils (%) (Auto) 1.3 % Neutrophils # (Auto) 6.3 TH/MM3 Lymphocytes # (Auto) 1.8 TH/MM3 Monocytes # (Auto) 0.5 TH/MM3 Eosinophils # (Auto) 0.4 TH/MM3 Basophils # (Auto) 0.1 TH/MM3 CBC Comment DIFF FINAL Differential Comment Prothrombin Time 11.4 SEC Prothromb Time International Ratio 1.1 RATIO Activated Partial Thromboplast Time 21.5 SEC Blood Urea Nitrogen 10 MG/DL Creatinine 0.52 MG/DL Random Glucose 107 MG/DL Total Protein 7.6 GM/DL Albumin 3.6 GM/DL Calcium Level 8.7 MG/DL Alkaline Phosphatase 165 U/L Aspartate Amino Transf (AST/SGOT) 36 U/L Alanine Aminotransferase (ALT/SGPT) 36 U/L Total Bilirubin 0.2 MG/DL Sodium Level 140 MEQ/L Potassium Level 3.0 MEQ/L Chloride Level 100 MEQ/L Carbon Dioxide Level 29.6 MEQ/L Anion Gap 10 MEQ/L Estimat Glomerular Filtration Rate 127 ML/MIN Lipase 2273 U/L Urine Color YELLOW Urine Turbidity HAZY Urine pH 6.5 Urine Specific [place] 1.021 Urine Protein TRACE mg/dL Urine Glucose (UA) NEG mg/dL Urine Ketones NEG mg/dL Urine Occult Blood NEG Urine Nitrite NEG Urine Bilirubin NEG Urine Urobilinogen 2.0 MG/DL Urine Leukocyte Esterase MOD Urine RBC 2 /hpf Urine WBC 7 /hpf Urine Squamous Epithelial Cells 11 /hpf Urine Mucus FEW /lpf Microscopic Urinalysis Comment CULT NOT INDICATED Lactic Acid Level 1.4 mmol/L MDM Supervised Visit with CORKY: Yes Diagnosis Primary Impression: Pseudocyst, pancreas Additional Impression: Chronic pancreatitis Qualified Codes: K86.1 - Other chronic pancreatitis Admitting Information Admitting Physician Requests: Admit Patient Instructions: Oxycodone/Acetaminophen (By mouth), Pancreatitis (DC), Hypokalemia (DC), Abdominal Pain in (ED) Scripts Oxycodone HCl/Acetaminophen (Oxycodone-Acetaminophen 5-325) 5 Mg-325 Mg Tablet 1 TAB PO Q4H Y for pain, #18 TAB Prov: Vitor Aguilar MD 04/21/18 Nicotine (Eq Nicotine) 14 Mg/24 Hour Dis 1 PATCH T-DERMAL DAILY for nicotine dependent , #30 PATCH 0 Refills Prov: Vitor Aguilar MD 04/21/18 Condition: Yolanda Massey MD Apr 24, 2018 17:28
== END 2018-04-21 15:36 | disposition home or self-care (01) | DRG 438 ==
LOC: NEPD 11:18 → NEDA 17:03 → N07B 20:30
PROVIDERS: ADMIT Hospitalist; ATTEND Hospitalist
DX: K86.3 Pseudocyst of pancreas (principal); K85.90 Acute pancreatitis without necrosis or infection, unspecified; R13.10 Dysphagia, unspecified; K76.0 Fatty (change of) liver, not elsewhere classified; K86.1 Other chronic pancreatitis; K21.9 Gastro-esophageal reflux disease without esophagitis; K42.9 Umbilical hernia without obstruction or gangrene; E87.6 Hypokalemia; F10.10 Alcohol abuse, uncomplicated; F17.210 Nicotine dependence, cigarettes, uncomplicated; F41.9 Anxiety disorder, unspecified; Z88.0 Allergy status to penicillin
CPT/HCPCS: 74177; 80048; 80053; 81001; 83605; 83690; 84703; 85025; 85027; 85610; 85730; 86301; 96361; 96374; J0780; J2270; J3480; J7030; Q9967

== ENCOUNTER 2018-05-10 22:52 | Emergency (ER) | payer SELFPAY ==
[~2018-05-10] VITALS: Ht 160 cm; Wt 50.0 kg
[~2018-05-10 22:52] MED LIST changes: -OXYC-392 PO; +OXYC1TAB63 PO
[2018-05-10 23:24] VITALS: BP 147/88; PULSE 100; RESP 18; TEMP 99; O2SAT 98
--- NOTE | 2018-05-10 23:57 | PD ---
HPI Chief Complaint: Abdominal Pain Time Seen by Provider: 23:46 Travel History International Travel<30 days: No Contact w/Intl Traveler<30days: No Traveled to known affect area: No History of Present Illness HPI Patient states that she started having diffuse abdominal pain along with some nausea vomiting since earlier tonight open (approximately 3 hours ago). Patient describes the pain as crampy, diffuse, nonradiating, goes from 4-8 out of 10...pt denies any alleviating/aggravating factors. patient denies any assoc factors suchas fever/rash/cp/molina/sob/dizziness at this point. States allergy to methadone and penicillin Past medical history significant for corrective lens use, migraine, hypertension , pancreatitis, C. difficile, cholecystectomy, GERD, , anxiety, claustrophobia, history of smoking cigarettes, MRSA positive. PFSH Past Medical History Asthma: No Autoimmune Disease: No Blood Disorders: No Anxiety: Yes Depression: No Heart Rhythm Problems: No Cancer: No Cardiovascular Problems: Yes High Cholesterol: No Chemotherapy: No Chest Pain: Yes (in the past) Congestive Heart Failure: No COPD: No Diabetes: No Diminished Hearing: No Endocrine: No Gastrointestinal Disorders: Yes (C-DIFF) GERD: Yes Glaucoma: No Genitourinary: Yes Headaches: Yes Hepatitis: No Hiatal Hernia: No Hypertension: Yes Immune Disorder: No Implanted Vascular Access Dvce: No Kidney Stones: No Musculoskeletal: Yes Neurologic: Yes Psychiatric: No Reproductive: No Respiratory: No Migraines: Yes Myocardial Infarction: No Pancreatitis: Yes Radiation Therapy: No Renal Failure: No Sleep Apnea: No Thyroid Disease: No Ulcer: No ?: Not : 1 Para: 1 Miscarriage: 0 : 0 Past Surgical History Abdominal Surgery: Yes (cholecystectomy, pancreas cyst/abscess surgery) AICD: No Arteriovenous Shunt: No Section: Yes Cholecystectomy: Yes Gynecologic Surgery: Yes () Insulin Pump: No Joint Replacement: No Pacemaker: No Thoracic Surgery: No Other Surgery: Yes (GALLBLADDER, , PANCREAS) Social History Alcohol Use: No Tobacco Use: Yes (1 ppd) Substance Use: No Allergies-Medications (Allergen,Severity, Reaction): Coded Allergies: methadone (Unverified Allergy, Severe, 05/10/18) penicillin G (Unverified Allergy, Severe, Anaphylaxis, 05/10/18) Reported Meds & Prescriptions Reported Meds & Active Scripts Active Potassium Chloride ER (Potassium Chloride) 20 Meq Tab 20 Meq PO BID Cipro (Ciprofloxacin HCl) 500 Mg Tab 500 Mg PO BID 5 Days Zofran Odt (Ondansetron Odt) 4 Mg Tab 4 Mg SL Q6HR PRN Ultram (Tramadol HCl) 50 Mg Tab 50 Mg PO Q6H PRN 3 Days Oxycodone-Acetaminophen 5-325 (Oxycodone HCl/Acetaminophen) 5 Mg-325 Mg Tablet 1 Tab PO Q4H PRN Eq Nicotine (Nicotine) 14 Mg/24 Hour Dis 1 Patch T-DERMAL DAILY Acidophilus/l-Sporogenes (Lactobacillus Acidophilus) 35 Million Cell-25 Million Cell Tab 1 Tab PO TID Creon (Amylase/Lipase/Protease) 12,000-38,000-60,000 Units Cap 1 Cap PO TID Reported Temazepam 15 Mg Cap 15 Mg PO HS PRN Review of Systems General / Constitutional: No: Fever Eyes: No: Visual changes HENT: No: Headaches Cardiovascular: No: Chest Pain or Discomfort Respiratory: No: Shortness of Breath Gastrointestinal: Positive: Nausea, Abdominal Pain Genitourinary: No: Dysuria Musculoskeletal: No: Pain Skin: No Rash Neurologic: No: Weakness Psychiatric: No: Depression Endocrine: No: Polydipsia Hematologic/Lymphatic: No: Easy Bruising Physical Exam Narrative GENERAL: SKIN: Warm and dry. HEAD: Atraumatic. Normocephalic. EYES: Pupils equal and round. No scleral icterus. No injection or drainage. ENT: No nasal bleeding or discharge. Mucous membranes pink and moist. NECK: Trachea midline. No JVD. CARDIOVASCULAR: Regular rate and rhythm. RESPIRATORY: No accessory muscle use. Clear to auscultation. Breath sounds equal bilaterally. GASTROINTESTINAL: Abdomen soft, non-tender, nondistended. MUSCULOSKELETAL: Extremities without clubbing, cyanosis, or edema. No obvious deformities. NEUROLOGICAL: Awake and alert. No obvious cranial nerve deficits. Motor grossly within normal limits. Five out of 5 muscle strength in the arms and legs. Normal speech. PSYCHIATRIC: Appropriate mood and affect; insight and judgment normal. Data Data Last Documented VS Vital Signs Date Time Temp Pulse Resp B/P (MAP) Pulse Ox O2 Delivery O2 Flow Rate FiO2 05/10/18 23:24 99.0 100 18 147/88 (107) 98 Orders Orders Complete Blood Count With Diff (05/11/18 00:01) Comprehensive Metabolic Panel (05/11/18 00:01) Lipase (05/11/18 00:01) Urinalysis - C+S If Indicated (05/11/18 00:01) Iv Access Insert/Monitor (05/11/18 00:01) Ecg Monitoring (05/11/18 00:01) Oximetry (05/11/18 00:01) NPO (05/11/18 00:01) Morphine Inj (Morphine Inj) (05/11/18 00:15) Sodium Chlor 0.9% 1000 Ml Inj (Ns 1000 M (05/11/18 00:01) Sodium Chloride 0.9% Flush (Ns Flush) (05/11/18 00:15) Ondansetron Odt (Zofran Odt) (05/11/18 00:15) Morphine Inj (Morphine Inj) (05/11/18 02:00) Potassium Chloride Eff (K-Lyte Cl Eff) (05/11/18 02:00) Ed Discharge Order (05/11/18 03:07) Oxycodone-Acetamin 5-325 Mg (Percocet (05/11/18 03:30) Labs Laboratory Tests Test 05/11/18 00:15 05/11/18 02:30 White Blood Count 10.3 TH/MM3 Red Blood Count 3.73 MIL/MM3 Hemoglobin 9.4 GM/DL Hematocrit 27.9 % Mean Corpuscular Volume 74.9 FL Mean Corpuscular Hemoglobin 25.1 PG Mean Corpuscular Hemoglobin Concent 33.5 % Red Cell Distribution Width 24.6 % Platelet Count 247 TH/MM3 Mean Platelet Volume 7.0 FL Neutrophils (%) (Auto) 74.3 % Lymphocytes (%) (Auto) 16.0 % Monocytes (%) (Auto) 6.3 % Eosinophils (%) (Auto) 2.1 % Basophils (%) (Auto) 1.3 % Neutrophils # (Auto) 7.6 TH/MM3 Lymphocytes # (Auto) 1.6 TH/MM3 Monocytes # (Auto) 0.7 TH/MM3 Eosinophils # (Auto) 0.2 TH/MM3 Basophils # (Auto) 0.1 TH/MM3 CBC Comment DIFF FINAL Differential Comment Blood Urea Nitrogen 12 MG/DL Creatinine 0.52 MG/DL Random Glucose 126 MG/DL Total Protein 6.7 GM/DL Albumin 3.1 GM/DL Calcium Level 8.6 MG/DL Alkaline Phosphatase 141 U/L Aspartate Amino Transf (AST/SGOT) 23 U/L Alanine Aminotransferase (ALT/SGPT) 25 U/L Total Bilirubin 0.3 MG/DL Sodium Level 142 MEQ/L Potassium Level 2.8 MEQ/L Chloride Level 105 MEQ/L Carbon Dioxide Level 27.0 MEQ/L Anion Gap 10 MEQ/L Estimat Glomerular Filtration Rate 127 ML/MIN Lipase 829 U/L Urine Color YELLOW Urine Turbidity CLOUDY Urine pH 6.0 Urine Specific [place] 1.018 Urine Protein NEG mg/dL Urine Glucose (UA) NEG mg/dL Urine Ketones NEG mg/dL Urine Occult Blood NEG Urine Nitrite NEG Urine Bilirubin NEG Urine Urobilinogen 2.0 mg/dL Urine Leukocyte Esterase TRACE Urine RBC 2 /hpf Urine WBC 6 /hpf Urine Squamous Epithelial Cells 30 /hpf Urine Mucus MANY /lpf Microscopic Urinalysis Comment CULT NOT INDICATED MDM Medical Decision Making Medical Screen Exam Complete: Yes Emergency Medical Condition: Yes Medical Record Reviewed: Yes Differential Diagnosis Ileus versus small bowel obstruction versus UTI versus pancreatitis versus chronic pancreatitis versus pyelonephritis Narrative Course Patient does not have any leukocytosis or left shift, anemia of 08/17, platelet count normal at 247,000 UA is consistent with a UTI Elect lites are all within normal limits with the exception of potassium which was decreased at 2.8 Normal kidney and liver functions Lipase was mildly elevated not consistent with 3-4 times the amount as would be expected for acute pancreatitis, however this is more consistent with chronic pancreatitis. The patient has been clinically reevaluated and the pain is better and more controlled, the patient has been able to tolerate p.o. as she was able to take p.o. antibiotic medication as well as potassium replacement. The patient will be discharged with pain medication liquid rehydration instructions and potassium replacement as well as antibiotics Diagnosis Primary Impression: UTI (urinary tract infection) Qualified Codes: N30.00 - Acute cystitis without hematuria Additional Impressions: Chronic pancreatitis Qualified Codes: K86.1 - Other chronic pancreatitis Hypokalemia Patient Instructions: General Instructions, Hypokalemia (ED), Pancreatic Pseudocyst (DC), Urinary Tract Infection in Women (DC) Scripts Potassium Chloride ER (Potassium Chloride ER) 20 Meq Tab 20 MEQ PO BID for Electrolyte Replacement, #10 TAB 0 Refills Prov: Cipriano Duncan MD 05/11/18 Ciprofloxacin (Cipro) 500 Mg Tab 500 MG PO BID for Infection for 5 Days, #10 TAB 0 Refills Prov: Cipriano Duncan MD 05/11/18 Ondansetron Odt (Zofran Odt) 4 Mg Tab 4 MG SL Q6HR Y for Nausea/Vomiting, #16 TAB 0 Refills Prov: Cipriano Duncan MD 05/11/18 Tramadol (Ultram) 50 Mg Tab 50 MG PO Q6H Y for PAIN for 3 Days, #12 TAB 0 Refills Prov: Cipriano Duncan MD 05/11/18 Disposition: 01 DISCHARGE HOME Condition: Stable Cipriano Duncan MD May 10, 2018 23:57
[2018-05-11] MEDS ORDERED: SODIUM CHLOR 0.9% 1000 ML INJ 1,000 ML IV SCH (00:01)
[2018-05-11] MEDS ORDERED: MORPHINE SULFATE 4 MG/ML INJ IV PUSH ONE ×2 (00:15→02:00)
[2018-05-11] MEDS ORDERED: ONDANSETRON ODT 4 MG TAB PO ONE (00:15)
[2018-05-11] MEDS ORDERED: SODIUM CHLORIDE 0.9% FLUSH 10 ML FLUSH IV FLUSH PRN (00:15)
[2018-05-11 00:35] LABS: AUTOMATED NEUTROPHIL # 7.6 TH/MM3 (1.8-7.7); BASOPHIL # 0.1 TH/MM3 (0-0.2); BASOPHIL % 1.3 % (0.0-2.0); EOSINOPHIL # 0.2 TH/MM3 (0-0.4); EOSINOPHIL % 2.1 % (0.0-4.0); HEMATOCRIT 27.9 % (35.0-46.0); HEMOGLOBIN 9.4 GM/DL (11.6-15.3); LYMPHOCYTE # 1.6 TH/MM3 (1.0-4.8); MEAN CELL VOLUME 74.9 FL (80.0-100.0); MEAN CORPUSCULAR HEMOGLOBIN 25.1 PG (27.0-34.0); MEAN CORPUSCULAR HGB CONC 33.5 % (32.0-36.0); MONO % 6.3 % (0.0-8.0); MONOCYTE # 0.7 TH/MM3 (0-0.9); NEUT % 74.3 % (16.0-70.0); PLATELET COUNT 247 TH/MM3 (150-450); RED BLOOD COUNT 3.73 MIL/MM3 (4.00-5.30); RED CELL DISTRIBUTION WIDTH 24.6 % (11.6-17.2); WHITE BLOOD COUNT 10.3 TH/MM3 (4.0-11.0)
[2018-05-11 01:00] LABS: ALBUMIN 3.1 GM/DL (3.4-5.0); ALKALINE PHOSPHATASE 141 U/L (45-117); ALT (GPT) 25 U/L (10-53); AST (GOT) 23 U/L (15-37); BLOOD UREA NITROGEN 12 MG/DL (7-18); CALCIUM 8.6 MG/DL (8.5-10.1); CHLORIDE 105 MEQ/L (98-107); CREATININE 0.52 MG/DL (0.50-1.00); GLOMERULAR FILTRATION RATE 127 ML/MIN (>89); GLUCOSE,RANDOM 126 MG/DL (74-106); SODIUM (NA) 142 MEQ/L (136-145); TOTAL BILIRUBIN ADULT 0.3 MG/DL (0.2-1.0); TOTAL PROTEIN 6.7 GM/DL (6.4-8.2)
[2018-05-11] MEDS ORDERED: POTASSIUM CHLORIDE 25 MEQ EFFERVESCENT TAB PO ONE (02:00)
[2018-05-11 02:53] LABS: BILIRUBIN, URINE NEG (NEG); BLOOD, URINE NEG (NEG); GLUCOSE,URINE NEG (NEG); KETONE, URINE NEG (NEG); MUCUS URINE MANY /lpf (OCC); NITRITE,URINE NEG (NEG); SQUAMOUS EPITHELIAL CELL URINE 30 /hpf (0-5); URINE COLOR YELLOW (YELLW/STRAW); URINE LEUKOCYTE ESTERASE TRACE (NEG)
[2018-05-11] MEDS ORDERED: ZOFR4TAB3 SL (03:07)
[2018-05-11] MEDS ORDERED: CIPR-9 PO (03:07)
[2018-05-11] MEDS ORDERED: TRAM50 PO (03:07)
[2018-05-11] MEDS ORDERED: POTA-163 PO (03:10)
[2018-05-11] MEDS ORDERED: oxyCODONE/ACETAMINOPHEN 5 MG/325 MG TAB PO ONE (03:30)
== END 2018-05-11 04:33 | disposition home or self-care (01) ==
LOC: NEPC 22:52
DX: N39.0 Urinary tract infection, site not specified (principal); K86.1 Other chronic pancreatitis; E87.6 Hypokalemia; F41.9 Anxiety disorder, unspecified; K21.9 Gastro-esophageal reflux disease without esophagitis; I10 Essential (primary) hypertension; F17.200 Nicotine dependence, unspecified, uncomplicated; Z87.19 Personal history of other diseases of the digestive system; Z79.899 Other long term (current) drug therapy; Z88.0 Allergy status to penicillin; Z88.8 Allergy status to other drugs, medicaments and biological substances
CPT/HCPCS: 80053; 81001; 83690; 85025; 96361; 96374; 96376; 99284; J2270; J7030

== ENCOUNTER 2018-05-14 12:47 | Inpatient (IN) | payer SELFPAY ==
[~2018-05-14] VITALS: Ht 160 cm; Wt 48.0 kg
[~2018-05-14 12:47] MED LIST changes: +CIPR-9 PO; +POTA-163 PO; +TRAM50 PO; +ZOFR4TAB3 SL
[2018-05-14 12:58] VITALS: BP 136/88; PULSE 116; RESP 18; TEMP 98.6; O2SAT 97
--- NOTE | 2018-05-14 17:40 | PD ---
HPI Chief Complaint: GI Complaint Time Seen by Provider: 17:25 Travel History International Travel<30 days: No Contact w/Intl Traveler<30days: No Traveled to known affect area: No History of Present Illness HPI 47yo F with PMH of umbilical hernia, chronic pancreatitis presents to the ED with c/o persistent pain and nausea and vomiting for 1 week. Pt was seen here on 05/10/18 and had lab work consistent with chronic pancreatitis and urinalysis that showed trace leukocyte with 6 WBC. Pt was prescribed cipro, potassium, zofran and tramadol. Pt said pain is mainly lower abdomen but feels like there is pain in her pancreas as well. Said it is cramping and constant. Associated with some nausea and vomiting. Thinks she has low grade fever. Denies any dysuria, hematuria, vaginal bleeding, vaginal discharge, chest pain, sob. PSH include cholecystectomy, removal of pancreatic cyst. PFSH Past Medical History Asthma: No Autoimmune Disease: No Blood Disorders: No Anxiety: Yes Depression: No Heart Rhythm Problems: No Cancer: No Cardiovascular Problems: Yes High Cholesterol: No Chemotherapy: No Chest Pain: Yes (in the past) Congestive Heart Failure: No COPD: No Diabetes: No Diminished Hearing: No Endocrine: No Gastrointestinal Disorders: Yes (C-DIFF) GERD: Yes Glaucoma: No Genitourinary: Yes Headaches: Yes Hepatitis: No Hiatal Hernia: No Hypertension: Yes Immune Disorder: No Implanted Vascular Access Dvce: No Kidney Stones: No Musculoskeletal: Yes Neurologic: Yes Psychiatric: No Reproductive: No Respiratory: No Migraines: Yes Myocardial Infarction: No Pancreatitis: Yes Radiation Therapy: No Renal Failure: No Sleep Apnea: No Thyroid Disease: No Ulcer: No ?: Not : 1 Para: 1 Miscarriage: 0 : 0 Past Surgical History Abdominal Surgery: Yes (cholecystectomy, pancreas cyst/abscess surgery) AICD: No Arteriovenous Shunt: No Section: Yes Cholecystectomy: Yes Gynecologic Surgery: Yes () Insulin Pump: No Joint Replacement: No Pacemaker: No Thoracic Surgery: No Other Surgery: Yes (GALLBLADDER, , PANCREAS) Social History Alcohol Use: No Tobacco Use: Yes (1 ppd) Substance Use: No Allergies-Medications (Allergen,Severity, Reaction): Coded Allergies: methadone (Unverified Allergy, Severe, 05/14/18) penicillin G (Unverified Allergy, Severe, Anaphylaxis, 05/14/18) Reported Meds & Prescriptions Reported Meds & Active Scripts Active Potassium Chloride ER (Potassium Chloride) 20 Meq Tab 20 Meq PO BID Cipro (Ciprofloxacin HCl) 500 Mg Tab 500 Mg PO BID 5 Days Zofran Odt (Ondansetron Odt) 4 Mg Tab 4 Mg SL Q6HR PRN Ultram (Tramadol HCl) 50 Mg Tab 50 Mg PO Q6H PRN 3 Days Oxycodone-Acetaminophen 5-325 (Oxycodone HCl/Acetaminophen) 5 Mg-325 Mg Tablet 1 Tab PO Q4H PRN Eq Nicotine (Nicotine) 14 Mg/24 Hour Dis 1 Patch T-DERMAL DAILY Acidophilus/l-Sporogenes (Lactobacillus Acidophilus) 35 Million Cell-25 Million Cell Tab 1 Tab PO TID Creon (Amylase/Lipase/Protease) 12,000-38,000-60,000 Units Cap 1 Cap PO TID Reported Temazepam 15 Mg Cap 15 Mg PO HS PRN Review of Systems Except as stated in HPI: all other systems reviewed are Neg Physical Exam Narrative GENERAL: 47yo F in mild distress. SKIN: Focused skin assessment warm/dry. HEAD: Atraumatic. Normocephalic. EYES: Pupils equal and round. No scleral icterus. No injection or drainage. ENT: No nasal bleeding or discharge. Mucous membranes pink and moist. NECK: Trachea midline. No JVD. CARDIOVASCULAR: Regular rate and rhythm. No murmur appreciated. RESPIRATORY: No accessory muscle use. Clear to auscultation. Breath sounds equal bilaterally. GASTROINTESTINAL: Abdomen soft, +TTP diffusely in abdomen but more in lower abdomen. No rebound tenderness or guarding. MUSCULOSKELETAL: No obvious deformities. No clubbing. No cyanosis. No edema. NEUROLOGICAL: Awake and alert. No obvious cranial nerve deficits. Motor grossly within normal limits. Normal speech. PSYCHIATRIC: Appropriate mood and affect; insight and judgment normal. Data Data Last Documented VS Vital Signs Date Time Temp Pulse Resp B/P (MAP) Pulse Ox O2 Delivery O2 Flow Rate FiO2 05/14/18 12:58 98.6 116 18 136/88 (104) 97 Orders Orders Complete Blood Count With Diff (05/14/18 17:33) Comprehensive Metabolic Panel (05/14/18 17:33) Lipase (05/14/18 17:33) Urinalysis - C+S If Indicated (05/14/18 17:33) Ketorolac Inj (Toradol Inj) (05/14/18 17:45) Ed Urine Pregnancytest Poc (05/14/18 17:33) Ondansetron Odt (Zofran Odt) (05/14/18 17:45) Ct Abd/Pel W Iv Contrast(Rout) (05/14/18 ) Morphine Inj (Morphine Inj) (05/14/18 19:30) Iohexol 350 Inj (Omnipaque 350 Inj) (05/14/18 21:06) Labs Laboratory Tests Test 05/14/18 17:50 White Blood Count 10.5 TH/MM3 Red Blood Count 4.55 MIL/MM3 Hemoglobin 11.0 GM/DL Hematocrit 34.9 % Mean Corpuscular Volume 76.8 FL Mean Corpuscular Hemoglobin 24.1 PG Mean Corpuscular Hemoglobin Concent 31.3 % Red Cell Distribution Width 24.8 % Platelet Count 336 TH/MM3 Mean Platelet Volume 7.5 FL Neutrophils (%) (Auto) 74.2 % Lymphocytes (%) (Auto) 15.8 % Monocytes (%) (Auto) 6.4 % Eosinophils (%) (Auto) 2.6 % Basophils (%) (Auto) 1.0 % Neutrophils # (Auto) 7.8 TH/MM3 Lymphocytes # (Auto) 1.7 TH/MM3 Monocytes # (Auto) 0.7 TH/MM3 Eosinophils # (Auto) 0.3 TH/MM3 Basophils # (Auto) 0.1 TH/MM3 CBC Comment AUTO DIFF Differential Comment AUTO DIFF CONFIRMED Platelet Estimate NORMAL Platelet Morphology Comment NORMAL Target Cells 1+ Stomatocytes 1+ Urine Color YELLOW Urine Turbidity HAZY Urine pH 6.0 Urine Specific [place] 1.013 Urine Protein NEG mg/dL Urine Glucose (UA) NEG mg/dL Urine Ketones TRACE mg/dL Urine Occult Blood NEG Urine Nitrite NEG Urine Bilirubin NEG Urine Urobilinogen 2.0 mg/dL Urine Leukocyte Esterase TRACE Urine RBC 2 /hpf Urine WBC 5 /hpf Urine Squamous Epithelial Cells 8 /hpf Urine Bacteria RARE /hpf Urine Mucus MANY /lpf Microscopic Urinalysis Comment CULT NOT INDICATED Blood Urea Nitrogen 7 MG/DL Creatinine 0.52 MG/DL Random Glucose 98 MG/DL Total Protein 7.5 GM/DL Albumin 3.2 GM/DL Calcium Level 8.8 MG/DL Alkaline Phosphatase 178 U/L Aspartate Amino Transf (AST/SGOT) 31 U/L Alanine Aminotransferase (ALT/SGPT) 27 U/L Total Bilirubin 0.4 MG/DL Sodium Level 136 MEQ/L Potassium Level 3.6 MEQ/L Chloride Level 101 MEQ/L Carbon Dioxide Level 24.3 MEQ/L Anion Gap 11 MEQ/L Estimat Glomerular Filtration Rate 127 ML/MIN Lipase 533 U/L [facility] Medical Decision Making Medical Screen Exam Complete: Yes Emergency Medical Condition: Yes Differential Diagnosis Acute on chronic pancreatitis vs. abscess vs. obstruction vs. appendicitis vs. colitis Narrative Course 47yo F with abdominal pain and vomiting. Pt is nontoxic appearing but very tender on exam. Gave toradol but still in a lot of pain so given morphine which helped with the pain. Labs reviewed, no leukocytosis. H/H low at 11/ 34.9 which is at baseline. BMP unremarkable. Lipase elevated at 533 but this is lower than prior. UA showed WBC 5. Culture not indicated. CT a/p showed increased inflammatory changes surrounding the pancreas with increased pancreatic fluid collection. Increased free fluid in the abdomen and pelvis. Pt had history of pancreatic cyst removal. Pt reevaluated at bedside and said abdominal pain is returning, ordered another dose of pain medication. Will admit for acute on chronic pancreatitis. Diagnosis Primary Impression: Acute on chronic pancreatitis Admitting Information Admitting Physician Requests: Liliane Leon DO May 14, 2018 17:40
[2018-05-14] MEDS ORDERED: KETOROLAC TROMETHAMINE 30 MG/ML (IVP) VIAL IVP ONE (17:45)
[2018-05-14] MEDS ORDERED: ONDANSETRON ODT 4 MG TAB PO ONE (17:45)
[2018-05-14 18:56] LABS: AUTOMATED NEUTROPHIL # 7.8 TH/MM3 (1.8-7.7); BASOPHIL # 0.1 TH/MM3 (0-0.2); EOSINOPHIL # 0.3 TH/MM3 (0-0.4); EOSINOPHIL % 2.6 % (0.0-4.0); HEMATOCRIT 34.9 % (35.0-46.0); LYMPH % 15.8 % (9.0-44.0); LYMPHOCYTE # 1.7 TH/MM3 (1.0-4.8); MEAN CELL VOLUME 76.8 FL (80.0-100.0); MEAN CORPUSCULAR HEMOGLOBIN 24.1 PG (27.0-34.0); MEAN CORPUSCULAR HGB CONC 31.3 % (32.0-36.0); MEAN PLATELET VOLUME 7.5 FL (7.0-11.0); MONO % 6.4 % (0.0-8.0); MONOCYTE # 0.7 TH/MM3 (0-0.9); NEUT % 74.2 % (16.0-70.0); PLATELET COUNT 336 TH/MM3 (150-450); RED BLOOD COUNT 4.55 MIL/MM3 (4.00-5.30); RED CELL DISTRIBUTION WIDTH 24.8 % (11.6-17.2); WHITE BLOOD COUNT 10.5 TH/MM3 (4.0-11.0)
[2018-05-14 18:57] LABS: BACTERIA, URINE RARE /hpf; BILIRUBIN, URINE NEG (NEG); BLOOD, URINE NEG (NEG); GLUCOSE,URINE NEG (NEG); KETONE, URINE TRACE mg/dL (NEG); MUCUS URINE MANY /lpf (OCC); NITRITE,URINE NEG (NEG); SQUAMOUS EPITHELIAL CELL URINE 8 /hpf (0-5); URINE COLOR YELLOW (YELLW/STRAW); URINE LEUKOCYTE ESTERASE TRACE (NEG)
[2018-05-14 19:18] LABS: ALBUMIN 3.2 GM/DL (3.4-5.0); ALKALINE PHOSPHATASE 178 U/L (45-117); ALT (GPT) 27 U/L (10-53); AST (GOT) 31 U/L (15-37); BICARBONATE 24.3 MEQ/L (21.0-32.0); BLOOD UREA NITROGEN 7 MG/DL (7-18); CALCIUM 8.8 MG/DL (8.5-10.1); CHLORIDE 101 MEQ/L (98-107); CREATININE 0.52 MG/DL (0.50-1.00); GLOMERULAR FILTRATION RATE 127 ML/MIN (>89); GLUCOSE,RANDOM 98 MG/DL (74-106); SODIUM (NA) 136 MEQ/L (136-145); TOTAL BILIRUBIN ADULT 0.4 MG/DL (0.2-1.0); TOTAL PROTEIN 7.5 GM/DL (6.4-8.2)
[2018-05-14] MEDS ORDERED: MORPHINE SULFATE 4 MG/ML INJ IV PUSH ONE ×2 (19:30→22:30)
[2018-05-14 19:33] LABS: TARGET CELLS 1+ (NORMAL)
[2018-05-14 19:34] LABS: STOMATOCYTES 1+ (NORMAL)
[2018-05-14] MEDS ORDERED: IOHEXOL 350 MG/ML 10 ML VIAL (for RAD DIAG) IVCONTRAST ONE (21:06)
--- NOTE | 2018-05-14 22:15 | RADRPT ---
EXAM DATE: 05/14/2018 9:12 PM EDT AGE/SEX: 47 years / Female INDICATIONS: Abdomen pain. CLINICAL DATA: This is the patient's initial encounter. Patient reports that signs and symptoms have been present for 1 week and indicates a pain score of 6/10. MEDICAL/SURGICAL HISTORY: Pancreatitis. Cardiovascular disease. Hypertension. c-diff Cholec ystectomy. ORAL CONTRAST: No oral contrast ingested. RADIATION DOSE: 5.1 CTDI (mGy) COMPAR[place]: [facility] [place]AST, 04/19/2018. [facility] [place] & [place]EL[place] W CONTRAST , 06/05/2017. . TECHNIQUE: Multiple contiguous axial images were obtained through the abdomen and pelvis following b olus infusion of 75 ml Omnipaque 350 (iohexol) nonionic water-soluble contrast as a single exam dos e. No oral contrast ingested. Using automated exposure control and adjustment of the mA and/or kV ac cording to patient size, radiation dose was kept as low as reasonably achievable to obtain optimal di agnostic quality images. DICOM format image data is available electronically for review and comparis on. FINDINGS: Lower chest: There is a stable 10 mm nodule in the right lower lobe. Hepatobiliary: Liver demonstrates abnormal attenuation characteristic of steatosis. No focal concerni ng lesion is identified. The low attenuation area described previously is now as well visualized toda y but is stable measuring approximately 13 mm. Hepatic vasculature demonstrates no abnormality. Gallb ladder is absent and common duct is stable in size measuring 7 mm in the midportion. No common duct s tone is seen. Kidneys: No hydronephrosis, stone, or mass. Adrenal Glands: Within normal limits. Spleen: Within normal limits. Pancreas: Pancreas demonstrates diffuse abnormal punctate calcifications throughout. There is a perip ancreatic fluid collection in the anterior pararenal space located between the posterior gastric wall and anterior aspect of the pancreas and extending inferior to the pancreatic tail. This fluid collec tion has increased in size and measures approximately 7.5 x 2.7 x 6.9 cm, significantly increased fro m the prior study. Inferiorly the fluid collection abuts a segment of small bowel. There is mild surr ounding inflammatory change. Vascular: The aorta is nonaneurysmal. There is moderate atherosclerotic disease. Splenic vein is occl uded with enlarged perigastric collateral vessels present similar to the prior study. Bowel/Mesentery: A small hiatal hernia is present. There is wall thickening in the posterior gastric wall where it abuts the peripancreatic fluid collection. Proximal jejunum is also thickened where it abuts the fluid collection. There are no signs of obstruction. Distal small bowel and colon demonstra te no acute finding. There is a small volume of free fluid in the abdomen and pelvis. This volume of fluid has increased from the prior study. Abdominal Wall: There is a umbilical hernia containing fat and collateral blood vessels. Retroperitoneum: No lymphadenopathy. Bladder: No wall thickening or mass. Reproductive: Within normal limits. Inguinal: No lymphadenopathy or hernia. Musculoskeletal: No acute osseous abnormality is identified. CONCLUSION: 1. There are increased inflammatory changes surrounding the pancreas with increased peripancreatic f luid collection, as above. The fluid collection abuts the posterior gastric wall and proximal jejunum with associated wall thickening of the structures. Pancreas again demonstrates changes characteristi c of chronic pancreatitis. 2. 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 3. Stable hepatic steatosis and mildly enlarged common bile duct in this patient post cholecystectom y. The subtle low-attenuation area in the right lobe the liver remain stable. 4. Increased free fluid in the abdomen and pelvis. 5. The 10 mm right lower lobe nodule has been stable since at least the most recent prior examinati on. Suggest attention to this at follow-up imaging. Electronically signed by: Thom Murray MD 05/14/2018 10:14 PM EDT
[2018-05-14 23:14] VITALS: BP 180/99; PULSE 88; RESP 18; O2SAT 96
[2018-05-15] VITALS (7 sets, daily range): BP systolic 144–171; BP diastolic 77–90; PULSE 78–92; RESP 16–18; TEMP 97.8–98.4; O2SAT 92–98
[2018-05-15] MEDS ORDERED: MAGNESIUM HYDROXIDE SUSP 30 ML CUP PO PRN (01:00)
[2018-05-15] MEDS ORDERED: SODIUM CHLORIDE 0.9% FLUSH 10 ML FLUSH IV FLUSH PRN (01:00)
[2018-05-15] MEDS ORDERED: BISACODYL 10 MG SUPP RECTAL PRN (01:00)
[2018-05-15] MEDS ORDERED: NALOXONE HCL 0.4 MG/ML AMP IV PUSH PRN (01:00)
[2018-05-15] MEDS ORDERED: SENNOSIDES 8.6 MG TAB PO PRN (01:00)
[2018-05-15] MEDS ORDERED: LACTULOSE SYRUP 20 GM/30 ML CUP PO PRN (01:00)
[2018-05-15] MEDS: SODIUM CHLOR 0.9% 1000 ML INJ 1,000 ML IV SCH ×2 (01:10→14:05)
[2018-05-15] MEDS: ONDANSETRON HCL 4 MG/2 ML VIAL IVP PRN ×4 (02:04→20:08)
[2018-05-15] MEDS: MORPHINE SULFATE 4 MG/ML INJ IV PUSH PRN ×8 (02:05→23:08)
--- NOTE | 2018-05-15 04:28 | HHI.HP ---
[facility] Primary Care Physician No Primary Care Physician Admission Diagnosis Acute on chronic pancreatitis Diagnoses: Travel History International Travel<30 Days: No Contact w/Intl Traveler <30 Da: No Traveled to Known Affected Are: No History of Present Illness 47-year-old female with a past medical history significant for chronic pancreatitis and fatty liver presents to the emergency department complaining of abdominal pain. The patient reports she has bilateral lower abdominal pain that radiates to her bilateral lower back. She also complains of epigastric pain that is nonradiating. She states that the pain is different than her normal pancreatitis pain. She endorses nausea and diarrhea without vomiting. She endorses a subjective fever. No chest pain or shortness of breath. Review of Systems Except as stated in HPI: all other systems reviewed are Neg Past Family Social History Past Medical History Chronic pancreatitis Fatty liver Past Surgical History Chronic pancreatitis Fatty liver Reported Medications Reported Meds & Active Scripts Active Potassium Chloride ER (Potassium Chloride) 20 Meq Tab 20 Meq PO BID Cipro (Ciprofloxacin HCl) 500 Mg Tab 500 Mg PO BID 5 Days Zofran Odt (Ondansetron Odt) 4 Mg Tab 4 Mg SL Q6HR PRN Ultram (Tramadol HCl) 50 Mg Tab 50 Mg PO Q6H PRN 3 Days Oxycodone-Acetaminophen 5-325 (Oxycodone HCl/Acetaminophen) 5 Mg-325 Mg Tablet 1 Tab PO Q4H PRN Eq Nicotine (Nicotine) 14 Mg/24 Hour Dis 1 Patch T-DERMAL DAILY Creon (Amylase/Lipase/Protease) 12,000-38,000-60,000 Units Cap 1 Cap PO TID Reported Temazepam 15 Mg Cap 15 Mg PO HS PRN Allergies: Coded Allergies: methadone (Unverified Allergy, Severe, 05/14/18) penicillin G (Unverified Allergy, Severe, Anaphylaxis, 05/14/18) Family History Patient was adopted and does not know her family history Social History Smokes approximately 1 pack per day. Occasional alcohol. Denies illicit drugs. Physical Exam Vital Signs Vital Signs Date Time Temp Pulse Resp B/P (MAP) Pulse Ox O2 Delivery O2 Flow Rate FiO2 05/15/18 01:25 05/15/18 01:05 83 16 158/79 (105) 95 Room Air 05/14/18 23:14 88 18 180/99 (126) 96 Room Air 05/14/18 12:58 98.6 116 18 136/88 (104) 97 Physical Exam GENERAL: Thin, female lying in bed SKIN: No rashes, ecchymoses or lesions. Cool and dry. HEAD: Atraumatic. Normocephalic. No temporal or scalp tenderness. EYES: Pupils equal round and reactive. Extraocular motions intact. No scleral icterus. No injection or drainage. ENT: Nose without bleeding, purulent drainage or septal hematoma. Throat without erythema, tonsillar hypertrophy or exudate. Uvula midline. Airway patent. NECK: Trachea midline. No JVD or lymphadenopathy. Supple, nontender, no meningeal signs. CARDIOVASCULAR: Regular rate and rhythm without murmurs, gallops, or rubs. RESPIRATORY: Clear to auscultation. Breath sounds equal bilaterally. No wheezes , rales, or rhonchi. GASTROINTESTINAL: Abdomen soft, diffusely tender to palpation worse in the lower quadrants and epigastrium, nondistended. No hepato-splenomegaly, or palpable masses. MUSCULOSKELETAL: Extremities without clubbing, cyanosis, or edema. No joint tenderness, effusion, or edema noted. No calf tenderness. NEUROLOGICAL: Awake and alert. Cranial nerves II through XII intact. Motor and sensory grossly within normal limits. Normal speech. Laboratory Laboratory Tests Test 05/14/18 17:50 White Blood Count 10.5 Red Blood Count 4.55 Hemoglobin 11.0 Hematocrit 34.9 Mean Corpuscular Volume 76.8 Mean Corpuscular Hemoglobin 24.1 Mean Corpuscular Hemoglobin Concent 31.3 Red Cell Distribution Width 24.8 Platelet Count 336 Mean Platelet Volume 7.5 Neutrophils (%) (Auto) 74.2 Lymphocytes (%) (Auto) 15.8 Monocytes (%) (Auto) 6.4 Eosinophils (%) (Auto) 2.6 Basophils (%) (Auto) 1.0 Neutrophils # (Auto) 7.8 Lymphocytes # (Auto) 1.7 Monocytes # (Auto) 0.7 Eosinophils # (Auto) 0.3 Basophils # (Auto) 0.1 CBC Comment AUTO DIFF Differential Comment AUTO DIFF CONFIRMED Platelet Estimate NORMAL Platelet Morphology Comment NORMAL Target Cells 1+ Stomatocytes 1+ Urine Color YELLOW Urine Turbidity HAZY Urine pH 6.0 Urine Specific [place] 1.013 Urine Protein NEG Urine Glucose (UA) NEG Urine Ketones TRACE Urine Occult Blood NEG Urine Nitrite NEG Urine Bilirubin NEG Urine Urobilinogen 2.0 Urine Leukocyte Esterase TRACE Urine RBC 2 Urine WBC 5 Urine Squamous Epithelial Cells 8 Urine Bacteria RARE Urine Mucus MANY Microscopic Urinalysis Comment CULT NOT INDICATED Blood Urea Nitrogen 7 Creatinine 0.52 Random Glucose 98 Total Protein 7.5 Albumin 3.2 Calcium Level 8.8 Alkaline Phosphatase 178 Aspartate Amino Transf (AST/SGOT) 31 Alanine Aminotransferase (ALT/SGPT) 27 Total Bilirubin 0.4 Sodium Level 136 Potassium Level 3.6 Chloride Level 101 Carbon Dioxide Level 24.3 Anion Gap 11 Estimat Glomerular Filtration Rate 127 Lipase 533 Result Diagram: 05/14/18174905/14/181749 [place] VTE Risk Assessment [place] VTE Risk Assessment: No/Low Risk (score <= 1) Caprini Risk Assessment Model Point Value = 1 Point Value = 2 Point Value = 3 Point Value = 5 Age 41-60 Minor surgery BMI > 25 kg/m2 Swollen legs Varicose veins or History of unexplained or recurrent spontaneous Oral contraceptives or hormone replacement Sepsis (< 1 month) Serious lung disease, including pneumonia (< 1 month) Abnormal pulmonary function Acute myocardial infarction Congestive heart failure (< 1 month) History of inflammatory bowel disease Medical patient at bed rest Age 61-74 Arthroscopic surgery Major open surgery (> 45 min) Laparoscopic surgery (> 45 min) Malignancy Confined to bed (> 72 hours) Immobilizing plaster cast Central venous access Age >= 75 History of VTE Family history of VTE Factor V Leiden Prothrombin [id number] Lupus anticoagulant Anticardiolipin antibodies Elevated serum homocysteine Heparin-induced thrombocytopenia Other congenital or acquired thrombophilia Stroke (< 1 month) Elective arthroplasty Hip, pelvis, or leg fracture Acute spinal cord injury (< 1 month) Prophylaxis Regimen Total Risk Factor Score Risk Level Prophylaxis Regimen 0-1 Low Early ambulation 2 Moderate Order ONE of the following: *Sequential Compression Device (SCD) *Heparin 5000 units SQ BID 3-4 Higher Order ONE of the following medications: *Heparin 5000 units SQ TID *Enoxaparin/Lovenox 40 mg SQ daily (WT < 150 kg, CrCl > 30 mL/min) *Enoxaparin/Lovenox 30 mg SQ daily (WT < 150 kg, CrCl > 10-29 mL/min) *Enoxaparin/Lovenox 30 mg SQ BID (WT < 150 kg, CrCl > 30 mL/min) AND/OR *Sequential Compression Device (SCD) 5 or more Highest Order ONE of the following medications: *Heparin 5000 units SQ TID (Preferred with Epidurals) *Enoxaparin/Lovenox 40 mg SQ daily (WT < 150 kg, CrCl > 30 mL/min) *Enoxaparin/Lovenox 30 mg SQ daily (WT < 150 kg, CrCl > 10-29 mL/min) *Enoxaparin/Lovenox 30 mg SQ BID (WT < 150 kg, CrCl > 30 mL/min) AND *Sequential Compression Device (SCD) Assessment and Plan Assessment and Plan Assessment/plan: 1. Acute exacerbation of chronic pancreatitis Lipase mildly elevated at 533 CT of the abdomen/pelvis shows increased inflammatory changes surrounding the pancreas with increased peripancreatic fluid collection Gastroenterology consulted, appreciate assistance N.p.o. IV fluid hydration 2. Fatty liver CT of the abdomen/pelvis shows stable hepatic steatosis FEN N.p.o. Electrolytes: Monitor and replete as needed NS at 70 cc/hour Physician Certification 2 Midnight Certification Type: Admission for Inpatient Services Order for Inpatient Services The services are ordered in accordance with Medicare regulations or non- Medicare payer requirements, as applicable. In the case of services not specified as inpatient-only, they are appropriately provided as inpatient services in accordance with the 2-midnight benchmark. Estimated LOS (days): 2 2 days is the estimated time the patient will need to remain in the hospital, assuming treatment plan goals are met and no additional complications. Post-Hospital Plan: Not yet determined Claudia Solano MD May 15, 2018 04:28
[2018-05-15] MEDS: SODIUM CHLORIDE 0.9% FLUSH 10 ML FLUSH IV FLUSH SCH ×2 (09:00→20:33)
[2018-05-15] MEDS: DOCUSATE SODIUM 50 MG/SENNA 8.6 MG TAB PO SCH ×2 (09:00→20:08)
--- NOTE | 2018-05-15 10:39 | HHI.PR ---
Subjective Remarks Follow-up visit acute on chronic pancreatitis. Patient seen and examined today. Reports she continues to have left abdominal pain, and lower quadrant pain and tenderness especially to palpation. Denies any nausea, vomiting. Continues to be on IV fluids. Denies any dysuria, hematuria. Denies any fevers , chills. Denies chest pain, palpitations, headaches, dizziness. Objective Vital Signs Date Time Temp Pulse Resp B/P (MAP) Pulse Ox O2 Delivery O2 Flow Rate FiO2 05/15/18 08:00 98.1 87 18 152/77 (102) 92 05/15/18 05:10 97.8 78 18 150/87 (108) 94 05/15/18 04:00 97.8 88 17 160/81 (107) 96 05/15/18 01:25 05/15/18 01:05 83 16 158/79 (105) 95 Room Air 05/14/18 23:14 88 18 180/99 (126) 96 Room Air 05/14/18 12:58 98.6 116 18 136/88 (104) 97 I/O 05/14/18 05/14/18 05/14/18 05/15/18 05/15/18 05/15/18 07:00 15:00 23:00 07:00 15:00 23:00 Intake Total 518 ml Balance 518 ml Intake Oral 240 ml IV Total 278 ml # Voids 2 Result Diagram: 05/14/18 1750 05/14/18 1750 Imaging Last Impressions Abdomen/Pelvis CT 05/14/18 0000 Signed Impressions: CONCLUSION: 1. There are increased inflammatory changes surrounding the pancreas with incr eased peripancreatic fluid collection, as above. The fluid collection abuts the posterior gastric wall and proximal jejunum with associated wall thickening of the structures. Pancreas again demonstrates changes characteristic of chronic pancreatitis. 2. 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 3. Stable hepatic steatosis and mildly enlarged common bile duct in this patie nt post cholecystectomy. The subtle low-attenuation area in the right lobe the liver remain stable. 4. Increased free fluid in the abdomen and pelvis. 5. The 10 mm right lower lobe nodule has been stable since at least the most recent prior examination. Suggest attention to this at follow-up imaging. Procedures None Objective Remarks GENERAL: This is a well-nourished, well-developed patient, in no apparent distress. SKIN: Warm and dry. HEENT: Normocephalic. Pupils equal round and reactive. Nose without bleeding. Airway patent. NECK: Trachea midline. No JVD. Supple. CARDIOVASCULAR: Regular rate and rhythm without murmurs, gallops, or rubs. RESPIRATORY: Clear to auscultation. Breath sounds equal bilaterally. No wheezes , rales, or rhonchi. GASTROINTESTINAL: Abdomen soft, nondistended. Bowel Sounds normoactive x4. Tenderness to light palpation left upper quadrant. MUSCULOSKELETAL: Extremities without clubbing, cyanosis, or edema. NEUROLOGICAL: Awake and alert. Oriented to time, place, person. No focal neuro deficit. Moves all extremities. Normal speech. A/P Assessment and Plan 47-year-old female with a past medical history significant for chronic pancreatitis and fatty liver presents to the emergency department complaining of abdominal pain. Acute exacerbation of chronic pancreatitis -Lipase mildly elevated at 533 -CT of the abdomen/pelvis shows increased inflammatory changes surrounding the pancreas with increased peripancreatic fluid collection -Gastroenterology consulted, appreciate assistance -N.p.o. for now. Will advance diet to clear liquids tonight and see if patient can tolerate it. If tolerated advance diet in a.m. Plan for possible discharge -IV fluid hydration Fatty liver -CT of the abdomen/pelvis shows stable hepatic steatosis -Culture result with patient Tobacco abuse -Counseled. Nicotine patch DVT prop, ambulatory, SCDs Discharge Planning Plan to DC home when clinically improved. Maribeth Bee May 15, 2018 10:39 am
--- NOTE | 2018-05-15 12:33 | PD.CONS ---
HPI History of Present Illness This is a 47 year old slim female who was admitted to the hospital on 05/14/2018 with significant generalized abdominal pain , mid abdomen left and right lower quadrant with some radiation into her back. Patient states 3-4-day worsening of her symptoms but states that she has chronic abdominal pain . She has been on minimal clear liquids and no eating during that period of time except for a few soda crackers. Patient has a history of chronic pancreatitis and fatty liver disease and states that her symptoms have been for 3-4 years. She also notes she had cholecystectomy 4 years ago before her pancreatitis symptoms started occurring. Patient also has had abscess that required drainage and cystic disease which has been followed. Current symptoms include nausea but no vomiting, dyspepsia, and her generalized mid abdominal pain including the right and left lower quadrants. She does note some positive diarrhea over the past few days but states this is a new symptom for her. Usually her bowel movements are normal soft brown in daily patient is positive for smoking approximately a pack a day since her younger years and has had occasional alcohol but minimal amounts only noting one drink in the past few weeks. Patient has no family history of colon cancer. Her last known EGD colonoscopy was approximately 4 months ago here in the hospital setting, no known EUS. Patient states that she has been eating cooked food at home, organic clean eating and has avoided any spicy foods or fatty foods over the past year. Patient did note some mild fever on admission but afebrile now current labs show hemoglobin 11, alkaline phosphatase 178, normal LFTs, lipase level 533. Patient does take narcotics for chronic pain and had been on Zantac twice daily for her dyspepsia. She is awake alert and a good historian gastroenterology was consulted for acute on chronic pancreatitis and assist with her management. (Melina Wu) [facility] Past Medical History Chronic pancreatitis Fatty liver Gallbladder disease Past Surgical History Chronic pancreatitis Fatty liver Cholecystectomy (Melina Wu) Coded Allergies: methadone (Unverified Allergy, Severe, 05/14/18) penicillin G (Unverified Allergy, Severe, Anaphylaxis, 05/14/18) Medications Administered Medications Medications (Trade) Dose Ordered Sig/Flores Route PRN Reason Start Time Stop Time Status Last Admin Dose Admin Morphine Sulfate (Morphine Inj) 4 mg Q3H PRN IV PUSH pain 6-10 05/15/18 01:00 05/15/18 10:57 Sodium Chloride 1,000 ml @ 70 mls/hr [id number] IV 05/15/18 00:55 05/15/18 01:10 Sodium Chloride (NS Flush) 2 ml BID IV FLUSH 05/15/18 09:00 05/15/18 09:00 Ondansetron HCl (Zofran Inj) 4 mg Q6H PRN IVP NAUSEA OR VOMITING 05/15/18 01:00 05/15/18 08:21 Family History Patient was adopted and does not know her family history on her father's side No family history known of colon cancer Social History Smokes approximately 1 pack per day. Occasional alcohol. Denies illicit drugs. (Melina Wu) Review of Systems Gastrointestinal: COMPLAINS OF: Abdominal pain, Diarrhea, Nausea (Melina Wu) GI Exam Vitals I&O Vital Signs Date Time Temp Pulse Resp B/P (MAP) Pulse Ox O2 Delivery O2 Flow Rate FiO2 05/15/18 08:00 98.1 87 18 152/77 (102) 92 05/15/18 05:10 97.8 78 18 150/87 (108) 94 05/15/18 04:00 97.8 88 17 160/81 (107) 96 05/15/18 01:25 05/15/18 01:05 83 16 158/79 (105) 95 Room Air 05/14/18 23:14 88 18 180/99 (126) 96 Room Air 05/14/18 12:58 98.6 116 18 136/88 (104) 97 I/O 05/14/18 05/14/18 05/14/18 05/15/18 05/15/18 05/15/18 07:00 15:00 23:00 07:00 15:00 23:00 Intake Total 518 ml Balance 518 ml Intake Oral 240 ml IV Total 278 ml # Voids 2 Imaging Last Impressions Abdomen/Pelvis CT 05/14/18 0000 Signed Impressions: CONCLUSION: 1. There are increased inflammatory changes surrounding the pancreas with incr eased peripancreatic fluid collection, as above. The fluid collection abuts the posterior gastric wall and proximal jejunum with associated wall thickening of the structures. Pancreas again demonstrates changes characteristic of chronic pancreatitis. 2. 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 3. Stable hepatic steatosis and mildly enlarged common bile duct in this patie nt post cholecystectomy. The subtle low-attenuation area in the right lobe the liver remain stable. 4. Increased free fluid in the abdomen and pelvis. 5. The 10 mm right lower lobe nodule has been stable since at least the most recent prior examination. Suggest attention to this at follow-up imaging. Laboratory Test 05/14/18 17:50 White Blood Count 10.5 TH/MM3 Red Blood Count 4.55 MIL/MM3 Hemoglobin 11.0 GM/DL Hematocrit 34.9 % Mean Corpuscular Volume 76.8 FL Mean Corpuscular Hemoglobin 24.1 PG Mean Corpuscular Hemoglobin Concent 31.3 % Red Cell Distribution Width 24.8 % Platelet Count 336 TH/MM3 Mean Platelet Volume 7.5 FL Neutrophils (%) (Auto) 74.2 % Lymphocytes (%) (Auto) 15.8 % Monocytes (%) (Auto) 6.4 % Eosinophils (%) (Auto) 2.6 % Basophils (%) (Auto) 1.0 % Neutrophils # (Auto) 7.8 TH/MM3 Lymphocytes # (Auto) 1.7 TH/MM3 Monocytes # (Auto) 0.7 TH/MM3 Eosinophils # (Auto) 0.3 TH/MM3 Basophils # (Auto) 0.1 TH/MM3 CBC Comment AUTO DIFF Differential Comment AUTO DIFF CONFIRMED Platelet Estimate NORMAL Platelet Morphology Comment NORMAL Target Cells 1+ Stomatocytes 1+ Urine Color YELLOW Urine Turbidity HAZY Urine pH 6.0 Urine Specific [place] 1.013 Urine Protein NEG mg/dL Urine Glucose (UA) NEG mg/dL Urine Ketones TRACE mg/dL Urine Occult Blood NEG Urine Nitrite NEG Urine Bilirubin NEG Urine Urobilinogen 2.0 mg/dL Urine Leukocyte Esterase TRACE Urine RBC 2 /hpf Urine WBC 5 /hpf Urine Squamous Epithelial Cells 8 /hpf Urine Bacteria RARE /hpf Urine Mucus MANY /lpf Microscopic Urinalysis Comment CULT NOT INDICATED Blood Urea Nitrogen 7 MG/DL Creatinine 0.52 MG/DL Random Glucose 98 MG/DL Total Protein 7.5 GM/DL Albumin 3.2 GM/DL Calcium Level 8.8 MG/DL Alkaline Phosphatase 178 U/L Aspartate Amino Transf (AST/SGOT) 31 U/L Alanine Aminotransferase (ALT/SGPT) 27 U/L Total Bilirubin 0.4 MG/DL Sodium Level 136 MEQ/L Potassium Level 3.6 MEQ/L Chloride Level 101 MEQ/L Carbon Dioxide Level 24.3 MEQ/L Anion Gap 11 MEQ/L Estimat Glomerular Filtration Rate 127 ML/MIN Lipase 533 U/L Physical Examination HEENT: Slim build, normocephalic; atraumatic; no jaundice. NECK: Neck is supple, CHEST: Even, unlabored CARDIAC: Regular rate and rhythm ABDOMEN: round, taut, generalized mid abdominal tenderness with some pain in the left lower and right lower quadrant radiating into the back no hepatosplenomegaly; bowel sounds are present in all four quadrants. EXTREMITIES: No clubbing, cyanosis, or edema. SKIN: Normal; no rash; no jaundice. COMPUTER SYSTEMS TECHNOLOGY INSTRUCTOR: No focal deficits; alert and oriented times three. (Melina Wu) Assessment and Plan Plan 47-year-old female admitted to the hospital on 625 with acute on chronic pancreatitis and fatty liver disease patient notes EGD colonoscopy approximately 4 months ago. She also notes some complications in the past with cyst and abscess.. Patient states only occasional alcohol 1 drink back several weeks ago. Current labs show hemoglobin 11 lipase level 533, normal LFTs, and alkaline phosphatase 178. Cholecystectomy approximately 4 years ago Patient states she has not eat or drink anything substantial for the past 4 days and would like to trial some liquids. Patient has also noted that she has been on Creon but her prescription has not been refilled recently. Patient does take narcotics for chronic pain. Discussion was around health maintenance and dietary habits. Patient states that she has been eating clean and home-cooked food for this past year she also notes 3 hernias which her PCP are monitoring, 1 of them is umbilical. No known family history of colon cancer. Anemia no obvious bleeding noted current hemoglobin 11. This is probably chronic Diarrhea, will make sure patient is back on her Creon and monitor for any bleeding. Unspecified but could be related to her pancreatitis. CT scan noted this admission with increased inflammatory changes surrounding the pancreas and increased peripancreatic fluid collection the fluid collection abuts to the posterior gastric wall and proximal jejunum and associated wall thickening of the structures appearance gives chronic pancreatitis characteristics. Increased free fluid in the abdomen and pelvis A 10 mm right lower lobe nodule has been stable since the previous exam stable hepatic steatosis and mildly enlarged common bile duct status post cholecystectomy. Plan Diet Will trial clear liquids, Bowel regimen PPI Monitor labs with special attention to her lipase level Restarted patient's home dose Creon Supportive care Further recommendations to follow Patient was seen per myself and Dr. Cary, this note is written on her behalf (Melina Wu) Physician Comments seen, examined agree with above we will obtain eus report states pain in lower abdomen, different than pancreatitis we will order mra of abdomen/pelvis (April Cary MD) Melina Wu May 15, 2018 12:33 April Cary MD May 15, 2018 17:44
[2018-05-15] MEDS: NICOTINE 21 MG/24 HR PATCH T-DERMAL SCH (14:48)
[2018-05-15] MEDS: LIPASE/PROTEASE/AMYLASE (12,000/38,000/60,000) CAP PO SCH ×2 (14:48→17:58)
[2018-05-15] MEDS ORDERED: TEMAZEPAM 15 MG CAP PO ONE (22:00)
[2018-05-16 00:30] VITALS: BP 144/87; PULSE 88; RESP 16; TEMP 98.4; O2SAT 96
[2018-05-16] MEDS: ONDANSETRON HCL 4 MG/2 ML VIAL IVP PRN ×3 (03:05→21:00)
[2018-05-16] MEDS: MORPHINE SULFATE 4 MG/ML INJ IV PUSH PRN ×2 (03:05→06:31)
[2018-05-16] MEDS: SODIUM CHLOR 0.9% 1000 ML INJ 1,000 ML IV SCH (03:07)
[2018-05-16 03:42] VITALS: BP 156/88; PULSE 92; RESP 16; TEMP 98.4; O2SAT 94
[2018-05-16 08:00] VITALS: BP_SYST 170; PULSE 94; RESP 18; TEMP 97.7; O2SAT 96
[2018-05-16] MEDS: DOCUSATE SODIUM 50 MG/SENNA 8.6 MG TAB PO SCH ×2 (08:15→21:00)
[2018-05-16] MEDS: LIPASE/PROTEASE/AMYLASE (12,000/38,000/60,000) CAP PO SCH ×3 (08:17→17:33)
[2018-05-16] MEDS: NICOTINE 21 MG/24 HR PATCH T-DERMAL SCH (08:17)
[2018-05-16] MEDS: REMOVE OLD PATCH T-DERMAL SCH (08:18)
[2018-05-16] MEDS: SODIUM CHLORIDE 0.9% FLUSH 10 ML FLUSH IV FLUSH SCH ×2 (08:18→22:34)
[2018-05-16] MEDS ORDERED: CREON12 PO (08:24)
[2018-05-16 08:42] LABS: AUTOMATED NEUTROPHIL # 3.4 TH/MM3 (1.8-7.7); BASOPHIL # 0.1 TH/MM3 (0-0.2); BASOPHIL % 1.4 % (0.0-2.0); EOSINOPHIL # 0.3 TH/MM3 (0-0.4); EOSINOPHIL % 5.1 % (0.0-4.0); HEMATOCRIT 27.4 % (35.0-46.0); HEMOGLOBIN 8.5 GM/DL (11.6-15.3); LYMPH % 20.3 % (9.0-44.0); MEAN CELL VOLUME 77.8 FL (80.0-100.0); MEAN CORPUSCULAR HEMOGLOBIN 24.1 PG (27.0-34.0); MEAN PLATELET VOLUME 7.5 FL (7.0-11.0); MONO % 6.7 % (0.0-8.0); MONOCYTE # 0.3 TH/MM3 (0-0.9); NEUT % 66.5 % (16.0-70.0); PLATELET COUNT 236 TH/MM3 (150-450); RED BLOOD COUNT 3.52 MIL/MM3 (4.00-5.30); RED CELL DISTRIBUTION WIDTH 24.4 % (11.6-17.2)
[2018-05-16 08:54] LABS: ALBUMIN 2.8 GM/DL (3.4-5.0); AST (GOT) 19 U/L (15-37); BICARBONATE 27.6 MEQ/L (21.0-32.0); BLOOD UREA NITROGEN 4 MG/DL (7-18); CALCIUM 8.2 MG/DL (8.5-10.1); CHLORIDE 104 MEQ/L (98-107); GLOMERULAR FILTRATION RATE 172 ML/MIN (>89); GLUCOSE,RANDOM 80 MG/DL (74-106); SODIUM (NA) 140 MEQ/L (136-145)
[2018-05-16 08:56] LABS: ALT (GPT) 23 U/L (10-53)
[2018-05-16 08:58] LABS: ALKALINE PHOSPHATASE 139 U/L (45-117); TOTAL BILIRUBIN ADULT 0.2 MG/DL (0.2-1.0); TOTAL PROTEIN 6.4 GM/DL (6.4-8.2)
--- NOTE | 2018-05-16 09:06 | HHI.PR ---
Subjective Remarks Follow-up visit chronic pancreatitis, chronic back pain. Patient seen and examined today. Reports she is doing okay. States that she still has abdominal pain, tenderness especially to palpation, states it is 9/10. States that the morphine is not holding here. Discussed with patient switching over to p.o. pain medication. Verbalized understanding and agrees with plan. Tolerating her diet. States she has no nausea, vomiting. She is on clear liquids. Plan for an MRA by GI. Otherwise, denies SOB/ dyspnea. Denies chest pain, palpitations, headaches, dizziness. Denies fevers, chills. Denies dysuria. Objective Vitals Vital Signs Date Time Temp Pulse Resp B/P (MAP) Pulse Ox O2 Delivery O2 Flow Rate FiO2 05/16/18 03:42 98.4 92 16 156/88 (110) 94 05/16/18 00:30 98.4 88 16 144/87 (106) 96 05/15/18 20:30 98.1 86 16 171/90 (117) 98 05/15/18 16:10 98.4 92 18 144/79 (100) 95 05/15/18 12:17 98.4 87 17 166/84 (111) 94 I/O 05/15/18 05/15/18 05/15/18 05/16/18 05/16/18 05/16/18 07:00 15:00 23:00 07:00 15:00 23:00 Intake Total 518 ml 600 ml 1690 ml Balance 518 ml 600 ml 1690 ml Intake Oral 240 ml 600 ml 480 ml IV Total 278 ml 1210 ml # Voids 2 2 3 # Bowel Movements 0 Result Diagram: 05/16/18 0748 05/16/18 0748 Imaging Last Impressions Abdomen/Pelvis CT 05/14/18 0000 Signed Impressions: CONCLUSION: 1. There are increased inflammatory changes surrounding the pancreas with incr eased peripancreatic fluid collection, as above. The fluid collection abuts the posterior gastric wall and proximal jejunum with associated wall thickening of the structures. Pancreas again demonstrates changes characteristic of chronic pancreatitis. 2. 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 3. Stable hepatic steatosis and mildly enlarged common bile duct in this patie nt post cholecystectomy. The subtle low-attenuation area in the right lobe the liver remain stable. 4. Increased free fluid in the abdomen and pelvis. 5. The 10 mm right lower lobe nodule has been stable since at least the most recent prior examination. Suggest attention to this at follow-up imaging. Objective Remarks GENERAL: This is a well-nourished, well-developed patient, in no apparent distress. SKIN: Warm and dry. HEENT: Normocephalic. Pupils equal round and reactive. Nose without bleeding. Airway patent. NECK: Trachea midline. No JVD. Supple. CARDIOVASCULAR: Regular rate and rhythm without murmurs, gallops, or rubs. RESPIRATORY: Clear to auscultation. Breath sounds equal bilaterally. No wheezes , rales, or rhonchi. GASTROINTESTINAL: Abdomen soft, nondistended. Bowel Sounds normoactive x4. Tenderness to light palpation left upper quadrant. MUSCULOSKELETAL: Extremities without clubbing, cyanosis, or edema. NEUROLOGICAL: Awake and alert. Oriented to time, place, person. No focal neuro deficit. Moves all extremities. Normal speech. A/P Assessment and Plan 47-year-old female with a past medical history significant for chronic pancreatitis and fatty liver presents to the emergency department complaining of abdominal pain. Acute exacerbation of chronic pancreatitis -Lipase mildly elevated at 533 -CT of the abdomen/pelvis shows increased inflammatory changes surrounding the pancreas with increased peripancreatic fluid collection -Gastroenterology consulted, appreciate assistance -Advance diet to clears. Plan for MRA today. Will discuss with GI if patient can advance diet. And if tolerating may plan for DC home either late this afternoon or tomorrow a.m. -IV fluid hydration Fatty liver -CT of the abdomen/pelvis shows stable hepatic steatosis -Culture result with patient Tobacco abuse -Counseled. Nicotine patch DVT prop, ambulatory, SCDs Discharge Planning Plan to DC home when clinically improved and cleared by GI Maribeth Bee May 16, 2018 09:06
[2018-05-16] MEDS: ACETAMINOPHEN/HYDROcodone 325 MG/5 MG TAB PO PRN ×4 (09:29→21:05)
[2018-05-16] MEDS ORDERED: POTASSIUM CHLORIDE 20 MEQ CONTROLLED RELEASE TAB PO ONE (09:30)
[2018-05-16] MEDS ORDERED: LORazepam 2 MG/ML VIAL IV PUSH ONE (11:30)
[2018-05-16 12:00] VITALS: BP 162/85; PULSE 85; RESP 18; TEMP 98.2; O2SAT 96
[2018-05-16] MEDS ORDERED: GADODIAMIDE PF 287 MG/ML 20 ML VIAL (for RAD MRI) IVCONTRAST ONE (14:11)
[2018-05-16 16:00] VITALS: BP 162/85; PULSE 85; RESP 18; TEMP 98.2; O2SAT 96
--- NOTE | 2018-05-16 16:37 | RADRPT ---
EXAM DATE: 05/16/2018 4:21 PM EDT AGE/SEX: 47 years / Female INDICATIONS: Abdominal pain. CLINICAL DATA: This is the patient's subsequent encounter. Patient reports that signs and symptoms h ave been present for 3 days and indicates a pain score of 5/10. MEDICAL/SURGICAL HISTORY: Pancreatitis. Fatty Liver Cholecystectomy. C Section, Exploratory La parotomy, I & D, Pancreatic Phlegmon COMPARISON: [facility] [place], MRI ABDOMEN W & W/O CONTRAST, 06/11/2017. . TECHNIQUE: 30 ml Omniscan (gadodiamide) contrast infused MR angiography (single exam dose) was perf ormed with digital subtraction. The data was postprocessed with a variety of visualization algorithm s including full-volume maximum-intensity projection, multiplanar sliding thin slab reformation, and curved planar reformation. FINDINGS: The abdominal aorta and iliacs are widely patent. Looking at the aortic visceral vessels, t he celiac and SMA are widely patent. The GREGORIO is patent. Widely patent single renal arteries are prese nt bilaterally. Elsewhere on the exam, note is again made of changes of acute and chronic pancreatitis with large lob ular pseudocyst collections. Chronic occlusion of the splenic vein with large perigastric collateral vessels. Stable small hyperintense lesion in the right lobe of the liver and stable cyst in the left lobe. CONCLUSION: No evidence of mesenteric arterial stenosis. Electronically signed by: Thom Dewitt MD 05/16/2018 4:36 PM EDT
--- NOTE | 2018-05-16 17:18 | HHI.GIFU ---
Subjective Remarks Pt is resting in bed, tolerating clears ok, states she has still has lower abd pain which different than her usual pain. Inquiring about pain meds (Fabrizio Mejias) Objective Vitals I&O Vital Signs Date Time Temp Pulse Resp B/P (MAP) Pulse Ox O2 Delivery O2 Flow Rate FiO2 05/16/18 16:59 05/16/18 15:04 05/16/18 12:00 98.2 85 18 162/85 (110) 96 05/16/18 11:59 05/16/18 08:00 97.7 94 18 170/ 96 05/16/18 03:42 98.4 92 16 156/88 (110) 94 05/16/18 00:30 98.4 88 16 144/87 (106) 96 05/15/18 20:30 98.1 86 16 171/90 (117) 98 I/O 05/15/18 05/15/18 05/15/18 05/16/18 05/16/18 05/16/18 07:00 15:00 23:00 07:00 15:00 23:00 Intake Total 518 ml 600 ml 1690 ml Balance 518 ml 600 ml 1690 ml Intake Oral 240 ml 600 ml 480 ml IV Total 278 ml 1210 ml # Voids 2 2 3 # Bowel Movements 0 Laboratory Laboratory Tests Test 05/16/18 07:48 White Blood Count 5.0 Red Blood Count 3.52 Hemoglobin 8.5 Hematocrit 27.4 Mean Corpuscular Volume 77.8 Mean Corpuscular Hemoglobin 24.1 Mean Corpuscular Hemoglobin Concent 31.0 Red Cell Distribution Width 24.4 Platelet Count 236 Mean Platelet Volume 7.5 Neutrophils (%) (Auto) 66.5 Lymphocytes (%) (Auto) 20.3 Monocytes (%) (Auto) 6.7 Eosinophils (%) (Auto) 5.1 Basophils (%) (Auto) 1.4 Neutrophils # (Auto) 3.4 Lymphocytes # (Auto) 1.0 Monocytes # (Auto) 0.3 Eosinophils # (Auto) 0.3 Basophils # (Auto) 0.1 CBC Comment DIFF FINAL Differential Comment Blood Urea Nitrogen 4 Creatinine 0.40 Random Glucose 80 Total Protein 6.4 Albumin 2.8 Calcium Level 8.2 Alkaline Phosphatase 139 Aspartate Amino Transf (AST/SGOT) 19 Alanine Aminotransferase (ALT/SGPT) 23 Total Bilirubin 0.2 Sodium Level 140 Potassium Level 3.2 Chloride Level 104 Carbon Dioxide Level 27.6 Anion Gap 8 Estimat Glomerular Filtration Rate 172 Imaging Last Impressions Abdomen MRI 05/16/18 0000 Signed Impressions: CONCLUSION: No evidence of mesenteric arterial stenosis. Abdomen/Pelvis CT 05/14/18 0000 Signed Impressions: CONCLUSION: 1. There are increased inflammatory changes surrounding the pancreas with incr eased peripancreatic fluid collection, as above. The fluid collection abuts the posterior gastric wall and proximal jejunum with associated wall thickening of the structures. Pancreas again demonstrates changes characteristic of chronic pancreatitis. 2. 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 3. Stable hepatic steatosis and mildly enlarged common bile duct in this patie nt post cholecystectomy. The subtle low-attenuation area in the right lobe the liver remain stable. 4. Increased free fluid in the abdomen and pelvis. 5. The 10 mm right lower lobe nodule has been stable since at least the most recent prior examination. Suggest attention to this at follow-up imaging. Physical Exam HEENT: normocephalic; atraumatic; no jaundice. CHEST: Chest is clear to auscultation and percussion. CARDIAC: Regular rate and rhythm with no murmur gallop or rubs. ABDOMEN: Soft, nondistended, diffused tenderness; bowel sounds are present in all four quadrants. EXTREMITIES: No clubbing, cyanosis, or edema. SKIN: Normal; no rash; no jaundice. TUBE WRAPPER: No focal deficits; alert and oriented times three. (Fabrizio Mejias) Assessment and Plan Plan 47-year-old female admitted to the hospital on 625 with acute on chronic pancreatitis and fatty liver disease patient notes EGD colonoscopy approximately 4 months ago. She also notes some complications in the past with cyst and abscess.. Patient states only occasional alcohol 1 drink back several weeks ago. Current labs show hemoglobin 11 lipase level 533, normal LFTs, and alkaline phosphatase 178. Cholecystectomy approximately 4 years ago Patient states she has not eat or drink anything substantial for the past 4 days and would like to trial some liquids. Patient has also noted that she has been on Creon but her prescription has not been refilled recently. Patient does take narcotics for chronic pain. Discussion was around health maintenance and dietary habits. Patient states that she has been eating clean and home-cooked food for this past year she also notes 3 hernias which her PCP are monitoring, 1 of them is umbilical. No known family history of colon cancer. Anemia no obvious bleeding noted current hemoglobin 11. This is probably chronic Diarrhea, will make sure patient is back on her Creon and monitor for any bleeding. Unspecified but could be related to her pancreatitis. CT scan noted this admission with increased inflammatory changes surrounding the pancreas and increased peripancreatic fluid collection the fluid collection abuts to the posterior gastric wall and proximal jejunum and associated wall thickening of the structures appearance gives chronic pancreatitis characteristics. Increased free fluid in the abdomen and pelvis A 10 mm right lower lobe nodule has been stable since the previous exam stable hepatic steatosis and mildly enlarged common bile duct status post cholecystectomy. 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 Creon Supportive care Further recommendations to follow Patient was seen per myself and Dr. Pink (Fabrizio Mejias) Physician Comments Seen and examined with RACHEL, still with abdominal pain. Liquid diet. (Nahomi Pink MD) Fabrizio Mejias May 16, 2018 17:18 Nahomi Pink MD May 17, 2018 12:15
[2018-05-16 20:50] VITALS: BP 163/90; PULSE 85; RESP 16; TEMP 98.8; O2SAT 95
[2018-05-16] MEDS ORDERED: TEMAZEPAM 15 MG CAP PO ONE (21:30)
[2018-05-17] VITALS (7 sets, daily range): BP systolic 141–180; BP diastolic 87–104; PULSE 89–97; RESP 16–18; TEMP 98–98.7; O2SAT 94–98
[2018-05-17] MEDS: ACETAMINOPHEN/HYDROcodone 325 MG/5 MG TAB PO PRN ×6 (01:49→22:31)
[2018-05-17 05:15] LABS: BICARBONATE 28.2 MEQ/L (21.0-32.0); CALCIUM 8.7 MG/DL (8.5-10.1); CREATININE 0.34 MG/DL (0.50-1.00)
[2018-05-17] MEDS: ONDANSETRON HCL 4 MG/2 ML VIAL IVP PRN ×4 (05:27→23:47)
[2018-05-17] MEDS: POTASSIUM CHLORIDE 20 MEQ CONTROLLED RELEASE TAB PO SCH (08:16)
[2018-05-17] MEDS: DOCUSATE SODIUM 50 MG/SENNA 8.6 MG TAB PO SCH ×3 (08:16→23:37)
[2018-05-17] MEDS: MORPHINE SULFATE 4 MG/ML INJ IM PRN ×3 (08:17→15:02)
[2018-05-17] MEDS: REMOVE OLD PATCH T-DERMAL SCH (08:19)
[2018-05-17] MEDS: NICOTINE 21 MG/24 HR PATCH T-DERMAL SCH (08:20)
[2018-05-17] MEDS: LIPASE/PROTEASE/AMYLASE (12,000/38,000/60,000) CAP PO SCH ×3 (08:37→18:03)
[2018-05-17] MEDS: SODIUM CHLORIDE 0.9% FLUSH 10 ML FLUSH IV FLUSH SCH ×2 (09:00→20:52)
--- NOTE | 2018-05-17 10:46 | HHI.GIFU ---
Subjective Remarks Pt is resting in bed, had one episode of vomiting yesterday, now having upper abd pain. No bleeding reported (Magalie,Fabrizio SENIOR SERVICE AIDE) Objective Vitals I&O Vital Signs Date Time Temp Pulse Resp B/P (MAP) Pulse Ox O2 Delivery O2 Flow Rate FiO2 05/17/18 04:45 98.4 97 16 143/93 (110) 94 05/17/18 00:50 98.2 97 16 147/92 (110) 94 05/16/18 20:50 98.8 85 16 163/90 (114) 95 05/16/18 16:59 05/16/18 16:00 98.2 85 18 162/85 (110) 96 05/16/18 15:04 05/16/18 12:00 98.2 85 18 162/85 (110) 96 05/16/18 11:59 I/O 05/16/18 05/16/18 05/16/18 05/17/18 05/17/18 05/17/18 06:59 14:59 22:59 06:59 14:59 22:59 Intake Total 1690 ml 1300 ml 720 ml Balance 1690 ml 1300 ml 720 ml Intake Oral 480 ml 600 ml 720 ml IV Total 1210 ml 700 ml # Voids 3 3 # Bowel Movements 0 0 Laboratory Laboratory Tests Test 05/17/18 03:53 Blood Urea Nitrogen 5 Creatinine 0.34 Random Glucose 92 Calcium Level 8.7 Sodium Level 139 Potassium Level 3.5 Chloride Level 104 Carbon Dioxide Level 28.2 Anion Gap 7 Estimat Glomerular Filtration Rate 207 Imaging Last Impressions Abdomen MRI 05/16/18 0000 Signed Impressions: CONCLUSION: No evidence of mesenteric arterial stenosis. Abdomen/Pelvis CT 05/14/18 0000 Signed Impressions: CONCLUSION: 1. There are increased inflammatory changes surrounding the pancreas with incr eased peripancreatic fluid collection, as above. The fluid collection abuts the posterior gastric wall and proximal jejunum with associated wall thickening of the structures. Pancreas again demonstrates changes characteristic of chronic pancreatitis. 2. 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 3. Stable hepatic steatosis and mildly enlarged common bile duct in this patie nt post cholecystectomy. The subtle low-attenuation area in the right lobe the liver remain stable. 4. Increased free fluid in the abdomen and pelvis. 5. The 10 mm right lower lobe nodule has been stable since at least the most recent prior examination. Suggest attention to this at follow-up imaging. Physical Exam HEENT: normocephalic; atraumatic; no jaundice. CHEST: Chest is clear to auscultation and percussion. CARDIAC: Regular rate and rhythm with no murmur gallop or rubs. ABDOMEN: Soft, nondistended, diffused tenderness; bowel sounds are present in all four quadrants. EXTREMITIES: No clubbing, cyanosis, or edema. SKIN: Normal; no rash; no jaundice. HOISTING ENGINE OPERATOR: No focal deficits; alert and oriented times three. (Fabrizio Mejias) Assessment and Plan Plan 47-year-old female admitted to the hospital on 625 with acute on chronic pancreatitis and fatty liver disease patient notes EGD colonoscopy approximately 4 months ago. She also notes some complications in the past with cyst and abscess.. Patient states only occasional alcohol 1 drink back several weeks ago. Current labs show hemoglobin 11 lipase level 533, normal LFTs, and alkaline phosphatase 178. Cholecystectomy approximately 4 years ago Patient states she has not eat or drink anything substantial for the past 4 days and would like to trial some liquids. Patient has also noted that she has been on Creon but her prescription has not been refilled recently. Patient does take narcotics for chronic pain. Discussion was around health maintenance and dietary habits. Patient states that she has been eating clean and home-cooked food for this past year she also notes 3 hernias which her PCP are monitoring, 1 of them is umbilical. No known family history of colon cancer. Anemia no obvious bleeding noted current hemoglobin 11. This is probably chronic Diarrhea, will make sure patient is back on her Creon and monitor for any bleeding. Unspecified but could be related to her pancreatitis. CT scan noted this admission with increased inflammatory changes surrounding the pancreas and increased peripancreatic fluid collection the fluid collection abuts to the posterior gastric wall and proximal jejunum and associated wall thickening of the structures appearance gives chronic pancreatitis characteristics. Increased free fluid in the abdomen and pelvis A 10 mm right lower lobe nodule has been stable since the previous exam stable hepatic steatosis and mildly enlarged common bile duct status post cholecystectomy. 05/17/18 having upper abd pain. decline in hgb yesterday, today labs pending, no bleeding reported, lipase with slight elevation, today still pending She is (+) for NSAIDs MRA negative.She had an EUS 10/09/[address] Chaney found chronic pancreatitis , dilated CBD, pancreatic pseudocyst connecting to pancreatic duct She is s/p ex lap with Dr Ellis to remove pancreatic abscess last yr patient notes EGD colonoscopy approximately 4 months ago. Cholecystectomy approximately 4 years ago Plan Low fat diet Await labs today Consider EGD to r/o PUD PPI Monitor hh Cont. Creon Supportive care Further recommendations to follow Patient was seen per myself and Dr. Pink (Fabrizio Mejias) Physician Comments Seen and examined with SENIOR SERVICE AIDE, pain probably from pancreatitis but egd scheduled for tomorrow to R/O other etiologies. Discussed with pt. (Nahomi Pink MD) Fabrizio Mejias May 17, 2018 10:46 Nahomi Pink MD May 17, 2018 16:50
[2018-05-17 10:57] LABS: AUTOMATED NEUTROPHIL # 3.7 TH/MM3 (1.8-7.7); BASOPHIL # 0.1 TH/MM3 (0-0.2); EOSINOPHIL # 0.2 TH/MM3 (0-0.4); EOSINOPHIL % 3.5 % (0.0-4.0); HEMATOCRIT 30.4 % (35.0-46.0); HEMOGLOBIN 9.6 GM/DL (11.6-15.3); LYMPH % 21.7 % (9.0-44.0); LYMPHOCYTE # 1.2 TH/MM3 (1.0-4.8); MEAN CELL VOLUME 76.9 FL (80.0-100.0); MEAN CORPUSCULAR HEMOGLOBIN 24.4 PG (27.0-34.0); MEAN CORPUSCULAR HGB CONC 31.8 % (32.0-36.0); MEAN PLATELET VOLUME 7.4 FL (7.0-11.0); MONO % 6.8 % (0.0-8.0); MONOCYTE # 0.4 TH/MM3 (0-0.9); PLATELET COUNT 276 TH/MM3 (150-450); RED BLOOD COUNT 3.95 MIL/MM3 (4.00-5.30); RED CELL DISTRIBUTION WIDTH 23.9 % (11.6-17.2); WHITE BLOOD COUNT 5.5 TH/MM3 (4.0-11.0)
[2018-05-17 11:13] LABS: BICARBONATE 25.6 MEQ/L (21.0-32.0); CALCIUM 8.9 MG/DL (8.5-10.1); CREATININE 0.4 MG/DL (0.50-1.00)
[2018-05-17] MEDS: PANTOPRAZOLE SOD 40 MG DELAYED RELEASE TAB PO SCH (12:00)
--- NOTE | 2018-05-17 16:10 | HHI.PR ---
Subjective Remarks Follow-up visit chronic pancreatitis, chronic back pain. Patient seen and examined today. Continues to require [place] and Morphine. States that she continues to have diffuse abdominal pain, tenderness especially to palpation. Objective Vitals Vital Signs Date Time Temp Pulse Resp B/P (MAP) Pulse Ox O2 Delivery O2 Flow Rate FiO2 05/17/18 12:00 98.0 95 16 180/104 (129) 96 05/17/18 08:00 98.5 97 16 162/100 (120) 96 05/17/18 04:45 98.4 97 16 143/93 (110) 94 05/17/18 00:50 98.2 97 16 147/92 (110) 94 05/16/18 20:50 98.8 85 16 163/90 (114) 95 05/16/18 16:59 I/O 05/16/18 05/16/18 05/16/18 05/17/18 05/17/18 05/17/18 07:00 15:00 23:00 07:00 15:00 23:00 Intake Total 1690 ml 1300 ml 720 ml Balance 1690 ml 1300 ml 720 ml Intake Oral 480 ml 600 ml 720 ml IV Total 1210 ml 700 ml # Voids 3 3 # Bowel Movements 0 0 Result Diagram: 05/17/18 0955 05/17/18 0955 Other Results Laboratory Tests Test 05/14/18 17:50 05/16/18 07:48 05/17/18 03:53 05/17/18 09:55 White Blood Count 10.5 TH/MM3 5.0 TH/MM3 5.5 TH/MM3 Red Blood Count 4.55 MIL/MM3 3.52 MIL/MM3 3.95 MIL/MM3 Hemoglobin 11.0 GM/DL 8.5 GM/DL 9.6 GM/DL Hematocrit 34.9 % 27.4 % 30.4 % Mean Corpuscular Volume 76.8 FL 77.8 FL 76.9 FL Mean Corpuscular Hemoglobin 24.1 PG 24.1 PG 24.4 PG Mean Corpuscular Hemoglobin Concent 31.3 % 31.0 % 31.8 % Red Cell Distribution Width 24.8 % 24.4 % 23.9 % Platelet Count 336 TH/MM3 236 TH/MM3 276 TH/MM3 Mean Platelet Volume 7.5 FL 7.5 FL 7.4 FL Neutrophils (%) (Auto) 74.2 % 66.5 % 67.0 % Lymphocytes (%) (Auto) 15.8 % 20.3 % 21.7 % Monocytes (%) (Auto) 6.4 % 6.7 % 6.8 % Eosinophils (%) (Auto) 2.6 % 5.1 % 3.5 % Basophils (%) (Auto) 1.0 % 1.4 % 1.0 % Neutrophils # (Auto) 7.8 TH/MM3 3.4 TH/MM3 3.7 TH/MM3 Lymphocytes # (Auto) 1.7 TH/MM3 1.0 TH/MM3 1.2 TH/MM3 Monocytes # (Auto) 0.7 TH/MM3 0.3 TH/MM3 0.4 TH/MM3 Eosinophils # (Auto) 0.3 TH/MM3 0.3 TH/MM3 0.2 TH/MM3 Basophils # (Auto) 0.1 TH/MM3 0.1 TH/MM3 0.1 TH/MM3 CBC Comment AUTO DIFF DIFF FINAL DIFF FINAL Differential Comment AUTO DIFF CONFIRMED Platelet Estimate NORMAL Platelet Morphology Comment NORMAL Target Cells 1+ Stomatocytes 1+ Urine Color YELLOW Urine Turbidity HAZY Urine pH 6.0 Urine Specific [place] 1.013 Urine Protein NEG mg/dL Urine Glucose (UA) NEG mg/dL Urine Ketones TRACE mg/dL Urine Occult Blood NEG Urine Nitrite NEG Urine Bilirubin NEG Urine Urobilinogen 2.0 mg/dL Urine Leukocyte Esterase TRACE Urine RBC 2 /hpf Urine WBC 5 /hpf Urine Squamous Epithelial Cells 8 /hpf Urine Bacteria RARE /hpf Urine Mucus MANY /lpf Microscopic Urinalysis Comment CULT NOT INDICATED Blood Urea Nitrogen 7 MG/DL 4 MG/DL 5 MG/DL 5 MG/DL Creatinine 0.52 MG/DL 0.40 MG/DL 0.34 MG/DL 0.40 MG/DL Random Glucose 98 MG/DL 80 MG/DL 92 MG/DL 90 MG/DL Total Protein 7.5 GM/DL 6.4 GM/DL Albumin 3.2 GM/DL 2.8 GM/DL Calcium Level 8.8 MG/DL 8.2 MG/DL 8.7 MG/DL 8.9 MG/DL Alkaline Phosphatase 178 U/L 139 U/L Aspartate Amino Transf (AST/SGOT) 31 U/L 19 U/L Alanine Aminotransferase (ALT/SGPT) 27 U/L 23 U/L Total Bilirubin 0.4 MG/DL 0.2 MG/DL Sodium Level 136 MEQ/L 140 MEQ/L 139 MEQ/L 137 MEQ/L Potassium Level 3.6 MEQ/L 3.2 MEQ/L 3.5 MEQ/L 3.8 MEQ/L Chloride Level 101 MEQ/L 104 MEQ/L 104 MEQ/L 104 MEQ/L Carbon Dioxide Level 24.3 MEQ/L 27.6 MEQ/L 28.2 MEQ/L 25.6 MEQ/L Anion Gap 11 MEQ/L 8 MEQ/L 7 MEQ/L 7 MEQ/L Estimat Glomerular Filtration Rate 127 ML/MIN 172 ML/MIN 207 ML/MIN 172 ML/MIN Lipase 533 U/L 609 U/L 440 U/L Imaging Last Impressions Abdomen MRI 05/16/18 0000 Signed Impressions: CONCLUSION: No evidence of mesenteric arterial stenosis. Abdomen/Pelvis CT 05/14/18 0000 Signed Impressions: CONCLUSION: 1. There are increased inflammatory changes surrounding the pancreas with incr eased peripancreatic fluid collection, as above. The fluid collection abuts the posterior gastric wall and proximal jejunum with associated wall thickening of the structures. Pancreas again demonstrates changes characteristic of chronic pancreatitis. 2. 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 3. Stable hepatic steatosis and mildly enlarged common bile duct in this patie nt post cholecystectomy. The subtle low-attenuation area in the right lobe the liver remain stable. 4. Increased free fluid in the abdomen and pelvis. 5. The 10 mm right lower lobe nodule has been stable since at least the most recent prior examination. Suggest attention to this at follow-up imaging. Objective Remarks GENERAL: This is a well-nourished, well-developed patient, in no apparent distress. CARDIOVASCULAR: Regular rate and rhythm RESPIRATORY: Clear to auscultation. Breath sounds equal bilaterally. GASTROINTESTINAL: Abdomen soft, tenderness to palpation throughout abdomen, nondistended. Normal active bowel sounds MUSCULOSKELETAL: Extremities without clubbing, cyanosis, or edema. NEURO: Alert & Oriented x4 to person, place, time, situation. Moves all ext x4 A/P Assessment and Plan 47-year-old female with a past medical history significant for chronic pancreatitis and fatty liver presents to the emergency department complaining of abdominal pain. Acute exacerbation of chronic pancreatitis -Lipase mildly elevated at 533 -> 440 -CT of the abdomen/pelvis shows increased inflammatory changes surrounding the pancreas with increased peripancreatic fluid collection - Hgb 11.0 -> 8.5 -> 9.6 GI plan for EGD tomorrow to rule out peptic ulcer disease -Gastroenterology consulted, appreciate assistance. Plan for EGD tomorrow and patient will be n.p.o. after midnight -GI advance diet to heart healthy. -Abdominal MRI reviewed in conclusion no evidence of mesenteric arterial stenosis -IV fluid hydration Fatty liver -CT of the abdomen/pelvis shows stable hepatic steatosis -Culture result with patient Tobacco abuse -Counseled. Nicotine patch DVT prop, ambulatory, SCDs Case discussed with nursing, patient and supervising physician Madiha Alba May 17, 2018 16:10
[2018-05-17] MEDS: MORPHINE SULFATE 4 MG/ML INJ IV PRN ×2 (19:12→23:34)
[2018-05-17] MEDS: SODIUM CHLOR 0.9% 1000 ML INJ 1,000 ML IV SCH (20:01)
[2018-05-17] MEDS ORDERED: TEMAZEPAM 15 MG CAP PO PRN (21:00)
[2018-05-18] MEDS: ACETAMINOPHEN/HYDROcodone 325 MG/5 MG TAB PO PRN ×3 (02:48→14:33)
[2018-05-18 03:00] VITALS: BP 175/94; PULSE 93; RESP 18; TEMP 98.6; O2SAT 97
[2018-05-18] MEDS: cloNIDine HCL 0.1 MG TAB PO PRN ×2 (04:39→15:57)
[2018-05-18] MEDS: MORPHINE SULFATE 4 MG/ML INJ IV PRN ×2 (06:11→12:40)
[2018-05-18 07:41] LABS: AUTOMATED NEUTROPHIL # 3.4 TH/MM3 (1.8-7.7); BASOPHIL # 0.1 TH/MM3 (0-0.2); BASOPHIL % 1.4 % (0.0-2.0); EOSINOPHIL # 0.2 TH/MM3 (0-0.4); EOSINOPHIL % 3.9 % (0.0-4.0); HEMATOCRIT 28.8 % (35.0-46.0); HEMOGLOBIN 9.1 GM/DL (11.6-15.3); LYMPH % 25.1 % (9.0-44.0); LYMPHOCYTE # 1.4 TH/MM3 (1.0-4.8); MEAN CELL VOLUME 76.5 FL (80.0-100.0); MEAN CORPUSCULAR HEMOGLOBIN 24.1 PG (27.0-34.0); MEAN CORPUSCULAR HGB CONC 31.5 % (32.0-36.0); MEAN PLATELET VOLUME 7.1 FL (7.0-11.0); MONO % 7.3 % (0.0-8.0); MONOCYTE # 0.4 TH/MM3 (0-0.9); NEUT % 62.3 % (16.0-70.0); PLATELET COUNT 260 TH/MM3 (150-450); RED BLOOD COUNT 3.77 MIL/MM3 (4.00-5.30); RED CELL DISTRIBUTION WIDTH 24.4 % (11.6-17.2); WHITE BLOOD COUNT 5.5 TH/MM3 (4.0-11.0)
[2018-05-18 08:00] VITALS: BP 129/87; PULSE 84; RESP 16; TEMP 98.6; O2SAT 98
[2018-05-18 08:03] LABS: ALBUMIN 2.9 GM/DL (3.4-5.0); AST (GOT) 12 U/L (15-37); BLOOD UREA NITROGEN 9 MG/DL (7-18); CALCIUM 8.8 MG/DL (8.5-10.1); CHLORIDE 103 MEQ/L (98-107); CREATININE 0.42 MG/DL (0.50-1.00); GLOMERULAR FILTRATION RATE 162 ML/MIN (>89); GLUCOSE,RANDOM 98 MG/DL (74-106); SODIUM (NA) 138 MEQ/L (136-145)
[2018-05-18 08:06] LABS: ALKALINE PHOSPHATASE 122 U/L (45-117); ALT (GPT) 15 U/L (10-53); TOTAL BILIRUBIN ADULT 0.3 MG/DL (0.2-1.0); TOTAL PROTEIN 6.6 GM/DL (6.4-8.2)
[2018-05-18] MEDS: DOCUSATE SODIUM 50 MG/SENNA 8.6 MG TAB PO SCH (09:00)
[2018-05-18] MEDS: REMOVE OLD PATCH T-DERMAL SCH (09:00)
[2018-05-18] MEDS: PANTOPRAZOLE SOD 40 MG DELAYED RELEASE TAB PO SCH (09:00)
[2018-05-18] MEDS: LIPASE/PROTEASE/AMYLASE (12,000/38,000/60,000) CAP PO SCH ×2 (09:00→12:39)
[2018-05-18] MEDS: NICOTINE 21 MG/24 HR PATCH T-DERMAL SCH (09:00)
[2018-05-18] MEDS: POTASSIUM CHLORIDE 20 MEQ CONTROLLED RELEASE TAB PO SCH (09:00)
[2018-05-18] MEDS: SODIUM CHLORIDE 0.9% FLUSH 10 ML FLUSH IV FLUSH SCH (09:00)
[2018-05-18 10:41] LABS: % SATURATION IRON PROFILE 3.6 % (20-50); IRON (FE) 18 MCG/DL (50-170); TOTAL IRON BINDING CAPACITY 501 MCG/DL (250-450)
[2018-05-18] MEDS ORDERED: POVIDONE IODINE 5% (ANTISEPSIS KIT) 4 APPLICATIONS EACH NARE PRN (11:45)
[2018-05-18] MEDS ORDERED: CHLORHEXIDINE GLUCONATE 2 % 1 PACK (2 CLOTHS) TOPICAL PRN (11:45)
[2018-05-18] MEDS ORDERED: LACTATED RINGER'S 1000 ML IV PRN (11:45)
[2018-05-18] MEDS ORDERED: SODIUM CHLORID 0.9% 500 ML IV PRN (11:45)
[2018-05-18] MEDS ORDERED: METOPROLOL TARTRATE 25 MG TAB PO PRN (11:45)
--- NOTE | 2018-05-18 11:47 | GIPROC ---
[facility] [address] [facility]. [facility], [address] EGD PROCEDURE REPORT EXAM DATE: 05/18/2018 PATIENT NAME: Yari Martin MR #: [id number] BIRTHDATE: 1970 ATTENDING: Nahomi Pink MD ORDER #: [id number] CAR SHAGGER: Jermain Alvarado and Sherrie Webb STATUS: inpatient INDICATIONS: The patient is a 47 yr old female here for an EGD due to epigastric abdominal pain PROCEDURE PERFORMED: EGD w/ biopsy MEDICATIONS: None and Per Anesthesia. TOPICAL ANESTHETIC: CONSENT: The patient understands the risks and benefits of the procedure and understands that these risks include, but are not limited to: sedation, allergic reaction, infection, perforation and/or bleeding. Alternative means of evaluation and treatment include, among others: physical exam, x-rays, and/or surgical intervention. The patient elects to proceed with this endoscopic procedure. medical equipment was checked for proper function. Hand hygiene and appropriate measures for infection prevention was taken. After the risks, benefits and alternatives of the procedure were thoroughly explained, Informed consent was verified, confirmed and timeout was successfully executed by the treatment team. The patient was anesthetized with topical anesthesia and the [employer] [id number] endoscope was introduced through the mouth and advanced to the second portion of the duodenum. Retroflexed views revealed no abnormalities The gastroscope was then slowly withdrawn and removed. ESOPHAGUS: There was LA Class A esophagitis noted. A biopsy was performed using cold forceps. Sample sent for histology. STOMACH: There was erythematous moderate gastritis in the gastric antrum. A biopsy was performed using cold forceps. Sample sent for histology. DUODENUM: The duodenal mucosa appeared normal in the bulb and second portion of the duodenum. ADVERSE EVENTS: There were no complications. IMPRESSIONS: 1. There was LA Class A esophagitis noted; biopsy was performed 2. There was erythematous gastritis in the gastric antrum; biopsy was performed 3. Normal duodenal mucosa in the bulb and second portion of the duodenum 4. Retroflexed views revealed no abnormalities RECOMMENDATIONS: 1. Await biopsy results. Biopsy results will not be ready for 7-10 days. If you don't hear from us in two weeks, call our office for biopsy results. 2. Anti-reflux regimen 3. Continue PPI 4. Follow-up: GI clinic 2 week(s) PATIENT CONDITION: stable DISPOSITION: Inpatient REPEAT EXAM: Return 1 year EGD pending biopsy results Nahomi Pink MD eSigned: Nahomi Pink MD 05/18/2018 11:46 AM cc: PATIENT NAME: Yari Martin MR#: [id number]
[2018-05-18 11:52] VITALS: BP 120/80; PULSE 90; RESP 16; TEMP 97.3; O2SAT 97
[2018-05-18] MEDS ORDERED: PROPOFOL 200 MG/20 ML AMP IV ONE (12:00)
[2018-05-18] MEDS: ONDANSETRON HCL 4 MG/2 ML VIAL IVP PRN (12:40)
[2018-05-18] MEDS ORDERED: NICO14DI23 T-DERMAL (15:21)
[2018-05-18] MEDS ORDERED: POTA20TA5 PO (15:21)
[2018-05-18] MEDS ORDERED: CREON12 PO (15:21)
[2018-05-18] MEDS ORDERED: OXYC1TAB63 PO (15:21)
[2018-05-18] MEDS ORDERED: PANT40TA3 PO (15:21)
[2018-05-18] MEDS ORDERED: ZOFR4TAB3 SL (15:21)
--- NOTE | 2018-05-18 15:36 | HHI.DS ---
Discharge Summary Admission Date May 14, 2018 at 22:43 Discharge Date: May 18, 2018 Admitting Diagnosis Acute on chronic pancreatitis (1) Acute on chronic pancreatitis ICD Code: K85.90 - Acute pancreatitis without necrosis or infection, unspecified; K86.1 - Other chronic pancreatitis Status: Acute Procedures EGD 05/18/[address] Pink Brief History - From Admission 47-year-old female with a past medical history significant for chronic pancreatitis and fatty liver presents to the emergency department complaining of abdominal pain. The patient reports she has bilateral lower abdominal pain that radiates to her bilateral lower back. She also complains of epigastric pain that is nonradiating. She states that the pain is different than her normal pancreatitis pain. She endorses nausea and diarrhea without vomiting. She endorses a subjective fever. No chest pain or shortness of breath. CBC/BMP: 05/18/18 0702 05/18/18 0702 Significant Findings Laboratory Tests Test 05/16/18 07:48 05/17/18 03:53 05/17/18 09:55 05/18/18 07:02 Red Blood Count 3.52 MIL/MM3 (4.00-5.30) 3.95 MIL/MM3 (4.00-5.30) 3.77 MIL/MM3 (4.00-5.30) Hemoglobin 8.5 GM/DL (11.6-15.3) 9.6 GM/DL (11.6-15.3) 9.1 GM/DL (11.6-15.3) Hematocrit 27.4 % (35.0-46.0) 30.4 % (35.0-46.0) 28.8 % (35.0-46.0) Mean Corpuscular Volume 77.8 FL (80.0-100.0) 76.9 FL (80.0-100.0) 76.5 FL (80.0-100.0) Mean Corpuscular Hemoglobin 24.1 PG (27.0-34.0) 24.4 PG (27.0-34.0) 24.1 PG (27.0-34.0) Mean Corpuscular Hemoglobin Concent 31.0 % (32.0-36.0) 31.8 % (32.0-36.0) 31.5 % (32.0-36.0) Red Cell Distribution Width 24.4 % (11.6-17.2) 23.9 % (11.6-17.2) 24.4 % (11.6-17.2) Eosinophils (%) (Auto) 5.1 % (0.0-4.0) Blood Urea Nitrogen 4 MG/DL (7-18) 5 MG/DL (7-18) 5 MG/DL (7-18) Creatinine 0.40 MG/DL (0.50-1.00) 0.34 MG/DL (0.50-1.00) 0.40 MG/DL (0.50-1.00) 0.42 MG/DL (0.50-1.00) Albumin 2.8 GM/DL (3.4-5.0) 2.9 GM/DL (3.4-5.0) Calcium Level 8.2 MG/DL (8.5-10.1) Alkaline Phosphatase 139 U/L (45-117) 122 U/L (45-117) Potassium Level 3.2 MEQ/L (3.5-5.1) Lipase 609 U/L (73-393) 440 U/L (73-393) 421 U/L (73-393) Aspartate Amino Transf (AST/SGOT) 12 U/L (15-37) Iron Level 18 MCG/DL (50-170) Total Iron Binding Capacity 501 MCG/DL (250-450) Percent Iron Saturation 3.6 % (20-50) Imaging Last Impressions Abdomen MRI 05/16/18 0000 Signed Impressions: CONCLUSION: No evidence of mesenteric arterial stenosis. Abdomen/Pelvis CT 05/14/18 0000 Signed Impressions: CONCLUSION: 1. There are increased inflammatory changes surrounding the pancreas with incr eased peripancreatic fluid collection, as above. The fluid collection abuts the posterior gastric wall and proximal jejunum with associated wall thickening of the structures. Pancreas again demonstrates changes characteristic of chronic pancreatitis. 2. 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 3. Stable hepatic steatosis and mildly enlarged common bile duct in this patie nt post cholecystectomy. The subtle low-attenuation area in the right lobe the liver remain stable. 4. Increased free fluid in the abdomen and pelvis. 5. The 10 mm right lower lobe nodule has been stable since at least the most recent prior examination. Suggest attention to this at follow-up imaging. PE at Discharge GENERAL: This is a well-nourished, well-developed patient, in no apparent distress. CARDIOVASCULAR: Regular rate and rhythm RESPIRATORY: Clear to auscultation. Breath sounds equal bilaterally. GASTROINTESTINAL: Abdomen soft, tenderness to palpation throughout abdomen, nondistended. Normal active bowel sounds MUSCULOSKELETAL: Extremities without clubbing, cyanosis, or edema. NEURO: Alert & Oriented x4 to person, place, time, situation. Moves all ext x4 Pt update on day of discharge Patient continues to c/o pain requesting IV pain medication Patient evaluated by myself and Dr. Abel together. Patient appears to have drug seeking behavior. E Force evaluated patient has received approximately 48 tablets of oxycodone/ hydrocodone this month previously Will DC patient home Hospital Course 47-year-old female with a past medical history significant for chronic pancreatitis and fatty liver presents to the emergency department complaining of abdominal pain. Acute exacerbation of chronic pancreatitis -Lipase mildly elevated at 533 -> 440 -> 421 -CT of the abdomen/pelvis shows increased inflammatory changes surrounding the pancreas with increased peripancreatic fluid collection - Hgb 11.0 -> 8.5 -> 9.6 -> 9.1 -Gastroenterology consulted, Dr. Cary, appreciate assistance. - S/P EGD 05/18/18 reveals: 1. There was LA Class A esophagitis noted; biopsy was performed 2. There was erythematous gastritis in the gastric antrum; biopsy was performed 3. Normal duodenal mucosa in the bulb and second portion of the duodenum 4. Retroflexed views revealed no abnormalities Recommendations per GI 1. Await biopsy results. Biopsy results will not be readyfor 7-10 days. If you don't hear from us in two weeks, call our office for biopsy results. 2. Anti-reflux regimen 3. Continue PPI 4. Follow-up: GI clinic 2 week(s) Return 1 year EGD pending biopsy results -tolerating PO intake -Abdominal MRI reviewed in conclusion NO evidence of mesenteric arterial stenosis -IV fluid hydration initially -discussed with GI RESTORATIVE ART EMBALMER Fabrizio Mejias cleared for DC home Fatty liver -CT of the abdomen/pelvis shows stable hepatic steatosis -discussed results with patient Tobacco abuse -Counseled. Nicotine patch DVT prop, ambulatory, SCDs Case discussed with nursing, patient and supervising physician Dr. Abel Pt Condition on Discharge: Stable Discharge Disposition: Discharge Home Discharge Time: > 30 minutes Discharge Instructions DIET: Follow Instructions for: Heart Healthy Diet, Low Fat Diet Activities you can perform: Regular-No Restrictions Follow up Referrals: Gastroenterology - 2 Weeks with Nahomi Pink MD PCP Follow-up - [address] العلي New Medications: Pancrelipase (Creon) 12,000-38,000-60,000 Units Cap 1 CAP PO TID for Pain Management, #90 CAP Pantoprazole (Pantoprazole) 40 Mg Tab 40 MG PO BID for Manage Heartburn, #60 TAB Potassium Chloride Microencaps (Potassium Chloride Microencaps) 20 Meq Tab 20 MEQ PO DAILY for Nutritional Supplement, #30 TAB Continued Medications: Nicotine (Eq Nicotine) 14 Mg/24 Hour Dis 1 PATCH T-DERMAL DAILY for nicotine dependent , #30 PATCH 0 Refills (This prescription has been renewed) Ondansetron Odt (Zofran Odt) 4 Mg Tab 4 MG SL Q6HR PRN for Nausea/Vomiting, #16 TAB 0 Refills (This prescription has been renewed) Oxycodone HCl/Acetaminophen (Oxycodone-Acetaminophen 5-325) 5 Mg-325 Mg Tablet 1 TAB PO Q4H PRN for pain, #20 TAB (This prescription has been renewed) Temazepam (Temazepam) 15 Mg Cap 15 MG PO HS PRN for INSOMNIA, #30 CAP 0 Refills Tramadol (Ultram) 50 Mg Tab 50 MG PO Q6H PRN for PAIN for 3 Days, #12 TAB 0 Refills Discontinued Medications: Ciprofloxacin (Cipro) 500 Mg Tab 500 MG PO BID for Infection for 5 Days, #10 TAB 0 Refills Pancrelipase (Creon) 12,000-38,000-60,000 Units Cap 1 CAP PO TID for pancreatitis, #90 CAP 0 Refills Potassium Chloride ER (Potassium Chloride ER) 20 Meq Tab 20 MEQ PO BID for Electrolyte Replacement, #10 TAB 0 Refills Madiha Adams May 18, 2018 15:35
--- NOTE | 2018-05-18 15:38 | HHI.DCPOC ---
Discharge Care Plan Diagnosis: (1) Esophagitis (2) Acute on chronic pancreatitis Goals to Promote Your Health * To prevent worsening of your condition and complications * To maintain your health at the optimal level Directions to Meet Your Goals Take your medications as prescribed Follow your dietary instruction Follow activity as directed Keep your appointments as scheduled Take your immunizations and boosters as scheduled If your symptoms worsen call your PCP, if no PCP go to Urgent Care Center or Emergency Room Smoking is Dangerous to Your Health. Avoid second hand smoke Call the 24-hour hour crisis hotline for domestic abuse at Madiha Adams May 18, 2018 15:38
[2018-05-18] MEDS ORDERED: PANTOPRAZOLE SOD 40 MG DELAYED RELEASE TAB PO SCH (21:00)
== END 2018-05-18 16:48 | disposition home or self-care (01) | DRG 440 ==
LOC: NEPD 12:47 → NEDA 22:43 → N06A 05-15 01:48
PROVIDERS: ADMIT Hospitalist; ATTEND Hospitalist
PROC: 0DB78ZX Excision of Stomach, Pylorus, Via Natural or Artificial Opening Endoscopic, Diagnostic (ICD-10-PCS; 2018-05-18)
PROC: 0DB58ZX Excision of Esophagus, Via Natural or Artificial Opening Endoscopic, Diagnostic (ICD-10-PCS; principal; 2018-05-18 11:30)
DX: K85.90 Acute pancreatitis without necrosis or infection, unspecified (principal); K76.0 Fatty (change of) liver, not elsewhere classified; I10 Essential (primary) hypertension; R10.13 Epigastric pain; K86.1 Other chronic pancreatitis; F17.210 Nicotine dependence, cigarettes, uncomplicated; G89.29 Other chronic pain; M54.9 Dorsalgia, unspecified; D64.9 Anemia, unspecified; K21.0 Gastro-esophageal reflux disease with esophagitis; K29.70 Gastritis, unspecified, without bleeding; K52.9 Noninfective gastroenteritis and colitis, unspecified; Z76.5 Malingerer [conscious simulation]; Z90.49 Acquired absence of other specified parts of digestive tract
CPT/HCPCS: 74177; 74183; 80048; 80053; 81001; 83540; 83550; 83690; 84703; 85025; 88305; 96374; 96375; A9579; C8900; J1885; J2060; J2270; J2405; J7030; Q9967